=== PATIENT | male | born 1965 | race Caucasian/White ===

== ENCOUNTER 2016-10-02 16:09 | Inpatient (IN) | payer MEDICARE, OTHER ==
[~2016-10-02] VITALS: Ht 175.3 cm; Wt 70.8 kg
[2016-10-02 16:10] VITALS: BP 140/87; PULSE 62; RESP 20; TEMP 97.8; O2SAT 100
--- NOTE | 2016-10-02 16:37 | PD ---
Physical Exam Date Seen by Provider: Oct 02, 2016 Time Seen by Provider: 16:34 Narrative 50 year old male with PMH of schizoaffective d/o, bipolar d/o, intellectual disability presents to the emergency department from [facility] for increased aggression. The police were called 6 times today regarding his aggressive behavior. He presents with an employee from [employer]. Vital signs reviewed. Patient awaiting bed placement. Data Data Last Documented VS Vital Signs Date Time Temp Pulse Resp B/P Pulse Ox O2 Delivery O2 Flow Rate FiO2 10/02/16 16:10 97.8 62 20 140/87 100 Room Air [facility] Supervised Visit with ROWAN: Qian Thornton Oct 02, 2016 16:37
--- NOTE | 2016-10-02 19:56 | PD ---
HPI . Aggressive behavior Chief Complaint: Psychiatric Symptoms Time Seen by Provider: 19:25 Travel History International Travel<30 days: No Contact w/Intl Traveler<30days: No Traveled to known affect area: No History of Present Illness HPI 50 year old male with PMH of schizoaffective d/o, bipolar d/o, intellectual disability presents to the emergency department from [facility] for increased aggression. The police were called 6 times today regarding his aggressive behavior. He presents with an employee from [employer]. [id number]: Mental SEVERITY: Severe DURATION: Today TIMING: Continuous CONTEXT: Patient [facility] in a penit[facility]iary. He has a history of schizoaffective disorder and bipolar disorder. ASSOCIATED SYMPTOMS: Violence towards others PFSH Social History Tobacco Use: No Allergies-Medications (Allergen,Severity, Reaction): Coded Allergies: No Known Allergies (Unverified , 10/02/16) Reported Meds & Prescriptions Reported Meds & Active Scripts Active Trazodone (Trazodone HCl) 150 Mg Tab 150 Mg PO HS Risperidone 3 Mg Tab 6 Mg PO DAILY Vitamin D (Ergocalciferol) 50,000 Unit Cap 50,000 Units PO Q7D Hydrochlorothiazide 25 Mg Tab 25 Mg PO DAILY Lotrisone Topical (Betamethasone/Clotrimazole) 1-0.05% Cream 1 Applic TOPICAL DAILY Zyrtec Allergy (Cetirizine HCl) 10 Mg Tab 10 Mg PO DAILY Amlodipine (Amlodipine Besylate) 5 Mg Tab 5 Mg PO DAILY Review of Systems ROS Limitations: Psychotic Except as stated in HPI: all other systems reviewed are Neg Physical Exam Narrative GENERAL: The patient is speaking but is making absolutely no sense. SKIN: Warm and dry. HEAD: Atraumatic. Normocephalic. EYES: Pupils equal and round. Extraocular movements are intact. ENT: No nasal bleeding or discharge. Mucous membranes pink and moist. NECK: Trachea midline. Neck is supple. CARDIOVASCULAR: Regular rate and rhythm. Heart sounds are normal. RESPIRATORY: No accessory muscle use. Lungs are clear with full air movement throughout. MUSCULOSKELETAL: No obvious deformities. No edema. NEUROLOGICAL: Awake and alert. No obvious cranial nerve deficits. Motor grossly within normal limits. Incomprehensible speech. PSYCHIATRIC: psychotic and poor judgment. Data Data Last Documented VS Vital Signs Date Time Temp Pulse Resp B/P Pulse Ox O2 Delivery O2 Flow Rate FiO2 10/03/16 11:29 98.0 68 20 111/83 98 10/03/16 06:28 Room Air Orders Complete Blood Count With Diff (10/02/16 19:25) Comprehensive Metabolic Panel (10/02/16 19:25) Psych Screen (10/02/16 19:25) Drug Screen, Random Urine (10/02/16 19:25) ^ Sitter (10/02/16 19:41) Potassium Chloride (Kcl) (10/02/16 21:00) Diet Regular Basic (10/03/16 Breakfast) Amlodipine (Norvasc) (10/03/16 10:30) Hydrochlorothiazide (Hydrodiuril) (10/03/16 10:30) Risperidone (Risperdal) (10/03/16 10:30) Diet Regular Basic (10/03/16 Lunch) Haloperidol Inj (Haldol Inj) (10/03/16 12:45) Diphenhydramine Inj (Benadryl Inj) (10/03/16 12:45) Admit Order (Ed Use Only) (10/03/16 ) Admit To Inpatient Psych (10/03/16 ) Code Status (10/03/16 14:20) Vital Signs (Adult) MARY.Q12H.E (10/03/16 14:20) Activity Oob Ad Ju (10/03/16 14:20) Level Of Observation (Psych) (10/03/16 14:20) Aims-Abnormal Invol Move Scale ONCE (10/03/16 14:20) Acetaminophen (Tylenol) (10/03/16 14:30) Magnesium Hydroxide Liq (Milk Of Magnesi (10/03/16 14:30) Al-Mag Hy-Si 40-40-4 Mg/Ml Liq (Mag-Al P (10/03/16 14:30) Basic Metabolic Panel (Bmp) (10/04/16 06:00) Lipid Profile (10/04/16 06:00) Hemoglobin (Hgb) A1c (10/04/16 06:00) Consult Hospitalist (10/03/16 ) Labs Laboratory Tests Test 10/02/16 10/02/16 20:10 20:15 White Blood Count 9.2 TH/MM3 Red Blood Count 4.84 MIL/MM3 Hemoglobin 14.6 GM/DL Hematocrit 42.6 % Mean Corpuscular Volume 88.1 FL Mean Corpuscular Hemoglobin 30.1 PG Mean Corpuscular Hemoglobin 34.2 % Concent Red Cell Distribution Width 13.6 % Platelet Count 254 TH/MM3 Mean Platelet Volume 8.1 FL Neutrophils (%) (Auto) 76.0 % Lymphocytes (%) (Auto) 15.4 % Monocytes (%) (Auto) 7.0 % Eosinophils (%) (Auto) 1.0 % Basophils (%) (Auto) 0.6 % Neutrophils # (Auto) 7.0 TH/MM3 Lymphocytes # (Auto) 1.4 TH/MM3 Monocytes # (Auto) 0.6 TH/MM3 Eosinophils # (Auto) 0.1 TH/MM3 Basophils # (Auto) 0.1 TH/MM3 CBC Comment DIFF FINAL Differential Comment Sodium Level 126 MEQ/L Potassium Level 3.2 MEQ/L Chloride Level 82 MEQ/L Carbon Dioxide Level 33.9 MEQ/L Anion Gap 10 MEQ/L Blood Urea Nitrogen 8 MG/DL Creatinine 1.08 MG/DL Estimat Glomerular Filtration 72 ML/MIN Rate Random Glucose 77 MG/DL Calcium Level 9.4 MG/DL Total Bilirubin 0.6 MG/DL Aspartate Amino Transf 32 U/L (AST/SGOT) Alanine Aminotransferase 22 U/L (ALT/SGPT) Alkaline Phosphatase 75 U/L Total Protein 8.3 GM/DL Albumin 4.8 GM/DL Magnesium Level 2.5 MG/DL Urine Opiates Screen NEG Urine Barbiturates Screen NEG Urine Amphetamines Screen NEG Urine Benzodiazepines Screen NEG Urine Cocaine Screen NEG Urine Cannabinoids Screen NEG MDM Medical Decision Making Medical Screen Exam Complete: Yes Emergency Medical Condition: Yes Differential Diagnosis Differential diagnosis includes but is not limited to acute psychosis, intoxication, behavioral disturbance Narrative Course Patient is brought to us ambulatory from the pen[facility]iary resident behavior. The police called 6 times today because of his aggressive behavior. She reports that he is threatening staff and was threatening other residents of the penitentiary. CBC & BMP Diagram 10/02/16 20:10 Tox screen is negative. Diagnosis Primary Impression: Psychosis Qualified Code: F25.9 - Schizoaffective disorder, unspecified type Scripts Trazodone 150 Mg [id number] Mg PO HS #30 TAB Ref 0 Prov:Ingrid Posadas MD 10/02/16 Risperidone 3 Mg Tab6 Mg PO DAILY #30 TAB Ref 0 Prov:Ingrid Posadas MD 10/02/16 Ergocalciferol (Vitamin D)50,000 Unit Cap50,000 Units PO Q7D #30 CAP Ref 0 Prov:Ingrid Posadas MD 10/02/16 Hydrochlorothiazide 25 Mg Tab25 Mg PO DAILY #30 TAB Ref 0 Prov:Ingrid Posadas MD 10/02/16 Betamethasone-Clotrimazole Topical (Lotrisone Topical)1-0.05% Cream1 Applic TOPICAL DAILY #15 GM Ref 0 Prov:Ingrid Posadas MD 10/02/16 Cetirizine (Zyrtec Allergy)10 Mg Tab10 Mg PO DAILY #30 TAB Ref 0 Prov:Ingrid Posadas MD 10/02/16 Amlodipine 5 Mg Tab5 Mg PO DAILY #30 TAB Ref 0 Prov:Ingrid Posadas MD 10/02/16 Condition: Stable Ingrid Posadas MD Oct 02, 2016 19:56
[2016-10-02 20:38] LABS: BASOPHIL # 0.1 TH/MM3 (0-0.2); BASOPHIL % 0.6 % (0.0-2.0); EOSINOPHIL # 0.1 TH/MM3 (0-0.4); HEMATOCRIT 42.6 % (39.0-51.0); HEMO FLAGS DIFF FINAL; LYMPH % 15.4 % (9.0-44.0); LYMPHOCYTE # 1.4 TH/MM3 (1.0-4.8); MEAN CELL VOLUME 88.1 FL (80.0-100.0); MEAN CORPUSCULAR HEMOGLOBIN 30.1 PG (27.0-34.0); MEAN CORPUSCULAR HGB CONC 34.2 % (32.0-36.0); PLATELET COUNT 254 TH/MM3 (150-450); RED BLOOD COUNT 4.84 MIL/MM3 (4.50-5.90); RED CELL DISTRIBUTION WIDTH 13.6 % (11.6-17.2); WHITE BLOOD COUNT 9.2 TH/MM3 (4.0-11.0)
[2016-10-02 20:45] LABS: AMPHETAMINE, URINE NEG (NEG); BARBITURATES, URINE NEG (NEG); COCAINE, URINE NEG (NEG)
[2016-10-02 20:56] LABS: ALKALINE PHOSPHATASE 75 U/L (45-117); ALT (GPT) 22 U/L (12-78); ANION GAP 10 MEQ/L (5-15); AST (GOT) 32 U/L (15-37); BICARBONATE 33.9 MEQ/L (21.0-32.0); BLOOD UREA NITROGEN 8 MG/DL (7-18); CHLORIDE 82 MEQ/L (98-107); GLOMERULAR FILTRATION RATE 72 ML/MIN (>89); POTASSIUM 3.2 MEQ/L (3.5-5.1); SODIUM (NA) 126 MEQ/L (136-145); TOTAL BILIRUBIN ADULT 0.6 MG/DL (0.2-1.0)
[2016-10-02] MEDS ORDERED: POTASSIUM CHLORIDE 20 MEQ CONTROLLED RELEASE TAB PO ONE (21:00)
[2016-10-02] MEDS ORDERED: RISP3TAB2 PO (21:08)
[2016-10-02] MEDS ORDERED: ERGO1CAP10 PO (21:08)
[2016-10-02] MEDS ORDERED: HYDR25TA5 PO (21:08)
[2016-10-02] MEDS ORDERED: TRAZ150T75 PO (21:08)
[2016-10-02] MEDS ORDERED: ZYRT10TA PO (21:08)
[2016-10-02] MEDS ORDERED: AMLO5TAB2 PO (21:08)
[2016-10-02] MEDS ORDERED: LOTR15T TOPICAL (21:08)
[2016-10-02 22:52] VITALS: BP 136/93; PULSE 60; RESP 18; O2SAT 97
[2016-10-03 02:37] VITALS: BP 121/72; PULSE 54; RESP 18; O2SAT 99
[2016-10-03 06:28] VITALS: BP 140/78; PULSE 48; RESP 18; O2SAT 97
[2016-10-03] MEDS: amLODIPine BESYLATE 5 MG TAB PO SCH (10:30)
[2016-10-03] MEDS ORDERED: HYDROCHLOROTHIAZIDE 25 MG TAB PO SCH (10:30)
[2016-10-03 11:29] VITALS: BP 111/83; PULSE 68; RESP 20; TEMP 98; O2SAT 98
[2016-10-03] MEDS: risperiDONE 3 MG TAB PO SCH (12:40)
[2016-10-03] MEDS ORDERED: diphenhydrAMINE HCL 50 MG/ML VIAL IM PRN (12:45)
[2016-10-03] MEDS ORDERED: HALOPERIDOL LACTATE 5 MG/ML AMP IM ONE (12:45)
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
[2016-10-03] MEDS ORDERED: MAGNESIUM HYDROXIDE SUSP 30 ML CUP PO PRN (14:30)
[2016-10-03] MEDS ORDERED: ALUMINUM/MAGNESIUM/SIMETH 30 ML CUP PO PRN (14:30)
[2016-10-03] MEDS ORDERED: ACETAMINOPHEN 325 MG TAB PO PRN (14:30)
--- NOTE | 2016-10-03 15:11 | PD.CONS ---
HPI Service [facility] Hospitalists Consult Requested By Psychiatry Reason for Consult Hypokalemia and hyponatremia Primary Care Physician Non-Staff Diagnoses: History of Present Illness This is a 50-year-old male with history of hypertension and allergies presenting to the hospital Zhang acted after being belligerent in his facility. Patient is a very poor story in, schizophrenic. Not psychotic at this point but very poor historian. He denies any chest pain, shortness of breath, nausea , vomiting or dizziness. Oral intake allegedly is normal. No diarrhea. Review of Systems ROS Limitations: Poor Historian Past Family Social History Allergies: Coded Allergies: No Known Allergies (Unverified , 10/02/16) Past Medical History Hypertension No history of diabetes or heart problems Past Surgical History No known surgery Reported Medications Trazodone (Trazodone HCl) 150 Mg Tab 150 Mg PO HS Risperidone 3 Mg Tab 6 Mg PO DAILY Vitamin D (Ergocalciferol) 50,000 Unit Cap 50,000 Units PO Q7D Hydrochlorothiazide 25 Mg Tab 25 Mg PO DAILY Lotrisone Topical (Betamethasone/Clotrimazole) 1-0.05% Cream 1 Applic TOPICAL DAILY Zyrtec Allergy (Cetirizine HCl) 10 Mg Tab 10 Mg PO DAILY Amlodipine (Amlodipine Besylate) 5 Mg Tab 5 Mg PO DAILY Family History Allegedly no history of diabetes or heart problems Social History Smokes about 1 cigarette a day, and does not drink alcohol. Physical Exam Vital Signs Vital Signs Date Time Temp Pulse Resp B/P Pulse Ox O2 Delivery O2 Flow Rate FiO2 10/03/16 11:29 98.0 68 20 111/83 98 10/03/16 06:28 48 18 140/78 97 Room Air 10/03/16 02:37 54 18 121/72 99 10/02/16 22:52 60 18 136/93 97 10/02/16 16:10 97.8 62 20 140/87 100 Room Air Physical Exam Not in distress, unkempt, cachectic. PERRL, pink conjunctiva without injection, anicteric Nose without bleeding, airway patent, poor dentition, dry oral mucosa. Supple neck, trachea is midline. Normal rate and regular rhythm, no murmurs gallops or rubs appreciated. Decreased breath sounds bilaterally, no wheezing or crackles. Normal bowel sounds, soft, non-tender, nondistended, no guarding. Extremities without clubbing, cyanosis, or edema. Alert, awake, oriented to self and place but not to time, moves extremities. No focal deficits. Laboratory Laboratory Tests Test 10/02/16 10/02/16 20:10 20:15 White Blood Count 9.2 Red Blood Count 4.84 Hemoglobin 14.6 Hematocrit 42.6 Mean Corpuscular Volume 88.1 Mean Corpuscular Hemoglobin 30.1 Mean Corpuscular Hemoglobin 34.2 Concent Red Cell Distribution Width 13.6 Platelet Count 254 Mean Platelet Volume 8.1 Neutrophils (%) (Auto) 76.0 Lymphocytes (%) (Auto) 15.4 Monocytes (%) (Auto) 7.0 Eosinophils (%) (Auto) 1.0 Basophils (%) (Auto) 0.6 Neutrophils # (Auto) 7.0 Lymphocytes # (Auto) 1.4 Monocytes # (Auto) 0.6 Eosinophils # (Auto) 0.1 Basophils # (Auto) 0.1 CBC Comment DIFF FINAL Differential Comment Sodium Level 126 Potassium Level 3.2 Chloride Level 82 Carbon Dioxide Level 33.9 Anion Gap 10 Blood Urea Nitrogen 8 Creatinine 1.08 Estimat Glomerular Filtration 72 Rate Random Glucose 77 Calcium Level 9.4 Total Bilirubin 0.6 Aspartate Amino Transf 32 (AST/SGOT) Alanine Aminotransferase 22 (ALT/SGPT) Alkaline Phosphatase 75 Total Protein 8.3 Albumin 4.8 Urine Opiates Screen NEG Urine Barbiturates Screen NEG Urine Amphetamines Screen NEG Urine Benzodiazepines Screen NEG Urine Cocaine Screen NEG Urine Cannabinoids Screen NEG Result Diagram: 10/02/16200910/02/162009 Assessment and Plan Assessment and Plan This is a 50-year-old male with history of hypertension admitted at the psychiatry unit for schizophrenia and Zhang acted Hypertension-restart Norvasc, hold hydrochlorothiazide because of hyponatremia. Clonidine as needed Hyponatremia as above, hold hydrochlorothiazide, recheck BMP tomorrow. Patient also appears very dehydrated. Encourage oral intake. Hypokalemia-likely secondary to poor oral intake, replace, check magnesium, recheck BMP tomorrow DVT prophylaxis: Low risk, ambulating. Will obtain records including past medical history and surgical history from the facility. Vinita Angel MD Oct 03, 2016 15:11
[2016-10-03] MEDS ORDERED: POTASSIUM CHLORIDE 10 MEQ CONTROLLED RELEASE TAB PO ONE (15:15)
[2016-10-03] MEDS ORDERED: cloNIDine HCL 0.1 MG TAB PO PRN (15:15)
[2016-10-03] MEDS ORDERED: LORazepam 2 MG/ML VIAL ONE (15:49)
[2016-10-03 15:56] VITALS: BP 132/85; PULSE 73; RESP 18; TEMP 97.5; O2SAT 97
[2016-10-03] MEDS ORDERED: LORazepam 2 MG/ML VIAL IM SCH (16:00)
[2016-10-03] MEDS ORDERED: HALOPERIDOL LACTATE 5 MG/ML AMP IM SCH (16:00)
[2016-10-03 20:19] VITALS: BP 130/80; PULSE 75; RESP 16; TEMP 97.4; O2SAT 96
[2016-10-04 06:22] VITALS: BP 124/81; PULSE 71; RESP 16; TEMP 98; O2SAT 97
[2016-10-04] MEDS: risperiDONE 3 MG TAB PO SCH (08:09)
[2016-10-04] MEDS: amLODIPine BESYLATE 5 MG TAB PO SCH (08:09)
[2016-10-04 09:04] LABS: ANION GAP 9 MEQ/L (5-15); BICARBONATE 28.2 MEQ/L (21.0-32.0); BLOOD UREA NITROGEN 8 MG/DL (7-18); CHLORIDE 93 MEQ/L (98-107); GLOMERULAR FILTRATION RATE 51 ML/MIN (>89); HDL CHOLESTEROL 67.1 MG/DL (40.0-60.0); LDL CHOLESTEROL 131 MG/DL (0-99); MAGNESIUM 2.2 MG/DL (1.5-2.5); SODIUM (NA) 130 MEQ/L (136-145)
[2016-10-04 11:07] LABS: HEMOGLOBIN A1a 0.8 %; HEMOGLOBIN A1b 1.7 %; HEMOGLOBIN Ao 85.6 %; HEMOGLOBIN LA1C 2.1 %; HEMOGLOBIN P3 3.6 %
[2016-10-04 15:36] VITALS: BP 115/62; PULSE 100; RESP 18; TEMP 97; O2SAT 100
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
[2016-10-05 05:30] VITALS: BP 137/85; PULSE 71; RESP 18; TEMP 97.7; O2SAT 97
[2016-10-05] MEDS: amLODIPine BESYLATE 5 MG TAB PO SCH (09:00)
[2016-10-05] MEDS: risperiDONE 3 MG TAB PO SCH (09:00)
--- NOTE | 2016-10-05 10:04 | PD.CONS ---
Provisional Diagnosis Admission Date Oct 03, 2016 at 14:26 [place] I. 1. Schizoaffective disorder, other type Rule out behavioral disturbance in the setting of patient's intellectual disability [place] II. 1. Intellectual disability, severity unclear [place] V. GAF is 40 presently History of Present Illness Service Psychiatry Consult Requested By Dr. Montero Reason for Consult Second opinion Primary Care Physician Non-Staff HPI From Dr. Montero's H&P: The patient is a 50-year-old man domiciled in [facility] living facility, single, unemployed, with psychiatric history of schizoaffective disorder, intellectual disability, 2 previous psychiatric hospitalizations, he is on Risperdal 6 mg daily for behavioral control, he denies previous suicidal attempts, he denies medical history, he was brought to the hospital under Zhang act due to aggressive behavior in his facility. On psychiatric evaluation today patient is poorly cooperative, he is very poor historian, not giving a lot of information for the psychiatric assessment, he says that he lives with his family in [place] and he would love to go back with them. Patient doesn't know the reason his in the hospital, he is unable to articulate or elaborate about the circumstances that led to Zhang act. Patient history very limited and concrete. However, he denies depressive symptoms, he denies anxiety, he denies perceptual disturbances, he denies suicidal and homicidal ideation though he denies visual and auditory hallucinations. Yesterday after his arrival to the unit he became very restless, verbally hostile, he was pacing around, screaming very loud, he was unable to be the escalated verbally and had to be medicated with 5 mg of Haldol and 2 mg of Ativan IM. Today he seems to be calmer, no agitation or aggressive behavior observed. Patient denies the use of illicit drugs, reports daily use of alcohol, 2 to 6 beers per day. On my examination today: Patient seen and examined. Please note this document serves also has my progress note for the day as I am assuming care of the patient. Chart reviewed. I have also reviewed the documentation accompanying the patient from his assisted living facility, [facility]. Case discussed with nursing staff. On my examination today, the patient presents as somewhat fidgety. He is bouncing from 1 foot to the other and pacing around in the short hallway on the high acuity unit. He tells me that he came into the hospital because "I was [place] acted by someone at the adult care facility," although in fact the patient presented voluntarily and was Zhang Acted by the ED physician. He has no recollection of any sort of aggressive behaviors, although he was noted to be aggressive in the J-Pod requiring ETOs. He denies any AVH, and I can elicit no delusional material. Denies any issues with mood and denies any suicidal or homicidal ideation. Does admit to some feelings of anxiety. Presents as intellectually disabled. Remainder of the psychiatric ROS is negative. Past psychiatric history: The patient is likely a poor historian. He is unable to tell me where he gets his outpatient psychiatric care. He says that he was admitted most recently 6 months ago in [facility] and denies any history of suicide attempts. I do note that the patient's address prior to admission to [facility] was listed as [facility]. Family history: Patient denies any family history of mental illness. Chemical dependency history: Patient denies any abuse of drugs or alcohol. His urine toxicology is negative. Social history: Patient reports that he has an eighth grade education. He is single with no children. He denies any or legal history. Review of Systems ROS Limitations: Poor Historian Except as stated in HPI: all other systems reviewed are Neg Past Family Social History Coded Allergies: No Known Allergies (Unverified , 10/02/16) Past Medical History See electronic medical record Active Scripts Trazodone 150 Mg [id number] Mg PO HS #30 TAB Ref 0 Prov:Ingrid Posadas MD 10/02/16 Risperidone 3 Mg Tab6 Mg PO DAILY #30 TAB Ref 0 Prov:Ingrid Posadas MD 10/02/16 Ergocalciferol (Vitamin D)50,000 Unit Cap50,000 Units PO Q7D #30 CAP Ref 0 Prov:Ingrid Posadas MD 10/02/16 Hydrochlorothiazide 25 Mg Tab25 Mg PO DAILY #30 TAB Ref 0 Prov:Ingrid Posadas MD 10/02/16 Betamethasone-Clotrimazole Topical (Lotrisone Topical)1-0.05% Cream1 Applic TOPICAL DAILY #15 GM Ref 0 Prov:Ingrid Posadas MD 10/02/16 Cetirizine (Zyrtec Allergy)10 Mg Tab10 Mg PO DAILY #30 TAB Ref 0 Prov:Ingrid Posadas MD 10/02/16 Amlodipine 5 Mg Tab5 Mg PO DAILY #30 TAB Ref 0 Prov:Ingrid Posadas MD 10/02/16 Current Medications Medications (Trade) Dose Ordered Sig/Eva Route Start Time Stop Time Status Last Admin (Norvasc) 5 mg DAILY PO 10/03/16 10:30 10/05/16 09:00 (risperDAL) 6 mg DAILY PO 10/03/16 10:30 10/05/16 09:00 (Benadryl Inj) 50 mg Q6H PRN IM 10/03/16 12:45 10/03/16 13:02 (Tylenol) 650 mg Q4H PRN PO 10/03/16 14:30 (Milk Of Magnesia Liq) 30 ml DAILY PRN PO 10/03/16 14:30 (Mag-Al Plus Susp Liq) 30 ml Q6H PRN PO 10/03/16 14:30 (Catapres) 0.1 mg Q6H PRN PO 10/03/16 15:15 Family History See above Social History See above Patient's Strengths (min. 2) In a monitored setting. Verbally fluent. Physical Exam Physical examination completed by hospitalist managed services consultant. On my examination today, patient appears to be well-nourished and well-developed and in no acute physical distress. Besides the fidgetiness, no motor abnormalities noted. No hand tremor, no dystonia, no dyskinesias noted. Labs and vital signs reviewed: Vital Signs Vital Signs Date Time Temp Pulse Resp B/P Pulse Ox O2 Delivery O2 Flow Rate FiO2 10/05/16 05:30 97.7 71 18 137/85 97 10/03/16 06:28 Room Air Lab Results Item Value Date Time White Blood Count 9.2 TH/MM3 10/02/162009 Hemoglobin 14.6 GM/DL 10/02/162009 Platelet Count 254 TH/MM3 10/02/162009 Sodium Level 130 MEQ/L L 10/04/16814 Potassium Level 4.0 MEQ/L # 10/04/16 08 Chloride Level 93 MEQ/L L # 10/04/16 0815 Carbon Dioxide Level 28.2 MEQ/L 10/04/16 0815 Blood Urea Nitrogen 8 MG/DL 10/04/16814 Creatinine 1.45 MG/DL H 10/04/16814 Estimat Glomerular Filtration Rate 51 ML/MIN L 10/04/16 0815 Hemoglobin A1c 5.6 % 10/04/16814 Aspartate Amino Transf (AST/SGOT) 32 U/L 10/02/162009 Alanine Aminotransferase (ALT/SGPT) 22 U/L 10/02/162009 Alkaline Phosphatase 75 U/L 10/02/162009 Mental Status Examination Patient is in hospital gown. He is fairly well groomed and maintaining basic hygiene. He is awake and alert and oriented to person. No evidence of delirium. Motor exam as above. Speech is somewhat rambling at times but otherwise within normal limits for rate, tone and volume. Language and fund of knowledge seem reduced for age. Memory is possibly somewhat confabulated. Mood is fair and affect is childlike. Thought process fairly linear. No loosening of associations. No jamar delusions. Denies audiovisual hallucinations. Denies suicidal or homicidal ideation but patient is likely unreliable to contract for safety. Insight and judgment are likely poor. Assessment & Plan Problem List: (1) Schizoaffective disorder ICD Code: F25.9 (2) Intellectual disability ICD Code: F79 (3) Akathisia Assessment & Plan: Possible ICD Code: G25.71 Assessment & Plan Given the circumstances of the patient's presentation here and his presentation on my examination today, I concur with Dr. Alejo that the patient meets criteria for involuntary psychiatric hospitalization under the Zhang act. I have completed the second opinion paperwork. I will be assuming primary care of this patient. Patient presents as fairly fidgety and describes some anxiety but little in the way of psychiatric symptoms otherwise. He does present as intellectually disabled. I wonder if some degree of akathisia might not explain patient's motor exam and aggression; the patient is on a robust dose of Risperdal, given all at once in the morning. I will try to add Inderal 10mg TID with blood pressure parameters to try to ameliorate this issue in place of amlodipine. I will add trazodone 150mg as ordered at facility for sleep. Add Haldol PRN agitation, Ativan PRN anxiety, Cogentin PRN EPS. Hospitalist managed services consultant input noted and appreciated. Interval worsening in patient's GFR. Check a BMP in the morning as well as a urinalysis. Continue to monitor on the high acuity unit. Continue other medications and care as ordered. Discharge Planning Return to facility once stabilized. I have asked the counselor to reach out to patient's facility to ensure that he is welcome back. Patient requires psychiatric hospitalization at this time for medication changes, complicating conditions and high risk for decompensation in a less restrictive environment at this time. Problem Qualifiers (1) Schizoaffective disorder: Qualified Code: F25.0 - Schizoaffective disorder, bipolar type Larry Valdivia MD Oct 05, 2016 10:03
[2016-10-05] MEDS ORDERED: HALOPERIDOL LACTATE 5 MG/ML AMP IM PRN (14:15)
[2016-10-05] MEDS ORDERED: LORazepam 2 MG/ML VIAL IM PRN (14:15)
[2016-10-05] MEDS ORDERED: BENZTROPINE MESYLATE 2 MG/2 ML VIAL IM PRN (14:15)
[2016-10-05] MEDS ORDERED: BENZTROPINE MESYLATE 1 MG TAB PO PRN (14:15)
--- NOTE | 2016-10-05 15:57 | HHI.PR ---
Subjective Remarks Follow-up for hypertension Blood pressure is good, no nausea or vomiting, denies any chest pain or shortness of breath. Objective Vitals Vital Signs Date Time Temp Pulse Resp B/P Pulse Ox O2 Delivery O2 Flow Rate FiO2 10/05/16 05:30 97.7 71 18 137/85 97 Result Diagram: 10/02/16200910/04/16 0815 Objective Remarks Not in distress, unkempt, cachectic. PERRL, pink conjunctiva without injection, anicteric Nose without bleeding, airway patent, poor dentition, dry oral mucosa. Supple neck, trachea is midline. Normal rate and regular rhythm, no murmurs gallops or rubs appreciated. Decreased breath sounds bilaterally, no wheezing or crackles. Normal bowel sounds, soft, non-tender, nondistended, no guarding. Extremities without clubbing, cyanosis, or edema. Alert, awake, oriented to self and place but not to time, moves extremities. No focal deficits. A/P Assessment and Plan This is a 50-year-old male with history of hypertension admitted at the psychiatry unit for schizophrenia and Zhang acted Hypertension- continue Norvasc, hold hydrochlorothiazide because of hyponatremia. Clonidine as needed Hyponatremia-continue to hold hydrochlorothiazide, recheck BMP tomorrow. Encourage oral intake. Discussed with RN Dehydration-encourage oral intake as above, recheck BMP tomorrow. Hypokalemia-likely secondary to poor oral intake, replaced DVT prophylaxis: Low risk, ambulating. Vinita Angel MD Oct 05, 2016 15:57
[2016-10-05 16:37] VITALS: BP 132/71; PULSE 80; RESP 18; TEMP 98.7; O2SAT 98
[2016-10-05 17:24] VITALS: BP 132/71; PULSE 88; RESP 18; TEMP 98.7
[2016-10-05 17:30] VITALS: O2SAT 99
[2016-10-05 17:33] LABS: BLOOD, URINE NEG (NEG); GLUCOSE,URINE 70 mg/dL (NEG); KETONE, URINE NEG (NEG); NITRITE,URINE NEG (NEG); URINE COLOR LIGHT-YELLOW (YELLW/STRAW)
[2016-10-05 17:34] LABS: COMMENT (UR) CULT NOT INDICATED; CULTURE IF INDICATED CULT NOT INDICATED
--- NOTE | 2016-10-05 18:04 | EKG ---
Date Performed: 10/05/2016 Time Performed: 16:46:52 PTAGE: 50 years EKG: Sinus rhythm NORMAL ECG NO PREVIOUS TRACING DOCTOR: Anastacio Batista Interpretating Date/Time 10/05/2016 18:02:17
[2016-10-05] MEDS: PROPRANOLOL HCL 10 MG TAB PO SCH (20:38)
[2016-10-05] MEDS: traZODone HCL 50 MG TAB PO SCH (20:38)
[2016-10-06 07:57] LABS: BICARBONATE 32.1 MEQ/L (21.0-32.0); POTASSIUM 4.4 MEQ/L (3.5-5.1)
[2016-10-06] MEDS: risperiDONE 3 MG TAB PO SCH (08:23)
[2016-10-06] MEDS: PROPRANOLOL HCL 10 MG TAB PO SCH ×4 (08:23→21:00)
--- NOTE | 2016-10-06 12:43 | HHI.PYPN ---
Subjective Remarks Patient seen and examined with nurse. Chart reviewed. Case discussed in treatment team with nurse and counselor. Per nursing staff, the patient has been calm and cooperative. Per counselor, the patient's referring facility has refused to accept him back citing 3 or 4 prior incidences of aggression. On my examination today, the patient is calm and pleasant. He seems significantly less fidgety after starting the Inderal. He is fairly childlike. Denies any AVH. No SI or HI. Denies side effects from medications except that he subjectively feels a little bit stiff. Review of Systems ROS Limitations: Poor Historian Except as stated in HPI: all other systems reviewed are Neg Objective Alert: Yes [place]: Person Mood: Calm Affect: Blunted (childlike) Memory Intact: Comment (not formally assessed) Hallucinations: Other (no AVH) Delusions: No Delusion Type: Other (no delusions noted) Suicidal: Ideation (no suicidal ideation) Homicidal: Ideation (no homicidal ideation) Insight/Judgment Poor Remarks No visible hand tremor. Perhaps some very mild cogwheeling. No dystonias or dyskinesias noted. No other motoric abnormalities noted. Grooming and hygiene fair. Speech somewhat soft. Labs Test 10/06/16 06:21 Sodium Level 134 MEQ/L Potassium Level 4.4 MEQ/L Chloride Level 97 MEQ/L Carbon Dioxide Level 32.1 MEQ/L Anion Gap 5 MEQ/L Blood Urea Nitrogen 11 MG/DL Creatinine 0.88 MG/DL Estimat Glomerular Filtration 91 ML/MIN Rate Random Glucose 90 MG/DL Calcium Level 8.6 MG/DL Vitals/IOs Vital Signs Date Time Temp Pulse Resp B/P Pulse Ox O2 Delivery O2 Flow Rate FiO2 10/05/16 17:30 99 10/05/16 17:24 98.7 88 18 132/71 10/03/16 06:28 Room Air Intake and Output 10/05/16 10/05/16 10/06/16 08:00 16:00 00:00 Intake Total 3000 ml Balance 3000 ml Assessment & Plan Problem List: (1) Schizoaffective disorder ICD Code: F25.9 (2) Intellectual disability ICD Code: F79 (3) Akathisia Assessment & Plan: Improved with Inderal ICD Code: G25.71 (4) Cog-wheel rigidity Assessment & Plan: mild ICD Code: R29.898 Assessment & Plan I will add a small dose of scheduled Cogentin for possible EPS. Continue Inderal for akathisia. Continue Risperdal as ordered. We might alternatively consider switching to an antipsychotic with less liability for the side effects , but it is much is the patient's psychosis appears to be under fair control at present, I think it is reasonable to continue with his current agent for now. Hospitalist consult input noted and appreciated. Continue to monitor on the inpatient psychiatric unit. Continue other medications and care as ordered. Justification for Cont. Inpt. Complicating conditions, antipsychotic side effects. High risk for decompensation in a less restrictive environment. Discharge Planning If patient's facility refuses to accept him back, he will likely require placement. Request HC Surrog/Guard Advoc?: Yes Problem Qualifiers (1) Schizoaffective disorder: Qualified Code: F25.0 - Schizoaffective disorder, bipolar type Larry Valdivia MD Oct 06, 2016 12:43
[2016-10-06] MEDS ORDERED: PILL SPLITTER OTHER PRN (16:00)
[2016-10-06 18:03] VITALS: BP 126/87; PULSE 57; RESP 18; TEMP 97; O2SAT 97
[2016-10-06] MEDS: BENZTROPINE MESYLATE 1 MG TAB PO SCH (20:58)
[2016-10-06] MEDS: traZODone HCL 50 MG TAB PO SCH (20:59)
[2016-10-07 05:54] VITALS: BP 134/79; PULSE 80; RESP 18; TEMP 98.3; O2SAT 96
[2016-10-07] MEDS: BENZTROPINE MESYLATE 1 MG TAB PO SCH ×2 (08:46→20:29)
[2016-10-07] MEDS: risperiDONE 3 MG TAB PO SCH (08:46)
[2016-10-07] MEDS: PROPRANOLOL HCL 10 MG TAB PO SCH ×3 (08:46→20:27)
--- NOTE | 2016-10-07 11:14 | HHI.PYPN ---
Subjective Remarks Patient seen and examined with counselor. Chart reviewed. Case discussed with nursing staff. No behavioral issues reported. On my examination today, patient is calm and pleasant. No psychotic symptoms in evidence. He thinks that he might be able to go stay with his cousin who lives in [place], although it is unclear how he came by this information as he has no way of contacting the cousin he says. Reported stiffness from yesterday is improved with Cogentin. Denies other side effects from medications. Review of Systems ROS Limitations: Poor Historian Except as stated in HPI: all other systems reviewed are Neg Objective Alert: Yes [place]: Person Mood: Calm Affect: Other (childlike) Memory Intact: Comment (not formally assessed) Hallucinations: Other (none) Delusions: No Delusion Type: Other (no delusions) Suicidal: Ideation (no SI) Homicidal: Ideation (no HI) Insight/Judgment Poor Remarks No motoric abnormalities noted. I can appreciate no cogwheeling on exam today. Thought process fairly linear. Grooming and hygiene fair. Labs Labs reviewed. Vitals/IOs Vital Signs Date Time Temp Pulse Resp B/P Pulse Ox O2 Delivery O2 Flow Rate FiO2 10/07/16 05:54 98.3 80 18 134/79 96 Intake and Output 10/06/16 10/06/16 10/07/16 08:00 16:00 00:00 Intake Total 720 ml Balance 720 ml Assessment & Plan Problem List: (1) Schizoaffective disorder ICD Code: F25.9 (2) Intellectual disability ICD Code: F79 (3) Akathisia Assessment & Plan: Resolved ICD Code: G25.71 (4) Cog-wheel rigidity Assessment & Plan: Resolved ICD Code: R29.898 Assessment & Plan Continue Risperdal as ordered with Inderal for akathisia and Cogentin for mild EPS. We could consider transitioning the patient to a long-acting injectable antipsychotic. Continue to monitor on the inpatient psychiatric unit. Continue other medications and care as ordered. Justification for Cont. Inpt. High risk for decompensation in a less restrictive environment. Discharge Planning Patient requires new placement. Case discussed with counselor who will begin exploring placement options presently. Request HC Surrog/Guard Advoc?: Yes Problem Qualifiers (1) Schizoaffective disorder: Qualified Code: F25.0 - Schizoaffective disorder, bipolar type Larry Valdivia MD Oct 07, 2016 11:14
[2016-10-07] MEDS: traZODone HCL 50 MG TAB PO SCH (20:27)
[2016-10-08 06:12] VITALS: BP 133/85; PULSE 61; RESP 18; TEMP 97.3; O2SAT 96
[2016-10-08] MEDS: BENZTROPINE MESYLATE 1 MG TAB PO SCH ×2 (09:17→21:18)
[2016-10-08] MEDS: risperiDONE 3 MG TAB PO SCH (09:17)
[2016-10-08] MEDS: PROPRANOLOL HCL 10 MG TAB PO SCH ×3 (09:17→21:19)
--- NOTE | 2016-10-08 10:38 | HHI.PYPN ---
Subjective Remarks Patient seen and case discussed with nursing staff, who reports patient has been no behavioral problem. Chart reviewed. For me today, patient is calm and pleasant. Thought processes somewhat disorganized, and the patient rambles about, "a boy there who was holding medical evidence." Possibly some paranoia as the patient alludes to "lots of witnesses in the place." No evident ongoing side effects from medications. Review of Systems ROS Limitations: Poor Historian Except as stated in HPI: all other systems reviewed are Neg Objective Alert: Yes [place]: Person Mood: Calm Affect: Blunted (childlike) Memory Intact: Comment (not formally assessed) Hallucinations: Other (No AVH) Delusions: Yes Delusion Type: Paranoid (mild, as above) Suicidal: Ideation (no SI) Homicidal: Ideation (no HI) Insight/Judgment poor Remarks No abnormal motor movements noted. Thought process somewhat disorganized. Grooming and hygiene fair. Labs Labs reviewed. Vitals/IOs Vital Signs Date Time Temp Pulse Resp B/P Pulse Ox O2 Delivery O2 Flow Rate FiO2 10/08/16 06:12 97.3 61 18 133/85 96 Intake and Output 10/07/16 10/07/16 10/08/16 08:00 16:00 00:00 Intake Total 720 ml Balance 720 ml Assessment & Plan Problem List: (1) Schizoaffective disorder ICD Code: F25.9 (2) Intellectual disability ICD Code: F79 Assessment & Plan I have removed akathisia and cogwheeling as active problems as these were resolved with the addition of medications to treat the side effects. Patient does exhibit some mild psychotic symptoms today. I will continue his Risperdal as ordered for now, but if these symptoms continue or worsen we could consider augmenting or perhaps cross tapering with another antipsychotic, in which case I would choose an agent with lower liability for akathisia and EPS. Continue to monitor on the inpatient psychiatric unit. Continue other medications and care as ordered. Patient's case was presented to the [facility] act court and the patient was retained on the inpatient psychiatric unit by the placing judge. Justification for Cont. Inpt. 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 High risk for decompensation in a less restrictive environment. Discharge Planning Patient requires placement which will likely prove challenging given his history. Conservatively I anticipate the patient will remain in additional 2-3 weeks on the inpatient psychiatric unit. Request HC Surrog/Guard Advoc?: Yes Problem Qualifiers (1) Schizoaffective disorder: Qualified Code: F25.0 - Schizoaffective disorder, bipolar type Larry Valdivia MD Oct 08, 2016 10:38
--- NOTE | 2016-10-08 14:58 | HHI.PR ---
Subjective Remarks Follow-up visit on patient with hypertension, hyponatremia and hypokalemia. Patient seen and examined today. Patient did very poor historian. He denies any complaints at present. Denies any fever/chills, nausea/vomiting, palpitations, dizziness, shortness of breath, chest pain or abdominal pain. Objective Vitals Vital Signs Date Time Temp Pulse Resp B/P Pulse Ox O2 Delivery O2 Flow Rate FiO2 10/08/16 06:12 97.3 61 18 133/85 96 I/O 10/07/16 10/07/16 10/07/16 10/08/16 10/08/16 10/08/16 07:00 15:00 23:00 07:00 15:00 23:00 Intake Total 720 ml Balance 720 ml Intake Oral 720 ml # Voids 1 2 # Bowel Movements 1 Result Diagram: 10/06/16620 Objective Remarks GENERAL: Well-nourished, well-developed patient in NAD. Walking around the common room. Awake and alert. SKIN: Warm and dry. No rash. HEAD: Normocephalic. Atraumatic. EYES: EOMI. CARDIOVASCULAR: Regular rate and rhythm. S1, S2 noted. No murmur appreciated. RESPIRATORY: No accessory muscle use. Clear to auscultation. Decreased breath sounds bilaterally. GASTROINTESTINAL: Abdomen soft, non-tender, nondistended. Normoactive bowel sounds x4. MUSCULOSKELETAL: No obvious deformities. Extremities without clubbing, cyanosis , or edema. Bilateral lower extremity venous insufficiency changes noted. NEUROLOGICAL: Awake and alert. Patient able to move all 4 extremities. No focal neurologic finding. PSYCHIATRIC: Awake and alert. Childlike affect. Medications and IVs Current Medications Medications (Trade) Dose Ordered Sig/Eva Route Start Time Stop Time Status Last Admin (risperDAL) 6 mg DAILY PO 10/03/16 10:30 10/08/16 09:17 (Benadryl Inj) 50 mg Q6H PRN IM 10/03/16 12:45 10/03/16 13:02 (Tylenol) 650 mg Q4H PRN PO 10/03/16 14:30 (Milk Of Magnesia Liq) 30 ml DAILY PRN PO 10/03/16 14:30 (Mag-Al Plus Susp Liq) 30 ml Q6H PRN PO 10/03/16 14:30 (Catapres) 0.1 mg Q6H PRN PO 10/03/16 15:15 (Inderal) 10 mg DAILY@09,13,21 PO 10/05/16 21:00 10/08/16 13:18 (Haldol) 5 mg Q6H PRN PO 10/05/16 14:15 (Haldol Inj) 5 mg Q6H PRN IM 10/05/16 14:15 (Ativan Inj) 1 mg Q6H PRN IM 10/05/16 14:15 (Ativan) 1 mg Q6H PRN PO 10/05/16 14:15 (Cogentin) 1 mg Q12HR PRN PO 10/05/16 14:15 (Cogentin Inj) 1 mg Q12HR PRN IM 10/05/16 14:15 (Desyrel) 150 mg HS PO 10/05/16 21:00 10/07/16 20:27 (Cogentin) 0.5 mg Q12HR PO 10/06/16 21:00 10/08/16 09:17 (Pill Splitter) 1 ea UNSCH PRN OTHER 10/06/16 16:00 A/P Assessment and Plan 50-year-old male with history of hypertension admitted at the psychiatry unit for schizophrenia and [facility] acted. //Schizophrenia Management per psychiatric team //Hypertension BP 133/85 Continue Inderal Clonidine as needed with parameters //Hyponatremia Improving, Na 134 Hydrochlorothiazide on hold Continue to encourage by mouth oral intake. Discussed with RN. recheck BMP //Hypokalemia Likely secondary to poor oral intake Responded well to oral repletion with follow up K 4.4 //DVT prophylaxis Patient is low risk, ambulating Discussed with patient and Carol Lancaster Oct 08, 2016 14:58
[2016-10-08 18:27] VITALS: BP 154/90; PULSE 72; RESP 16; TEMP 97.8
[2016-10-08] MEDS: traZODone HCL 50 MG TAB PO SCH (21:18)
[2016-10-09] MEDS: HALOPERIDOL 5 MG TAB PO PRN (05:36)
[2016-10-09 06:13] VITALS: BP 150/97; PULSE 71; RESP 20; TEMP 97.5; O2SAT 97
[2016-10-09] MEDS: PROPRANOLOL HCL 10 MG TAB PO SCH ×3 (08:14→21:37)
[2016-10-09] MEDS: risperiDONE 3 MG TAB PO SCH (08:14)
[2016-10-09] MEDS: BENZTROPINE MESYLATE 1 MG TAB PO SCH ×2 (08:15→21:37)
[2016-10-09] MEDS: LORazepam 1 MG TAB PO PRN (08:15)
[2016-10-09 11:06] LABS: BICARBONATE 32.2 MEQ/L (21.0-32.0); POTASSIUM 3.9 MEQ/L (3.5-5.1)
[2016-10-09 19:16] VITALS: BP 118/69; PULSE 77; RESP 19; TEMP 99.4; O2SAT 99
[2016-10-09] MEDS: traZODone HCL 50 MG TAB PO SCH (21:36)
[2016-10-10 05:40] VITALS: BP 138/79; PULSE 50; RESP 18; TEMP 97.9; O2SAT 94
[2016-10-10] MEDS: risperiDONE 3 MG TAB PO SCH (09:04)
[2016-10-10] MEDS: PROPRANOLOL HCL 10 MG TAB PO SCH ×3 (09:04→21:06)
[2016-10-10] MEDS: BENZTROPINE MESYLATE 1 MG TAB PO SCH ×2 (09:04→21:06)
--- NOTE | 2016-10-10 10:06 | HHI.PR ---
Subjective Remarks Follow-up visit on patient with hypertension, hyponatremia and hypokalemia. Patient seen and examined today. She is seen ambulating in the hallways drinking from a cup. Discussed with nursing staff. No acute issues overnight. Patient denies any chest pain, shortness of breath or abdominal pain. Objective Vitals Vital Signs Date Time Temp Pulse Resp B/P Pulse Ox O2 Delivery O2 Flow Rate FiO2 10/10/16 05:40 97.9 50 18 138/79 94 10/09/16 19:16 99.4 77 19 118/69 99 I/O 10/09/16 10/09/16 10/09/16 10/10/16 10/10/16 10/10/16 07:00 15:00 23:00 07:00 15:00 23:00 Intake Total 240 ml Balance 240 ml Intake Oral 240 ml # Voids 3 # Bowel Movements 3 2 Result Diagram: 10/09/16 0940 Objective Remarks GENERAL: Well-nourished, well-developed patient in NAD. Walking around the common room. Awake and alert. SKIN: Warm and dry. No rash. HEAD: Normocephalic. Atraumatic. EYES: EOMI. CARDIOVASCULAR: Regular rate and rhythm. S1, S2 noted. No murmur appreciated. RESPIRATORY: No accessory muscle use. Clear to auscultation. Decreased breath sounds bilaterally. GASTROINTESTINAL: Abdomen soft, non-tender, nondistended. Normoactive bowel sounds x4. MUSCULOSKELETAL: No obvious deformities. Extremities without clubbing, cyanosis , or edema. Bilateral lower extremity venous insufficiency changes noted. NEUROLOGICAL: Awake and alert. Patient able to move all 4 extremities. No focal neurologic finding. PSYCHIATRIC: Awake and alert. Childlike affect. Medications and IVs Current Medications Medications (Trade) Dose Ordered Sig/Eva Route Start Time Stop Time Status Last Admin (risperDAL) 6 mg DAILY PO 10/03/16 10:30 10/10/16 09:04 (Benadryl Inj) 50 mg Q6H PRN IM 10/03/16 12:45 10/03/16 13:02 (Tylenol) 650 mg Q4H PRN PO 10/03/16 14:30 (Milk Of Magnesia Liq) 30 ml DAILY PRN PO 10/03/16 14:30 (Mag-Al Plus Susp Liq) 30 ml Q6H PRN PO 10/03/16 14:30 (Catapres) 0.1 mg Q6H PRN PO 10/03/16 15:15 (Inderal) 10 mg DAILY@,,21 PO 10/05/16 21:00 10/10/16 09:04 (Haldol) 5 mg Q6H PRN PO 10/05/16 14:15 10/09/16 05:36 (Haldol Inj) 5 mg Q6H PRN IM 10/05/16 14:15 (Ativan Inj) 1 mg Q6H PRN IM 10/05/16 14:15 (Ativan) 1 mg Q6H PRN PO 10/05/16 14:15 10/09/16 08:15 (Cogentin) 1 mg Q12HR PRN PO 10/05/16 14:15 (Cogentin Inj) 1 mg Q12HR PRN IM 10/05/16 14:15 (Desyrel) 150 mg HS PO 10/05/16 21:00 10/09/16 21:36 (Cogentin) 0.5 mg Q12HR PO 10/06/16 21:00 10/10/16 09:04 (Pill Splitter) 1 ea UNSCH PRN OTHER 10/06/16 16:00 A/P Assessment and Plan 50-year-old male with history of hypertension admitted at the psychiatry unit for schizophrenia and [facility] acted. //Schizophrenia Management per psychiatric team //Hypertension BP 138/79 Continue Inderal Clonidine as needed with parameters //Hyponatremia Improved, stable, Na 133 Hydrochlorothiazide on hold Continue to encourage by mouth oral intake. Discussed with RN //Hypokalemia resolved //DVT prophylaxis Patient is low risk, ambulating Patient is medically stable from hospitalist standpoint. Will sign off. Please reconsult if needed. Discussed with patient, nursing staff and Carol Lancaster Oct 10, 2016 10:06
[2016-10-10] MEDS: LORazepam 1 MG TAB PO PRN ×2 (13:37→19:52)
--- NOTE | 2016-10-10 16:15 | HHI.PYPN ---
Subjective Remarks Patient was seen and case discussed with nursing. Patient is disheveled and responding to internal stimuli. He is talking very softly and difficult to understand. He is seen pacing the hallway and talking to himself. No aggressive behavior. Compliant with medications Objective Alert: Yes [place]: Person Mood: Calm Affect: Flat Memory Intact: Comment (not formally assessed) Hallucinations: Other (would not answer today) Delusions: Yes Delusion Type: Paranoid (mild, as above) Suicidal: Ideation (no SI) Homicidal: Ideation (no HI) Insight/Judgment Poor Vitals/IOs Vital Signs Date Time Temp Pulse Resp B/P Pulse Ox O2 Delivery O2 Flow Rate FiO2 10/10/16 05:40 97.9 50 18 138/79 94 Intake and Output 10/09/16 10/09/16 10/10/16 08:00 16:00 00:00 Intake Total 240 ml Balance 240 ml Assessment & Plan Problem List: (1) Schizoaffective disorder ICD Code: F25.9 (2) Intellectual disability ICD Code: F79 Assessment & Plan Continue current treatment plan Justification for Cont. Inpt. Patient will decompensate in a less restrictive setting Request HC Surrog/Guard Advoc?: Yes Problem Qualifiers (1) Schizoaffective disorder: Qualified Code: F25.0 - Schizoaffective disorder, bipolar type Javier Rose DO Oct 10, 2016 16:15
[2016-10-10 18:14] VITALS: BP 129/96; PULSE 52; RESP 18; TEMP 98.7; O2SAT 96
[2016-10-10] MEDS: HALOPERIDOL 5 MG TAB PO PRN (19:52)
[2016-10-10] MEDS: traZODone HCL 50 MG TAB PO SCH (21:06)
[2016-10-11 05:59] VITALS: BP 146/87; PULSE 100; RESP 17; TEMP 97.2; O2SAT 95
[2016-10-11] MEDS: PROPRANOLOL HCL 10 MG TAB PO SCH ×4 (09:00→21:00)
[2016-10-11] MEDS: BENZTROPINE MESYLATE 1 MG TAB PO SCH ×2 (09:00→20:57)
[2016-10-11] MEDS: risperiDONE 3 MG TAB PO SCH (09:00)
[2016-10-11] MEDS: HALOPERIDOL 5 MG TAB PO PRN (13:15)
[2016-10-11 15:23] VITALS: BP 106/69; PULSE 60; RESP 18; TEMP 97.2; O2SAT 98
--- NOTE | 2016-10-11 15:36 | HHI.PYPN ---
Subjective Remarks Patient was seen and case discussed with nursing. Patient is more easily engaged has better understood today. He is speaking in a louder voice. He is able to hold a conversation and denies positive psychotic symptoms. However he periodically says that his father's in the lobby waiting for him. Largely seclusive to self. Flat affect, disheveled Objective Alert: Yes [place]: Person, Place Mood: Calm Affect: Blunted Memory Intact: Comment (not formally assessed) Hallucinations: Other (would not answer today) Delusions: Yes Delusion Type: Paranoid (mild, as above) Suicidal: Ideation (no SI) Homicidal: Ideation (no HI) Insight/Judgment Poor Vitals/IOs Vital Signs Date Time Temp Pulse Resp B/P Pulse Ox O2 Delivery O2 Flow Rate FiO2 10/11/16 15:23 97.2 60 18 106/69 98 Assessment & Plan Problem List: (1) Schizoaffective disorder ICD Code: F25.9 (2) Intellectual disability ICD Code: F79 Assessment & Plan Continue current treatment plan Justification for Cont. Inpt. Patient will decompensate in a less restrictive setting Request HC Surrog/Guard Advoc?: Yes Problem Qualifiers (1) Schizoaffective disorder: Qualified Code: F25.0 - Schizoaffective disorder, bipolar type Javier Rose DO Oct 11, 2016 15:36
[2016-10-11] MEDS: traZODone HCL 50 MG TAB PO SCH (20:56)
[2016-10-12] MEDS: LORazepam 1 MG TAB PO PRN (02:04)
[2016-10-12 06:20] VITALS: BP 123/68; PULSE 73; RESP 19; TEMP 98.6; O2SAT 98
[2016-10-12] MEDS: BENZTROPINE MESYLATE 1 MG TAB PO SCH ×2 (09:00→21:12)
[2016-10-12] MEDS: risperiDONE 3 MG TAB PO SCH (09:00)
[2016-10-12] MEDS: PROPRANOLOL HCL 10 MG TAB PO SCH ×4 (09:00→21:12)
--- NOTE | 2016-10-12 11:29 | HHI.PYPN ---
Subjective Remarks Patient seen and examined with counselor and nurse. Chart reviewed. Case discussed with nursing staff who reports the patient has been no behavioral problem. On my examination today, the patient is calm and pleasant. He denies any audiovisual hallucinations. No SI or HI. No evidence of mood disturbance. Denies side effects from medications. No physical complaints today. Review of Systems ROS Limitations: Poor Historian Except as stated in HPI: all other systems reviewed are Neg Objective Alert: Yes [place]: Person, Place Mood: Calm Affect: Other (childlike) Memory Intact: Comment (not formally assessed) Hallucinations: Other (denies AVH) Delusions: No Delusion Type: Other (no delusions elicited today) Suicidal: Ideation (no suicidal ideation) Homicidal: Ideation (no homicidal ideation) Insight/Judgment Poor Remarks No motor abnormalities noted. Labs Labs reviewed. No new labs. Vitals/IOs Vital Signs Date Time Temp Pulse Resp B/P Pulse Ox O2 Delivery O2 Flow Rate FiO2 10/12/16 06:20 98.6 73 19 123/68 98 Assessment & Plan Problem List: (1) Schizoaffective disorder ICD Code: F25.9 (2) Intellectual disability ICD Code: F79 Assessment & Plan Continue Risperdal as ordered with Inderal for akathisia and Cogentin for EPS. Continue to monitor on the high acuity inpatient psychiatric unit. Continue other medications and care as ordered. Justification for Cont. Inpt. High risk for decompensation in a restrictive environment Discharge Planning Patient requires new placement. Counselor working on this. Request HC Surrog/Guard Advoc?: Yes Problem Qualifiers (1) Schizoaffective disorder: Qualified Code: F25.0 - Schizoaffective disorder, bipolar type Larry Valdivia MD Oct 12, 2016 11:29
[2016-10-12 12:17] VITALS: BP 138/78; PULSE 60
[2016-10-12 18:22] VITALS: BP 111/73; PULSE 55; RESP 18; TEMP 97.6; O2SAT 97
[2016-10-12] MEDS: traZODone HCL 50 MG TAB PO SCH (21:12)
[2016-10-13 08:07] VITALS: BP 111/70; PULSE 97; RESP 17; TEMP 97.1; O2SAT 97
[2016-10-13] MEDS: BENZTROPINE MESYLATE 1 MG TAB PO SCH ×2 (09:00→20:05)
[2016-10-13] MEDS: PROPRANOLOL HCL 10 MG TAB PO SCH ×3 (09:00→20:06)
[2016-10-13] MEDS: risperiDONE 3 MG TAB PO SCH (09:00)
--- NOTE | 2016-10-13 11:38 | HHI.PYPN ---
Subjective Remarks Patient seen and examined with counselor and nurse. Chart reviewed. Case discussed in treatment team with counselor, nurse and occupational therapist. On my examination today, the patient is calm and pleasant. He remains in good behavioral control. No SI, HI or AVH reported. Denies side effects from medications. Nursing staff does note that the patient has been consuming a lot of fluids. Review of Systems Except as stated in HPI: all other systems reviewed are Neg Objective Alert: Yes [place]: Person, Place Mood: Calm Affect: Blunted (somewhat childlike) Memory Intact: Comment (not formally assessed) Hallucinations: Other (no AVH) Delusions: No Delusion Type: Other (no delusions) Suicidal: Ideation (no SI) Homicidal: Ideation (no HI) Insight/Judgment Poor Remarks No abnormal motor movements noted. Labs Labs reviewed. Vitals/IOs Vital Signs Date Time Temp Pulse Resp B/P Pulse Ox O2 Delivery O2 Flow Rate FiO2 10/13/16 08:07 97.1 97 17 111/70 97 Assessment & Plan Problem List: (1) Schizoaffective disorder ICD Code: F25.9 (2) Intellectual disability ICD Code: F79 Assessment & Plan Continue current psychotropics as ordered. Check a BMP to ensure that the patient has not developed electrolyte abnormality as a consequence of his fluid consumption. Continue to monitor on the high acuity unit. Continue other medications and care as ordered. Justification for Cont. Inpt. High risk for decompensation in a less restrictive environment. Discharge Planning Counselor reports that they have sent out referrals to 6 facilities for possible placement for this patient. Request HC Surrog/Guard Advoc?: Yes Problem Qualifiers (1) Schizoaffective disorder: Qualified Code: F25.0 - Schizoaffective disorder, bipolar type Larry Valdivia MD Oct 13, 2016 11:38
[2016-10-13 13:42] VITALS: BP 119/80; PULSE 86
[2016-10-13 14:54] LABS: BICARBONATE 32.5 MEQ/L (21.0-32.0); POTASSIUM 4.1 MEQ/L (3.5-5.1)
[2016-10-13 17:47] VITALS: BP 132/70; PULSE 61; RESP 18; TEMP 97.4; O2SAT 95
[2016-10-13] MEDS: traZODone HCL 50 MG TAB PO SCH (20:06)
[2016-10-14 06:00] VITALS: BP 145/91; PULSE 66; RESP 18; TEMP 97.7; O2SAT 94
[2016-10-14] MEDS: BENZTROPINE MESYLATE 1 MG TAB PO SCH ×2 (08:59→20:08)
[2016-10-14] MEDS: risperiDONE 3 MG TAB PO SCH (08:59)
[2016-10-14] MEDS: PROPRANOLOL HCL 10 MG TAB PO SCH ×3 (08:59→20:08)
--- NOTE | 2016-10-14 12:08 | HHI.PYPN ---
Subjective Remarks Patient seen and examined with counselor and nurse. Chart reviewed. Case discussed with nursing staff who reports that the patient has been no behavioral problem and reportedly told nursing staff that the voices were "gone. " On my examination today, the patient is calm and pleasant. He denies any SI , HI or AVH. Denies any side effects from medications. No physical complaints. No other issues noted. Review of Systems ROS Limitations: Poor Historian Except as stated in HPI: all other systems reviewed are Neg Objective Alert: Yes [place]: Person, Place Mood: Calm Affect: Other (somewhat childlike) Memory Intact: Comment (not formally assessed) Hallucinations: Other (denies AVH) Delusions: No Delusion Type: Other (no delusional material elicited) Suicidal: Ideation (no SI) Homicidal: Ideation (no HI) Insight/Judgment Poor Remarks No motor abnormalities noted. No signs of ongoing akathisia. Grooming and hygiene fair. Labs Test 10/13/16 14:15 Sodium Level 138 MEQ/L Potassium Level 4.1 MEQ/L Chloride Level 100 MEQ/L Carbon Dioxide Level 32.5 MEQ/L Anion Gap 6 MEQ/L Blood Urea Nitrogen 14 MG/DL Creatinine 1.02 MG/DL Estimat Glomerular Filtration 77 ML/MIN Rate Random Glucose 74 MG/DL Calcium Level 9.1 MG/DL Labs reviewed. Vitals/IOs Vital Signs Date Time Temp Pulse Resp B/P Pulse Ox O2 Delivery O2 Flow Rate FiO2 10/14/16 06:00 97.7 66 18 145/91 94 Intake and Output 10/13/16 10/13/16 10/14/16 08:00 16:00 00:00 Intake Total 320 ml 480 ml Output Total 1000 ml Balance -680 ml 480 ml Assessment & Plan Problem List: (1) Schizoaffective disorder ICD Code: F25.9 (2) Intellectual disability ICD Code: F79 Assessment & Plan Continue Risperdal with Inderal for akathisia and Cogentin for EPS. I did discuss long-acting injectable with the patient, but he is resistant to the idea. Continue to monitor on the high acuity unit. Continue other medications and care as ordered. Justification for Cont. Inpt. Final discharge planning Discharge Planning Counselor informs me that the patient has been accepted at assisted living facility with anticipated discharge tomorrow, . Request HC Surrog/Guard Advoc?: Yes Problem Qualifiers (1) Schizoaffective disorder: Qualified Code: F25.0 - Schizoaffective disorder, bipolar type Larry Valdivia MD Oct 14, 2016 12:08
[2016-10-14 18:47] VITALS: BP 143/87; PULSE 67; RESP 18; TEMP 98.2
[2016-10-14] MEDS: traZODone HCL 50 MG TAB PO SCH (20:08)
[2016-10-15 05:39] VITALS: BP 140/78; PULSE 69; RESP 18; TEMP 98.5; O2SAT 95
[2016-10-15] MEDS: BENZTROPINE MESYLATE 1 MG TAB PO SCH (09:00)
[2016-10-15] MEDS: risperiDONE 3 MG TAB PO SCH (09:21)
[2016-10-15] MEDS: PROPRANOLOL HCL 10 MG TAB PO SCH (09:21)
[2016-10-15] MEDS ORDERED: BENZ1TAB PO (10:50)
[2016-10-15] MEDS ORDERED: TRAZ50TA12 PO (10:50)
[2016-10-15] MEDS ORDERED: RISP3 PO (10:50)
[2016-10-15] MEDS ORDERED: PROP10TA6 PO (10:50)
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
--- NOTE | 2016-10-19 12:25 | HHI.PYPN ---
Subjective Remarks This is the psychiatric progress note for October 09, 2016. Patient remains psychotic with paranoid delusions. He feels that others amongst the staff and the public in general or persecuting him. He states that they are holding information which is designed to persecute him. Review of Systems ROS Limitations: Clinical Condition Objective Alert: Yes [place]: Person, Place Mood: Calm Affect: Other (somewhat childlike) Memory Intact: Comment (not formally assessed) Hallucinations: Other (denies AVH) Delusions: Yes Delusion Type: Paranoid, Other (no delusional material elicited) Suicidal: Ideation (no SI) Homicidal: Ideation (no HI) Insight/Judgment Impaired Assessment & Plan Problem List: (1) Schizoaffective disorder ICD Code: F25.9 (2) Intellectual disability ICD Code: F79 Assessment & Plan Estimated LOS: 7 patient needs more time on medication to become stable. Days Justification for Cont. Inpt. Continues to be psychotic and unable to care for self. Request HC Surrog/Guard Advoc?: Yes Problem Qualifiers (1) Schizoaffective disorder: Qualified Code: F25.0 - Schizoaffective disorder, bipolar type Willie Garcia MD October 19, 2016 12:25
== END 2016-10-15 12:13 | DRG 885 ==
LOC: NEPE 16:09 → NEDA 10-03 14:26 → H270 10-03 15:35
PROVIDERS: ADMIT Psychiatry & Neurology Psychiatry; ATTEND Psychiatry & Neurology Psychiatry
DX: F25.0 Schizoaffective disorder, bipolar type (principal); E87.1 Hypo-osmolality and hyponatremia; I10 Essential (primary) hypertension; F79 Unspecified intellectual disabilities; E87.6 Hypokalemia; F17.210 Nicotine dependence, cigarettes, uncomplicated; E86.0 Dehydration; F41.9 Anxiety disorder, unspecified; Z79.899 Other long term (current) drug therapy
CPT/HCPCS: 80048; 80053; 80061; 80307; 81001; 83036; 83735; 85025; 93005; 96372; J1200; J1630; J2060

== ENCOUNTER 2016-12-28 15:19 | Observation (INO) | payer MEDICARE, OTHER ==
[~2016-12-28] VITALS: Ht 172.7 cm; Wt 70.0 kg
[~2016-12-28 15:19] MED LIST: BENZ1TAB PO; PROP10TA6 PO; RISP3 PO; TRAZ50TA12 PO
[2016-12-28 15:36] VITALS: BP 132/72; PULSE 67; RESP 15; TEMP 97.7; O2SAT 95
[2016-12-28 17:14] LABS: AUTOMATED NEUTROPHIL # 5.2 TH/MM3 (1.8-7.7); BASOPHIL # 0.1 TH/MM3 (0-0.2); BASOPHIL % 0.8 % (0.0-2.0); EOSINOPHIL # 0.1 TH/MM3 (0-0.4); HEMATOCRIT 39.9 % (39.0-51.0); HEMO FLAGS DIFF FINAL; LYMPH % 14.4 % (9.0-44.0); MEAN CELL VOLUME 90.1 FL (80.0-100.0); MEAN CORPUSCULAR HEMOGLOBIN 29.7 PG (27.0-34.0); MEAN CORPUSCULAR HGB CONC 32.9 % (32.0-36.0); MONO % 6.4 % (0.0-8.0); NEUT % 77.4 % (16.0-70.0); PLATELET COUNT 233 TH/MM3 (150-450); RED BLOOD COUNT 4.43 MIL/MM3 (4.50-5.90); RED CELL DISTRIBUTION WIDTH 15.2 % (11.6-17.2); WHITE BLOOD COUNT 6.7 TH/MM3 (4.0-11.0)
[2016-12-28 17:31] VITALS: BP 144/98; PULSE 78; RESP 20; O2SAT 98
[2016-12-28 17:38] LABS: ALT (GPT) 33 U/L (12-78); ANION GAP 9 MEQ/L (5-15); AST (GOT) 50 U/L (15-37); BICARBONATE 27.3 MEQ/L (21.0-32.0); BLOOD UREA NITROGEN 10 MG/DL (7-18); CHLORIDE 91 MEQ/L (98-107); GLOMERULAR FILTRATION RATE 111 ML/MIN (>89); SODIUM (NA) 127 MEQ/L (136-145)
[2016-12-28 17:40] LABS: ACETAMINOPHEN LESS THAN 2.0 MCG/ML (10.0-30.0); ALKALINE PHOSPHATASE 65 U/L (45-117); TOTAL BILIRUBIN ADULT 0.7 MG/DL (0.2-1.0)
[2016-12-28] MEDS ORDERED: LORazepam 2 MG/ML VIAL IM ONE (18:00)
[2016-12-28] MEDS ORDERED: CEPHALEXIN MONOHYDRATE 500 MG CAP PO ONE (18:15)
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
[2016-12-28] MEDS ORDERED: CEPH-460 PO (18:17)
[2016-12-28] MEDS ORDERED: EUCERIN CREAM 120 GM JAR TOPICAL ONE (18:30)
[2016-12-28] MEDS ORDERED: SODIUM CHLOR 0.9% 1000 ML INJ 1,000 ML IV ONE (18:45)
[2016-12-28 19:13] VITALS: BP 118/78; PULSE 56; RESP 18; O2SAT 98
--- NOTE | 2016-12-28 19:57 | RADRPT ---
EXAM DATE/TIME: 12/28/2016 19:42 [facility] COMPARISON: No previous studies available for comparison. INDICATIONS : Altered mental status. RADIATION DOSE: 48.11 CTDIvol (mGy) MEDICAL HISTORY : mental illness SURGICAL HISTORY : None. ENCOUNTER: Initial ACUITY: 1 day PAIN SCALE: Non-responsive LOCATION: cranial TECHNIQUE: Multiple contiguous axial images were obtained of the head. Using automated exposure control and adj ustment of the mA and/or kV according to patient size, radiation dose was kept as low as reasonably a chievable to obtain optimal diagnostic quality images. DICOM format image data is available electro nically for review and comparison. FINDINGS: CEREBRUM: The ventricles are normal for age. No evidence of midline shift, mass lesion, hemorrhage or acute in farction. No extra-axial fluid collections are seen. POSTERIOR FOSSA: The cerebellum and brainstem are intact. The 4th ventricle is midline. The cerebellopontine angle i s unremarkable. EXTRACRANIAL: The visualized portion of the orbits is intact. SKULL: The calvaria is intact. No evidence of skull fracture. CONCLUSION: Negative for an acute process.. Hermelindo Álvarez MD FACR on December 28, 2016 at 19:55 Board Certified Radiologist. This report was verified electronically.
[2016-12-28] MEDS ORDERED: NALOXONE HCL 0.4 MG/ML AMP IV PRN (20:45)
[2016-12-28] MEDS ORDERED: SODIUM CHLORIDE 0.9% FLUSH 10 ML FLUSH IV FLUSH PRN (20:45)
[2016-12-28] MEDS: SODIUM CHLORIDE 0.9% FLUSH 10 ML FLUSH IV FLUSH SCH (21:00)
[2016-12-28 21:27] LABS: BLOOD, URINE NEG (NEG); GLUCOSE,URINE NEG (NEG); KETONE, URINE NEG (NEG); NITRITE,URINE NEG (NEG); URINE COLOR LIGHT-YELLOW (YELLW/STRAW)
[2016-12-28 21:28] LABS: COMMENT (UR) CULT NOT INDICATED; CULTURE IF INDICATED CULT NOT INDICATED
[2016-12-28 21:33] LABS: AMPHETAMINE, URINE NEG (NEG); BARBITURATES, URINE NEG (NEG); COCAINE, URINE NEG (NEG)
[2016-12-28 22:30] VITALS: BP 118/71; PULSE 46; RESP 18; TEMP 98.1; O2SAT 97
[2016-12-28 23:20] VITALS: BP 123/74; PULSE 70; RESP 15; TEMP 96.9; O2SAT 98
[2016-12-28 23:50] LABS: BICARBONATE 29.6 MEQ/L (21.0-32.0); POTASSIUM 3.7 MEQ/L (3.5-5.1)
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
[2016-12-29 04:31] VITALS: BP 135/89; PULSE 50; RESP 15; TEMP 98.2; O2SAT 97
[2016-12-29 06:32] LABS: AUTOMATED NEUTROPHIL # 3.2 TH/MM3 (1.8-7.7); EOSINOPHIL # 0.1 TH/MM3 (0-0.4); EOSINOPHIL % 1.6 % (0.0-4.0); LYMPH % 19.5 % (9.0-44.0); LYMPHOCYTE # 0.9 TH/MM3 (1.0-4.8); MEAN CELL VOLUME 88.9 FL (80.0-100.0); MEAN CORPUSCULAR HEMOGLOBIN 29.5 PG (27.0-34.0); MEAN CORPUSCULAR HGB CONC 33.1 % (32.0-36.0); MONO % 7.4 % (0.0-8.0); NEUT % 70.5 % (16.0-70.0); PLATELET COUNT 203 TH/MM3 (150-450); RED BLOOD COUNT 4.38 MIL/MM3 (4.50-5.90); WHITE BLOOD COUNT 4.5 TH/MM3 (4.0-11.0)
[2016-12-29 06:37] LABS: BICARBONATE 30.3 MEQ/L (21.0-32.0)
[2016-12-29 06:51] LABS: HEMO FLAGS DIFF FINAL
[2016-12-29] MEDS ORDERED: SODIUM CHLOR 0.9% 1000 ML INJ 1,000 ML IV SCH (07:15)
[2016-12-29] MEDS ORDERED: HALOPERIDOL LACTATE 5 MG/ML AMP IM PRN (07:30)
[2016-12-29 07:59] VITALS: BP 163/90; PULSE 53; RESP 18; TEMP 98.3; O2SAT 97
[2016-12-29 08:00] VITALS: PULSE 56
[2016-12-29] MEDS: SODIUM CHLORIDE 0.9% FLUSH 10 ML FLUSH IV FLUSH SCH (08:44)
--- NOTE | 2016-12-29 08:56 | HHI.PR ---
Subjective Remarks Follow-up for agitation. The patient was agitated this morning and was non- redirectable. He received Haldol, and is now sleepy. Patient remains a poor historian. He can't really give any history about why he came here. He cannot really give any details regarding any possible head injury. He states that he has been tolerating oral intake. Discuss with psychiatry, okay for discharge to inpatient psychiatry for observation and monitoring. Objective Vitals Vital Signs Date Time Temp Pulse Resp B/P Pulse Ox O2 Delivery O2 Flow Rate FiO2 12/29/16 07:59 98.3 53 18 163/90 97 12/29/16 04:31 98.2 50 15 135/89 97 12/28/16 23:20 96.9 70 15 123/74 98 12/28/16 22:30 98.1 46 18 118/71 97 Room Air 12/28/16 19:13 56 18 118/78 98 Room Air 12/28/16 17:31 78 20 144/98 98 Room Air 12/28/16 15:36 97.7 67 15 132/72 95 Result Diagram: 12/29/16 0527 12/29/16 0527 Imaging Last Impressions Head CT 12/28/16 0000 Signed Impressions: Service Date/Time: Wednesday, December 28, 2016 19:42 - CONCLUSION: Negative for an acute process.. Hermelindo Álvarez MD FACR Objective Remarks GENERAL: Well-developed well-nourished. In no acute distress. SKIN: Warm and dry. No lesions noted. HEENT: Normocephalic. Pupils equal and round and reactive to light. Mucous membranes pink and moist. CARDIOVASCULAR: Regular rate and rhythm. No murmur appreciated. RESPIRATORY: No accessory muscle use. Clear to auscultation. Breath sounds equal bilaterally. GASTROINTESTINAL: Abdomen soft, non-tender, nondistended. Bowel sounds x4. MUSCULOSKELETAL: No obvious deformities. No clubbing or cyanosis. No edema. NEUROLOGICAL: Awake and alert. No focal neurological deficits. Moves upper and lower extremities spontaneously. Normal speech. Strength 5/5. PSYCHIATRIC: Sedated mood and childlike affect; insight and judgment poor A/P Assessment and Plan 51-year-old male with past medical history of schizoaffective disorder who was admitted to the hospitalist service for possible head injury and hypernatremia Hyponatremia: 127 at admission. Could be secondary to medication effect. Sodium improved to 130 with IVF which she is still getting. Fluid restriction. Monitor BMP. Improved. Possible head injury: History is vague. Seems neurologically intact. Questionable altered mental status seems more consistent with his baseline psychiatric disease. Head CT negative for acute process. Schizoaffective disorder with acute agitation under Zhang act: Psychiatry was consulted, discussed with Dr. Montero, transfer to psychiatry. DVT prophylaxis: SCDs Discharge Planning The patient is medically cleared for transfer to inpatient psychiatry. Winston Rosales Dec 29, 2016 08:55
[2016-12-29] MEDS ORDERED: risperiDONE 3 MG TAB PO SCH (09:00)
[2016-12-29] MEDS ORDERED: PROPRANOLOL HCL 10 MG TAB PO SCH (09:00)
--- NOTE | 2016-12-29 10:56 | PD.PSY.CON ---
Provisional Diagnosis Admission Date Dec 28, 2016 at 20:37 [place] I. Schizoaffective disorder, bipolar type, [place] II. Intellectual disability [place] III. Hypertension, hyponatremia History of Present Illness Service Psychiatry Consult Requested By Primary Care Physician No Primary Care Physician HPI The patient is a 50-year-old man domiciled in [facility], single, unemployed, with psychiatric history of schizoaffective disorder, intellectual disability, 3 previous psychiatric hospitalizations, last hospitalization was here in [place] in September 2016, he was seen by me for his initial assessment, He is on Risperdal 6 mg daily for behavioral control, not documented suicidal attempts, history of hypertension, he was brought to the hospital under Zhang act due to aggressive behavior in his facility. As per ER documentation today: History from ER provider communication, medical records, and minimal from patient himself. Patient is quite a poor historian. He is quite disheveled and really seems to not have a good insight into his medical/psychiatric issues.When asked why he came to hospital, he kept pointing to his forearms saying that is why he came.He required multiple attempts of problems seeing to get an answer. He falls right back to sleep during the conversation. He stated he did fall at one point. But cannot specify which day. However adamantly denies any head trauma to me. He also denies any episodes of assault or getting hit to his face. He was noted to have hyponatremia of 127. On review of medical records, patient did have history of hyponatremia in previous admissions as well. Patient was given normal saline 1 L bolus in ER. Patient at some point became very aggressive and agitated requiring Haldol 5 mg to calm him Da[place]. But, as per nurses, patient was very combative, disorganized, was very difficult to redirect and the medication was inevitable. A psychiatric assessment was not possible at this moment because patient was sedated. Review of Systems ROS Limitations: Unresponsive, Uncooperative Past Family Social History Coded Allergies: No Known Allergies (Unverified , 10/02/16) Active Scripts Trazodone 50 Mg [id number] Mg PO HS 15 Days Ref 1 Prov:Larry Valdivia MD 10/15/16 Risperidone (Risperdal)3 Mg Tab6 Mg PO DAILY 15 Days Ref 1 Prov:Larry Valdivia MD 10/15/16 Propranolol 10 Mg Tab10 Mg PO DAILY@09,,21 15 Days Ref 1 Prov:Larry Valdivia MD 10/15/16 Benztropine 1 Mg Tab0.5 Mg PO Q12HR 15 Days Ref 1 Prov:Larry Valdivia MD 10/15/16 Discontinued Scripts Cephalexin (Keflex)500 Mg Xoh321 Mg PO Q12H 7 Days Ref 0 Prov:Edilma Telles 12/28/16 Current Medications Medications (Trade) Dose Ordered Sig/Eva Route Start Time Stop Time Status Last Admin (NS Flush) 2 ml UNSCH PRN IV FLUSH 12/28/16 20:45 (NS Flush) 2 ml BID IV FLUSH 12/28/16 21:00 12/29/16 08:44 Naloxone HCl 0.4 mg 0.4 mg UNSCH PRN IV 12/28/16 20:45 (NS 1000 ml Inj) 1,000 ml @ 84 mls/hr [id number] IV 12/29/16 07:15 12/29/16 08:44 (Haldol Inj) 5 mg Q6H PRN IM 12/29/16 07:30 12/29/16 07:38 (Inderal) 10 mg DAILY@,,21 PO 12/29/16 09:00 (risperDAL) 6 mg DAILY PO 12/29/16 09:00 12/29/16 10:39 (Desyrel) 150 mg HS PO 12/29/16 21:00 Family History Patient doesn't have any documented family psychotic history Social History Patient was born and raised in [place], he lives in [facility], single, unemployed, he is on SSI, Patient's Strengths (min. 2) Verbal communication Physical Exam Vital Signs Vital Signs Date Time Temp Pulse Resp B/P Pulse Ox O2 Delivery O2 Flow Rate FiO2 12/29/16 07:59 98.3 53 18 163/90 97 12/28/16 22:30 Room Air Lab Results Laboratory Tests Test 12/28/16 12/28/16 12/28/16 12/28/16 15:34 15:35 20:35 23:20 Sodium Level 127 130 Potassium Level 4.0 3.7 Chloride Level 91 95 Carbon Dioxide Level 27.3 29.6 Anion Gap 9 5 Blood Urea Nitrogen 10 12 Creatinine 0.74 0.81 Estimat Glomerular Filtration 111 100 Rate Random Glucose 95 88 Calcium Level 8.4 8.0 Total Bilirubin 0.7 Aspartate Amino Transf 50 (AST/SGOT) Alanine Aminotransferase 33 (ALT/SGPT) Alkaline Phosphatase 65 Total Protein 6.6 Albumin 3.4 Acetaminophen Level LESS THAN 2.0 Ethyl Alcohol Level LESS THAN 3 White Blood Count 6.7 Red Blood Count 4.43 Hemoglobin 13.1 Hematocrit 39.9 Mean Corpuscular Volume 90.1 Mean Corpuscular Hemoglobin 29.7 Mean Corpuscular Hemoglobin 32.9 Concent Red Cell Distribution Width 15.2 Platelet Count 233 Mean Platelet Volume 8.4 Neutrophils (%) (Auto) 77.4 Lymphocytes (%) (Auto) 14.4 Monocytes (%) (Auto) 6.4 Eosinophils (%) (Auto) 1.0 Basophils (%) (Auto) 0.8 Neutrophils # (Auto) 5.2 Lymphocytes # (Auto) 1.0 Monocytes # (Auto) 0.4 Eosinophils # (Auto) 0.1 Basophils # (Auto) 0.1 CBC Comment DIFF FINAL Differential Comment Urine Color LIGHT-YELLOW Urine Turbidity CLEAR Urine pH 7.0 Urine Specific [place] 1.006 Urine Protein NEG Urine Glucose (UA) NEG Urine Ketones NEG Urine Occult Blood NEG Urine Nitrite NEG Urine Bilirubin NEG Urine Urobilinogen LESS THAN 2.0 Urine Leukocyte Esterase NEG Urine RBC LESS THAN 1 Urine WBC 1 Microscopic Urinalysis Comment CULT NOT INDICATED Urine Opiates Screen NEG Urine Barbiturates Screen NEG Urine Amphetamines Screen NEG Urine Benzodiazepines Screen NEG Urine Cocaine Screen NEG Urine Cannabinoids Screen NEG Result Diagram: 12/28/16 1535 12/28/16 2320 Mental Status Examination Patient is non-cooperative, sedated, mental status limited due to lack of cooperation Appearance [facility], non-cooperative at this moment Assessment & Plan Problem List: (1) Schizoaffective disorder Assessment & Plan: Psychiatric evaluation was limited at this moment due to lack of cooperation, patient was sedated in the ER after being very aggressive and combative. As per Zhang act documentation patient has been increasingly aggressive, disorganized in his residential facility. He was found with a significant hyponatremia that is now corrected. Patient seems to be an acute danger to self and others due to his level of aggressiveness. He will be admitted to psychiatry for safety and stabilization. We will restart Risperdal 6 mg. Collateral information is still pending. Haldol 5 mg IM every 8 hours when necessary aggressive behavior and agitation. ICD Code: F25.9 Assessment & Plan Estimated LOS: days Problem Qualifiers (1) Schizoaffective disorder: Qualified Code: F25.9 - Schizoaffective disorder, unspecified type Durga Montero MD Dec 29, 2016 10:55
[2016-12-29] MEDS ORDERED: traZODone HCL 50 MG TAB PO SCH (21:00)
== END 2016-12-29 11:31 ==
LOC: NEPJ 15:19 → NEDA 20:37 → NEPFCDU 23:05
PROVIDERS: ADMIT Hospitalist; ATTEND Hospitalist
DX: S09.90XA Unspecified injury of head, initial encounter (principal); E87.1 Hypo-osmolality and hyponatremia; R41.82 Altered mental status, unspecified; F25.9 Schizoaffective disorder, unspecified; I10 Essential (primary) hypertension; Z79.899 Other long term (current) drug therapy
CPT/HCPCS: 70450; 80048; 80053; 80307; 81001; 85025; 96372; 99285; G0378; J1630; J2060; J7030

== ENCOUNTER 2016-12-29 11:45 | Inpatient (IN) | payer MEDICARE, OTHER ==
[~2016-12-29] VITALS: Ht 175.3 cm; Wt 69.7 kg
[2016-12-29 11:15] VITALS: BP 152/100; PULSE 70; RESP 18; TEMP 97.6; O2SAT 99
[~2016-12-29 11:45] MED LIST changes: +CEPH-460 PO
[2016-12-29] MEDS ORDERED: LORazepam 2 MG/ML VIAL IM PRN (13:45)
[2016-12-29] MEDS ORDERED: MAGNESIUM HYDROXIDE SUSP 30 ML CUP PO PRN (13:45)
[2016-12-29] MEDS ORDERED: LORazepam 0.5 MG TAB PO PRN (13:45)
[2016-12-29] MEDS ORDERED: ALUMINUM/MAGNESIUM/SIMETH 30 ML CUP PO PRN (13:45)
[2016-12-29] MEDS: NICOTINE 21 MG/24 HR PATCH T-DERMAL SCH (13:45)
[2016-12-29] MEDS: BENZTROPINE MESYLATE 1 MG TAB PO SCH ×2 (15:43→21:00)
[2016-12-29 17:26] VITALS: BP 147/90; PULSE 88; RESP 17; TEMP 98; O2SAT 97
[2016-12-29] MEDS ORDERED: traZODone HCL 50 MG TAB PO SCH (21:00)
[2016-12-29] MEDS: PROPRANOLOL HCL 10 MG TAB PO SCH (21:00)
[2016-12-30 06:07] VITALS: BP 165/93; PULSE 75; RESP 18; TEMP 97.9; O2SAT 96
[2016-12-30] MEDS: NICOTINE 21 MG/24 HR PATCH T-DERMAL SCH ×2 (09:00→10:03)
[2016-12-30] MEDS ORDERED: risperiDONE 3 MG TAB PO SCH (09:00)
[2016-12-30] MEDS: BENZTROPINE MESYLATE 1 MG TAB PO SCH (09:19)
[2016-12-30] MEDS: PROPRANOLOL HCL 10 MG TAB PO SCH (09:19)
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
[2016-12-30] MEDS ORDERED: fluPHENAZine HCL 25 MG/10 ML VIAL IM PRN (10:00)
[2016-12-30] MEDS ORDERED: BENZTROPINE MESYLATE 2 MG/2 ML VIAL IM PRN (10:00)
[2016-12-30] MEDS ORDERED: BENZTROPINE MESYLATE 1 MG TAB PO PRN (10:00)
[2016-12-30 10:16] LABS: ANION GAP 9 MEQ/L (5-15); BICARBONATE 24.5 MEQ/L (21.0-32.0); BLOOD UREA NITROGEN 15 MG/DL (7-18); CHLORIDE 102 MEQ/L (98-107); GLOMERULAR FILTRATION RATE 53 ML/MIN (>89); HDL CHOLESTEROL 70.9 MG/DL (40.0-60.0); LDL CHOLESTEROL 122 MG/DL (0-99); POTASSIUM 4.6 MEQ/L (3.5-5.1); SODIUM (NA) 135 MEQ/L (136-145)
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
[2016-12-30 12:53] LABS: CKMB 3.6 NG/ML (0.5-3.6)
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
[2016-12-30 17:40] LABS: HEMOGLOBIN A1a 0.8 %; HEMOGLOBIN A1b 1.6 %; HEMOGLOBIN LA1C 2.1 %; HEMOGLOBIN P3 3.6 %
[2016-12-30 18:01] VITALS: BP 168/88; PULSE 62; RESP 18; TEMP 96.5; O2SAT 99
[2016-12-31 01:15] VITALS: BP 171/101
[2016-12-31] MEDS: cloNIDine HCL 0.1 MG TAB PO PRN (01:20)
[2016-12-31] MEDS: LORazepam 1 MG TAB PO PRN (01:20)
[2016-12-31 06:19] VITALS: BP 166/95; PULSE 67; RESP 18; TEMP 97.3; O2SAT 100
[2016-12-31] MEDS: NICOTINE 21 MG/24 HR PATCH T-DERMAL SCH (09:00)
--- NOTE | 2016-12-31 09:06 | HHI.PYPN ---
Subjective Remarks Patient seen and examined with nurse. Chart reviewed. Case discussed with nursing staff who reports that patient remains quite simple and childlike. On my examination today, the patient presents as fairly disorganized but significantly less fidgety. He rambles about "documents in the office" and something about wanting "the whole [place] to know about the Holocaust." This line of thought is very difficult to follow. He remains internally preoccupied. He denies side effects from medications but says "coffee works better." No physical complaints. Review of Systems ROS Limitations: Psychotic, Poor Historian Except as stated in HPI: all other systems reviewed are Neg Objective Alert: Yes [place]: Person Mood: Calm Affect: Blunted Memory Intact: Comment (Not assessed) Hallucinations: Auditory (Appears int stim) Delusions: Yes Delusion Type: Paranoid, Other (bizarre) Suicidal: Ideation (No SI) Homicidal: Ideation (No HI) Insight/Judgment Poor Remarks No motor abnormalities noted today. Thought process disorganized. Grooming and hygiene marginal. Labs Test 12/30/16 09:16 Sodium Level 135 MEQ/L Potassium Level 4.6 MEQ/L Chloride Level 102 MEQ/L Carbon Dioxide Level 24.5 MEQ/L Anion Gap 9 MEQ/L Blood Urea Nitrogen 15 MG/DL Creatinine 1.40 MG/DL Estimat Glomerular Filtration 53 ML/MIN Rate Random Glucose 100 MG/DL Hemoglobin A1c 5.4 % Calcium Level 10.1 MG/DL Total Creatine Kinase 469 U/L Creatine Kinase MB 3.6 NG/ML Creatine Kinase MB % 0.8 % Triglycerides Level 114 MG/DL Cholesterol Level 216 MG/DL LDL Cholesterol 122 MG/DL HDL Cholesterol 70.9 MG/DL Cholesterol/HDL Ratio 3.04 RATIO Labs reviewed. BMP and magnesium level drawn today are presently pending. Vitals/IOs Vital Signs Date Time Temp Pulse Resp B/P Pulse Ox O2 Delivery O2 Flow Rate FiO2 12/31/16 06:19 97.3 67 18 166/95 100 Assessment & Plan Problem List: (1) Schizoaffective disorder ICD Code: F25.9 (2) Intellectual disability ICD Code: F79 Assessment & Plan Titrate Prolixin to 5mg TID PO/IM to target psychosis. No evidence of EPS or akathisia with this agent so far. Follow up BMP, Mg. Check CK in the morning. Hospitalist input noted and appreciated. Continue other medications and care as ordered. Justification for Cont. Inpt. Impairment in reality construction. Medication changes in process. High risk for decompensation in less restrictive environment. Discharge Planning Pending psychiatric stabilization. Request HC Surrog/Guard Advoc?: Yes Problem Qualifiers (1) Schizoaffective disorder: Qualified Code: F25.0 - Schizoaffective disorder, bipolar type Larry Valdivia MD Dec 31, 2016 09:06
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
[2016-12-31] MEDS: amLODIPine BESYLATE 5 MG TAB PO SCH (11:04)
[2016-12-31 14:18] LABS: MAGNESIUM 2.1 MG/DL (1.5-2.5); POTASSIUM 4.6 MEQ/L (3.5-5.1)
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
--- NOTE | 2016-12-31 18:00 | RADRPT ---
EXAM DATE/TIME: 12/31/2016 17:27 [facility] COMPARISON: No previous studies available for comparison. INDICATIONS : Evaluate for pneumonia, pneumothorax, or communicable disease. MEDICAL HISTORY : None. SURGICAL HISTORY : None. ENCOUNTER: Initial ACUITY: 1 day PAIN SCORE: 0/10 LOCATION: Bilateral chest FINDINGS: A single view of the chest demonstrates the lungs to be symmetrically aerated without evidence of mas s, infiltrate or effusion. The cardiomediastinal contours are unremarkable. Osseous structures are intact. Within the visualized portions of the upper abdomen there are gas dilated loops of bowel. CONCLUSION: 1. No acute intrathoracic process. 2. Gas dilated loops of bowel partially visualized within the upper abdomen. Jose L Garcia Jr., MD on December 31, 2016 at 17:57 Board Certified Radiologist. This report was verified electronically.
[2016-12-31 20:18] VITALS: BP 166/95; PULSE 71; RESP 17; TEMP 98.2; O2SAT 99
[2016-12-31] MEDS ORDERED: fluPHENAZine HCL 25 MG/10 ML VIAL IM PRN (21:00)
[2017-01-01 05:53] VITALS: BP 118/83; PULSE 120; RESP 18; TEMP 98.2; O2SAT 97
[2017-01-01 05:58] VITALS: PULSE 74
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
[2017-01-01] MEDS: NEOMYCIN/POLYMYXIN/BACITRACIN OINT 15 GM TUBE TOPICAL SCH (08:52)
[2017-01-01] MEDS: NICOTINE 21 MG/24 HR PATCH T-DERMAL SCH (08:52)
[2017-01-01] MEDS: amLODIPine BESYLATE 5 MG TAB PO SCH (08:52)
[2017-01-01 10:08] LABS: BICARBONATE 28.2 MEQ/L (21.0-32.0); POTASSIUM 4.3 MEQ/L (3.5-5.1)
--- NOTE | 2017-01-01 10:19 | HHI.PYPN ---
Subjective Remarks Patient seen and examined with counselor. Chart reviewed. I note that the hospitalist is working up patient's hyponatremia. Case discussed with nursing staff reports the patient has been no behavioral problem and has been medication compliant. On my examination today, the patient remains fairly disorganized. He rambles about "notes" and about "the [place] [employer]" and "the [place]." Seems generally euthymic and in no psychic distress but is internally preoccupied. No reported side effects from medications. No physical complaints. Review of Systems ROS Limitations: Psychotic, Poor Historian Except as stated in HPI: all other systems reviewed are Neg Objective Alert: Yes [place]: Person Mood: Calm Affect: Euthymic Memory Intact: Comment (Not assessed) Hallucinations: Auditory (internally preoccupied) Delusions: Yes Delusion Type: Paranoid Suicidal: Ideation (No SI) Homicidal: Ideation (No HI) Insight/Judgment Poor Remarks No motor abnormalities noted. Grooming and hygiene fair at best. Labs Test 12/31/16 01/01/17 11:50 09:08 Sodium Level 129 MEQ/L 130 MEQ/L Potassium Level 4.6 MEQ/L 4.3 MEQ/L Chloride Level 95 MEQ/L 93 MEQ/L Carbon Dioxide Level 27.0 MEQ/L 28.2 MEQ/L Anion Gap 7 MEQ/L 9 MEQ/L Blood Urea Nitrogen 17 MG/DL 20 MG/DL Creatinine 0.71 MG/DL 0.78 MG/DL Estimat Glomerular Filtration 116 ML/MIN 104 ML/MIN Rate Random Glucose 99 MG/DL 79 MG/DL Serum Osmolality 278 MOSM/KG Calcium Level 9.5 MG/DL 9.3 MG/DL Magnesium Level 2.1 MG/DL 2.0 MG/DL Thyroid Stimulating Hormone 2.300 uIU/ML 3rd Gen Total Creatine Kinase 195 U/L Labs reviewed. Sodium level stable. CK not elevated. TSH within normal limits. Vitals/IOs Vital Signs Date Time Temp Pulse Resp B/P Pulse Ox O2 Delivery O2 Flow Rate FiO2 01/01/17 05:58 74 01/01/17 05:53 98.2 18 118/83 97 Assessment & Plan Problem List: (1) Schizoaffective disorder ICD Code: F25.9 (2) Intellectual disability ICD Code: F79 Assessment & Plan Continue Prolixin as ordered. Might consider titrating this over the weekend to target psychotic symptoms or behaviors. Hospitalist input noted and appreciated. Continue to monitor on the high acuity unit. Continue other medications and care as ordered. Justification for Cont. Inpt. Impairment in reality construction. High risk for decompensation in a less restrictive environment. Discharge Planning Counselor to work on dispo plan. Request HC Surrog/Guard Advoc?: Yes Problem Qualifiers (1) Schizoaffective disorder: Qualified Code: F25.0 - Schizoaffective disorder, bipolar type Larry Valdivia MD Jan 01, 2017 10:19
[2017-01-01 17:29] VITALS: BP 144/93; PULSE 76; RESP 18; TEMP 97.9; O2SAT 100
[2017-01-02 05:54] VITALS: BP 157/89; PULSE 59; RESP 18; TEMP 98.1; O2SAT 99
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
[2017-01-02] MEDS: NICOTINE 21 MG/24 HR PATCH T-DERMAL SCH (09:00)
[2017-01-02] MEDS: NEOMYCIN/POLYMYXIN/BACITRACIN OINT 15 GM TUBE TOPICAL SCH (09:00)
[2017-01-02] MEDS: amLODIPine BESYLATE 5 MG TAB PO SCH ×2 (09:22→21:33)
[2017-01-02 10:23] LABS: BICARBONATE 31.7 MEQ/L (21.0-32.0); POTASSIUM 4.3 MEQ/L (3.5-5.1)
--- NOTE | 2017-01-02 13:17 | HHI.PYPN ---
Subjective Remarks Patient was seen and case discussed with nursing. Hyponatremia remains with a level of 129. Per medicine this is chronic and they're continuing to monitor. Today patient is interviewed and becomes oppositional and leaves after couple seconds. He was irritable that asked about the meaning of his writing. Objective Alert: Yes [place]: Person Mood: Oppositional Affect: Blunted Memory Intact: Comment (Not assessed) Hallucinations: Auditory (internally preoccupied) Delusions: Yes Delusion Type: Paranoid Suicidal: Ideation (No SI) Homicidal: Ideation (No HI) Insight/Judgment Poor Labs Test 01/02/17 09:40 Sodium Level 129 MEQ/L Potassium Level 4.3 MEQ/L Chloride Level 93 MEQ/L Carbon Dioxide Level 31.7 MEQ/L Anion Gap 4 MEQ/L Blood Urea Nitrogen 17 MG/DL Creatinine 0.72 MG/DL Estimat Glomerular Filtration 114 ML/MIN Rate Random Glucose 88 MG/DL Calcium Level 8.9 MG/DL Magnesium Level 2.0 MG/DL Vitals/IOs Vital Signs Date Time Temp Pulse Resp B/P Pulse Ox O2 Delivery O2 Flow Rate FiO2 01/02/17 05:54 98.1 59 18 157/89 99 Assessment & Plan Problem List: (1) Schizoaffective disorder ICD Code: F25.9 (2) Intellectual disability ICD Code: F79 Assessment & Plan Continue current treatment plan Justification for Cont. Inpt. Patient will decompensate in a less restrictive setting Request HC Surrog/Guard Advoc?: Yes Problem Qualifiers (1) Schizoaffective disorder: Qualified Code: F25.0 - Schizoaffective disorder, bipolar type Javier Rose DO Jan 02, 2017 13:17
[2017-01-02 17:50] VITALS: BP 152/93; PULSE 76; RESP 18; TEMP 97.8; O2SAT 100
[2017-01-02] MEDS: ATORVASTATIN 20 MG TAB PO SCH (21:33)
[2017-01-03 05:37] VITALS: BP 148/92; PULSE 73; RESP 18; TEMP 97.5; O2SAT 98
[2017-01-03] MEDS: SODIUM CHLORIDE 1 GRAM TAB PO SCH (09:00)
[2017-01-03] MEDS: amLODIPine BESYLATE 5 MG TAB PO SCH ×3 (09:26→21:00)
[2017-01-03] MEDS: NEOMYCIN/POLYMYXIN/BACITRACIN OINT 15 GM TUBE TOPICAL SCH (09:26)
--- NOTE | 2017-01-03 16:15 | HHI.PYPN ---
Subjective Remarks Patient was seen and case discussed with nursing. Patient remains loose and psychotic. He relays that he hears electricity in and there is stuff in his food. Responding to internal stimuli. Slowly improving with ADLs per nursing. Denies suicidal ideation intent or plan Objective Alert: Yes [place]: Person Mood: Oppositional Affect: Blunted Memory Intact: Comment (Not assessed) Hallucinations: Auditory (hears electricity) Delusions: Yes Delusion Type: Paranoid Suicidal: Ideation (No SI) Homicidal: Ideation (No HI) Insight/Judgment Poor Vitals/IOs Vital Signs Date Time Temp Pulse Resp B/P Pulse Ox O2 Delivery O2 Flow Rate FiO2 01/03/17 05:37 97.5 73 18 148/92 98 Assessment & Plan Problem List: (1) Schizoaffective disorder ICD Code: F25.9 (2) Intellectual disability ICD Code: F79 Assessment & Plan Continue current treatment plan Justification for Cont. Inpt. Patient will decompensate in a less restrictive setting Request HC Surrog/Guard Advoc?: Yes Problem Qualifiers (1) Schizoaffective disorder: Qualified Code: F25.0 - Schizoaffective disorder, bipolar type Javier Rose DO Jan 03, 2017 16:15
[2017-01-03 17:23] VITALS: BP 138/74; PULSE 18; RESP 18; TEMP 98; O2SAT 99
[2017-01-03] MEDS: ATORVASTATIN 20 MG TAB PO SCH ×2 (20:57→20:59)
[2017-01-04 04:38] VITALS: BP 152/88; PULSE 77; RESP 18; TEMP 98; O2SAT 100
[2017-01-04] MEDS: NEOMYCIN/POLYMYXIN/BACITRACIN OINT 15 GM TUBE TOPICAL SCH (09:00)
[2017-01-04] MEDS: SODIUM CHLORIDE 1 GRAM TAB PO SCH (09:14)
[2017-01-04] MEDS: amLODIPine BESYLATE 5 MG TAB PO SCH ×2 (09:14→20:58)
[2017-01-04] MEDS: LORazepam 1 MG TAB PO PRN ×2 (09:20→21:01)
[2017-01-04] MEDS: LORazepam 2 MG/ML VIAL IM PRN (09:25)
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
[2017-01-04] MEDS: HALOPERIDOL LACTATE 5 MG/ML AMP IM PRN (10:42)
[2017-01-04 11:59] VITALS: BP 177/110; PULSE 90
[2017-01-04] MEDS: cloNIDine HCL 0.1 MG TAB PO PRN (12:11)
[2017-01-04 14:28] VITALS: BP 125/83; PULSE 60
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
[2017-01-04 18:05] VITALS: BP 126/77; PULSE 99; RESP 18; TEMP 97.5; O2SAT 98
[2017-01-04] MEDS: ATORVASTATIN 20 MG TAB PO SCH (20:59)
[2017-01-04] MEDS ORDERED: fluPHENAZine HCL 25 MG/10 ML VIAL IM PRN (21:00)
[2017-01-05 06:03] VITALS: BP 144/99; PULSE 71; RESP 18; TEMP 97.2; O2SAT 100
[2017-01-05] MEDS: NEOMYCIN/POLYMYXIN/BACITRACIN OINT 15 GM TUBE TOPICAL SCH (08:33)
[2017-01-05] MEDS: SODIUM CHLORIDE 1 GRAM TAB PO SCH ×2 (08:33→21:14)
[2017-01-05] MEDS: amLODIPine BESYLATE 5 MG TAB PO SCH ×2 (08:33→21:15)
[2017-01-05 08:53] LABS: BICARBONATE 27.4 MEQ/L (21.0-32.0); POTASSIUM 4.7 MEQ/L (3.5-5.1)
--- NOTE | 2017-01-05 13:04 | HHI.PYPN ---
Subjective Remarks Patient seen and examined. Chart reviewed. Case discussed in treatment team. No outbursts per nursing staff. On my examination today, the patient is calm but remains fairly disorganized. He is carrying around pair of socks in his arms like a small pet. He is muttering softly to himself. He tells me about " a white car" but I cannot make much more sense of what he is saying. No evidence side effects from medications. No physical complaints. Review of Systems ROS Limitations: Psychotic, Poor Historian Except as stated in HPI: all other systems reviewed are Neg Objective Alert: Yes [place]: Person Mood: Calm Affect: Blunted Memory Intact: Comment (not formally assessed) Hallucinations: Auditory (remains internally preoccupied) Delusions: No Delusion Type: Other (difficult to ascertain) Suicidal: Ideation (No SI) Homicidal: Ideation (No HI) Insight/Judgment Poor Remarks No motor abnormalities. Thought process disorganized. Grooming and hygiene fair to poor at best. Labs Test 01/05/17 08:05 Sodium Level 128 MEQ/L Potassium Level 4.7 MEQ/L Chloride Level 95 MEQ/L Carbon Dioxide Level 27.4 MEQ/L Anion Gap 6 MEQ/L Blood Urea Nitrogen 26 MG/DL Creatinine 0.90 MG/DL Estimat Glomerular Filtration 88 ML/MIN Rate Random Glucose 119 MG/DL Calcium Level 9.4 MG/DL Labs reviewed. Ongoing hyponatremia, within patient's recent historical baseline. I note that hospitalist has titrated patient's salt tablets. Vitals/IOs Vital Signs Date Time Temp Pulse Resp B/P Pulse Ox O2 Delivery O2 Flow Rate FiO2 01/05/17 06:03 97.2 71 18 144/99 100 Assessment & Plan Problem List: (1) Schizoaffective disorder ICD Code: F25.9 (2) Intellectual disability ICD Code: F79 Assessment & Plan Continue increased dose of Prolixin. To consider further titration of this agent versus switching to an alternate agent or augmenting with a second antipsychotic. Continue to monitor on the high acuity unit. Continue other medications and care as ordered. Justification for Cont. Inpt. Impairment in reality construction. High risk for decompensation in a less restrictive environment. Discharge Planning Pending psychiatric stabilization. Request HC Surrog/Guard Advoc?: Yes Problem Qualifiers (1) Schizoaffective disorder: Qualified Code: F25.0 - Schizoaffective disorder, bipolar type Larry Valdivia MD Jan 05, 2017 13:04
[2017-01-05 18:44] VITALS: BP 133/82; PULSE 86; RESP 18; TEMP 97.9; O2SAT 99
[2017-01-05 20:02] VITALS: BP 146/89; PULSE 61
[2017-01-05] MEDS: ATORVASTATIN 20 MG TAB PO SCH (21:14)
[2017-01-06 05:49] VITALS: BP 154/90; PULSE 67; RESP 18; TEMP 97.6; O2SAT 100
[2017-01-06] MEDS: SODIUM CHLORIDE 1 GRAM TAB PO SCH ×2 (08:51→20:59)
[2017-01-06] MEDS: NEOMYCIN/POLYMYXIN/BACITRACIN OINT 15 GM TUBE TOPICAL SCH (08:53)
[2017-01-06] MEDS: amLODIPine BESYLATE 5 MG TAB PO SCH ×2 (08:53→20:57)
--- NOTE | 2017-01-06 12:11 | HHI.PYPN ---
Subjective Remarks Patient seen and examined. Chart reviewed. Case discussed with nursing staff. On my examination, patient remains disorganized, childlike. He has scrawled some nonsense writing in crayon on a newspaper and gestures to it while whispering to me. It is difficult to make out what he is saying because of the thought disorganization, not because of the volume. Presently calm and pleasant on exam. No reported side effects from medications. No physical complaints. Review of Systems ROS Limitations: Psychotic, Poor Historian Except as stated in HPI: all other systems reviewed are Neg Objective Alert: Yes [place]: Person Mood: Calm Affect: Blunted (somewhat childlike) Memory Intact: Comment (not formally assessed) Hallucinations: Auditory (internally stimulated) Delusions: No Delusion Type: Other (suspect some degree of underlying delusion but difficult to ascertain because of thought disorder) Suicidal: Ideation (No SI) Homicidal: Ideation (No HI) Insight/Judgment Poor Remarks No motor abnormalities. Thought process disorganized. Labs Labs reviewed. Sodium stable. Vitals/IOs Vital Signs Date Time Temp Pulse Resp B/P Pulse Ox O2 Delivery O2 Flow Rate FiO2 01/06/17 05:49 97.6 67 18 154/90 100 Assessment & Plan Problem List: (1) Schizoaffective disorder ICD Code: F25.9 (2) Intellectual disability ICD Code: F79 Assessment & Plan Titrate Prolixin to 10/5/10 mg to target psychosis. Continue to monitor on the high acuity unit. Continue to trend sodium. Continue other medications and care as ordered. Justification for Cont. Inpt. Medication changes. Impairment in reality construction. High risk for decompensation in less restrictive environment. Discharge Planning Pending psychiatric stabilization. Request HC Surrog/Guard Advoc?: Yes Problem Qualifiers (1) Schizoaffective disorder: Qualified Code: F25.0 - Schizoaffective disorder, bipolar type Larry Valdivia MD Jan 06, 2017 12:11
[2017-01-06 12:21] LABS: BICARBONATE 31.1 MEQ/L (21.0-32.0); POTASSIUM 4.4 MEQ/L (3.5-5.1)
[2017-01-06 18:17] VITALS: PULSE 83; TEMP 98; O2SAT 97
[2017-01-06] MEDS: ATORVASTATIN 20 MG TAB PO SCH (20:57)
[2017-01-07 06:23] VITALS: BP 162/79; PULSE 78; RESP 16; TEMP 97.7; O2SAT 98
[2017-01-07] MEDS: NEOMYCIN/POLYMYXIN/BACITRACIN OINT 15 GM TUBE TOPICAL SCH (08:25)
[2017-01-07] MEDS: SODIUM CHLORIDE 1 GRAM TAB PO SCH ×2 (08:25→20:18)
[2017-01-07] MEDS: amLODIPine BESYLATE 5 MG TAB PO SCH ×2 (08:25→20:18)
[2017-01-07] MEDS: LORazepam 1 MG TAB PO PRN (08:25)
--- NOTE | 2017-01-07 11:03 | HHI.PYPN ---
Subjective Remarks Patient seen and case discussed with nursing staff. Chart reviewed. Per nursing staff, patient remains psychotic. He is able to generate some relevant speech for nurse. For me, patient remains fairly disorganized. Speech remains whispery. He is internally preoccupied. Presently calm. No side effects from medications. No physical complaints. Review of Systems ROS Limitations: Psychotic, Poor Historian Except as stated in HPI: all other systems reviewed are Neg Objective Alert: Yes [place]: Person Mood: Calm Affect: Blunted Memory Intact: Comment (not formally assessed) Hallucinations: Auditory (remains internally preoccupied) Delusions: No Delusion Type: Other (continue to suspect underlying paranoia) Suicidal: Ideation (none) Homicidal: Ideation (none) Insight/Judgment Poor Remarks No motoric abnormalities noted Labs Test 01/06/17 11:33 Sodium Level 129 MEQ/L Potassium Level 4.4 MEQ/L Chloride Level 93 MEQ/L Carbon Dioxide Level 31.1 MEQ/L Anion Gap 5 MEQ/L Blood Urea Nitrogen 24 MG/DL Creatinine 0.82 MG/DL Estimat Glomerular Filtration 98 ML/MIN Rate Random Glucose 61 MG/DL Calcium Level 9.1 MG/DL Labs reviewed. Vitals/IOs Vital Signs Date Time Temp Pulse Resp B/P Pulse Ox O2 Delivery O2 Flow Rate FiO2 01/07/17 06:23 97.7 78 16 162/79 98 Assessment & Plan Problem List: (1) Schizoaffective disorder ICD Code: F25.9 (2) Intellectual disability ICD Code: F79 Assessment & Plan Continue Prolixin as ordered. Appreciate hospitalist input. Continue to monitor on the inpatient unit. Continue other medications and care as ordered. Justification for Cont. Inpt. Impairment in reality construction. High risk for decompensation in less restrictive environment. Discharge Planning Return to facility once stabilized. Patient requires additional medication management for adequate stabilization. Request HC Surrog/Guard Advoc?: Yes Problem Qualifiers (1) Schizoaffective disorder: Qualified Code: F25.0 - Schizoaffective disorder, bipolar type Larry Valdivia MD Jan 07, 2017 11:03
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
[2017-01-07 18:36] VITALS: BP 142/93; PULSE 61; RESP 20; TEMP 97.9; O2SAT 98
[2017-01-07] MEDS: ATORVASTATIN 20 MG TAB PO SCH (20:18)
[2017-01-08 05:56] VITALS: PULSE 85; RESP 18; TEMP 98.6; O2SAT 97
[2017-01-08] MEDS: LORazepam 1 MG TAB PO PRN ×2 (08:59→16:30)
[2017-01-08] MEDS: amLODIPine BESYLATE 5 MG TAB PO SCH ×2 (08:59→20:29)
[2017-01-08] MEDS: SODIUM CHLORIDE 1 GRAM TAB PO SCH ×2 (08:59→20:29)
[2017-01-08] MEDS: NEOMYCIN/POLYMYXIN/BACITRACIN OINT 15 GM TUBE TOPICAL SCH (09:00)
[2017-01-08] MEDS: LISINOPRIL 5 MG TAB PO SCH (10:00)
--- NOTE | 2017-01-08 11:50 | HHI.PYPN ---
Subjective Remarks Patient seen and examined with counselor. Chart reviewed. Case discussed with nurse who reports that the patient is actually becoming a little more coherent in conversation. He remains quite fluid-seeking, and he remains hyponatremic. I find the patient in the rec room for fresh air. He is sitting alone and has a paper with cluttered writing. Much of this is nonsense, but he has repeatedly written [place]. He says he used to live in [place] and liked it there. He does not like the Prolixin, not because of any side effects but "because it keeps me from my parents." He believes, "I don't need anything" in the way of medications. He has been med compliant. He becomes a little upset at this point and walks off. No physical aggression noted. No side effects from medications. No physical complaints. Review of Systems ROS Limitations: Psychotic, Poor Historian Except as stated in HPI: all other systems reviewed are Neg Objective Alert: Yes [place]: Person Mood: Anxious, Other (irritable) Affect: Restricted Memory Intact: Comment (not formally assessed) Hallucinations: Auditory (int stim) Delusions: Yes Delusion Type: Paranoid Suicidal: Ideation (No SI) Homicidal: Ideation (No HI) Insight/Judgment Poor Remarks No abnormal motor movements appreciated. Thought process a little more linear today. Speech more coherent and relevant. Labs Labs reviewed. Sodium a little improved today. Vitals/IOs Vital Signs Date Time Temp Pulse Resp B/P Pulse Ox O2 Delivery O2 Flow Rate FiO2 01/08/17 05:56 98.6 85 18 97 Assessment & Plan Problem List: (1) Schizoaffective disorder ICD Code: F25.9 (2) Intellectual disability ICD Code: F79 Assessment & Plan Partial response to Prolixin. Titrate Prolixin to 10mg TID to target psychosis. Patient remains hyponatremic and fluid seeking; institute 2L fluid restriction to avoid excessive fluid intake. BMP Wednesday morning. Continue to monitor on high acuity unit. Continue other meds and care as ordered. Justification for Cont. Inpt. Impairment in reality construction. Medication changes in process. High risk for decompensation in less restrictive environment. Discharge Planning Pending psychiatric stabilization. Plan is for return to [facility]. Request HC Surrog/Guard Advoc?: Yes Problem Qualifiers (1) Schizoaffective disorder: Qualified Code: F25.0 - Schizoaffective disorder, bipolar type Larry Valdivia MD Jan 08, 2017 11:49
[2017-01-08 13:54] LABS: BICARBONATE 30.9 MEQ/L (21.0-32.0); POTASSIUM 4.2 MEQ/L (3.5-5.1)
[2017-01-08 18:12] VITALS: BP 123/84; PULSE 94; RESP 18; TEMP 98.2; O2SAT 97
[2017-01-08] MEDS: ATORVASTATIN 20 MG TAB PO SCH (20:29)
[2017-01-09 06:14] VITALS: BP 147/95; PULSE 18; RESP 18; TEMP 98.4; O2SAT 99
[2017-01-09] MEDS: NEOMYCIN/POLYMYXIN/BACITRACIN OINT 15 GM TUBE TOPICAL SCH ×2 (09:18→09:20)
[2017-01-09] MEDS: SODIUM CHLORIDE 1 GRAM TAB PO SCH ×2 (09:20→20:26)
[2017-01-09] MEDS: LISINOPRIL 5 MG TAB PO SCH (09:20)
[2017-01-09] MEDS: amLODIPine BESYLATE 5 MG TAB PO SCH ×2 (09:20→20:25)
[2017-01-09] MEDS: LORazepam 1 MG TAB PO PRN ×2 (12:30→20:26)
--- NOTE | 2017-01-09 14:51 | HHI.PYPN ---
Subjective Remarks Patient was seen and case discussed with nursing. Patient remains preoccupied with his various delusions. He is writing excessively he says about [employer] economy. Largely nonsensical mumbling under his breath. Continues with polydipsia and is showering excessively per nursing. Denies suicidal ideation intent or plan Objective Alert: Yes [place]: Person Mood: Anxious, Other (irritable) Affect: Restricted Memory Intact: Comment (not formally assessed) Hallucinations: Auditory (int stim) Delusions: Yes Delusion Type: Paranoid Suicidal: Ideation (No SI) Homicidal: Ideation (No HI) Insight/Judgment Poor Vitals/IOs Vital Signs Date Time Temp Pulse Resp B/P Pulse Ox O2 Delivery O2 Flow Rate FiO2 01/09/17 06:14 98.4 18 18 147/95 99 Assessment & Plan Problem List: (1) Schizoaffective disorder ICD Code: F25.9 (2) Intellectual disability ICD Code: F79 Assessment & Plan Continue current treatment plan Justification for Cont. Inpt. Patient will decompensate in a less restrictive setting Request HC Surrog/Guard Advoc?: Yes Problem Qualifiers (1) Schizoaffective disorder: Qualified Code: F25.0 - Schizoaffective disorder, bipolar type Javier Rose DO Jan 09, 2017 14:51
[2017-01-09 18:11] VITALS: BP 101/61; PULSE 88; RESP 18; TEMP 97.2; O2SAT 97
[2017-01-09] MEDS: ATORVASTATIN 20 MG TAB PO SCH (20:26)
[2017-01-10 05:57] VITALS: BP 154/96; PULSE 74; RESP 16; TEMP 97.4; O2SAT 97
[2017-01-10] MEDS: LISINOPRIL 5 MG TAB PO SCH (09:34)
[2017-01-10] MEDS: amLODIPine BESYLATE 5 MG TAB PO SCH ×2 (09:34→21:02)
[2017-01-10] MEDS: SODIUM CHLORIDE 1 GRAM TAB PO SCH ×2 (09:34→21:02)
[2017-01-10] MEDS: LORazepam 1 MG TAB PO PRN ×2 (09:34→16:00)
[2017-01-10 09:55] LABS: BICARBONATE 31.5 MEQ/L (21.0-32.0); POTASSIUM 3.7 MEQ/L (3.5-5.1)
--- NOTE | 2017-01-10 13:49 | HHI.PYPN ---
Subjective Remarks Patient was seen and case discussed with nursing. Patient continues with polydipsia. Excessively showering after each use the bathroom. Remains cognitively impaired. His behaving well on the unit. Responding to internal stimuli. Tolerating his medications well Objective Alert: Yes [place]: Person Mood: Anxious, Other (irritable) Affect: Blunted Memory Intact: Comment (not formally assessed) Hallucinations: Auditory (int stim) Delusions: Yes Delusion Type: Paranoid Suicidal: Ideation (No SI) Homicidal: Ideation (No HI) Insight/Judgment Poor Labs Test 01/10/17 08:54 Sodium Level 131 MEQ/L Potassium Level 3.7 MEQ/L Chloride Level 94 MEQ/L Carbon Dioxide Level 31.5 MEQ/L Anion Gap 6 MEQ/L Blood Urea Nitrogen 20 MG/DL Creatinine 0.88 MG/DL Estimat Glomerular Filtration 91 ML/MIN Rate Random Glucose 95 MG/DL Calcium Level 9.2 MG/DL Vitals/IOs Vital Signs Date Time Temp Pulse Resp B/P Pulse Ox O2 Delivery O2 Flow Rate FiO2 01/10/17 05:57 97.4 74 16 154/96 97 Assessment & Plan Problem List: (1) Schizoaffective disorder ICD Code: F25.9 (2) Intellectual disability ICD Code: F79 Assessment & Plan Continue current treatment plan Justification for Cont. Inpt. Patient would decompensate in a less restrictive setting Request HC Surrog/Guard Advoc?: Yes Problem Qualifiers (1) Schizoaffective disorder: Qualified Code: F25.0 - Schizoaffective disorder, bipolar type Javier Rose DO Jan 10, 2017 13:49
[2017-01-10] MEDS: ATORVASTATIN 20 MG TAB PO SCH (21:02)
[2017-01-10 22:29] VITALS: BP 150/84; PULSE 72; RESP 16; TEMP 97.6; O2SAT 98
[2017-01-11 05:58] VITALS: BP 168/98; PULSE 71; RESP 17; TEMP 97.6; O2SAT 100
[2017-01-11] MEDS: SODIUM CHLORIDE 1 GRAM TAB PO SCH ×3 (08:46→21:26)
[2017-01-11] MEDS: LORazepam 1 MG TAB PO PRN (08:46)
[2017-01-11] MEDS: LISINOPRIL 5 MG TAB PO SCH (08:47)
[2017-01-11] MEDS: amLODIPine BESYLATE 5 MG TAB PO SCH ×2 (08:47→21:26)
[2017-01-11] MEDS: NEOMYCIN/POLYMYXIN/BACITRACIN OINT 15 GM TUBE TOPICAL SCH (08:48)
--- NOTE | 2017-01-11 12:01 | HHI.PYPN ---
Subjective Remarks Patient seen and examined with staff. Chart reviewed. Case discussed with nursing staff reports the patient has been somewhat anxious and restless. Reviewing the medication administration record, it appears the patient has been receiving about 2 doses of oral Ativan daily for anxiety. On my examination today, the patient denies feeling subjectively anxious or restless, but this is after a dose of Ativan. He does appear a little anxious however. Thought process remains fairly disorganized. He denies SI or HI. No side effects from medications. No physical complaints. Review of Systems ROS Limitations: Psychotic, Poor Historian Except as stated in HPI: all other systems reviewed are Neg Objective Alert: Yes [place]: Person Mood: Anxious Affect: Other (somewhat childlike) Memory Intact: Comment (not formally assessed) Hallucinations: Auditory (remains internally preoccupied) Delusions: No Delusion Type: Other (no jamar delusions) Suicidal: Ideation (No SI) Homicidal: Ideation (No HI) Insight/Judgment Poor Remarks No motor abnormalities noted. Thought process remains somewhat disorganized. Labs Labs reviewed. Vitals/IOs Vital Signs Date Time Temp Pulse Resp B/P Pulse Ox O2 Delivery O2 Flow Rate FiO2 01/11/17 05:58 97.6 71 17 168/98 100 Assessment & Plan Problem List: (1) Schizoaffective disorder ICD Code: F25.9 (2) Intellectual disability ICD Code: F79 Assessment & Plan I will add a small dose of scheduled Klonopin for the management of anxiety, 0.5 mg twice daily. Continue Ativan as needed. Continue Prolixin as ordered. To consider Prolixin [place]. Continue to monitor on the high acuity unit. Continue other medications and care as ordered. Justification for Cont. Inpt. Impairment in reality construction. Medication changes in process. High risk for decompensation in less restrictive environment. Discharge Planning Back to facility once stabilized, possibly by the end of the week as I suspect that the patient is approaching his baseline. Request HC Surrog/Guard Advoc?: Yes Problem Qualifiers (1) Schizoaffective disorder: Qualified Code: F25.0 - Schizoaffective disorder, bipolar type Larry Valdivia MD Jan 11, 2017 12:01
[2017-01-11 18:15] VITALS: BP 113/78; PULSE 86; RESP 18; TEMP 97.3; O2SAT 100
[2017-01-11] MEDS: clonazePAM 0.5 MG TAB PO SCH ×3 (21:00→22:00)
[2017-01-11] MEDS: ATORVASTATIN 20 MG TAB PO SCH (21:26)
[2017-01-12 06:02] VITALS: BP 136/88; PULSE 81; RESP 16; TEMP 97.6; O2SAT 96
[2017-01-12] MEDS: LISINOPRIL 5 MG TAB PO SCH (08:48)
[2017-01-12] MEDS: amLODIPine BESYLATE 5 MG TAB PO SCH ×2 (08:48→21:27)
[2017-01-12] MEDS: LORazepam 1 MG TAB PO PRN (08:48)
[2017-01-12] MEDS: SODIUM CHLORIDE 1 GRAM TAB PO SCH ×2 (08:49→21:27)
[2017-01-12] MEDS: NEOMYCIN/POLYMYXIN/BACITRACIN OINT 15 GM TUBE TOPICAL SCH (08:49)
--- NOTE | 2017-01-12 11:55 | HHI.PYPN ---
Subjective Remarks Patient seen and examined with counselor and nurse. Chart reviewed. Case discussed in treatment team. Nurse reports that the patient refused his Klonopin but otherwise medication compliant. He received Ativan instead for anxiety. On my examination today, the patient seems somewhat more organized. I inquire about his anxiety level he says "I have no anxiety." No evident delusions. Requesting to visit with family, and I have asked that counselor to try to reach family members to ask them to come in for a visit if the patient wishes. Denies side effects from medications. No physical complaints. Review of Systems ROS Limitations: Poor Historian Except as stated in HPI: all other systems reviewed are Neg Objective Alert: Yes [place]: Person Mood: Calm Affect: Other (remains somewhat childlike) Memory Intact: Comment (not formally assessed) Hallucinations: Auditory (less internally preoccupied) Delusions: No Delusion Type: Other (no jamar delusions) Suicidal: Ideation (No SI) Homicidal: Ideation (No HI) Insight/Judgment Poor Remarks No motor abnormalities Labs Labs reviewed Vitals/IOs Vital Signs Date Time Temp Pulse Resp B/P Pulse Ox O2 Delivery O2 Flow Rate FiO2 01/12/17 06:02 97.6 81 16 136/88 96 Assessment & Plan Problem List: (1) Schizoaffective disorder ICD Code: F25.9 (2) Intellectual disability ICD Code: F79 Assessment & Plan Continue oral Prolixin as ordered. Initiate Prolixin Dec 25mg IM tomorrow. Continue to offer scheduled Klonopin as an alternative to Ativan PRN. Continue to monitor on the high acuity unit. Continue other medications and care as ordered. Justification for Cont. Inpt. Medication changes planned. Risk for decompensation. Discharge Planning Possible discharge back to facility by the end of the week. I have asked the counselor to facilitate this. Request HC Surrog/Guard Advoc?: Yes Problem Qualifiers (1) Schizoaffective disorder: Qualified Code: F25.0 - Schizoaffective disorder, bipolar type Larry Valdivia MD Jan 12, 2017 11:55
[2017-01-12 18:08] VITALS: BP 128/75; PULSE 89; RESP 17; TEMP 98.3; O2SAT 97
[2017-01-12] MEDS: ATORVASTATIN 20 MG TAB PO SCH (21:27)
[2017-01-12] MEDS: clonazePAM 0.5 MG TAB PO SCH (21:27)
[2017-01-13 05:51] VITALS: BP 146/97; PULSE 70; RESP 18; TEMP 97; O2SAT 96
[2017-01-13] MEDS: NEOMYCIN/POLYMYXIN/BACITRACIN OINT 15 GM TUBE TOPICAL SCH (09:00)
[2017-01-13] MEDS: amLODIPine BESYLATE 5 MG TAB PO SCH ×2 (09:08→20:24)
[2017-01-13] MEDS: LISINOPRIL 5 MG TAB PO SCH (09:08)
[2017-01-13] MEDS: SODIUM CHLORIDE 1 GRAM TAB PO SCH ×2 (09:09→20:24)
[2017-01-13] MEDS: clonazePAM 0.5 MG TAB PO SCH ×2 (09:09→20:22)
[2017-01-13 09:12] LABS: BICARBONATE 32.8 MEQ/L (21.0-32.0); POTASSIUM 4.7 MEQ/L (3.5-5.1)
--- NOTE | 2017-01-13 09:44 | HHI.PYPN ---
Subjective Remarks Patient seen and examined with counselor and nurse. Chart reviewed. Case discussed with nursing staff. Case discussed with counselor who reports referring facility is at this late date refusing to take the patient back. On my examination today, thought process a little more organized. He remains agreeable to assisted living placement, and, upon learning that he has been turned away by his referring facility, he is agreeable to pursuing new placement. Denies SI, HI or AVH. No side effects from medications. No physical complaints. Review of Systems ROS Limitations: Psychotic, Poor Historian Except as stated in HPI: all other systems reviewed are Neg Objective Alert: Yes [place]: Person Mood: Calm Affect: Other (childlike) Memory Intact: Comment (not formally assessed) Hallucinations: Auditory (somewhat less internally preoccupied) Delusions: No Delusion Type: Other (no delusions) Suicidal: Ideation (No SI) Homicidal: Ideation (No HI) Insight/Judgment Poor Remarks No motor abnormalities noted. Grooming and hygiene fair at best. Thought process somewhat more organized today versus previous evaluations. Labs Test 01/13/17 08:00 Sodium Level 135 MEQ/L Potassium Level 4.7 MEQ/L Chloride Level 98 MEQ/L Carbon Dioxide Level 32.8 MEQ/L Anion Gap 4 MEQ/L Blood Urea Nitrogen 19 MG/DL Creatinine 0.70 MG/DL Estimat Glomerular Filtration 118 ML/MIN Rate Random Glucose 95 MG/DL Calcium Level 8.9 MG/DL Labs reviewed. Sodium level improved. Vitals/IOs Vital Signs Date Time Temp Pulse Resp B/P Pulse Ox O2 Delivery O2 Flow Rate FiO2 01/13/17 05:51 97.0 70 18 146/97 96 Assessment & Plan Problem List: (1) Schizoaffective disorder ICD Code: F25.9 (2) Intellectual disability ICD Code: F79 Assessment & Plan Patient received Prolixin Decanoate injection today. Continue oral Prolixin supplementation, although we might consider tapering the dose somewhat in succeeding days. Continue other medications as ordered. Continue to monitor on the inpatient unit. Continue other care as ordered. Justification for Cont. Inpt. High risk for decompensation in less restrictive environment. Discharge Planning Patient now requires new placement. Counselor to work on this. Request HC Surrog/Guard Advoc?: Yes Problem Qualifiers (1) Schizoaffective disorder: Qualified Code: F25.0 - Schizoaffective disorder, bipolar type Larry Valdivia MD Jan 13, 2017 09:44
[2017-01-13 18:19] VITALS: BP 124/87; PULSE 78; RESP 18; TEMP 97.4; O2SAT 99
[2017-01-13] MEDS: ATORVASTATIN 20 MG TAB PO SCH (20:24)
[2017-01-14 06:02] VITALS: BP 148/93; PULSE 81; RESP 18; TEMP 97.6; O2SAT 97
[2017-01-14] MEDS: LISINOPRIL 5 MG TAB PO SCH (08:51)
[2017-01-14] MEDS: NEOMYCIN/POLYMYXIN/BACITRACIN OINT 15 GM TUBE TOPICAL SCH (08:51)
[2017-01-14] MEDS: clonazePAM 0.5 MG TAB PO SCH ×2 (08:51→21:02)
[2017-01-14] MEDS: amLODIPine BESYLATE 5 MG TAB PO SCH ×2 (08:51→21:01)
[2017-01-14] MEDS: SODIUM CHLORIDE 1 GRAM TAB PO SCH ×2 (08:51→21:02)
--- NOTE | 2017-01-14 10:59 | HHI.PYPN ---
Subjective Remarks Patient seen and examined with counselor and nurse. Chart reviewed. Case d/w RN. Besides trying to take drinks from other people's meal trays, no behavioral problem. On my exam, patient is dressed in casual garb for the first time, having previously remained in hospital gown. His thought process is once again a little more organized. He denies AVH. He is a little restless , crossing and uncrossing his arms, but he denies subjective restlessness or akathisia. No side effects from medications. No physical complaints. Review of Systems ROS Limitations: Poor Historian Except as stated in HPI: all other systems reviewed are Neg Objective Alert: Yes [place]: Person Mood: Calm Affect: Blunted (remains a little childlike) Memory Intact: Comment (not formally assessed) Hallucinations: Other (Denies AVH) Delusions: No Delusion Type: Other (no delusions) Suicidal: Ideation (No SI) Homicidal: Ideation (No HI) Insight/Judgment poor Remarks Besides above, no motor abnormalities. TP perhaps a little more linear. Labs Labs reviewed. Vitals/IOs Vital Signs Date Time Temp Pulse Resp B/P Pulse Ox O2 Delivery O2 Flow Rate FiO2 01/14/17 06:02 97.6 81 18 148/93 97 Assessment & Plan Problem List: (1) Schizoaffective disorder ICD Code: F25.9 (2) Intellectual disability ICD Code: F79 Assessment & Plan Continue Prolixin PO augmenting Prolixin Dec. Could consider starting to taper oral dose next week, but patient seems to be improving and so I am loath to taper oral dose before I am confident he is on a good dose of Dec. Continue to monitor on high acuity unit. Continue other meds and care as ordered. Justification for Cont. Inpt. Risk for decompensation in less restrictive environment. Discharge Planning Counselor working on new placement. Request HC Surrog/Guard Advoc?: Yes Problem Qualifiers (1) Schizoaffective disorder: Qualified Code: F25.0 - Schizoaffective disorder, bipolar type Larry Valdivia MD Jan 14, 2017 10:59
[2017-01-14 16:01] VITALS: BP 141/80; PULSE 70; RESP 17; TEMP 97.7; O2SAT 100
[2017-01-14] MEDS: ATORVASTATIN 20 MG TAB PO SCH (21:02)
[2017-01-15] MEDS: cloNIDine HCL 0.1 MG TAB PO PRN (04:59)
[2017-01-15 06:12] VITALS: BP 151/97; PULSE 79; RESP 18; TEMP 97.2; O2SAT 97
[2017-01-15] MEDS: clonazePAM 0.5 MG TAB PO SCH ×2 (08:48→20:45)
[2017-01-15] MEDS: SODIUM CHLORIDE 1 GRAM TAB PO SCH ×2 (08:48→20:45)
[2017-01-15] MEDS: amLODIPine BESYLATE 5 MG TAB PO SCH ×2 (08:49→20:44)
[2017-01-15] MEDS: LISINOPRIL 5 MG TAB PO SCH (08:49)
[2017-01-15] MEDS: NEOMYCIN/POLYMYXIN/BACITRACIN OINT 15 GM TUBE TOPICAL SCH (08:51)
--- NOTE | 2017-01-15 11:55 | HHI.PYPN ---
Subjective Remarks Patient seen and examined with counselor and nurse. Chart reviewed. Case discussed with nursing staff. On my examination today, thought process again more linear. He says that he is "ready to go" and we discussed difficulties with discharge. Denies AVH. Denies SI/HI. Mood "pretty good." Denies side effects from meds. No physical complaints. Review of Systems ROS Limitations: Poor Historian Except as stated in HPI: all other systems reviewed are Neg Objective Alert: Yes [place]: Person Mood: Calm Affect: Blunted (childlike) Memory Intact: Comment (not formally assessed) Hallucinations: Other (No AVH) Delusions: No Delusion Type: Other (No delusional material) Suicidal: Ideation (No SI) Homicidal: Ideation (No HI) Insight/Judgment Poor Remarks No motor abnormalities. TP less disorganized. Labs Labs reviewed. Vitals/IOs Vital Signs Date Time Temp Pulse Resp B/P Pulse Ox O2 Delivery O2 Flow Rate FiO2 01/15/17 06:12 97.2 79 18 151/97 97 Assessment & Plan Problem List: (1) Schizoaffective disorder ICD Code: F25.9 (2) Intellectual disability ICD Code: F79 Assessment & Plan Continue Prolixin supplementing Prolixin Decanoate. Continue Klonopin as ordered. Continue other medications and care as ordered. Justification for Cont. Inpt. High risk for decompensation in less restrictive environment. Discharge Planning Placement Request HC Surrog/Guard Advoc?: Yes Problem Qualifiers (1) Schizoaffective disorder: Qualified Code: F25.0 - Schizoaffective disorder, bipolar type Larry Valdivia MD Jan 15, 2017 11:55
[2017-01-15 12:29] LABS: BICARBONATE 33.8 MEQ/L (21.0-32.0); POTASSIUM 4.2 MEQ/L (3.5-5.1)
[2017-01-15 17:50] VITALS: BP 153/96; PULSE 80; RESP 18; TEMP 97.9; O2SAT 98
[2017-01-15] MEDS: ATORVASTATIN 20 MG TAB PO SCH (20:50)
[2017-01-16] MEDS: cloNIDine HCL 0.1 MG TAB PO PRN (05:10)
[2017-01-16 05:12] VITALS: BP 161/107
[2017-01-16 06:18] VITALS: BP 147/92; PULSE 87; RESP 18; TEMP 98.1; O2SAT 98
[2017-01-16] MEDS: LISINOPRIL 5 MG TAB PO SCH (08:26)
[2017-01-16] MEDS: clonazePAM 0.5 MG TAB PO SCH ×2 (08:26→20:12)
[2017-01-16] MEDS: amLODIPine BESYLATE 5 MG TAB PO SCH ×2 (08:26→20:12)
[2017-01-16] MEDS: NEOMYCIN/POLYMYXIN/BACITRACIN OINT 15 GM TUBE TOPICAL SCH (09:00)
--- NOTE | 2017-01-16 13:37 | HHI.PYPN ---
Subjective Remarks Pt seen and discussed with staff. Pt has been compliant with medications. He remains on restrictions due to polydipsia. He requests discharge so he can go home and "drink water all day" Insight into illness is poor. He is flat and isolative. Staff report that pt is observed constantly muttering and talking to self. Objective Alert: Yes [place]: Person Mood: Calm Affect: Blunted (childlike) Memory Intact: Comment (fair) Hallucinations: Other (No AVH) Delusions: No Delusion Type: Other (No delusional material) Suicidal: Ideation (No SI) Homicidal: Ideation (No HI) Insight/Judgment poor Vitals/IOs Vital Signs Date Time Temp Pulse Resp B/P Pulse Ox O2 Delivery O2 Flow Rate FiO2 01/16/17 06:18 98.1 87 18 147/92 98 Assessment & Plan Problem List: (1) Schizoaffective disorder ICD Code: F25.9 (2) Intellectual disability ICD Code: F79 Assessment & Plan Continue current tx plan Estimated LOS: days Justification for Cont. Inpt. impairments in self care Request HC Surrog/Guard Advoc?: Yes Problem Qualifiers (1) Schizoaffective disorder: Qualified Code: F25.0 - Schizoaffective disorder, bipolar type Shantal Dowell MD Jan 16, 2017 13:37
[2017-01-16] MEDS: SODIUM CHLORIDE 1 GRAM TAB PO SCH ×2 (14:03→20:12)
[2017-01-16 18:00] VITALS: BP 124/85; PULSE 69; RESP 18; TEMP 97.3
[2017-01-16] MEDS: ATORVASTATIN 20 MG TAB PO SCH (20:12)
[2017-01-17 05:49] VITALS: BP 145/94; PULSE 77; RESP 18; TEMP 97.6; O2SAT 97
[2017-01-17] MEDS: SODIUM CHLORIDE 1 GRAM TAB PO SCH ×2 (08:44→21:19)
[2017-01-17] MEDS: amLODIPine BESYLATE 5 MG TAB PO SCH ×2 (08:44→21:17)
[2017-01-17] MEDS: LISINOPRIL 5 MG TAB PO SCH (08:44)
[2017-01-17] MEDS: NEOMYCIN/POLYMYXIN/BACITRACIN OINT 15 GM TUBE TOPICAL SCH (08:45)
[2017-01-17] MEDS: clonazePAM 0.5 MG TAB PO SCH ×2 (08:45→21:17)
--- NOTE | 2017-01-17 12:37 | HHI.PYPN ---
Subjective Remarks Pt seen and discussed with staff. He remains paranoid and internally preoccupied, but has been calm and cooperative with care on unit. He is perseverative during interview. No SI/HI Objective Alert: Yes [place]: Person Mood: Calm Affect: Blunted (childlike) Memory Intact: Comment (fair) Hallucinations: Other (No AVH) Delusions: No Delusion Type: Other (No delusional material) Suicidal: Ideation (No SI) Homicidal: Ideation (No HI) Insight/Judgment poor Remarks disorganized Vitals/IOs Vital Signs Date Time Temp Pulse Resp B/P Pulse Ox O2 Delivery O2 Flow Rate FiO2 01/17/17 05:49 97.6 77 18 145/94 97 Assessment & Plan Problem List: (1) Schizoaffective disorder ICD Code: F25.9 (2) Intellectual disability ICD Code: F79 Assessment & Plan Continue current tx plan. Estimated LOS: days Justification for Cont. Inpt. impairments in self care and thought process Request HC Surrog/Guard Advoc?: Yes Problem Qualifiers (1) Schizoaffective disorder: Qualified Code: F25.0 - Schizoaffective disorder, bipolar type Shantal Dowell MD Jan 17, 2017 12:37
[2017-01-17 18:20] VITALS: BP 154/84; PULSE 78; RESP 18; TEMP 97.1; O2SAT 98
[2017-01-17 21:15] VITALS: BP 148/105; PULSE 76
[2017-01-17] MEDS: ATORVASTATIN 20 MG TAB PO SCH (21:17)
[2017-01-18 06:19] VITALS: BP 182/104; PULSE 77; RESP 18; TEMP 98.3; O2SAT 99
[2017-01-18 06:20] VITALS: BP 152/98
[2017-01-18] MEDS: NEOMYCIN/POLYMYXIN/BACITRACIN OINT 15 GM TUBE TOPICAL SCH (09:00)
[2017-01-18] MEDS: LISINOPRIL 5 MG TAB PO SCH (09:21)
[2017-01-18] MEDS: amLODIPine BESYLATE 5 MG TAB PO SCH ×2 (09:21→21:47)
[2017-01-18] MEDS: clonazePAM 0.5 MG TAB PO SCH ×2 (09:22→21:47)
[2017-01-18] MEDS: SODIUM CHLORIDE 1 GRAM TAB PO SCH ×2 (09:22→21:47)
--- NOTE | 2017-01-18 09:41 | HHI.PYPN ---
Subjective Remarks Patient seen and examined with counselor and nurse. Chart reviewed. Case discussed with nursing staff who reports that the patient has been generally calm today. On my examination today, the patient is able to answer some questions appropriately but remains a little disorganized. He is presently calm. He has several papers in front of him that he refers us to, all covered with close, largely nonsensical writing. Denies side effects from medications. No physical complaints. Review of Systems ROS Limitations: Psychotic, Poor Historian Except as stated in HPI: all other systems reviewed are Neg Objective Alert: Yes [place]: Person Mood: Calm Affect: Other (childlike) Memory Intact: Comment (not formally assessed today) Hallucinations: Other (none) Delusions: No Delusion Type: Other (none elicited) Suicidal: Ideation (No SI) Homicidal: Ideation (No HI) Insight/Judgment Poor Remarks No motor abnormalities appreciated. Thought process remains a little disorganized. Grooming and hygiene fair at best. Labs Labs reviewed. Vitals/IOs Vital Signs Date Time Temp Pulse Resp B/P Pulse Ox O2 Delivery O2 Flow Rate FiO2 01/18/17 06:20 152/98 01/18/17 06:19 98.3 77 18 99 Assessment & Plan Problem List: (1) Schizoaffective disorder ICD Code: F25.9 (2) Intellectual disability ICD Code: F79 Assessment & Plan Continue Prolixin and other psychotropics as ordered. Check a BMP in the morning to follow-up sodium level. Continue to monitor on the high acuity unit. Continue other medications and care as ordered. Justification for Cont. Inpt. High risk for decompensation in less restrictive environment. Discharge Planning Patient requires new placement. Counselor is working on this. Request HC Surrog/Guard Advoc?: Yes Problem Qualifiers (1) Schizoaffective disorder: Qualified Code: F25.0 - Schizoaffective disorder, bipolar type Larry Valdivia MD Jan 18, 2017 09:41
[2017-01-18] MEDS: LORazepam 1 MG TAB PO PRN (17:00)
[2017-01-18 18:12] VITALS: BP 143/93; PULSE 74; RESP 16; TEMP 97.4; O2SAT 99
[2017-01-18 19:58] VITALS: BP 146/90; PULSE 84
[2017-01-18] MEDS: ATORVASTATIN 20 MG TAB PO SCH (21:47)
[2017-01-19 03:30] VITALS: BP 147/105; PULSE 70; RESP 16; TEMP 97.4; O2SAT 97
[2017-01-19] MEDS: cloNIDine HCL 0.1 MG TAB PO PRN (03:31)
[2017-01-19 06:13] VITALS: BP 150/108
[2017-01-19 06:14] VITALS: BP 139/80
[2017-01-19] MEDS: SODIUM CHLORIDE 1 GRAM TAB PO SCH ×2 (08:59→20:35)
[2017-01-19] MEDS: clonazePAM 0.5 MG TAB PO SCH (08:59)
[2017-01-19] MEDS: amLODIPine BESYLATE 5 MG TAB PO SCH ×2 (08:59→20:35)
[2017-01-19] MEDS: NEOMYCIN/POLYMYXIN/BACITRACIN OINT 15 GM TUBE TOPICAL SCH (09:00)
[2017-01-19] MEDS: LISINOPRIL 5 MG TAB PO SCH (09:00)
[2017-01-19 10:02] LABS: BICARBONATE 31.5 MEQ/L (21.0-32.0); POTASSIUM 4.2 MEQ/L (3.5-5.1)
--- NOTE | 2017-01-19 11:23 | HHI.PYPN ---
Subjective Remarks Patient seen and examined. Chart reviewed. Case discussed in treatment team. On my examination today, the patient is calm and cooperative with exam. Able to answer direct questions appropriately but struggles with more involved conversation. Agreeable and in fact desirous of [facility]IOR [facility] placement. Remains fluid seeking per RN, and did get a little agitated while I was on the unit because he was trying to take drinks off other patient's lunch trays but was redirected by staff. No side effects from medications. No physical complaints. Review of Systems ROS Limitations: Poor Historian Except as stated in HPI: all other systems reviewed are Neg Objective Alert: Yes [place]: Person Mood: Calm Affect: Other (remains fairly childlike) Memory Intact: Comment (not formally assessed today) Hallucinations: Other (denies hallucinations) Delusions: No Delusion Type: Other (no delusions) Suicidal: Ideation (denies SI) Homicidal: Ideation (denies HI) Insight/Judgment Poor Remarks No motor abnormalities noted. Labs Test 01/19/17 09:15 Sodium Level 135 MEQ/L Potassium Level 4.2 MEQ/L Chloride Level 97 MEQ/L Carbon Dioxide Level 31.5 MEQ/L Anion Gap 7 MEQ/L Blood Urea Nitrogen 20 MG/DL Creatinine 0.81 MG/DL Estimat Glomerular Filtration 100 ML/MIN Rate Random Glucose 83 MG/DL Calcium Level 9.2 MG/DL Labs reviewed. Hyponatremia improved. Vitals/IOs Vital Signs Date Time Temp Pulse Resp B/P Pulse Ox O2 Delivery O2 Flow Rate FiO2 01/19/17 06:14 139/80 01/19/17 03:30 97.4 70 16 97 Assessment & Plan Problem List: (1) Schizoaffective disorder ICD Code: F25.9 (2) Intellectual disability ICD Code: F79 Assessment & Plan Titrate Klonopin to 1 mg twice daily to target intermittent agitation. Continue Prolixin as ordered supplementing Prolixin Decanoate. Continue other medications and care as ordered. Justification for Cont. Inpt. Medication changes in process. High risk for decompensation in less restrictive environment. Discharge Planning Pending psychiatric stabilization. Request HC Surrog/Guard Advoc?: Yes Problem Qualifiers (1) Schizoaffective disorder: Qualified Code: F25.0 - Schizoaffective disorder, bipolar type Larry Valdivia MD Jan 19, 2017 11:23
--- NOTE | 2017-01-19 11:31 | PD.TTN ---
Present for Treatment Team Treatment Team Staff: Provider (Dr. Valdivia), Nurse (Feliz Santos RN), Psych Therapist (RUBY Anderson), Occupational Therapist (TALIA Alves) Patient Problems 1. Discharge planning 2. Medication compliance 3. Knowledge deficit 4. Lack of coping skills Progress Toward Goals Provider Input: Pt Klonopin will be titrated and pt will be considered for long acting injection form of Prolixin. Nurse Input: Pt wanders unit most of the day, mumbles to himself, was agitated requiring additional medication and has been drinking excessively requiring redirection. Psych Therapist Input: Pt appears labile, cooperative, appropriate, disorganized with rambling speech. Pt is compliant with medication regiment and treatment though he is easily agitated and requires redirection for this at times. Pt presents with limited coping skills as evidenced by inability to regulate emotions when upset. He presents with poor insight into condition and need for care. Pt has been referred to local ALFs and is being reviewed for possibility of admission. Occupational Therapist Input: Pt attends 75% of groups but requires redirection and paces aimlessly. Documentation Scribe: RUBY Anderson Jonathan LMHC Jan 19, 2017 11:31
[2017-01-19] MEDS: LORazepam 1 MG TAB PO PRN (12:19)
[2017-01-19 18:11] VITALS: BP 133/91; PULSE 83; RESP 17; TEMP 97.4; O2SAT 100
[2017-01-19 20:23] VITALS: BP 126/81; PULSE 82; TEMP 97.6; O2SAT 98
[2017-01-19] MEDS: clonazePAM 1 MG TAB PO SCH (20:35)
[2017-01-19] MEDS: ATORVASTATIN 20 MG TAB PO SCH (20:36)
[2017-01-20] MEDS: LORazepam 1 MG TAB PO PRN (02:43)
[2017-01-20 06:11] VITALS: PULSE 86; RESP 18; TEMP 97.6; O2SAT 98
[2017-01-20] MEDS: LORazepam 2 MG/ML VIAL IM PRN (08:08)
[2017-01-20] MEDS: HALOPERIDOL LACTATE 5 MG/ML AMP IM PRN (08:10)
[2017-01-20] MEDS: NEOMYCIN/POLYMYXIN/BACITRACIN OINT 15 GM TUBE TOPICAL SCH (09:00)
[2017-01-20] MEDS: clonazePAM 1 MG TAB PO SCH ×2 (09:00→20:44)
[2017-01-20] MEDS: amLODIPine BESYLATE 5 MG TAB PO SCH ×2 (09:06→20:44)
[2017-01-20] MEDS: SODIUM CHLORIDE 1 GRAM TAB PO SCH ×2 (09:06→20:43)
[2017-01-20] MEDS: LISINOPRIL 5 MG TAB PO SCH (09:06)
--- NOTE | 2017-01-20 10:45 | HHI.PYPN ---
Subjective Remarks Patient seen and examined with nurse. Chart reviewed. Case discussed with nursing staff who reports that the patient required Haldol PRN this morning because he was trying to steal coffee off of other people's trays and became upset when redirected by staff. When I evaluated the patient, he is calm but quite childlike. He responds favorably to my recommendation to go to staff if he wants fluids, but I get the sense that this advice will not be followed. No psychotic symptoms. Thought process fairly linear today. No side effects from medications. No physical complaints. Review of Systems ROS Limitations: Poor Historian Except as stated in HPI: all other systems reviewed are Neg Objective Alert: Yes [place]: Person Mood: Calm Affect: Euthymic (childlike) Memory Intact: Comment (not formally assessed today) Hallucinations: Other (no hallucinations) Delusions: No Delusion Type: Other (no delusional material) Suicidal: Ideation (no SI) Homicidal: Ideation (no HI) Insight/Judgment Poor Remarks No motor abnormalities noted. Labs Labs reviewed. Vitals/IOs Vital Signs Date Time Temp Pulse Resp B/P Pulse Ox O2 Delivery O2 Flow Rate FiO2 01/20/17 06:11 97.6 86 18 98 Assessment & Plan Problem List: (1) Schizoaffective disorder ICD Code: F25.9 (2) Intellectual disability ICD Code: F79 Assessment & Plan Continue current psychiatric medications as ordered. Would like to give titration of Klonopin more time to take effect before making other med changes. Continue to monitor on the high acuity unit. Continue other medications and care as ordered. Justification for Cont. Inpt. High risk for decompensation in less restrictive environment. Discharge Planning Placement Request HC Surrog/Guard Advoc?: Yes Problem Qualifiers (1) Schizoaffective disorder: Qualified Code: F25.0 - Schizoaffective disorder, bipolar type Larry Valdivia MD Jan 20, 2017 10:45
[2017-01-20 17:38] VITALS: BP 151/92; PULSE 92; RESP 18; TEMP 98; O2SAT 98
[2017-01-20] MEDS: ATORVASTATIN 20 MG TAB PO SCH (20:44)
[2017-01-21 05:33] VITALS: BP 138/87; PULSE 80; RESP 18; TEMP 97.2; O2SAT 99
[2017-01-21] MEDS: NEOMYCIN/POLYMYXIN/BACITRACIN OINT 15 GM TUBE TOPICAL SCH (09:00)
[2017-01-21] MEDS: clonazePAM 1 MG TAB PO SCH ×2 (09:06→21:19)
[2017-01-21] MEDS: LISINOPRIL 5 MG TAB PO SCH (09:06)
[2017-01-21] MEDS: SODIUM CHLORIDE 1 GRAM TAB PO SCH ×2 (09:06→21:19)
[2017-01-21] MEDS: amLODIPine BESYLATE 5 MG TAB PO SCH ×2 (09:07→21:19)
--- NOTE | 2017-01-21 09:45 | HHI.PYPN ---
Subjective Remarks Patient seen and examined with nurse. Chart reviewed. Case discussed with nursing staff who reports that the patient is somewhat clearer thinking and denying suicidal or homicidal ideation but continues to appear to be responding to internal stimuli. On my exam, patient seems distinctly fidgety and restless , and I am concerned about recurrence of akathisia, which may be driving some of recent agitation. When I ask him about this, he says, "not restless, not restless, just need more time by myself. Ready to go to [facility] Counselor informs me that we do not yet have an accepting facility. Denies side effects from medications. No physical complaints. Review of Systems ROS Limitations: Poor Historian Except as stated in HPI: all other systems reviewed are Neg Objective Alert: Yes [place]: Person Mood: Calm Affect: Euthymic, Other (childlike) Memory Intact: Comment (not formally assessed today) Hallucinations: Other (no AVH) Delusions: No Delusion Type: Other (no delusions) Suicidal: Ideation (no SI) Homicidal: Ideation (no HI) Insight/Judgment Poor Remarks Thought process remains a little disorganized and perseverative. Speech rambling. No hand tremor/dystonia/dyskinesia but as noted above the patient does seem distinctly fidgety. Labs Labs reviewed. Vitals/IOs Vital Signs Date Time Temp Pulse Resp B/P Pulse Ox O2 Delivery O2 Flow Rate FiO2 01/21/17 05:33 97.2 80 18 138/87 99 Assessment & Plan Problem List: (1) Schizoaffective disorder ICD Code: F25.9 (2) Intellectual disability ICD Code: F79 Assessment & Plan Patient's report to the contrary, I do suspect that the patient is experiencing some akathisia at this point. I will start Inderal 10 mg 3 times daily with blood pressure and heart rate parameters. Check a BMP in the morning to trend sodium. Continue other psychotropics as ordered. Continue other medications and care as ordered. Justification for Cont. Inpt. Medication changes in process. High risk for decompensation in less restrictive environment. Discharge Planning Placement Request HC Surrog/Guard Advoc?: Yes Problem Qualifiers (1) Schizoaffective disorder: Qualified Code: F25.0 - Schizoaffective disorder, bipolar type Larry Valdivia MD Jan 21, 2017 09:45
[2017-01-21] MEDS: PROPRANOLOL HCL 10 MG TAB PO SCH ×2 (13:36→21:19)
[2017-01-21 17:46] VITALS: BP 106/74; PULSE 84; RESP 19; TEMP 98.2; O2SAT 100
[2017-01-21] MEDS: ATORVASTATIN 20 MG TAB PO SCH (21:19)
[2017-01-22 05:55] VITALS: BP 141/97; PULSE 76; RESP 18; TEMP 97.5; O2SAT 97
[2017-01-22] MEDS: NEOMYCIN/POLYMYXIN/BACITRACIN OINT 15 GM TUBE TOPICAL SCH (09:00)
[2017-01-22] MEDS: LISINOPRIL 5 MG TAB PO SCH (09:09)
[2017-01-22] MEDS: SODIUM CHLORIDE 1 GRAM TAB PO SCH ×2 (09:09→20:02)
[2017-01-22] MEDS: clonazePAM 1 MG TAB PO SCH ×2 (09:09→20:02)
[2017-01-22] MEDS: amLODIPine BESYLATE 5 MG TAB PO SCH ×2 (09:09→20:02)
[2017-01-22] MEDS: PROPRANOLOL HCL 10 MG TAB PO SCH ×3 (09:09→20:02)
--- NOTE | 2017-01-22 09:23 | HHI.PYPN ---
Subjective Remarks Patient seen and examined with counselor and nurse. Chart reviewed. Case discussed with nursing staff. On my examination today, the patient seems considerably less restless today. He also feels subjectively calmer. He denies audiovisual hallucinations. Says that his plan for the weekend is to " do some writing." Thought processes were linear. Denies side effects from medications. No physical complaints. Review of Systems ROS Limitations: Poor Historian Except as stated in HPI: all other systems reviewed are Neg Objective Alert: Yes [place]: Person Mood: Calm Affect: Blunted, Other (childlike) Memory Intact: Comment (not formally assessed) Hallucinations: Other (denies AVH) Delusions: No Delusion Type: Other (no delusions) Suicidal: Ideation (no SI voiced) Homicidal: Ideation (no HI voiced) Insight/Judgment Poor Remarks No motor abnormalities noted. Significantly less fidgety and restless today. Grooming and hygiene fair, and the nurse notes that the patient showered today. Thought process a little more linear. Labs Labs reviewed. Sodium within the normal range now. Vitals/IOs Vital Signs Date Time Temp Pulse Resp B/P Pulse Ox O2 Delivery O2 Flow Rate FiO2 01/22/17 05:55 97.5 76 18 141/97 97 Assessment & Plan Problem List: (1) Schizoaffective disorder ICD Code: F25.9 (2) Intellectual disability ICD Code: F79 Assessment & Plan Continue Inderal for probable akathisia. Continue Prolixin by mouth supplementing Prolixin Decanoate. Patient is next due for Prolixin Decanoate injection ~02/03. Continue to monitor on the inpatient unit. Continue other medications and care as ordered. Justification for Cont. Inpt. High risk for decompensation in less restrictive environment. Discharge Planning Placement. Counselor is growing pessimistic about the possibility of getting the patient [facility] as they have not yet called him back despite initial interest in the patient. Counselor to pursue alternative placement options. Request HC Surrog/Guard Advoc?: Yes Problem Qualifiers (1) Schizoaffective disorder: Qualified Code: F25.0 - Schizoaffective disorder, bipolar type Larry Valdivia MD Jan 22, 2017 09:23
[2017-01-22 13:32] LABS: BICARBONATE 29.4 MEQ/L (21.0-32.0)
[2017-01-22 18:24] VITALS: BP 130/56; PULSE 80; RESP 18; TEMP 98; O2SAT 99
[2017-01-22] MEDS: ATORVASTATIN 20 MG TAB PO SCH (20:02)
[2017-01-23] MEDS: cloNIDine HCL 0.1 MG TAB PO PRN (05:04)
[2017-01-23 05:45] VITALS: BP 144/100; PULSE 82; RESP 18; TEMP 97.6; O2SAT 97
[2017-01-23] MEDS: amLODIPine BESYLATE 5 MG TAB PO SCH ×2 (08:44→20:48)
[2017-01-23] MEDS: SODIUM CHLORIDE 1 GRAM TAB PO SCH ×2 (08:44→20:48)
[2017-01-23] MEDS: clonazePAM 1 MG TAB PO SCH ×2 (08:45→20:48)
[2017-01-23] MEDS: PROPRANOLOL HCL 10 MG TAB PO SCH ×3 (08:45→20:48)
[2017-01-23] MEDS: LISINOPRIL 5 MG TAB PO SCH (08:45)
[2017-01-23] MEDS: NEOMYCIN/POLYMYXIN/BACITRACIN OINT 15 GM TUBE TOPICAL SCH (11:48)
--- NOTE | 2017-01-23 17:43 | HHI.PYPN ---
Subjective Remarks Patient was seen and case discussed with nursing. Patient is pleasant and cooperative with exam. Remains internally stimulated. No psychotic symptoms were elicited today. Doing well per nursing Objective Alert: Yes [place]: Person Mood: Calm Affect: Blunted, Other (childlike) Memory Intact: Comment (not formally assessed) Hallucinations: Other (denies AVH) Delusions: No Delusion Type: Other (internally stimulated) Suicidal: Ideation (no SI voiced) Homicidal: Ideation (no HI voiced) Insight/Judgment Poor Vitals/IOs Vital Signs Date Time Temp Pulse Resp B/P Pulse Ox O2 Delivery O2 Flow Rate FiO2 01/23/17 05:45 97.6 82 18 144/100 97 Assessment & Plan Problem List: (1) Schizoaffective disorder ICD Code: F25.9 (2) Intellectual disability ICD Code: F79 Assessment & Plan Poor Justification for Cont. Inpt. Patient will decompensate in a less restrictive setting Request HC Surrog/Guard Advoc?: Yes Problem Qualifiers (1) Schizoaffective disorder: Qualified Code: F25.0 - Schizoaffective disorder, bipolar type Javier Rose DO Jan 23, 2017 17:43
[2017-01-23 17:47] VITALS: BP 131/81; PULSE 84; RESP 18; TEMP 97.8; O2SAT 98
[2017-01-23] MEDS: ATORVASTATIN 20 MG TAB PO SCH (20:48)
[2017-01-24] MEDS: PROPRANOLOL HCL 10 MG TAB PO SCH ×3 (09:00→21:37)
[2017-01-24] MEDS: amLODIPine BESYLATE 5 MG TAB PO SCH ×2 (09:00→21:37)
[2017-01-24] MEDS: NEOMYCIN/POLYMYXIN/BACITRACIN OINT 15 GM TUBE TOPICAL SCH (09:00)
[2017-01-24] MEDS: SODIUM CHLORIDE 1 GRAM TAB PO SCH ×2 (09:00→21:37)
[2017-01-24] MEDS: LISINOPRIL 5 MG TAB PO SCH (09:00)
[2017-01-24] MEDS: clonazePAM 1 MG TAB PO SCH ×2 (09:00→21:37)
--- NOTE | 2017-01-24 15:06 | HHI.PYPN ---
Subjective Remarks Patient was seen and case discussed with nursing. Patient remains perseverative with water. Before interview he ran into the shower after another patient's soaking wet with his clothes on. Thought process remains disorganized. Denies psychotic symptoms. Cognitive deficits are evident Objective Alert: Yes [place]: Person Mood: Calm Affect: Blunted, Other (childlike) Memory Intact: Comment (not formally assessed) Hallucinations: Other (denies AVH) Delusions: No Delusion Type: Other (internally stimulated) Suicidal: Ideation (no SI voiced) Homicidal: Ideation (no HI voiced) Insight/Judgment Poor Vitals/IOs Vital Signs Date Time Temp Pulse Resp B/P Pulse Ox O2 Delivery O2 Flow Rate FiO2 01/23/17 17:47 97.8 84 18 131/81 98 Assessment & Plan Problem List: (1) Schizoaffective disorder ICD Code: F25.9 (2) Intellectual disability ICD Code: F79 Assessment & Plan Continue current treatment plan Justification for Cont. Inpt. Patient would decompensate in a less restrictive setting. Request HC Surrog/Guard Advoc?: Yes Problem Qualifiers (1) Schizoaffective disorder: Qualified Code: F25.0 - Schizoaffective disorder, bipolar type Javier Rose DO Jan 24, 2017 15:06
[2017-01-24 17:50] VITALS: BP 138/87; PULSE 94; RESP 18; TEMP 97.7; O2SAT 98
[2017-01-24 20:36] VITALS: BP 146/89; PULSE 76
[2017-01-24] MEDS: ATORVASTATIN 20 MG TAB PO SCH (21:38)
[2017-01-25 05:46] VITALS: BP 145/101; PULSE 76; RESP 16; TEMP 97.3; O2SAT 98
[2017-01-25 05:47] VITALS: BP 148/94
[2017-01-25] MEDS: NEOMYCIN/POLYMYXIN/BACITRACIN OINT 15 GM TUBE TOPICAL SCH (09:00)
--- NOTE | 2017-01-25 09:52 | HHI.PYPN ---
Subjective Remarks Patient seen and examined with nurse. Chart reviewed. Case discussed with nursing staff. On my examination today, patient denies SI or HI. Denies AVH. Thought process more linear. No side effects from medications. No physical complaints. I do see what looks like some chewed up pills on side of patient's bed. When confronted with this, patient denies med non-adherence. Review of Systems ROS Limitations: Poor Historian Except as stated in HPI: all other systems reviewed are Neg Objective Alert: Yes [place]: Person Mood: Calm Affect: Blunted (childlike) Memory Intact: Comment (not formally assessed) Hallucinations: Other (again denies AVH) Delusions: No Delusion Type: Other (No delusions) Suicidal: Ideation (no SI) Homicidal: Ideation (no HI) Insight/Judgment Poor Remarks No motor abnormalities noted. Thought process more linear today. Labs Labs reviewed. Vitals/IOs Vital Signs Date Time Temp Pulse Resp B/P Pulse Ox O2 Delivery O2 Flow Rate FiO2 01/25/17 05:47 148/94 01/25/17 05:46 97.3 76 16 98 Assessment & Plan Problem List: (1) Schizoaffective disorder ICD Code: F25.9 (2) Intellectual disability ICD Code: F79 Assessment & Plan Mouth checks. Continue current psychotropics as ordered. Continue other medications and care as ordered. Justification for Cont. Inpt. Risk for decompensation and less restrictive environment. Discharge Planning New placement Request HC Surrog/Guard Advoc?: Yes Problem Qualifiers (1) Schizoaffective disorder: Qualified Code: F25.0 - Schizoaffective disorder, bipolar type Larry Valdivia MD Jan 25, 2017 09:51
[2017-01-25] MEDS: amLODIPine BESYLATE 5 MG TAB PO SCH ×2 (10:05→20:43)
[2017-01-25] MEDS: PROPRANOLOL HCL 10 MG TAB PO SCH ×3 (10:05→20:43)
[2017-01-25] MEDS: SODIUM CHLORIDE 1 GRAM TAB PO SCH ×2 (10:06→20:43)
[2017-01-25] MEDS: clonazePAM 1 MG TAB PO SCH ×2 (10:06→20:43)
[2017-01-25] MEDS: LISINOPRIL 5 MG TAB PO SCH (10:09)
[2017-01-25 18:00] VITALS: BP 119/73; PULSE 86; RESP 17; TEMP 97.9; O2SAT 97
[2017-01-25] MEDS: ATORVASTATIN 20 MG TAB PO SCH (20:42)
[2017-01-26 06:21] VITALS: BP 156/95; PULSE 63; RESP 18; TEMP 97.7; O2SAT 97
[2017-01-26] MEDS: amLODIPine BESYLATE 5 MG TAB PO SCH ×2 (08:44→21:10)
[2017-01-26] MEDS: SODIUM CHLORIDE 1 GRAM TAB PO SCH ×2 (08:44→21:10)
[2017-01-26] MEDS: clonazePAM 1 MG TAB PO SCH ×2 (08:44→21:10)
[2017-01-26] MEDS: PROPRANOLOL HCL 10 MG TAB PO SCH ×3 (08:44→21:10)
[2017-01-26] MEDS: LISINOPRIL 5 MG TAB PO SCH (08:45)
[2017-01-26] MEDS: NEOMYCIN/POLYMYXIN/BACITRACIN OINT 15 GM TUBE TOPICAL SCH (08:47)
--- NOTE | 2017-01-26 10:50 | HHI.PYPN ---
Subjective Remarks Patient seen and examined with counselor and nurse. Chart reviewed. Case discussed in treatment team. No behavioral issues overnight. On my exam, patient hopeful for discharge soon. We discussed discharge progress. No positive psychotic symptoms. Thought processes fairly linear today. A little fidgety. No reported side effects from meds. Review of Systems ROS Limitations: Poor Historian Except as stated in HPI: all other systems reviewed are Neg Objective Alert: Yes [place]: Person Mood: Calm Affect: Blunted Memory Intact: Comment (not formally assessed) Hallucinations: Other (no AVH) Delusions: No Delusion Type: Other (none elicited) Suicidal: Ideation (no SI) Homicidal: Ideation (no HI) Insight/Judgment Poor Remarks Besides above, no motor abnormalities appreciated Labs Labs reviewed Vitals/IOs Vital Signs Date Time Temp Pulse Resp B/P Pulse Ox O2 Delivery O2 Flow Rate FiO2 01/26/17 06:21 97.7 63 18 156/95 97 Assessment & Plan Problem List: (1) Schizoaffective disorder ICD Code: F25.9 (2) Intellectual disability ICD Code: F79 Assessment & Plan Continue oral Prolixin supplementing Prolixin Decanoate. Continue Inderal and Klonopin. Monitor for akathisia and to consider titrating Inderal. Continue other medications and care as ordered. Justification for Cont. Inpt. Risk for decompensation in less restrictive environment. Discharge Planning Patient requires new placement. Counselor working on this. Request HC Surrog/Guard Advoc?: Yes Problem Qualifiers (1) Schizoaffective disorder: Qualified Code: F25.0 - Schizoaffective disorder, bipolar type Larry Valdivia MD Jan 26, 2017 10:50
--- NOTE | 2017-01-26 14:48 | PD.TTN ---
Present for Treatment Team Treatment Team Staff: Provider (Dr. Valdivia), Nurse (Ene Yip RN), Psych Therapist (RUBY Anderson), Occupational Therapist (TALIA Alves) Patient Problems 1. Discharge planning 2. Medication compliance 3. Knowledge deficit 4. Lack of coping skills Progress Toward Goals Provider Input: Pt will continue to be monitored for placement at facility. Nurse Input: Pt had a period of agitation last night but appears today as calm, cooperative and medication compliant. Pt frequently paces mo[place] but is no management problem on unit. Psych Therapist Input: Pt appears calm, cooperative, disorganized, confused and appropriate. Pt presents with poor insight into condition and need for care. Pt struggles with coping skill implementation as he continues to have periods of agitation. He is compliant with medication regiment. Pt is still being referred for placement at an [facility]. Occupational Therapist Input: Pt often isolates to self but will attend groups related to food. Pt requires consistent redirection as well as not over drinking. Documentation Scribe: RUBY Anderson Jonathan LMHC Jan 26, 2017 14:48
[2017-01-26 18:17] VITALS: BP 145/88; PULSE 68; RESP 17; TEMP 97.4; O2SAT 98
[2017-01-26] MEDS: ATORVASTATIN 20 MG TAB PO SCH (21:10)
[2017-01-27 05:56] VITALS: BP 122/84; PULSE 58; RESP 18; TEMP 97.4; O2SAT 98
[2017-01-27] MEDS: LISINOPRIL 5 MG TAB PO SCH (09:47)
[2017-01-27] MEDS: amLODIPine BESYLATE 5 MG TAB PO SCH ×2 (09:47→21:03)
[2017-01-27] MEDS: clonazePAM 1 MG TAB PO SCH ×2 (09:47→21:03)
[2017-01-27] MEDS: PROPRANOLOL HCL 10 MG TAB PO SCH ×3 (09:47→21:02)
[2017-01-27] MEDS: NEOMYCIN/POLYMYXIN/BACITRACIN OINT 15 GM TUBE TOPICAL SCH (09:49)
[2017-01-27] MEDS: SODIUM CHLORIDE 1 GRAM TAB PO SCH ×2 (09:51→21:02)
--- NOTE | 2017-01-27 09:59 | HHI.PYPN ---
Subjective Remarks Patient seen and examined with counselor and nurse. Chart reviewed. Case discussed with nursing staff. No behavioral issues noted. Medication compliant. On my examination today, the patient denies AVH. Calm and cooperative. No SI or HI. He says that he needs a smoke break. I have offered him nicotine patch or gum, but he declines. No side effects from medications. No physical complaints. Review of Systems ROS Limitations: Poor Historian Except as stated in HPI: all other systems reviewed are Neg Objective Alert: Yes [place]: Person Mood: Calm Affect: Blunted Memory Intact: Comment (not assessed) Hallucinations: Other (no AVH) Delusions: No Delusion Type: Other (no delusions) Suicidal: Ideation (no SI) Homicidal: Ideation (no HI) Insight/Judgment Poor Remarks No motor abnormalities noted Labs Labs reviewed Vitals/IOs Vital Signs Date Time Temp Pulse Resp B/P Pulse Ox O2 Delivery O2 Flow Rate FiO2 01/27/17 05:56 97.4 58 18 122/84 98 Assessment & Plan Problem List: (1) Schizoaffective disorder ICD Code: F25.9 (2) Intellectual disability ICD Code: F79 Assessment & Plan Check an updated set of basic labs in am. Continue Prolixin and other psychotropics as ordered. Continue other medications and care as ordered. Justification for Cont. Inpt. High risk for decompensation in less restrictive environment. Discharge Planning New placement. Request HC Surrog/Guard Advoc?: Yes Problem Qualifiers (1) Schizoaffective disorder: Qualified Code: F25.0 - Schizoaffective disorder, bipolar type Larry Valdivia MD Jan 27, 2017 09:59
[2017-01-27 21:00] VITALS: BP 130/78; PULSE 72; RESP 18; TEMP 98.4; O2SAT 97
[2017-01-27] MEDS: ATORVASTATIN 20 MG TAB PO SCH (21:03)
[2017-01-28 06:03] VITALS: BP 140/90; PULSE 78; RESP 18; TEMP 97.4; O2SAT 98
[2017-01-28] MEDS: SODIUM CHLORIDE 1 GRAM TAB PO SCH ×2 (08:39→21:01)
[2017-01-28] MEDS: PROPRANOLOL HCL 10 MG TAB PO SCH ×3 (08:39→21:00)
[2017-01-28] MEDS: clonazePAM 1 MG TAB PO SCH ×2 (08:39→21:01)
[2017-01-28] MEDS: amLODIPine BESYLATE 5 MG TAB PO SCH ×2 (08:39→21:01)
[2017-01-28] MEDS: LISINOPRIL 5 MG TAB PO SCH (08:39)
[2017-01-28] MEDS: NEOMYCIN/POLYMYXIN/BACITRACIN OINT 15 GM TUBE TOPICAL SCH (08:41)
[2017-01-28 08:53] LABS: ANION GAP 10 MEQ/L (5-15); AST (GOT) 27 U/L (15-37); BICARBONATE 27.5 MEQ/L (21.0-32.0); BLOOD UREA NITROGEN 18 MG/DL (7-18); CHLORIDE 97 MEQ/L (98-107); GLOMERULAR FILTRATION RATE 116 ML/MIN (>89); POTASSIUM 4.4 MEQ/L (3.5-5.1); SODIUM (NA) 134 MEQ/L (136-145)
[2017-01-28 08:54] LABS: ALT (GPT) 43 U/L (12-78)
[2017-01-28 08:56] LABS: ALKALINE PHOSPHATASE 97 U/L (45-117); TOTAL BILIRUBIN ADULT 0.5 MG/DL (0.2-1.0)
[2017-01-28 09:02] LABS: AUTOMATED NEUTROPHIL # 7.8 TH/MM3 (1.8-7.7); BASOPHIL # 0.1 TH/MM3 (0-0.2); BASOPHIL % 0.6 % (0.0-2.0); EOSINOPHIL # 0.1 TH/MM3 (0-0.4); EOSINOPHIL % 1.1 % (0.0-4.0); HEMATOCRIT 42.4 % (39.0-51.0); HEMO FLAGS DIFF FINAL; LYMPH % 13.6 % (9.0-44.0); LYMPHOCYTE # 1.4 TH/MM3 (1.0-4.8); MEAN CELL VOLUME 89.8 FL (80.0-100.0); MEAN CORPUSCULAR HGB CONC 34.5 % (32.0-36.0); MONO % 6.8 % (0.0-8.0); NEUT % 77.9 % (16.0-70.0); PLATELET COUNT 227 TH/MM3 (150-450); RED BLOOD COUNT 4.72 MIL/MM3 (4.50-5.90); RED CELL DISTRIBUTION WIDTH 15.4 % (11.6-17.2)
--- NOTE | 2017-01-28 10:20 | HHI.PYPN ---
Subjective Remarks Patient seen and examined with nurse. Chart reviewed. Case discussed with nursing staff who reports that patient was crying and hitting the windows when fluids were restricted. On my exam, patient reports "I think the police are putting something in the food." Threatens not to eat as a result, although I do see he has been eating well. Presently calm. Possibly some covert non- adherence with meds. Denies side effects. No physical complaints. Review of Systems ROS Limitations: Psychotic, Poor Historian Except as stated in HPI: all other systems reviewed are Neg Objective Alert: Yes [place]: Person, Place Mood: Calm Affect: Blunted Memory Intact: Comment (not assessed) Hallucinations: Other (no AVH) Delusions: Yes Delusion Type: Paranoid Suicidal: Ideation (no SI) Homicidal: Ideation (no HI) Insight/Judgment Poor Remarks No abnormal motor movements noted. Labs Test 01/28/17 07:03 White Blood Count 10.0 TH/MM3 Red Blood Count 4.72 MIL/MM3 Hemoglobin 14.6 GM/DL Hematocrit 42.4 % Mean Corpuscular Volume 89.8 FL Mean Corpuscular Hemoglobin 31.0 PG Mean Corpuscular Hemoglobin 34.5 % Concent Red Cell Distribution Width 15.4 % Platelet Count 227 TH/MM3 Mean Platelet Volume 8.4 FL Neutrophils (%) (Auto) 77.9 % Lymphocytes (%) (Auto) 13.6 % Monocytes (%) (Auto) 6.8 % Eosinophils (%) (Auto) 1.1 % Basophils (%) (Auto) 0.6 % Neutrophils # (Auto) 7.8 TH/MM3 Lymphocytes # (Auto) 1.4 TH/MM3 Monocytes # (Auto) 0.7 TH/MM3 Eosinophils # (Auto) 0.1 TH/MM3 Basophils # (Auto) 0.1 TH/MM3 CBC Comment DIFF FINAL Differential Comment Sodium Level 134 MEQ/L Potassium Level 4.4 MEQ/L Chloride Level 97 MEQ/L Carbon Dioxide Level 27.5 MEQ/L Anion Gap 10 MEQ/L Blood Urea Nitrogen 18 MG/DL Creatinine 0.71 MG/DL Estimat Glomerular Filtration 116 ML/MIN Rate Random Glucose 80 MG/DL Calcium Level 9.0 MG/DL Total Bilirubin 0.5 MG/DL Aspartate Amino Transf 27 U/L (AST/SGOT) Alanine Aminotransferase 43 U/L (ALT/SGPT) Alkaline Phosphatase 97 U/L Total Protein 7.9 GM/DL Albumin 3.9 GM/DL Labs reviewed. Besides mild hyponatremia, unremarkable CBC, CMP. Vitals/IOs Vital Signs Date Time Temp Pulse Resp B/P Pulse Ox O2 Delivery O2 Flow Rate FiO2 01/28/17 06:03 97.4 78 18 140/90 98 Assessment & Plan Problem List: (1) Schizoaffective disorder ICD Code: F25.9 (2) Intellectual disability ICD Code: F79 Assessment & Plan Patient seems a little more psychotic today, wonder about possible med non- adherence. Given patient's fondness for liquid, replace Prolixin pills with Prolixin liquid 10mg TID with IM backup. To consider larger dose of Prolixin Dec when this is next due. Continue other meds and care as ordered. Justification for Cont. Inpt. Medication changes and process. High risk for decompensation in less restrictive environment. Discharge Planning Placement Request HC Surrog/Guard Advoc?: Yes Problem Qualifiers (1) Schizoaffective disorder: Qualified Code: F25.0 - Schizoaffective disorder, bipolar type Larry Valdivia MD Jan 28, 2017 10:20
[2017-01-28 18:14] VITALS: BP 129/95; PULSE 92; RESP 17; TEMP 98.9; O2SAT 96
[2017-01-28] MEDS: ATORVASTATIN 20 MG TAB PO SCH (21:02)
[2017-01-28] MEDS: fluPHENAZine HCL ELIXIR 2.5 MG/5 ML UDC PO SCH (21:34)
[2017-01-29 06:00] VITALS: BP 146/83; PULSE 67; RESP 17; TEMP 97.7; O2SAT 98
[2017-01-29] MEDS: amLODIPine BESYLATE 5 MG TAB PO SCH ×2 (08:41→20:04)
[2017-01-29] MEDS: clonazePAM 1 MG TAB PO SCH ×2 (08:42→20:04)
[2017-01-29] MEDS: SODIUM CHLORIDE 1 GRAM TAB PO SCH ×2 (08:42→20:04)
[2017-01-29] MEDS: fluPHENAZine HCL ELIXIR 2.5 MG/5 ML UDC PO SCH ×3 (08:42→20:05)
[2017-01-29] MEDS: PROPRANOLOL HCL 10 MG TAB PO SCH ×3 (08:42→20:04)
[2017-01-29] MEDS: LISINOPRIL 5 MG TAB PO SCH (08:42)
[2017-01-29] MEDS: NEOMYCIN/POLYMYXIN/BACITRACIN OINT 15 GM TUBE TOPICAL SCH (08:44)
--- NOTE | 2017-01-29 09:58 | HHI.PYPN ---
Subjective Remarks Patient seen and examined with nurse and counselor. Chart reviewed. Case discussed with nursing staff who reports that the patient drank the Prolixin liquid without incident but spat out his Klonopin and Inderal pills. On my examination today, patient verbalizes no psychotic material. He now says he does not think the police are poisoning his food. He denies AVH. No SI/HI. Minimizes med non-adherence. No physical complaints, although nursing does point out that the patient does have deep fissures in the heels of his feet b/l. Review of Systems ROS Limitations: Poor Historian Except as stated in HPI: all other systems reviewed are Neg Objective Alert: Yes [place]: Person, Place Mood: Calm Affect: Blunted Memory Intact: Comment (not assessed) Hallucinations: Other (No hallucinations.) Delusions: No Delusion Type: Other (No AVH) Suicidal: Ideation (No SI) Homicidal: Ideation (No HI) Insight/Judgment Poor Remarks No motor abnormalities noted. TP fairly linear. Grooming and hygiene poor. Patient does have some deep fissures in heels of feet b/l; no erythema or purulent drainage noted. Labs Labs reviewed. Vitals/IOs Vital Signs Date Time Temp Pulse Resp B/P Pulse Ox O2 Delivery O2 Flow Rate FiO2 01/29/17 06:00 97.7 67 17 146/83 98 Intake and Output 01/28/17 01/28/17 01/29/17 08:00 16:00 00:00 Intake Total 3600 ml Balance 3600 ml Assessment & Plan Problem List: (1) Schizoaffective disorder ICD Code: F25.9 (2) Intellectual disability ICD Code: F79 Assessment & Plan Continue Prolixin liquid. Patient due for Prolixin Dec 02/03, could consider titrating dose of Dec. Checked with pharmacy; we do not have a liquid benzo or beta star. Continue Klonopin and Inderal as ordered, and we will try to ensure adherence with these agents. Consult podiatry for fissures on feet. Continue to monitor on the inpatient unit. Continue other medications and care as ordered. Justification for Cont. Inpt. Risk for decompensation in less restrictive environment. Discharge Planning Placement Request HC Surrog/Guard Advoc?: Yes Problem Qualifiers (1) Schizoaffective disorder: Qualified Code: F25.0 - Schizoaffective disorder, bipolar type Larry Valdivia MD Jan 29, 2017 09:58
[2017-01-29 18:00] VITALS: BP 136/79; PULSE 76; RESP 17; TEMP 98.5; O2SAT 97
[2017-01-29] MEDS: ATORVASTATIN 20 MG TAB PO SCH (20:05)
[2017-01-30 05:57] VITALS: BP 149/95; PULSE 68; RESP 18; TEMP 97.1; O2SAT 99
[2017-01-30] MEDS: amLODIPine BESYLATE 5 MG TAB PO SCH ×2 (07:41→20:11)
[2017-01-30] MEDS: SODIUM CHLORIDE 1 GRAM TAB PO SCH ×2 (07:41→20:10)
[2017-01-30] MEDS: clonazePAM 1 MG TAB PO SCH ×2 (07:41→20:11)
[2017-01-30] MEDS: LISINOPRIL 5 MG TAB PO SCH (07:41)
[2017-01-30] MEDS: PROPRANOLOL HCL 10 MG TAB PO SCH ×3 (07:41→20:11)
[2017-01-30] MEDS: BACITRACIN TOP OINT 15 GM TUBE TOPICAL SCH (09:00)
[2017-01-30] MEDS: fluPHENAZine HCL ELIXIR 2.5 MG/5 ML UDC PO SCH ×2 (09:00→12:00)
[2017-01-30] MEDS: NEOMYCIN/POLYMYXIN/BACITRACIN OINT 15 GM TUBE TOPICAL SCH (09:00)
--- NOTE | 2017-01-30 13:31 | HHI.PYPN ---
Subjective Remarks Pt seen and discussed with staff. He has been compliant with medications and tolerating without side effects. No behavioral problems on unit. Insight remains poor. Pharmacy reports shortage of prolixin liquid. No SI/HI Objective Alert: Yes [place]: Person, Place Mood: Calm Affect: Blunted Memory Intact: Comment (no gross deficits) Hallucinations: Other (No hallucinations.) Delusions: No Delusion Type: Other (No AVH) Suicidal: Ideation (No SI) Homicidal: Ideation (No HI) Insight/Judgment poor Remarks disorganzied Vitals/IOs Vital Signs Date Time Temp Pulse Resp B/P Pulse Ox O2 Delivery O2 Flow Rate FiO2 01/30/17 05:57 97.1 68 18 149/95 99 Intake and Output 01/29/17 01/29/17 01/30/17 08:00 16:00 00:00 Intake Total 1500 ml 3780 ml Balance 1500 ml 3780 ml Assessment & Plan Problem List: (1) Schizoaffective disorder ICD Code: F25.9 (2) Intellectual disability ICD Code: F79 Assessment & Plan Continue current tx plan. Will use prolixin tablets until liquid available with IM if pt refuses. Estimated LOS: days Justification for Cont. Inpt. risk of decompensation Request HC Surrog/Guard Advoc?: Yes Problem Qualifiers (1) Schizoaffective disorder: Qualified Code: F25.0 - Schizoaffective disorder, bipolar type Shantal Dowell MD Jan 30, 2017 13:31
[2017-01-30 18:19] VITALS: BP 124/61; PULSE 85; RESP 18; TEMP 97.3; O2SAT 98
[2017-01-30] MEDS: ATORVASTATIN 20 MG TAB PO SCH (20:11)
[2017-01-31 06:36] VITALS: BP 146/93; PULSE 89; RESP 17; TEMP 97.6; O2SAT 98
[2017-01-31] MEDS: NEOMYCIN/POLYMYXIN/BACITRACIN OINT 15 GM TUBE TOPICAL SCH (09:00)
[2017-01-31] MEDS: BACITRACIN TOP OINT 15 GM TUBE TOPICAL SCH (09:00)
[2017-01-31] MEDS: clonazePAM 1 MG TAB PO SCH ×2 (09:39→20:25)
[2017-01-31] MEDS: SODIUM CHLORIDE 1 GRAM TAB PO SCH ×2 (09:39→20:25)
[2017-01-31] MEDS: LISINOPRIL 5 MG TAB PO SCH (09:39)
[2017-01-31] MEDS: amLODIPine BESYLATE 5 MG TAB PO SCH ×2 (09:40→20:25)
[2017-01-31] MEDS: PROPRANOLOL HCL 10 MG TAB PO SCH ×3 (09:40→20:25)
--- NOTE | 2017-01-31 11:01 | HHI.PYPN ---
Subjective Remarks Pt seen and discussed with staff. Pt was compliant with medications this morning. No behavioral problems or outbursts today. Staff report that pt continues to engage in bizarre, conversations with prominent delusional content. Pt states that he no longer wants to eat meals because coffee is nutritious. He reported to RN that someone was telling him to bash his neighbors windows in with a stick. No SI/HI Objective Alert: Yes [place]: Person, Place Mood: Calm Affect: Blunted Memory Intact: Comment (no gross deficits) Hallucinations: Other (internal stimulation) Delusions: No Delusion Type: Other (none) Suicidal: Ideation (No SI) Homicidal: Ideation (No HI) Insight/Judgment poor Remarks disorganization Vitals/IOs Vital Signs Date Time Temp Pulse Resp B/P Pulse Ox O2 Delivery O2 Flow Rate FiO2 01/31/17 06:36 97.6 89 17 146/93 98 Intake and Output 01/30/17 01/30/17 01/30/17 07:59 15:59 23:59 Intake Total 840 ml Balance 840 ml Assessment & Plan Problem List: (1) Schizoaffective disorder ICD Code: F25.9 (2) Intellectual disability ICD Code: F79 Assessment & Plan Continue current tx plan. Estimated LOS: days Justification for Cont. Inpt. risk of decompensation Request HC Surrog/Guard Advoc?: Yes Problem Qualifiers (1) Schizoaffective disorder: Qualified Code: F25.0 - Schizoaffective disorder, bipolar type Shantal Dowell MD Jan 31, 2017 11:01
[2017-01-31 15:50] VITALS: BP 142/87; PULSE 82; RESP 18; TEMP 97.5; O2SAT 99
--- NOTE | 2017-01-31 19:49 | MB ---
cc: SHANNAN ESCOBEDO DATE OF CONSULTATION: 01/29/2017. REASON FOR CONSULTATION: Heal fissures. HISTORY OF PRESENT ILLNESS: The patient is not a great historian but he states that he has had calluses on his feet for a very long time but denies any pain to the them. He denies any pain to the heels. He is admitted for schizoaffective disorder and disruptive conduct at his inpatient facility. PAST MEDICAL HISTORY: 1. 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 2. Psychological behavioral disorders. MEDICATIONS: Please see the list. FAMILY HISTORY: Noncontributory. SOCIAL HISTORY: The patient was living in a longterm setting until very recently when he was [place] Acted due to disruptive behavior. PHYSICAL EXAMINATION: On physical exam, he has bilateral palpable dorsalis pedis and posterior tibial pulses. Capillary fill time is less than 3 seconds. Gross sensation appears to be intact. Slight hallux abductovalgus deformities bilaterally. Multiple areas of moderately thick callus seen submetatarsal #1 and submetatarsal #5, bilateral heels. Both of the heels bilaterally have deep fissures on the medial aspects approximately 1 inch in length only about 3 mm in thickness but there is granular tissue revealed at the bottom of the fissure sites. No erythema or drainage. No pain with palpation. Hypertrophic skin noted adjacent to the fissure sites. ASSESSMENT AND PLAN: 1)Noninfected bilateral heel ulcers. -Suggest Bacitracin dressings daily to the deep fissure sites until they are fully closed. Wound care orders provided for the nursing staff. -The patient would benefit from having the calluses debrided in an outpatient office setting. -Avoid bare feet when possible and if shoes are a possibility that would be ideal, otherwise, socks will also be acceptable for the time being. -Monitor and report any signs of infection. -Please re-consult if any changes to the patient's current condition. Thank you for this consultation and for allowing me to participate in this patient's care. Shannan Escobedo [facility] /6:12 PM /7:36 PM IBRAHIMA
[2017-01-31] MEDS: ATORVASTATIN 20 MG TAB PO SCH (20:25)
[2017-02-01 06:37] VITALS: BP 143/97; PULSE 89; RESP 17; TEMP 97.8
[2017-02-01] MEDS: SODIUM CHLORIDE 1 GRAM TAB PO SCH ×2 (08:51→22:11)
[2017-02-01] MEDS: PROPRANOLOL HCL 10 MG TAB PO SCH ×3 (08:51→22:11)
[2017-02-01] MEDS: LISINOPRIL 5 MG TAB PO SCH (08:51)
[2017-02-01] MEDS: clonazePAM 1 MG TAB PO SCH ×2 (08:51→22:11)
[2017-02-01] MEDS: amLODIPine BESYLATE 5 MG TAB PO SCH ×2 (08:51→22:11)
[2017-02-01] MEDS: NEOMYCIN/POLYMYXIN/BACITRACIN OINT 15 GM TUBE TOPICAL SCH (09:00)
[2017-02-01] MEDS: BACITRACIN TOP OINT 15 GM TUBE TOPICAL SCH (09:00)
[2017-02-01] MEDS: fluPHENAZine HCL ELIXIR 2.5 MG/5 ML UDC PO SCH ×2 (12:00→22:11)
[2017-02-01] MEDS: fluPHENAZine HCL 25 MG/10 ML VIAL IM PRN (14:24)
[2017-02-01 19:00] VITALS: BP 136/92; PULSE 93; RESP 18; TEMP 98; O2SAT 97
--- NOTE | 2017-02-01 19:25 | HHI.PYPN ---
Subjective Remarks Patient seen for follow-up, chart review. As per nursing report discussion with nursing staff patient continued to be paranoid, was noted to be cheeking his medications this morning, continues to be on fluid restrictions. Patient found walking in the [place] and was able to engage in interview but noted to be very concrete and superficially cooperative in interview. Patient noted to be disorganized endorsing auditory hallucinations but did not elaborate on the same. Patient was encouraged to restrict his water intake which he acknowledged. Patient requesting discharge. Review of Systems Except as stated in HPI: all other systems reviewed are Neg Objective Alert: Yes [place]: Person, Place Mood: Calm Affect: Blunted Memory Intact: Comment (no gross deficits) Hallucinations: Other (internal stimulation) Delusions: No Delusion Type: Other (none) Suicidal: Ideation (No SI) Homicidal: Ideation (No HI) Insight/Judgment Poor insight, fair impulse control poor judgment Vitals/IOs Vital Signs Date Time Temp Pulse Resp B/P Pulse Ox O2 Delivery O2 Flow Rate FiO2 02/01/17 19:00 98.0 93 18 136/92 97 Intake and Output 01/31/17 01/31/17 02/01/17 08:00 16:00 00:00 Intake Total 600 ml 360 ml Balance 600 ml 360 ml Assessment & Plan Problem List: (1) Schizoaffective disorder ICD Code: F25.9 (2) Intellectual disability ICD Code: F79 Assessment & Plan Patient at this time continues to require inpatient psychiatric stabilization for psychosis. Patient continues to have auditory hallucinations, paranoid delusions, and appears to be noncompliant with medications and patient attempted to cheek his medications this morning. Patient to continue current treatment, nursing staff to do mouth checks after administration of medications to ensure compliance. Monitor for water intake is patient with recent psychogenic polydipsia. BMP will be ordered tomorrow a.m. to check sodium levels. Justification for Cont. Inpt. Patient risk for decompensation if it lower level of care Discharge Planning In progress Request HC Surrog/Guard Advoc?: Yes Problem Qualifiers (1) Schizoaffective disorder: Qualified Code: F25.0 - Schizoaffective disorder, bipolar type Donny Harris MD Feb 01, 2017 19:25
[2017-02-01] MEDS: ATORVASTATIN 20 MG TAB PO SCH (22:11)
[2017-02-02 05:45] VITALS: BP 144/94; PULSE 77; RESP 18; TEMP 97.7; O2SAT 98
[2017-02-02] MEDS: SODIUM CHLORIDE 1 GRAM TAB PO SCH ×2 (08:21→21:10)
[2017-02-02] MEDS: fluPHENAZine HCL ELIXIR 2.5 MG/5 ML UDC PO SCH ×3 (08:21→21:10)
[2017-02-02] MEDS: amLODIPine BESYLATE 5 MG TAB PO SCH ×2 (08:21→21:09)
[2017-02-02] MEDS: PROPRANOLOL HCL 10 MG TAB PO SCH ×3 (08:21→21:10)
[2017-02-02] MEDS: clonazePAM 1 MG TAB PO SCH ×2 (08:21→21:10)
[2017-02-02] MEDS: LISINOPRIL 5 MG TAB PO SCH (08:21)
[2017-02-02] MEDS: BACITRACIN TOP OINT 15 GM TUBE TOPICAL SCH (08:25)
[2017-02-02] MEDS: NEOMYCIN/POLYMYXIN/BACITRACIN OINT 15 GM TUBE TOPICAL SCH (08:49)
[2017-02-02 09:07] LABS: BICARBONATE 32.4 MEQ/L (21.0-32.0)
[2017-02-02 18:00] VITALS: BP 106/71; PULSE 87; RESP 17; TEMP 97.5; O2SAT 97
--- NOTE | 2017-02-02 18:16 | HHI.PYPN ---
Subjective Remarks Patient seen for follow-up with nurse, chart reviewed. Patient found lying in hospital bed was able to engage in interview today. Patient noted continued to be very concrete with interview. Patient states that he had not been having any auditory hallucinations, had been tolerating medication well and mood has been "okay". Patient patient metabolic panel showed normal sodium levels. Patient had been able to refrain self from drinking excessive amounts of water. Patient will continue to be monitored for the same. Review of Systems Except as stated in HPI: all other systems reviewed are Neg Objective Alert: Yes [place]: Person, Place Mood: Calm Affect: Blunted Memory Intact: Comment (no gross deficits) Hallucinations: Other (internal stimulation) Delusions: No Delusion Type: Other (none) Suicidal: Ideation (No SI) Homicidal: Ideation (No HI) Insight/Judgment Poor insight, fair impulse control, fair judgment Labs Test 02/02/17 07:45 Sodium Level 136 MEQ/L Potassium Level 4.0 MEQ/L Chloride Level 99 MEQ/L Carbon Dioxide Level 32.4 MEQ/L Anion Gap 5 MEQ/L Blood Urea Nitrogen 22 MG/DL Creatinine 0.71 MG/DL Estimat Glomerular Filtration 116 ML/MIN Rate Random Glucose 102 MG/DL Calcium Level 8.9 MG/DL Vitals/IOs Vital Signs Date Time Temp Pulse Resp B/P Pulse Ox O2 Delivery O2 Flow Rate FiO2 02/02/17 05:45 97.7 77 18 144/94 98 Assessment & Plan Problem List: (1) Schizoaffective disorder ICD Code: F25.9 (2) Intellectual disability ICD Code: F79 Assessment & Plan Patient at this time we'll continue current treatment, denies any psychotic symptoms at this time, continue to monitor medication response adverse drug reactions. Continue to monitor for excessive ingestion of water although patient had been reported to be doing so lately. Recent sodium levels have been within normal limits as per recent basic metabolic panel. Discharge planning in progress Justification for Cont. Inpt. Patient was referred decompensation if a lower level of care Discharge Planning In progress Request HC Surrog/Guard Advoc?: Yes Problem Qualifiers (1) Schizoaffective disorder: Qualified Code: F25.0 - Schizoaffective disorder, bipolar type Donny Harris MD Feb 02, 2017 18:16
[2017-02-02] MEDS: ATORVASTATIN 20 MG TAB PO SCH (21:09)
[2017-02-03 06:00] VITALS: BP 141/86; PULSE 74; RESP 18; TEMP 97.5; O2SAT 98
[2017-02-03] MEDS: LISINOPRIL 5 MG TAB PO SCH (08:46)
[2017-02-03] MEDS: clonazePAM 1 MG TAB PO SCH ×2 (08:46→20:57)
[2017-02-03] MEDS: PROPRANOLOL HCL 10 MG TAB PO SCH ×3 (08:46→20:57)
[2017-02-03] MEDS: SODIUM CHLORIDE 1 GRAM TAB PO SCH ×2 (08:46→20:58)
[2017-02-03] MEDS: amLODIPine BESYLATE 5 MG TAB PO SCH ×2 (08:46→20:58)
[2017-02-03] MEDS: fluPHENAZine HCL ELIXIR 2.5 MG/5 ML UDC PO SCH ×3 (08:46→20:58)
[2017-02-03] MEDS: BACITRACIN TOP OINT 15 GM TUBE TOPICAL SCH (09:00)
[2017-02-03] MEDS: NEOMYCIN/POLYMYXIN/BACITRACIN OINT 15 GM TUBE TOPICAL SCH (09:00)
--- NOTE | 2017-02-03 16:40 | HHI.PYPN ---
Subjective Remarks Patient seen for follow-up, chart reviewed. After discussion with nursing staff patient appears to be doing better, not drinking a lot of water, no behavioral issues. Patient found walking in the hallways but unable to engage in interview. Patient noted to be very concrete. Patient states that he is feeling fine, no issues with medications or side effects, no problems with urination or about when, eating and drinking fine. Patient states that he is wanting to be discharged back to his stay home. Review of Systems Except as stated in HPI: all other systems reviewed are Neg Objective Alert: Yes [place]: Person, Place Mood: Calm Affect: Blunted Memory Intact: Comment (no gross deficits) Hallucinations: Other (internal stimulation) Delusions: No Delusion Type: Other (none) Suicidal: Ideation (No SI) Homicidal: Ideation (No HI) Insight/Judgment Poor insight, fair impulse control and judgment Vitals/IOs Vital Signs Date Time Temp Pulse Resp B/P Pulse Ox O2 Delivery O2 Flow Rate FiO2 02/03/17 06:00 97.5 74 18 141/86 98 Intake and Output 02/02/17 02/02/17 02/02/17 07:59 15:59 23:59 Intake Total 1560 ml 360 ml Balance 1560 ml 360 ml Assessment & Plan Problem List: (1) Schizoaffective disorder ICD Code: F25.9 (2) Intellectual disability ICD Code: F79 Assessment & Plan Patient at this time with no behavioral concerns while on the unit. Patient compliant with current treatment regimen. Patient recently sodium levels were within normal range, patient no longer drinking excessive amounts of water. Patient will receive Prolixin decanoate 37.5 mg IM today. Patient to continue current treatment regimen. Mother for medication response and adverse drug reactions. Discharge planning in progress Justification for Cont. Inpt. Patient at risk for further decompensation if it lower level of care Discharge Planning In progress Request HC Surrog/Guard Advoc?: Yes Problem Qualifiers (1) Schizoaffective disorder: Qualified Code: F25.0 - Schizoaffective disorder, bipolar type Donny Harris MD Feb 03, 2017 16:40
[2017-02-03 18:09] VITALS: BP 128/98; PULSE 84; RESP 18; TEMP 97.4; O2SAT 99
[2017-02-03] MEDS: ATORVASTATIN 20 MG TAB PO SCH (20:58)
[2017-02-04 06:22] VITALS: BP 145/92; PULSE 78; RESP 18; TEMP 97.8; O2SAT 98
[2017-02-04] MEDS: LISINOPRIL 5 MG TAB PO SCH (08:34)
[2017-02-04] MEDS: PROPRANOLOL HCL 10 MG TAB PO SCH ×3 (08:34→20:10)
[2017-02-04] MEDS: clonazePAM 1 MG TAB PO SCH ×2 (08:34→20:10)
[2017-02-04] MEDS: fluPHENAZine HCL ELIXIR 2.5 MG/5 ML UDC PO SCH ×3 (08:34→20:10)
[2017-02-04] MEDS: SODIUM CHLORIDE 1 GRAM TAB PO SCH ×2 (08:34→20:10)
[2017-02-04] MEDS: amLODIPine BESYLATE 5 MG TAB PO SCH ×2 (08:34→20:10)
[2017-02-04] MEDS: BACITRACIN TOP OINT 15 GM TUBE TOPICAL SCH (08:37)
[2017-02-04] MEDS: NEOMYCIN/POLYMYXIN/BACITRACIN OINT 15 GM TUBE TOPICAL SCH (08:41)
[2017-02-04 13:01] VITALS: BP 123/83
[2017-02-04 18:13] VITALS: BP 142/91; PULSE 68; RESP 18; TEMP 97.4; O2SAT 99
[2017-02-04] MEDS: ATORVASTATIN 20 MG TAB PO SCH (20:10)
--- NOTE | 2017-02-04 20:32 | HHI.PYPN ---
Subjective Remarks Patient seen for follow-up, chart reviewed. Patient noted to be walking on unit but was able to engage in interview. Patient stated they've been feeling "pretty good" patient denies any physical complaints at this time patient reports that he was revealed to go back to see his family. He reports a depressive manic or psychotic symptoms at this time. Patient noted to be very concrete. Patient reports tolerating medication regimen well. Review of Systems Except as stated in HPI: all other systems reviewed are Neg Objective Alert: Yes [place]: Person, Place Mood: Calm Affect: Blunted Memory Intact: Comment (no gross deficits) Hallucinations: Other (internal stimulation) Delusions: No Delusion Type: Other (none) Suicidal: Ideation (No SI) Homicidal: Ideation (No HI) Insight/Judgment Poor insight, fair impulse control and judgment Vitals/IOs Vital Signs Date Time Temp Pulse Resp B/P Pulse Ox O2 Delivery O2 Flow Rate FiO2 02/04/17 18:13 97.4 68 18 142/91 99 Intake and Output 02/03/17 02/03/17 02/04/17 08:00 16:00 00:00 Intake Total 0 ml Balance 0 ml Assessment & Plan Problem List: (1) Schizoaffective disorder ICD Code: F25.9 (2) Intellectual disability ICD Code: F79 Assessment & Plan Patient continues to maintain good behavioral control, responding well to medication regimen, it endorsing any acute psychotic symptoms at this time. Patient to continue to monitor her mood and behavior. Discharge planning in progress Justification for Cont. Inpt. Patient at risk for further decompensation if at lower level of care. Discharge Planning In progress Request HC Surrog/Guard Advoc?: Yes Problem Qualifiers (1) Schizoaffective disorder: Qualified Code: F25.0 - Schizoaffective disorder, bipolar type Donny Harris MD Feb 04, 2017 20:32
[2017-02-05 06:27] VITALS: BP 137/96; PULSE 87; RESP 18; TEMP 97.8; O2SAT 97
[2017-02-05] MEDS: amLODIPine BESYLATE 5 MG TAB PO SCH ×2 (08:24→20:37)
[2017-02-05] MEDS: SODIUM CHLORIDE 1 GRAM TAB PO SCH ×2 (08:24→20:37)
[2017-02-05] MEDS: PROPRANOLOL HCL 10 MG TAB PO SCH ×3 (08:24→20:37)
[2017-02-05] MEDS: clonazePAM 1 MG TAB PO SCH ×2 (08:24→20:37)
[2017-02-05] MEDS: LISINOPRIL 5 MG TAB PO SCH (08:24)
[2017-02-05] MEDS: fluPHENAZine HCL 25 MG/10 ML VIAL IM PRN (08:25)
[2017-02-05] MEDS: NEOMYCIN/POLYMYXIN/BACITRACIN OINT 15 GM TUBE TOPICAL SCH (08:25)
[2017-02-05] MEDS: fluPHENAZine HCL ELIXIR 2.5 MG/5 ML UDC PO SCH ×3 (08:27→20:38)
[2017-02-05] MEDS: BACITRACIN TOP OINT 15 GM TUBE TOPICAL SCH (09:00)
[2017-02-05 18:03] VITALS: BP 161/103; PULSE 75; RESP 19; TEMP 98.7; O2SAT 95
--- NOTE | 2017-02-05 18:21 | HHI.PYPN ---
Subjective Remarks Patient seen for follow, chart review. Patient found walking in [employer] but was able to engage in interview. Patient states that he is feeling well, denies any physical complaint at this time reports time medications well without adverse drug reactions. Patient requests to be able to be let outside of the other specifically which she was explained was not possible due to hospital policy. Review of Systems Except as stated in HPI: all other systems reviewed are Neg Objective Alert: Yes [place]: Person, Place Mood: Calm Affect: Blunted Memory Intact: Comment (no gross deficits) Hallucinations: Other (internal stimulation) Delusions: No Delusion Type: Other (none) Suicidal: Ideation (No SI) Homicidal: Ideation (No HI) Insight/Judgment Poor insight, fair impulse control and judgment Vitals/IOs Vital Signs Date Time Temp Pulse Resp B/P Pulse Ox O2 Delivery O2 Flow Rate FiO2 02/05/17 18:03 98.7 75 19 161/103 95 Intake and Output 02/04/17 02/04/17 02/05/17 08:00 16:00 00:00 Intake Total 240 ml 360 ml Balance 240 ml 360 ml Assessment & Plan Problem List: (1) Schizoaffective disorder ICD Code: F25.9 (2) Intellectual disability ICD Code: F79 Assessment & Plan Patient this time denies any acute psychotic symptoms, continues to be adherent to current treatment regimen and no behavioral dyscontrol while on the unit. Patient somewhat perseverative on being allowed to be able to smoke despite having explained to him that it was not possible at this time. Continue current treatment, discharge planning in progress Justification for Cont. Inpt. Patient at risk for further decompensation if at lower level of care. Discharge Planning In progress Request HC Surrog/Guard Advoc?: Yes Problem Qualifiers (1) Schizoaffective disorder: Qualified Code: F25.0 - Schizoaffective disorder, bipolar type Donny Harris MD Feb 05, 2017 18:21
[2017-02-05] MEDS: ATORVASTATIN 20 MG TAB PO SCH (20:37)
[2017-02-06 05:56] VITALS: BP 135/93; PULSE 75; RESP 18; TEMP 97.9; O2SAT 96
[2017-02-06] MEDS: BACITRACIN TOP OINT 15 GM TUBE TOPICAL SCH (09:00)
[2017-02-06] MEDS: LISINOPRIL 5 MG TAB PO SCH (09:38)
[2017-02-06] MEDS: PROPRANOLOL HCL 10 MG TAB PO SCH ×3 (09:38→20:55)
[2017-02-06] MEDS: SODIUM CHLORIDE 1 GRAM TAB PO SCH ×2 (09:38→20:54)
[2017-02-06] MEDS: fluPHENAZine HCL ELIXIR 2.5 MG/5 ML UDC PO SCH ×3 (09:38→20:54)
[2017-02-06] MEDS: amLODIPine BESYLATE 5 MG TAB PO SCH ×2 (09:38→20:54)
[2017-02-06] MEDS: clonazePAM 1 MG TAB PO SCH ×2 (09:38→20:54)
[2017-02-06] MEDS: NEOMYCIN/POLYMYXIN/BACITRACIN OINT 15 GM TUBE TOPICAL SCH (09:40)
[2017-02-06 12:17] VITALS: BP 122/80; PULSE 75; TEMP 97.8; O2SAT 99
--- NOTE | 2017-02-06 17:32 | HHI.PYPN ---
Subjective Remarks Patient was seen and case discussed with nursing. Patient is pleasant and cooperative with exam. Initially since ago. But then claims that the nurse works at another [employer] that he wants to go to. Behaving well on the unit, compliant with medications. No verbal or physical aggression Objective Alert: Yes [place]: Person, Place Mood: Calm Affect: Blunted Memory Intact: Comment (no gross deficits) Hallucinations: Other (internal stimulation) Delusions: No Delusion Type: Other (none) Suicidal: Ideation (No SI) Homicidal: Ideation (No HI) Insight/Judgment Poor Vitals/IOs Vital Signs Date Time Temp Pulse Resp B/P Pulse Ox O2 Delivery O2 Flow Rate FiO2 02/06/17 12:17 97.8 75 122/80 99 02/06/17 05:56 18 Intake and Output 02/05/17 02/05/17 02/06/17 08:00 16:00 00:00 Intake Total 1560 ml Balance 1560 ml Assessment & Plan Problem List: (1) Schizoaffective disorder ICD Code: F25.9 (2) Intellectual disability ICD Code: F79 Assessment & Plan Continue current treatment plan Justification for Cont. Inpt. Patient would decompensate in a less restrictive setting Request HC Surrog/Guard Advoc?: Yes Problem Qualifiers (1) Schizoaffective disorder: Qualified Code: F25.0 - Schizoaffective disorder, bipolar type Javier Rose DO Feb 06, 2017 17:32
[2017-02-06 18:39] VITALS: BP 139/82; PULSE 69; RESP 18; TEMP 98.3; O2SAT 98
[2017-02-06] MEDS: ATORVASTATIN 20 MG TAB PO SCH (20:55)
[2017-02-07 06:17] VITALS: BP 131/73; PULSE 77; RESP 16; TEMP 98.7; O2SAT 95
[2017-02-07] MEDS: LISINOPRIL 5 MG TAB PO SCH (09:00)
[2017-02-07] MEDS: amLODIPine BESYLATE 5 MG TAB PO SCH ×2 (09:00→20:28)
[2017-02-07] MEDS: BACITRACIN TOP OINT 15 GM TUBE TOPICAL SCH (09:00)
[2017-02-07] MEDS: clonazePAM 1 MG TAB PO SCH ×2 (09:00→20:28)
[2017-02-07] MEDS: SODIUM CHLORIDE 1 GRAM TAB PO SCH ×2 (09:00→20:28)
[2017-02-07] MEDS: PROPRANOLOL HCL 10 MG TAB PO SCH ×3 (09:00→20:51)
[2017-02-07] MEDS: NEOMYCIN/POLYMYXIN/BACITRACIN OINT 15 GM TUBE TOPICAL SCH (09:00)
[2017-02-07] MEDS: fluPHENAZine HCL ELIXIR 2.5 MG/5 ML UDC PO SCH ×3 (09:00→20:29)
[2017-02-07 17:00] VITALS: BP 144/95; PULSE 79; RESP 18; TEMP 97.4; O2SAT 97
--- NOTE | 2017-02-07 19:17 | HHI.PYPN ---
Subjective Remarks Patient was seen and case discussed with nursing. Patient is pleasant and cooperative with exam. Behaving well on the unit. No bizarre statements today. 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 Compliant with medications. Denies auditory visual hallucinations Objective Alert: Yes [place]: Person, Place Mood: Calm Affect: Restricted Memory Intact: Comment (no gross deficits) Hallucinations: Other (internal stimulation) Delusions: No Delusion Type: Other (none) Suicidal: Ideation (No SI) Homicidal: Ideation (No HI) Insight/Judgment Poor Vitals/IOs Vital Signs Date Time Temp Pulse Resp B/P (MAP) Pulse Ox O2 Delivery O2 Flow Rate FiO2 02/07/17 17:00 97.4 79 18 144/95 (111) 97 Assessment & Plan Problem List: (1) Schizoaffective disorder ICD Codes: F25.9 - Schizoaffective disorder, unspecified Status: Acute (2) Intellectual disability ICD Codes: F79 - Unspecified intellectual disabilities Status: Acute Assessment & Plan Continue current treatment plan Justification for Cont. Inpt. Patient would decompensate in a less restrictive setting Request HC Surrog/Guard Advoc?: Yes Problem Qualifiers (1) Schizoaffective disorder: Javier Rose DO Feb 07, 2017 19:17
[2017-02-07] MEDS: ATORVASTATIN 20 MG TAB PO SCH (20:29)
[2017-02-08 05:43] VITALS: BP 134/87; PULSE 81; RESP 18; TEMP 97.9; O2SAT 95
[2017-02-08] MEDS: clonazePAM 1 MG TAB PO SCH ×2 (09:00→20:12)
[2017-02-08] MEDS: PROPRANOLOL HCL 10 MG TAB PO SCH ×3 (09:00→20:11)
[2017-02-08] MEDS: NEOMYCIN/POLYMYXIN/BACITRACIN OINT 15 GM TUBE TOPICAL SCH (09:00)
[2017-02-08] MEDS: LISINOPRIL 5 MG TAB PO SCH (09:00)
[2017-02-08] MEDS: fluPHENAZine HCL ELIXIR 2.5 MG/5 ML UDC PO SCH ×4 (09:00→20:13)
[2017-02-08] MEDS: SODIUM CHLORIDE 1 GRAM TAB PO SCH ×2 (09:00→20:12)
[2017-02-08] MEDS: BACITRACIN TOP OINT 15 GM TUBE TOPICAL SCH (09:00)
[2017-02-08] MEDS: amLODIPine BESYLATE 5 MG TAB PO SCH ×2 (09:00→20:11)
[2017-02-08 18:14] VITALS: BP 120/86; PULSE 91; RESP 18; TEMP 98; O2SAT 95
--- NOTE | 2017-02-08 18:35 | HHI.PYPN ---
Subjective Remarks Patient seen for follow-up, chart reviewed. After discussion with nursing staff , patient has been passive, med compliant. Patient found walking the hallway, states that he feels readly to leave. He denies any mood or psychotic symptoms at this time. Reports tolerating medicaitons well, no ADRs. Review of Systems Except as stated in HPI: all other systems reviewed are Neg Objective Alert: Yes [place]: Person, Place Mood: Calm Affect: Restricted Memory Intact: Comment (no gross deficits) Hallucinations: Other (internal stimulation) Delusions: No Delusion Type: Other (none) Suicidal: Ideation (No SI) Homicidal: Ideation (No HI) Insight/Judgment poor insight, fair impulse control, and judgement Vitals/IOs Vital Signs Date Time Temp Pulse Resp B/P (MAP) Pulse Ox O2 Delivery O2 Flow Rate FiO2 02/08/17 18:14 98.0 91 18 120/86 (97) 95 Assessment & Plan Problem List: (1) Schizoaffective disorder ICD Codes: F25.9 - Schizoaffective disorder, unspecified Status: Acute (2) Intellectual disability ICD Codes: F79 - Unspecified intellectual disabilities Status: Acute Assessment & Plan Patient to continue current treatment and await placement. Justification for Cont. Inpt. At risk for further decompensation if at lower level of care Request HC Surrog/Guard Advoc?: Yes Problem Qualifiers (1) Schizoaffective disorder: Donny Harris MD Feb 08, 2017 18:35
[2017-02-08] MEDS: ATORVASTATIN 20 MG TAB PO SCH (20:12)
[2017-02-09 05:53] VITALS: BP 139/78; PULSE 74; RESP 18; TEMP 98.6; O2SAT 99
--- NOTE | 2017-02-09 08:02 | HHI.PYPN ---
Subjective Remarks Patient seen and examined with nurse. Chart reviewed. Case discussed in treatment team. On my examination today, the patient says that he is "ready to go home." We discussed his discharge plan briefly. He denies any SI or HI. Denies any AVH. No delusions elicited, and in particular he denies any of the paranoia regarding the police that he had had previously. He smiles at times. No side effects from medications. No physical complaints. Review of Systems ROS Limitations: Poor Historian Except as stated in HPI: all other systems reviewed are Neg Objective Alert: Yes [place]: Person, Place (at least) Mood: Calm Affect: Blunted (generally blunted but smiles at intervals) Memory Intact: Comment (not formally assessed) Hallucinations: Other (no AVH) Delusions: No Delusion Type: Other (no delusions) Suicidal: Ideation (no suicidal ideation) Homicidal: Ideation (no homicidal ideation) Insight/Judgment Poor Remarks No motor abnormalities noted Labs Labs reviewed. Vitals/IOs Vital Signs Date Time Temp Pulse Resp B/P (MAP) Pulse Ox O2 Delivery O2 Flow Rate FiO2 02/09/17 05:53 98.6 74 18 139/78 (98) 99 Intake and Output 02/09/17 02/09/17 02/10/17 08:00 16:00 00:00 Intake Total 0 ml Balance 0 ml Weights reviewed. Steady after initial weight gain. Assessment & Plan Problem List: (1) Schizoaffective disorder ICD Codes: F25.9 - Schizoaffective disorder, unspecified Status: Acute (2) Intellectual disability ICD Codes: F79 - Unspecified intellectual disabilities Status: Acute Assessment & Plan Continue oral Prolixin supplementing Prolixin Decanoate as ordered. Could consider tapering oral Prolixin. Continue other psychotropics as ordered. Continue to monitor on the inpatient unit. Continue other medications and care as ordered. Justification for Cont. Inpt. High risk for decompensation in less restrictive environment. Discharge Planning Placement. Case discussed with counselor Request HC Surrog/Guard Advoc?: Yes Problem Qualifiers (1) Schizoaffective disorder: Larry Valdivia MD Feb 09, 2017 08:02
[2017-02-09] MEDS: LISINOPRIL 5 MG TAB PO SCH (08:44)
[2017-02-09] MEDS: SODIUM CHLORIDE 1 GRAM TAB PO SCH ×2 (08:44→20:28)
[2017-02-09] MEDS: fluPHENAZine HCL ELIXIR 2.5 MG/5 ML UDC PO SCH ×3 (08:44→20:28)
[2017-02-09] MEDS: PROPRANOLOL HCL 10 MG TAB PO SCH ×3 (08:44→20:27)
[2017-02-09] MEDS: clonazePAM 1 MG TAB PO SCH ×2 (08:45→20:28)
[2017-02-09] MEDS: amLODIPine BESYLATE 5 MG TAB PO SCH ×2 (08:45→20:28)
[2017-02-09] MEDS: BACITRACIN TOP OINT 15 GM TUBE TOPICAL SCH (09:00)
[2017-02-09] MEDS: NEOMYCIN/POLYMYXIN/BACITRACIN OINT 15 GM TUBE TOPICAL SCH (09:00)
[2017-02-09 17:52] VITALS: BP 133/76; PULSE 80; RESP 18; TEMP 98.8; O2SAT 97
[2017-02-09] MEDS: ATORVASTATIN 20 MG TAB PO SCH (20:27)
[2017-02-10 05:57] VITALS: BP 145/89; PULSE 76; RESP 18; TEMP 97.8; O2SAT 98
[2017-02-10] MEDS: clonazePAM 1 MG TAB PO SCH ×2 (08:55→20:28)
[2017-02-10] MEDS: PROPRANOLOL HCL 10 MG TAB PO SCH ×3 (08:55→20:28)
[2017-02-10] MEDS: LISINOPRIL 5 MG TAB PO SCH (08:55)
[2017-02-10] MEDS: amLODIPine BESYLATE 5 MG TAB PO SCH ×2 (08:55→20:28)
[2017-02-10] MEDS: SODIUM CHLORIDE 1 GRAM TAB PO SCH ×2 (08:55→20:28)
[2017-02-10] MEDS: NEOMYCIN/POLYMYXIN/BACITRACIN OINT 15 GM TUBE TOPICAL SCH (09:00)
[2017-02-10] MEDS: BACITRACIN TOP OINT 15 GM TUBE TOPICAL SCH (09:00)
--- NOTE | 2017-02-10 09:54 | HHI.PYPN ---
Subjective Remarks Patient seen and examined with counselor. Chart reviewed. Case discussed with nursing staff. No behavioral issues noted. On my examination today, the patient asks if I can take him off of his psychotropic medications. He is tolerating them well without side effects but says that he doesn't feel like he needs them anymore. Psychoeducation provided regarding the importance of his medications, and I have encouraged him to continue accepting them. He denies audiovisual hallucinations. No paranoia. No SI or HI. No no physical complaints. Review of Systems ROS Limitations: Poor Historian Except as stated in HPI: all other systems reviewed are Neg Objective Alert: Yes [place]: Person, Place Mood: Calm Affect: Blunted (childlike) Memory Intact: Comment (not formally assessed) Hallucinations: Other (no AVH) Delusions: No Delusion Type: Other (No delusional material elicited) Suicidal: Ideation (No SI) Homicidal: Ideation (No HI) Insight/Judgment Poor Remarks No motoric abnormalities noted Labs Labs reviewed. Vitals/IOs Vital Signs Date Time Temp Pulse Resp B/P (MAP) Pulse Ox O2 Delivery O2 Flow Rate FiO2 02/10/17 05:57 97.8 76 18 145/89 (107) 98 Assessment & Plan Problem List: (1) Schizoaffective disorder ICD Codes: F25.9 - Schizoaffective disorder, unspecified Status: Acute (2) Intellectual disability ICD Codes: F79 - Unspecified intellectual disabilities Status: Chronic Assessment & Plan Continue current psychotropics as ordered. Continue to monitor on the inpatient unit. Continue other medications and care as ordered. Justification for Cont. Inpt. High risk for decompensation in less restrictive environment. Discharge Planning New placement. Case discussed with counselor. Request HC Surrog/Guard Advoc?: Yes Problem Qualifiers (1) Schizoaffective disorder: Larry Valdivia MD Feb 10, 2017 09:54
[2017-02-10] MEDS: fluPHENAZine HCL ELIXIR 2.5 MG/5 ML UDC PO SCH ×3 (10:24→20:29)
[2017-02-10 19:45] VITALS: BP 101/66; PULSE 87; RESP 18; TEMP 98; O2SAT 99
[2017-02-10] MEDS: ATORVASTATIN 20 MG TAB PO SCH (20:29)
[2017-02-11 05:53] VITALS: BP 142/81; PULSE 72; RESP 18; TEMP 98; O2SAT 97
[2017-02-11] MEDS: fluPHENAZine HCL ELIXIR 2.5 MG/5 ML UDC PO SCH ×4 (09:32→20:55)
[2017-02-11] MEDS: PROPRANOLOL HCL 10 MG TAB PO SCH ×3 (09:33→20:53)
[2017-02-11] MEDS: LISINOPRIL 5 MG TAB PO SCH (09:33)
[2017-02-11] MEDS: clonazePAM 1 MG TAB PO SCH ×2 (09:33→20:53)
[2017-02-11] MEDS: SODIUM CHLORIDE 1 GRAM TAB PO SCH ×2 (09:33→20:53)
[2017-02-11] MEDS: BACITRACIN TOP OINT 15 GM TUBE TOPICAL SCH (09:33)
[2017-02-11] MEDS: NEOMYCIN/POLYMYXIN/BACITRACIN OINT 15 GM TUBE TOPICAL SCH (09:33)
[2017-02-11] MEDS: amLODIPine BESYLATE 5 MG TAB PO SCH ×2 (09:33→20:54)
--- NOTE | 2017-02-11 10:31 | HHI.PYPN ---
Subjective Remarks Patient seen and examined. Chart reviewed. Case discussed with nursing staff. No behavioral issues noted. On my examination today, the patient is calm and cooperative. Denies AVH. No SI or HI. No pain complaints. No side effects from medications. Review of Systems ROS Limitations: Poor Historian Except as stated in HPI: all other systems reviewed are Neg Objective Alert: Yes [place]: Person, Place Mood: Calm Affect: Euthymic (childlike) Memory Intact: Comment (not formally assessed) Hallucinations: Other (no hallucinations) Delusions: No Delusion Type: Other (no delusions) Suicidal: Ideation (No SI) Homicidal: Ideation (No HI) Insight/Judgment Poor Remarks No motor abnormalities noted. Labs Labs reviewed. Vitals/IOs Vital Signs Date Time Temp Pulse Resp B/P (MAP) Pulse Ox O2 Delivery O2 Flow Rate FiO2 02/11/17 05:53 98.0 72 18 142/81 (101) 97 Assessment & Plan Problem List: (1) Schizoaffective disorder ICD Codes: F25.9 - Schizoaffective disorder, unspecified Status: Acute (2) Intellectual disability ICD Codes: F79 - Unspecified intellectual disabilities Status: Chronic Assessment & Plan In light of ongoing stability, we will begin tapering oral Prolixin to 7.5 mg 3 times daily. Patient already has Prolixin Decanoate on board and received a booster dose last week. Continue other psychotropics as ordered. Continue other medications and care as ordered. Justification for Cont. Inpt. Medication changes in process. High risk for decompensation in less restrictive environment. Discharge Planning Placement. Request HC Surrog/Guard Advoc?: Yes Problem Qualifiers (1) Schizoaffective disorder: Larry Valdivia MD Feb 11, 2017 10:31
[2017-02-11 18:07] VITALS: BP 114/77; PULSE 95; RESP 18; TEMP 98.9; O2SAT 95
[2017-02-11] MEDS: ATORVASTATIN 20 MG TAB PO SCH (20:53)
[2017-02-12 05:58] VITALS: BP 144/91; PULSE 82; RESP 18; TEMP 97.8; O2SAT 98
[2017-02-12] MEDS: clonazePAM 1 MG TAB PO SCH ×2 (08:03→20:49)
[2017-02-12] MEDS: SODIUM CHLORIDE 1 GRAM TAB PO SCH ×2 (08:03→20:48)
[2017-02-12] MEDS: fluPHENAZine HCL ELIXIR 2.5 MG/5 ML UDC PO SCH ×3 (08:03→20:49)
[2017-02-12] MEDS: amLODIPine BESYLATE 5 MG TAB PO SCH ×2 (08:03→20:48)
[2017-02-12] MEDS: PROPRANOLOL HCL 10 MG TAB PO SCH ×3 (08:03→20:48)
[2017-02-12] MEDS: LISINOPRIL 5 MG TAB PO SCH (08:03)
[2017-02-12] MEDS: NEOMYCIN/POLYMYXIN/BACITRACIN OINT 15 GM TUBE TOPICAL SCH (09:00)
[2017-02-12] MEDS: BACITRACIN TOP OINT 15 GM TUBE TOPICAL SCH (09:00)
--- NOTE | 2017-02-12 12:49 | HHI.PYPN ---
Subjective Remarks Patient seen and examined with nurse. Chart reviewed. Case discussed with nursing staff. No behavioral issues. On my exam, no evidence of psychotic decompensation with reduction in oral Prolixin dose. Patient denies AVH. No delusions. Complains of some possible EPS, none on exam today, and I have encouraged him to utilize Cogentin PRN if he feels stiff or tremulous. No side effects from medications. No physical complaints. Review of Systems ROS Limitations: Poor Historian Except as stated in HPI: all other systems reviewed are Neg Objective Alert: Yes [place]: Person, Place Mood: Calm Affect: Blunted Memory Intact: Comment (not formally assessed) Hallucinations: Other (no AVH) Delusions: No Delusion Type: Other (no delusional material) Suicidal: Ideation (No SI) Homicidal: Ideation (No HI) Insight/Judgment Poor Remarks No hand tremor, no cogwheeling on no dystonias, no dyskinesias. Labs Labs reviewed. Vitals/IOs Vital Signs Date Time Temp Pulse Resp B/P (MAP) Pulse Ox O2 Delivery O2 Flow Rate FiO2 02/12/17 05:58 97.8 82 18 144/91 (108) 98 Assessment & Plan Problem List: (1) Schizoaffective disorder ICD Codes: F25.9 - Schizoaffective disorder, unspecified Status: Acute (2) Intellectual disability ICD Codes: F79 - Unspecified intellectual disabilities Status: Chronic Assessment & Plan Continue oral Prolixin as ordered. Prolixin Decanoate on board. Continue other psychotropics as ordered. Continue other medications and care as ordered. Justification for Cont. Inpt. High risk for decompensation in less restrictive environment. Discharge Planning Placement. Case discussed with counselor who informs me that the patient has been declined by an additional 4 assisted living facilities. I will initiate a [facility] hospital referral in case placement proves impossible. Request HC Surrog/Guard Advoc?: Yes Problem Qualifiers (1) Schizoaffective disorder: Larry Valdivia MD Feb 12, 2017 12:49
[2017-02-12 17:54] VITALS: BP 122/92; PULSE 81; RESP 17; TEMP 98; O2SAT 98
[2017-02-12] MEDS: ATORVASTATIN 20 MG TAB PO SCH (20:49)
[2017-02-13 06:02] VITALS: BP 136/94; PULSE 82; RESP 18; TEMP 97.8; O2SAT 98
[2017-02-13] MEDS: PROPRANOLOL HCL 10 MG TAB PO SCH ×3 (08:11→21:47)
[2017-02-13] MEDS: amLODIPine BESYLATE 5 MG TAB PO SCH ×2 (08:11→21:38)
[2017-02-13] MEDS: LISINOPRIL 5 MG TAB PO SCH (08:12)
[2017-02-13] MEDS: clonazePAM 1 MG TAB PO SCH ×2 (08:12→21:38)
[2017-02-13] MEDS: fluPHENAZine HCL ELIXIR 2.5 MG/5 ML UDC PO SCH ×3 (08:12→21:39)
[2017-02-13] MEDS: SODIUM CHLORIDE 1 GRAM TAB PO SCH ×2 (08:12→21:38)
[2017-02-13] MEDS: NEOMYCIN/POLYMYXIN/BACITRACIN OINT 15 GM TUBE TOPICAL SCH (09:00)
[2017-02-13] MEDS: BACITRACIN TOP OINT 15 GM TUBE TOPICAL SCH (09:00)
--- NOTE | 2017-02-13 13:00 | HHI.PYPN ---
Subjective Remarks Pt seen and discussed with staff. He remains disorganized but has not been aggressive or agitated. He is compliant with medications. No SI/HI Objective Alert: Yes [place]: Person, Place Mood: Calm Affect: Blunted Memory Intact: Comment (not formally assessed) Hallucinations: Other (no AVH) Delusions: No Delusion Type: Other (no delusional material) Suicidal: Ideation (No SI) Homicidal: Ideation (No HI) Insight/Judgment poor Vitals/IOs Vital Signs Date Time Temp Pulse Resp B/P (MAP) Pulse Ox O2 Delivery O2 Flow Rate FiO2 02/13/17 06:02 97.8 82 18 136/94 (108) 98 Assessment & Plan Problem List: (1) Schizoaffective disorder ICD Codes: F25.9 - Schizoaffective disorder, unspecified Status: Acute (2) Intellectual disability ICD Codes: F79 - Unspecified intellectual disabilities Status: Chronic Assessment & Plan continue current tx plan. Estimated LOS: days Justification for Cont. Inpt. risk of decompensation Request HC Surrog/Guard Advoc?: Yes Problem Qualifiers (1) Schizoaffective disorder: Shantal Dowell MD Feb 13, 2017 13:00
[2017-02-13 18:47] VITALS: BP 144/98; PULSE 89; RESP 18; TEMP 98.1; O2SAT 99
[2017-02-13] MEDS: ATORVASTATIN 20 MG TAB PO SCH (21:38)
[2017-02-14 06:08] VITALS: BP 151/95; PULSE 81; RESP 18; TEMP 98.9; O2SAT 98
[2017-02-14] MEDS: PROPRANOLOL HCL 10 MG TAB PO SCH ×3 (08:57→20:53)
[2017-02-14] MEDS: amLODIPine BESYLATE 5 MG TAB PO SCH ×2 (08:57→20:53)
[2017-02-14] MEDS: SODIUM CHLORIDE 1 GRAM TAB PO SCH ×2 (08:58→20:53)
[2017-02-14] MEDS: LISINOPRIL 5 MG TAB PO SCH (08:58)
[2017-02-14] MEDS: clonazePAM 1 MG TAB PO SCH ×2 (08:58→20:53)
[2017-02-14] MEDS: NEOMYCIN/POLYMYXIN/BACITRACIN OINT 15 GM TUBE TOPICAL SCH (09:00)
[2017-02-14] MEDS: fluPHENAZine HCL ELIXIR 2.5 MG/5 ML UDC PO SCH ×3 (09:00→20:54)
[2017-02-14] MEDS: BACITRACIN TOP OINT 15 GM TUBE TOPICAL SCH (09:00)
--- NOTE | 2017-02-14 11:23 | HHI.PYPN ---
Subjective Remarks Pt seen and discussed with staff. He remains compliant with medications and cooperative with care. He continues to make bizarre statements and told RN that he needed labs to "come suck out" his prolixin decanoate. No behavioral problems. No SI/HI Objective Alert: Yes [place]: Person, Place Mood: Calm Affect: Flat Memory Intact: Comment (fair) Hallucinations: Other (no AVH) Delusions: No Delusion Type: Other (no delusional material) Suicidal: Ideation (No SI) Homicidal: Ideation (No HI) Insight/Judgment poor Vitals/IOs Vital Signs Date Time Temp Pulse Resp B/P (MAP) Pulse Ox O2 Delivery O2 Flow Rate FiO2 02/14/17 06:08 98.9 81 18 151/95 (113) 98 Intake and Output 02/14/17 02/14/17 02/15/17 08:00 16:00 00:00 Intake Total 550 ml Balance 550 ml Assessment & Plan Problem List: (1) Schizoaffective disorder ICD Codes: F25.9 - Schizoaffective disorder, unspecified Status: Acute (2) Intellectual disability ICD Codes: F79 - Unspecified intellectual disabilities Status: Chronic Assessment & Plan Continue current tx plan.Estimated LOS: days Justification for Cont. Inpt. risk of decompensation Request HC Surrog/Guard Advoc?: Yes Problem Qualifiers (1) Schizoaffective disorder: Shantal Dowell MD Feb 14, 2017 11:23
[2017-02-14 18:46] VITALS: BP 137/83; PULSE 71; RESP 16; TEMP 98.1; O2SAT 100
[2017-02-14] MEDS: ATORVASTATIN 20 MG TAB PO SCH (20:54)
[2017-02-15 06:00] VITALS: BP 135/94; PULSE 94; RESP 16; TEMP 97.5; O2SAT 99
[2017-02-15] MEDS: amLODIPine BESYLATE 5 MG TAB PO SCH ×2 (08:46→21:11)
[2017-02-15] MEDS: SODIUM CHLORIDE 1 GRAM TAB PO SCH ×2 (08:46→21:11)
[2017-02-15] MEDS: PROPRANOLOL HCL 10 MG TAB PO SCH ×3 (08:46→21:12)
[2017-02-15] MEDS: clonazePAM 1 MG TAB PO SCH ×2 (08:46→21:11)
[2017-02-15] MEDS: LISINOPRIL 5 MG TAB PO SCH (08:48)
[2017-02-15] MEDS: NEOMYCIN/POLYMYXIN/BACITRACIN OINT 15 GM TUBE TOPICAL SCH (08:48)
[2017-02-15] MEDS: BACITRACIN TOP OINT 15 GM TUBE TOPICAL SCH (08:48)
[2017-02-15] MEDS: fluPHENAZine HCL ELIXIR 2.5 MG/5 ML UDC PO SCH ×3 (09:00→21:12)
--- NOTE | 2017-02-15 09:49 | HHI.PYPN ---
Subjective Remarks Patient seen and examined with nurse. Chart reviewed. Case discussed with nursing staff. On my examination today, patient is calm and pleasant. He denies SI, HI or AVH. No paranoia. Denies side effects from medications. No physical complaints. Review of Systems ROS Limitations: Poor Historian Except as stated in HPI: all other systems reviewed are Neg Objective Alert: Yes [place]: Person, Place Mood: Calm Affect: Blunted Memory Intact: Comment (not formally assessed today) Hallucinations: Other (no hallucinations) Delusions: No Delusion Type: Other (no delusions) Suicidal: Ideation (No SI) Homicidal: Ideation (No HI) Insight/Judgment Poor Remarks no motor abnormalities noted Labs Labs reviewed. No new labs. Vitals/IOs Vital Signs Date Time Temp Pulse Resp B/P (MAP) Pulse Ox O2 Delivery O2 Flow Rate FiO2 02/15/17 06:00 97.5 94 16 135/94 (108) 99 Intake and Output 02/15/17 02/15/17 02/16/17 08:00 16:00 00:00 Intake Total 360 ml Balance 360 ml Assessment & Plan Problem List: (1) Schizoaffective disorder ICD Codes: F25.9 - Schizoaffective disorder, unspecified Status: Acute (2) Intellectual disability ICD Codes: F79 - Unspecified intellectual disabilities Status: Chronic Assessment & Plan Taper oral Prolixin to 5 mg 3 times daily as the patient continues to do well with reducing the dose without evidence of psychotic decompensation. Patient has Prolixin Decanoate on board; this is next due on 02/24. Continue to monitor on the inpatient unit. Continue other medications and care as ordered. Justification for Cont. Inpt. Medication changes. Risk for decompensation in less restrictive environment. [facility] Request HC Surrog/Guard Advoc?: Yes Problem Qualifiers (1) Schizoaffective disorder: Larry Valdivia MD Feb 15, 2017 09:49
[2017-02-15] MEDS: ATORVASTATIN 20 MG TAB PO SCH (21:11)
[2017-02-16 06:11] VITALS: BP 134/99; PULSE 74; RESP 18; TEMP 98.2; O2SAT 97
[2017-02-16] MEDS: BACITRACIN TOP OINT 15 GM TUBE TOPICAL SCH (09:00)
[2017-02-16] MEDS: clonazePAM 1 MG TAB PO SCH ×2 (09:23→20:52)
[2017-02-16] MEDS: LISINOPRIL 5 MG TAB PO SCH (09:23)
[2017-02-16] MEDS: SODIUM CHLORIDE 1 GRAM TAB PO SCH ×2 (09:23→20:52)
[2017-02-16] MEDS: amLODIPine BESYLATE 5 MG TAB PO SCH ×2 (09:23→20:53)
[2017-02-16] MEDS: PROPRANOLOL HCL 10 MG TAB PO SCH ×3 (09:23→20:54)
[2017-02-16] MEDS: fluPHENAZine HCL ELIXIR 2.5 MG/5 ML UDC PO SCH ×3 (09:24→20:54)
[2017-02-16] MEDS: NEOMYCIN/POLYMYXIN/BACITRACIN OINT 15 GM TUBE TOPICAL SCH (09:24)
--- NOTE | 2017-02-16 09:55 | HHI.PYPN ---
Subjective Remarks Patient seen and examined with nurse. Chart reviewed. Case discussed in treatment team. No behavioral issues per nursing staff. On my examination today, the patient tells me that he was thinking "about going home with the woman and her kids." Unclear what he means by this. Mood is stable. Denies AVH. No delusions. Denies side effects from medications. No physical complaints. Review of Systems ROS Limitations: Poor Historian Except as stated in HPI: all other systems reviewed are Neg Objective Alert: Yes [place]: Person, Place Mood: Calm Affect: Appropriate (fairly appropriate) Memory Intact: Comment (not formally assessed today) Hallucinations: Other (no AVH) Delusions: No Delusion Type: Other (no jamar delusions) Suicidal: Ideation (No SI) Homicidal: Ideation (No HI) Insight/Judgment Poor Remarks No motor abnormalities noted. Labs Labs reviewed. Vitals/IOs Vital Signs Date Time Temp Pulse Resp B/P (MAP) Pulse Ox O2 Delivery O2 Flow Rate FiO2 02/16/17 06:11 98.2 74 18 134/99 (111) 97 Intake and Output 02/16/17 02/16/17 02/17/17 08:00 16:00 00:00 Intake Total 700 ml Balance 700 ml Assessment & Plan Problem List: (1) Schizoaffective disorder ICD Codes: F25.9 - Schizoaffective disorder, unspecified Status: Acute (2) Intellectual disability ICD Codes: F79 - Unspecified intellectual disabilities Status: Chronic Assessment & Plan Continue oral Prolixin supplementing Prolixin Decanoate. Continue other medications and care as ordered. Check an updated set of basic laboratories in the morning. Justification for Cont. Inpt. High risk for decompensation in less restrictive environment. Discharge Planning [facility] psychiatric hospital referral Request HC Surrog/Guard Advoc?: Yes Problem Qualifiers (1) Schizoaffective disorder: Larry Valdivia MD Feb 16, 2017 09:55
[2017-02-16 18:12] VITALS: BP 120/79; PULSE 67; RESP 18; TEMP 97.5; O2SAT 100
[2017-02-16] MEDS: ATORVASTATIN 20 MG TAB PO SCH (20:53)
[2017-02-17 06:28] VITALS: BP 126/77; PULSE 68; RESP 18; TEMP 97.5; O2SAT 97
[2017-02-17] MEDS: PROPRANOLOL HCL 10 MG TAB PO SCH ×3 (08:36→20:46)
[2017-02-17] MEDS: clonazePAM 1 MG TAB PO SCH ×2 (08:36→20:46)
[2017-02-17] MEDS: amLODIPine BESYLATE 5 MG TAB PO SCH ×2 (08:36→20:46)
[2017-02-17] MEDS: LISINOPRIL 5 MG TAB PO SCH (08:36)
[2017-02-17] MEDS: SODIUM CHLORIDE 1 GRAM TAB PO SCH ×2 (08:36→20:46)
[2017-02-17] MEDS: fluPHENAZine HCL ELIXIR 2.5 MG/5 ML UDC PO SCH ×3 (08:37→20:47)
[2017-02-17] MEDS: BACITRACIN TOP OINT 15 GM TUBE TOPICAL SCH (08:45)
[2017-02-17] MEDS: NEOMYCIN/POLYMYXIN/BACITRACIN OINT 15 GM TUBE TOPICAL SCH (09:00)
[2017-02-17 10:19] LABS: AUTOMATED NEUTROPHIL # 7.1 TH/MM3 (1.8-7.7); BASOPHIL # 0.1 TH/MM3 (0-0.2); BASOPHIL % 0.6 % (0.0-2.0); EOSINOPHIL # 0.1 TH/MM3 (0-0.4); EOSINOPHIL % 1.4 % (0.0-4.0); HEMATOCRIT 40.9 % (39.0-51.0); HEMO FLAGS DIFF FINAL; LYMPH % 14.2 % (9.0-44.0); LYMPHOCYTE # 1.3 TH/MM3 (1.0-4.8); MEAN CELL VOLUME 89.1 FL (80.0-100.0); MEAN CORPUSCULAR HGB CONC 33.7 % (32.0-36.0); MONO % 7.1 % (0.0-8.0); NEUT % 76.7 % (16.0-70.0); PLATELET COUNT 222 TH/MM3 (150-450); RED BLOOD COUNT 4.59 MIL/MM3 (4.50-5.90); RED CELL DISTRIBUTION WIDTH 14.8 % (11.6-17.2); WHITE BLOOD COUNT 9.2 TH/MM3 (4.0-11.0)
[2017-02-17 10:27] LABS: ALT (GPT) 23 U/L (12-78); ANION GAP 6 MEQ/L (5-15); AST (GOT) 13 U/L (15-37); BICARBONATE 31.8 MEQ/L (21.0-32.0); BLOOD UREA NITROGEN 18 MG/DL (7-18); CHLORIDE 97 MEQ/L (98-107); GLOMERULAR FILTRATION RATE 97 ML/MIN (>89); POTASSIUM 4.1 MEQ/L (3.5-5.1); SODIUM (NA) 135 MEQ/L (136-145)
[2017-02-17 10:29] LABS: ALKALINE PHOSPHATASE 86 U/L (45-117); TOTAL BILIRUBIN ADULT 0.5 MG/DL (0.2-1.0)
--- NOTE | 2017-02-17 10:56 | HHI.PYPN ---
Subjective Remarks Patient seen and examined with counselor and nurse. Chart reviewed. Case discussed with nursing staff reports the patient has been no behavioral problem overnight. On my examination today, the patient is calm and cooperative. Counselor informs me there is a possibility that the patient could be placed at [facility] given his good behavior on the unit. We discussed this possibility with the patient, and he is interested in such a placement. He denies any SI or HI. Denies any AVH. Denies any side effects from medications. No physical complaints. Review of Systems ROS Limitations: Poor Historian Except as stated in HPI: all other systems reviewed are Neg Objective Alert: Yes [place]: Person, Place Mood: Calm Affect: Appropriate Memory Intact: Comment (not formally assessed today) Hallucinations: Other (no hallucinations) Delusions: No Delusion Type: Other (no delusional material) Suicidal: Ideation (denies SI) Homicidal: Ideation (denies HI) Insight/Judgment Poor Remarks No motor abnormalities noted. Labs Test 02/17/17 08:35 White Blood Count 9.2 TH/MM3 Red Blood Count 4.59 MIL/MM3 Hemoglobin 13.8 GM/DL Hematocrit 40.9 % Mean Corpuscular Volume 89.1 FL Mean Corpuscular Hemoglobin 30.0 PG Mean Corpuscular Hemoglobin Concent 33.7 % Red Cell Distribution Width 14.8 % Platelet Count 222 TH/MM3 Mean Platelet Volume 8.5 FL Neutrophils (%) (Auto) 76.7 % Lymphocytes (%) (Auto) 14.2 % Monocytes (%) (Auto) 7.1 % Eosinophils (%) (Auto) 1.4 % Basophils (%) (Auto) 0.6 % Neutrophils # (Auto) 7.1 TH/MM3 Lymphocytes # (Auto) 1.3 TH/MM3 Monocytes # (Auto) 0.7 TH/MM3 Eosinophils # (Auto) 0.1 TH/MM3 Basophils # (Auto) 0.1 TH/MM3 CBC Comment DIFF FINAL Differential Comment Blood Urea Nitrogen 18 MG/DL Creatinine 0.83 MG/DL Random Glucose 87 MG/DL Total Protein 6.9 GM/DL Albumin 3.4 GM/DL Calcium Level 8.7 MG/DL Alkaline Phosphatase 86 U/L Aspartate Amino Transf (AST/SGOT) 13 U/L Alanine Aminotransferase (ALT/SGPT) 23 U/L Total Bilirubin 0.5 MG/DL Sodium Level 135 MEQ/L Potassium Level 4.1 MEQ/L Chloride Level 97 MEQ/L Carbon Dioxide Level 31.8 MEQ/L Anion Gap 6 MEQ/L Estimat Glomerular Filtration Rate 97 ML/MIN Labs reviewed. CBC and CMP unremarkable except for mildly low sodium at 135, which is actually fairly good for this patient. Vitals/IOs Vital Signs Date Time Temp Pulse Resp B/P (MAP) Pulse Ox O2 Delivery O2 Flow Rate FiO2 02/17/17 06:28 97.5 68 18 126/77 (93) 97 Assessment & Plan Problem List: (1) Schizoaffective disorder ICD Codes: F25.9 - Schizoaffective disorder, unspecified Status: Acute (2) Intellectual disability ICD Codes: F79 - Unspecified intellectual disabilities Status: Chronic Assessment & Plan Continue reduced dose of oral Prolixin supplementing Prolixin Decanoate. Continue Inderal and Klonopin as ordered. Continue to monitor on the inpatient unit. Continue other medications and care as ordered. Justification for Cont. Inpt. Risk for decompensation in less restrictive environment. Discharge Planning Placement. ?[facility] Request HC Surrog/Guard Advoc?: Yes Problem Qualifiers (1) Schizoaffective disorder: Larry Valdivia MD Feb 17, 2017 10:56
[2017-02-17 16:01] VITALS: BP 115/72; PULSE 85; RESP 18; TEMP 98.2; O2SAT 99
[2017-02-17] MEDS: ATORVASTATIN 20 MG TAB PO SCH (20:47)
[2017-02-18 05:47] VITALS: BP 131/82; PULSE 81; RESP 18; TEMP 98; O2SAT 95
[2017-02-18] MEDS: fluPHENAZine HCL ELIXIR 2.5 MG/5 ML UDC PO SCH ×3 (08:20→20:21)
[2017-02-18] MEDS: LISINOPRIL 5 MG TAB PO SCH (08:20)
[2017-02-18] MEDS: clonazePAM 1 MG TAB PO SCH ×2 (08:20→21:00)
[2017-02-18] MEDS: SODIUM CHLORIDE 1 GRAM TAB PO SCH ×2 (08:20→20:21)
[2017-02-18] MEDS: amLODIPine BESYLATE 5 MG TAB PO SCH ×2 (08:20→20:21)
[2017-02-18] MEDS: PROPRANOLOL HCL 10 MG TAB PO SCH ×3 (08:20→20:21)
[2017-02-18] MEDS: BACITRACIN TOP OINT 15 GM TUBE TOPICAL SCH (08:46)
[2017-02-18] MEDS: NEOMYCIN/POLYMYXIN/BACITRACIN OINT 15 GM TUBE TOPICAL SCH (08:47)
--- NOTE | 2017-02-18 14:54 | HHI.PYPN ---
Subjective Remarks Patient seen and examined with nurse. Chart reviewed. Case discussed with nursing staff. No behavioral issues noted overnight. On my examination today, the patient is excited to have a visit from possible [facility] placement territory service representative. He tells me he is looking forward to a "new society." With clarification, I ascertain that he means he is looking forward to leaving the hospital and entering an CARE HOME environment. No SI or HI. No psychotic symptoms. Denies side effects from medications. No physical complaints. Review of Systems ROS Limitations: Poor Historian Except as stated in HPI: all other systems reviewed are Neg Objective Alert: Yes [place]: Person, Place Mood: Calm Affect: Appropriate Memory Intact: Comment (not assessed) Hallucinations: Other (no AVH) Delusions: No Delusion Type: Other (no delusions) Suicidal: Ideation (denies SI) Homicidal: Ideation (denies HI) Insight/Judgment Poor Remarks No motoric abnormalities appreciated Labs Labs reviewed Vitals/IOs Vital Signs Date Time Temp Pulse Resp B/P (MAP) Pulse Ox O2 Delivery O2 Flow Rate FiO2 02/18/17 05:47 98.0 81 18 131/82 (98) 95 Intake and Output 02/18/17 02/18/17 02/19/17 08:00 16:00 00:00 Intake Total 720 ml Balance 720 ml Assessment & Plan Problem List: (1) Schizoaffective disorder ICD Codes: F25.9 - Schizoaffective disorder, unspecified Status: Acute (2) Intellectual disability ICD Codes: F79 - Unspecified intellectual disabilities Status: Chronic Assessment & Plan Continue current psychotropics as ordered. Continue to monitor on the inpatient unit. Continue other medications and care as ordered. Justification for Cont. Inpt. Risk for decompensation and less restrictive environment. Discharge Planning Placement Request HC Surrog/Guard Advoc?: Yes Problem Qualifiers (1) Schizoaffective disorder: Larry Valdivia MD Feb 18, 2017 14:54
[2017-02-18 16:32] VITALS: BP 145/99; PULSE 83; RESP 18; TEMP 97.5; O2SAT 96
[2017-02-18] MEDS: ATORVASTATIN 20 MG TAB PO SCH (20:21)
[2017-02-19 06:08] VITALS: BP 137/89; PULSE 79; RESP 18; TEMP 97.7; O2SAT 97
[2017-02-19] MEDS: BACITRACIN TOP OINT 15 GM TUBE TOPICAL SCH (09:00)
[2017-02-19] MEDS: fluPHENAZine HCL ELIXIR 2.5 MG/5 ML UDC PO SCH ×3 (09:00→21:32)
[2017-02-19] MEDS: NEOMYCIN/POLYMYXIN/BACITRACIN OINT 15 GM TUBE TOPICAL SCH (09:00)
[2017-02-19] MEDS: clonazePAM 1 MG TAB PO SCH ×2 (09:06→21:32)
[2017-02-19] MEDS: PROPRANOLOL HCL 10 MG TAB PO SCH ×3 (09:06→21:00)
[2017-02-19] MEDS: amLODIPine BESYLATE 5 MG TAB PO SCH ×2 (09:06→21:32)
[2017-02-19] MEDS: SODIUM CHLORIDE 1 GRAM TAB PO SCH ×2 (09:06→21:32)
[2017-02-19] MEDS: LISINOPRIL 5 MG TAB PO SCH (09:06)
--- NOTE | 2017-02-19 10:10 | HHI.PYPN ---
Subjective Remarks patient seen and examined with nurse. Chart reviewed. Case discussed with nursing staff. On my examination today, patient is calm and cooperative. He was not visited by leasing representative from [facility] yesterday, and I have asked the counselor to follow-up on whether they will be coming today. No mood or positive psychotic symptoms noted. No side effects from medications. No physical complaints. Review of Systems ROS Limitations: Poor Historian Except as stated in HPI: all other systems reviewed are Neg Objective Alert: Yes [place]: Person, Place Mood: Calm Affect: Appropriate (remains appropriate) Memory Intact: Comment (not assessed) Hallucinations: Other (no AVH) Delusions: No Delusion Type: Other (no delusions) Suicidal: Ideation (no SI) Homicidal: Ideation (no HI) Insight/Judgment poor Remarks No abnormal motor movements appreciated Labs Labs reviewed Vitals/IOs Vital Signs Date Time Temp Pulse Resp B/P (MAP) Pulse Ox O2 Delivery O2 Flow Rate FiO2 02/19/17 06:08 97.7 79 18 137/89 (105) 97 Assessment & Plan Problem List: (1) Schizoaffective disorder ICD Codes: F25.9 - Schizoaffective disorder, unspecified Status: Acute (2) Intellectual disability ICD Codes: F79 - Unspecified intellectual disabilities Status: Chronic Assessment & Plan Continue current psychiatric medications as ordered. Continue to monitor on the inpatient unit. Continue other medications and care as ordered. Justification for Cont. Inpt. High risk for decompensation in less restrictive environment. Discharge Planning Placement Request HC Surrog/Guard Advoc?: Yes Problem Qualifiers (1) Schizoaffective disorder: Larry Valdivia MD Feb 19, 2017 10:10
[2017-02-19 15:45] VITALS: BP 125/85; PULSE 85; RESP 18; TEMP 97.4; O2SAT 98
[2017-02-19] MEDS: ATORVASTATIN 20 MG TAB PO SCH (21:32)
[2017-02-20 06:14] VITALS: BP 136/94; PULSE 71; RESP 16; TEMP 97.6
[2017-02-20] MEDS: amLODIPine BESYLATE 5 MG TAB PO SCH ×2 (08:27→20:56)
[2017-02-20] MEDS: LISINOPRIL 5 MG TAB PO SCH (08:27)
[2017-02-20] MEDS: clonazePAM 1 MG TAB PO SCH ×2 (08:27→20:59)
[2017-02-20] MEDS: SODIUM CHLORIDE 1 GRAM TAB PO SCH ×2 (08:27→20:58)
[2017-02-20] MEDS: fluPHENAZine HCL ELIXIR 2.5 MG/5 ML UDC PO SCH ×3 (08:28→21:00)
[2017-02-20] MEDS: PROPRANOLOL HCL 10 MG TAB PO SCH ×3 (08:28→20:57)
[2017-02-20] MEDS: NEOMYCIN/POLYMYXIN/BACITRACIN OINT 15 GM TUBE TOPICAL SCH (09:00)
[2017-02-20] MEDS: BACITRACIN TOP OINT 15 GM TUBE TOPICAL SCH (09:00)
--- NOTE | 2017-02-20 17:23 | HHI.PYPN ---
Subjective Remarks Patient was seen and case discussed with nursing. Patient is pleasant and cooperative with exam. Behaving well on the unit. Compliant with medications. No physical or verbal outbursts Objective Alert: Yes [place]: Person, Place Mood: Calm Affect: Appropriate (remains appropriate) Memory Intact: Comment (not assessed) Hallucinations: Other (no AVH) Delusions: No Delusion Type: Other (vigilant) Suicidal: Ideation (no SI) Homicidal: Ideation (no HI) Insight/Judgment Poor Vitals/IOs Vital Signs Date Time Temp Pulse Resp B/P (MAP) Pulse Ox O2 Delivery O2 Flow Rate FiO2 02/20/17 06:14 97.6 71 16 136/94 (108) 02/19/17 15:45 98 Assessment & Plan Problem List: (1) Schizoaffective disorder ICD Codes: F25.9 - Schizoaffective disorder, unspecified Status: Acute (2) Intellectual disability ICD Codes: F79 - Unspecified intellectual disabilities Status: Chronic Assessment & Plan Continue current treatment plan Justification for Cont. Inpt. Patient would decompensate in a less restrictive setting Request HC Surrog/Guard Advoc?: Yes Problem Qualifiers (1) Schizoaffective disorder: Javier Rose DO Feb 20, 2017 17:23
[2017-02-20 18:50] VITALS: BP 140/100; PULSE 82; RESP 17; TEMP 98.1; O2SAT 100
[2017-02-20] MEDS: ATORVASTATIN 20 MG TAB PO SCH (20:56)
[2017-02-21 05:50] VITALS: BP 140/98; PULSE 72; RESP 18; TEMP 97.6; O2SAT 98
[2017-02-21] MEDS: NEOMYCIN/POLYMYXIN/BACITRACIN OINT 15 GM TUBE TOPICAL SCH (09:00)
[2017-02-21] MEDS: BACITRACIN TOP OINT 15 GM TUBE TOPICAL SCH (09:00)
[2017-02-21] MEDS: amLODIPine BESYLATE 5 MG TAB PO SCH ×2 (09:24→21:10)
[2017-02-21] MEDS: clonazePAM 1 MG TAB PO SCH ×2 (09:24→21:10)
[2017-02-21] MEDS: LISINOPRIL 5 MG TAB PO SCH (09:24)
[2017-02-21] MEDS: fluPHENAZine HCL ELIXIR 2.5 MG/5 ML UDC PO SCH ×3 (09:24→21:10)
[2017-02-21] MEDS: PROPRANOLOL HCL 10 MG TAB PO SCH ×3 (09:24→21:10)
[2017-02-21] MEDS: SODIUM CHLORIDE 1 GRAM TAB PO SCH ×2 (09:24→21:10)
--- NOTE | 2017-02-21 16:28 | HHI.PYPN ---
Subjective Remarks Patient was seen and case discussed with nursing. Patient is pleasant and cooperative with exam. Continues to behave well on the unit with no physical or verbal outbursts. Believes today that he is going home with one of the techs. Remains perseverative on discharge, some internal preoccupation Objective Alert: Yes [place]: Person, Place Mood: Calm Affect: Appropriate (remains appropriate) Memory Intact: Comment (not assessed) Hallucinations: Other (no AVH) Delusions: No Delusion Type: Other (vigilant) Suicidal: Ideation (no SI) Homicidal: Ideation (no HI) Insight/Judgment Poor Vitals/IOs Vital Signs Date Time Temp Pulse Resp B/P (MAP) Pulse Ox O2 Delivery O2 Flow Rate FiO2 02/21/17 05:50 97.6 72 18 140/98 (112) 98 Assessment & Plan Problem List: (1) Schizoaffective disorder ICD Codes: F25.9 - Schizoaffective disorder, unspecified Status: Acute (2) Intellectual disability ICD Codes: F79 - Unspecified intellectual disabilities Status: Chronic Assessment & Plan Continue current treatment plan Justification for Cont. Inpt. Patient would decompensate in a less restrictive setting Request HC Surrog/Guard Advoc?: Yes Problem Qualifiers (1) Schizoaffective disorder: Javier Rose DO Feb 21, 2017 16:28
[2017-02-21 18:00] VITALS: BP 127/92; PULSE 87; RESP 17; TEMP 98.6
[2017-02-21 19:51] VITALS: BP 140/91; PULSE 67
[2017-02-21] MEDS: ATORVASTATIN 20 MG TAB PO SCH (21:10)
[2017-02-22 05:45] VITALS: BP 114/91; PULSE 73; RESP 18; TEMP 97.5; O2SAT 96
[2017-02-22] MEDS: NEOMYCIN/POLYMYXIN/BACITRACIN OINT 15 GM TUBE TOPICAL SCH (09:00)
[2017-02-22] MEDS: fluPHENAZine HCL ELIXIR 2.5 MG/5 ML UDC PO SCH ×3 (09:00→21:00)
[2017-02-22] MEDS: BACITRACIN TOP OINT 15 GM TUBE TOPICAL SCH (09:00)
[2017-02-22] MEDS: SODIUM CHLORIDE 1 GRAM TAB PO SCH ×2 (09:27→21:11)
[2017-02-22] MEDS: LISINOPRIL 5 MG TAB PO SCH (09:36)
[2017-02-22] MEDS: clonazePAM 1 MG TAB PO SCH ×2 (09:48→21:11)
[2017-02-22] MEDS: amLODIPine BESYLATE 5 MG TAB PO SCH ×2 (09:51→21:11)
[2017-02-22] MEDS: PROPRANOLOL HCL 10 MG TAB PO SCH ×3 (09:51→21:11)
--- NOTE | 2017-02-22 11:21 | HHI.PYPN ---
Subjective Remarks Patient seen and examined with counselor and nurse. Chart reviewed. Case discussed with nursing staff. On my examination today, patient is calm and cooperative. He denies any AVH. He does complain of "stiffness of nerves and mind." He has no signs of EPS. No side effects from medications. No other physical complaints. Review of Systems ROS Limitations: Poor Historian Objective Alert: Yes [place]: Person, Place Mood: Calm Affect: Blunted Memory Intact: Comment (not formally assessed) Hallucinations: Other (no AVH) Delusions: No Delusion Type: Other (no delusions) Suicidal: Ideation (no SI) Homicidal: Ideation (no HI) Insight/Judgment Poor Remarks No hand tremor, no cogwheeling, no dystonias, no dyskinesias. Labs Labs reviewed. Vitals/IOs Vital Signs Date Time Temp Pulse Resp B/P (MAP) Pulse Ox O2 Delivery O2 Flow Rate FiO2 02/22/17 05:45 97.5 73 18 114/91 (99) 96 Assessment & Plan Problem List: (1) Schizoaffective disorder ICD Codes: F25.9 - Schizoaffective disorder, unspecified Status: Acute (2) Intellectual disability ICD Codes: F79 - Unspecified intellectual disabilities Status: Chronic Assessment & Plan Continue current psychotropics as ordered. We might consider titrating the patient's Prolixin Decanoate when it is due the middle of this week. Continue to monitor on the inpatient unit. Continue other medications and care as ordered. Justification for Cont. Inpt. Risk for decompensation in less restrictive environment. Discharge Planning Placement Request HC Surrog/Guard Advoc?: Yes Problem Qualifiers (1) Schizoaffective disorder: Larry Valdivia MD Feb 22, 2017 11:21
[2017-02-22 17:54] VITALS: BP 130/86; PULSE 76; RESP 18; TEMP 98; O2SAT 99
[2017-02-22] MEDS: ATORVASTATIN 20 MG TAB PO SCH (21:11)
[2017-02-23 06:30] VITALS: BP 120/73; PULSE 55; RESP 16; TEMP 97.6; O2SAT 97
[2017-02-23] MEDS: BACITRACIN TOP OINT 15 GM TUBE TOPICAL SCH (09:00)
[2017-02-23] MEDS: NEOMYCIN/POLYMYXIN/BACITRACIN OINT 15 GM TUBE TOPICAL SCH (09:00)
[2017-02-23] MEDS: PROPRANOLOL HCL 10 MG TAB PO SCH ×3 (09:00→20:50)
[2017-02-23] MEDS: LISINOPRIL 5 MG TAB PO SCH (09:24)
[2017-02-23] MEDS: amLODIPine BESYLATE 5 MG TAB PO SCH ×2 (09:24→20:50)
[2017-02-23] MEDS: SODIUM CHLORIDE 1 GRAM TAB PO SCH ×2 (09:24→20:50)
[2017-02-23] MEDS: fluPHENAZine HCL ELIXIR 2.5 MG/5 ML UDC PO SCH ×3 (09:24→20:50)
[2017-02-23] MEDS: clonazePAM 1 MG TAB PO SCH ×2 (09:24→20:50)
--- NOTE | 2017-02-23 09:39 | HHI.PYPN ---
Subjective Remarks Patient seen and examined with counselor and nurse. Chart reviewed. Case discussed in treatment team. Patient did refuse a few doses of oral Prolixin yesterday. Some resistance to medications today, although he did accept his morning and midday dose of Prolixin today. Remains calm and pleasant. Occupational therapist notes that the patient is a lot more directable in groups now. Patient denies audiovisual hallucinations. Denies side effects from medications besides some mild fatigue. No physical complaints otherwise. Review of Systems ROS Limitations: Poor Historian Except as stated in HPI: all other systems reviewed are Neg Objective Alert: Yes [place]: Person, Place Mood: Calm Affect: Blunted (remains a little blunted and childlike) Memory Intact: Comment (not assessed) Hallucinations: Other (denies AVH) Delusions: No Delusion Type: Other (no delusions) Suicidal: Ideation (no SI) Homicidal: Ideation (no HI) Insight/Judgment Poor Remarks No motoric abnormalities noted. Patient does not appear sedated or fatigued. Labs Labs reviewed Vitals/IOs Vital Signs Date Time Temp Pulse Resp B/P (MAP) Pulse Ox O2 Delivery O2 Flow Rate FiO2 02/23/17 06:30 97.6 55 16 120/73 (89) 97 Assessment & Plan Problem List: (1) Schizoaffective disorder ICD Codes: F25.9 - Schizoaffective disorder, unspecified Status: Acute (2) Intellectual disability ICD Codes: F79 - Unspecified intellectual disabilities Status: Chronic Assessment & Plan Patient to further booster dose of Prolixin Decanoate tomorrow, and I have ordered this. To consider discontinuing remaining oral Prolixin thereafter given that this will be his 3rd dose of Prolixin Dec. Continue other psychotropics as ordered. Continue other medications and care as ordered. Justification for Cont. Inpt. Risk for decompensation in less restrictive environment Discharge Planning Placement. Case discussed with counselor. Request HC Surrog/Guard Advoc?: Yes Problem Qualifiers (1) Schizoaffective disorder: Larry Valdivia MD Feb 23, 2017 09:39
--- NOTE | 2017-02-23 12:09 | PD.TTN ---
Patient Problems 1. Discharge planning 2. Medication compliance 3. Knowledge deficit 4. Lack of coping skills Progress Toward Goals Provider Present: Dr. Karl Valdivia Provider Input: Pt will continue to be monitored for placement at facility. Nurse(s) Input: Pt had a period of agitation last night but appears today as calm, cooperative and medication compliant. Pt frequently paces mo[place]ezuma but is no management problem on unit. Psych Therapist Input: Pt appears calm, cooperative, disorganized, confused and appropriate. Pt presents with poor insight into condition and need for care. Pt struggles with coping skill implementation as he continues to have periods of agitation. He is compliant with medication regiment. Pt is still being referred for placement at an [facility]. Occupational Therapist Input: Pt often isolates to self but will attend groups related to food. Pt requires consistent redirection as well as not over drinking. Documentation Scribe: Justice Bernard, Erin Perez [facility] Feb 23, 2017 12:09
[2017-02-23 13:31] VITALS: BP 144/90; PULSE 77; RESP 15; O2SAT 99
[2017-02-23] MEDS: LORazepam 1 MG TAB PO PRN (17:58)
[2017-02-23 18:21] VITALS: BP 124/89; PULSE 91; RESP 16; TEMP 98.2; O2SAT 100
[2017-02-23 20:33] VITALS: BP 137/96; PULSE 79
[2017-02-23] MEDS: ATORVASTATIN 20 MG TAB PO SCH (20:50)
[2017-02-24 05:52] VITALS: BP 120/76; PULSE 55; RESP 18; TEMP 97.5; O2SAT 98
[2017-02-24] MEDS: fluPHENAZine HCL ELIXIR 2.5 MG/5 ML UDC PO SCH ×2 (08:55→21:12)
[2017-02-24] MEDS: clonazePAM 1 MG TAB PO SCH ×2 (08:55→21:12)
[2017-02-24] MEDS: amLODIPine BESYLATE 5 MG TAB PO SCH ×2 (08:55→21:12)
[2017-02-24] MEDS: SODIUM CHLORIDE 1 GRAM TAB PO SCH ×2 (08:55→21:12)
[2017-02-24] MEDS: LISINOPRIL 5 MG TAB PO SCH (08:55)
[2017-02-24] MEDS: PROPRANOLOL HCL 10 MG TAB PO SCH ×3 (09:00→21:12)
[2017-02-24] MEDS: BACITRACIN TOP OINT 15 GM TUBE TOPICAL SCH (09:00)
[2017-02-24] MEDS: NEOMYCIN/POLYMYXIN/BACITRACIN OINT 15 GM TUBE TOPICAL SCH (09:00)
--- NOTE | 2017-02-24 09:53 | HHI.PYPN ---
Subjective Remarks Patient seen and examined with counselor and nurse. Chart reviewed. Case discussed with nursing staff. On my examination today, patient is calm and cooperative. He denies any suicidal or homicidal ideation. Denies any audiovisual hallucinations. Hopeful for discharge soon in counselor tells me that the dealer compliance representative from [facility] is coming to visit with the patient today. The patient hopes eventually to find a job. Denies side effects from medications. No physical complaints. Review of Systems ROS Limitations: Poor Historian Except as stated in HPI: all other systems reviewed are Neg Objective Alert: Yes [place]: Person, Place Mood: Calm Affect: Blunted Memory Intact: Comment (not formally assessed) Hallucinations: Other (no AVH) Delusions: No Delusion Type: Other (no delusions) Suicidal: Ideation (no SI) Homicidal: Ideation (no HI) Insight/Judgment Poor Remarks No motor abnormalities noted. Labs Labs reviewed. Vitals/IOs Vital Signs Date Time Temp Pulse Resp B/P (MAP) Pulse Ox O2 Delivery O2 Flow Rate FiO2 02/24/17 05:52 97.5 55 18 120/76 (91) 98 Assessment & Plan Problem List: (1) Schizoaffective disorder ICD Codes: F25.9 - Schizoaffective disorder, unspecified Status: Acute (2) Intellectual disability ICD Codes: F79 - Unspecified intellectual disabilities Status: Chronic Assessment & Plan Patient is due to receive Prolixin Decanoate today. I will further taper oral Prolixin to 5 mg twice daily. Continue other psychotropics as ordered. Continue to monitor on the inpatient unit. Continue other medications and care as ordered. Justification for Cont. Inpt. Medication change. Risk for decompensation. Discharge Planning Possible discharge to a facility later in the week if accepted. Request HC Surrog/Guard Advoc?: Yes Problem Qualifiers (1) Schizoaffective disorder: Larry Valdivia MD Feb 24, 2017 09:53
[2017-02-24 18:18] VITALS: BP 144/95; PULSE 68; RESP 16; TEMP 98; O2SAT 100
[2017-02-24] MEDS: ATORVASTATIN 20 MG TAB PO SCH (21:12)
[2017-02-25 05:43] VITALS: BP 137/82; PULSE 76; RESP 18; TEMP 97.6; O2SAT 100
[2017-02-25] MEDS: clonazePAM 1 MG TAB PO SCH ×2 (08:27→20:53)
[2017-02-25] MEDS: amLODIPine BESYLATE 5 MG TAB PO SCH ×2 (08:27→20:53)
[2017-02-25] MEDS: NEOMYCIN/POLYMYXIN/BACITRACIN OINT 15 GM TUBE TOPICAL SCH (08:27)
[2017-02-25] MEDS: BACITRACIN TOP OINT 15 GM TUBE TOPICAL SCH (08:27)
[2017-02-25] MEDS: SODIUM CHLORIDE 1 GRAM TAB PO SCH ×2 (08:27→20:52)
[2017-02-25] MEDS: PROPRANOLOL HCL 10 MG TAB PO SCH ×3 (08:27→20:52)
[2017-02-25] MEDS: fluPHENAZine HCL ELIXIR 2.5 MG/5 ML UDC PO SCH ×2 (08:27→20:53)
[2017-02-25] MEDS: LISINOPRIL 5 MG TAB PO SCH (08:27)
--- NOTE | 2017-02-25 11:34 | HHI.PYPN ---
Subjective Remarks Patient seen and examined with counselor. Chart reviewed. Case discussed with nursing staff reports the patient has been a behavioral problem but was observed cheeking medications. On my examination today, the patient is calm. No psychiatric symptoms to report. He denies AVH. Counselor informs me that [facility] has accepted the patient pending bed availability. Counselor and I reinforce to patient that medication adherence is necessary for success at placement. Patient agrees to take his meds. No side effects. No physical complaints. Review of Systems ROS Limitations: Poor Historian Except as stated in HPI: all other systems reviewed are Neg Objective Alert: Yes [place]: Person, Place Mood: Calm Affect: Blunted (remains a little blunted) Memory Intact: Comment (not formally assessed) Hallucinations: Other (denies AVH) Delusions: No Delusion Type: Other (no delusions) Suicidal: Ideation (no suicidal ideation) Homicidal: Ideation (no homicidal ideation) Insight/Judgment Poor Remarks No motoric abnormalities noted. Labs Labs reviewed. Vitals/IOs Vital Signs Date Time Temp Pulse Resp B/P (MAP) Pulse Ox O2 Delivery O2 Flow Rate FiO2 02/25/17 05:43 97.6 76 18 137/82 (100) 100 Intake and Output 02/25/17 02/25/17 02/26/17 08:00 16:00 00:00 Intake Total 0 ml Balance 0 ml Assessment & Plan Problem List: (1) Schizoaffective disorder ICD Codes: F25.9 - Schizoaffective disorder, unspecified Status: Acute (2) Intellectual disability ICD Codes: F79 - Unspecified intellectual disabilities Status: Chronic Assessment & Plan Continue current psychotropics as ordered. Encouraged adherence with psychotropics. Mouth checks. Continue other medications and care as ordered. Justification for Cont. Inpt. Risk for decompensation Discharge Planning Transfer to [facility] once a bed is available. Request HC Surrog/Guard Advoc?: Yes Problem Qualifiers (1) Schizoaffective disorder: Larry Valdivia MD Feb 25, 2017 11:34
[2017-02-25 17:55] VITALS: BP 146/69; PULSE 84; RESP 18; TEMP 98.5; O2SAT 95
[2017-02-25] MEDS: ATORVASTATIN 20 MG TAB PO SCH (20:52)
[2017-02-26 06:17] VITALS: BP 119/80; PULSE 56; RESP 18; TEMP 98; O2SAT 95
[2017-02-26] MEDS: fluPHENAZine HCL ELIXIR 2.5 MG/5 ML UDC PO SCH ×2 (08:02→21:00)
[2017-02-26] MEDS: NEOMYCIN/POLYMYXIN/BACITRACIN OINT 15 GM TUBE TOPICAL SCH (08:02)
[2017-02-26] MEDS: amLODIPine BESYLATE 5 MG TAB PO SCH ×2 (08:02→20:51)
[2017-02-26] MEDS: LISINOPRIL 5 MG TAB PO SCH (08:02)
[2017-02-26] MEDS: PROPRANOLOL HCL 10 MG TAB PO SCH ×3 (08:02→20:51)
[2017-02-26] MEDS: BACITRACIN TOP OINT 15 GM TUBE TOPICAL SCH (08:02)
[2017-02-26] MEDS: clonazePAM 1 MG TAB PO SCH ×2 (08:02→20:51)
[2017-02-26] MEDS: SODIUM CHLORIDE 1 GRAM TAB PO SCH ×2 (08:02→20:51)
--- NOTE | 2017-02-26 10:31 | HHI.PYPN ---
Subjective Remarks Patient seen and examined. Chart reviewed. Case discussed with nursing staff who reports patient continues to endeavor, albeit unsuccessfully, to cheek medications. I discussed this with the patient and after initial denial, he admits to doing so. I reinforce the importance of remaining adherent to his psychotropic medications. Denies SI or HI. Denies AVH. Complains of some stiffness related to medications but otherwise no physical complaints or side effects. Review of Systems ROS Limitations: Poor Historian Except as stated in HPI: all other systems reviewed are Neg Objective Alert: Yes [place]: Person, Place Mood: Calm Affect: Other (childlike) Memory Intact: Comment (not formally assessed) Hallucinations: Other (denies AVH) Delusions: No Delusion Type: Other (none) Suicidal: Ideation (denies SI) Homicidal: Ideation (denies HI) Insight/Judgment Poor Remarks Perhaps some mild stiffness in the upper extremity. No cogwheeling. No masked facies. No other motoric abnormalities noted. Labs Labs reviewed. Vitals/IOs Vital Signs Date Time Temp Pulse Resp B/P (MAP) Pulse Ox O2 Delivery O2 Flow Rate FiO2 02/26/17 06:17 98.0 56 18 119/80 (93) 95 Intake and Output 02/26/17 02/26/17 02/27/17 08:00 16:00 00:00 Intake Total 720 ml Balance 720 ml Assessment & Plan Problem List: (1) Schizoaffective disorder ICD Codes: F25.9 - Schizoaffective disorder, unspecified Status: Acute (2) Intellectual disability ICD Codes: F79 - Unspecified intellectual disabilities Status: Chronic Assessment & Plan Add Cogentin 0.5mg BID for possible EPS. Continue Inderal and Klonopin. Continue oral Prolixin supplementing Prolixin Dec. To consider discontinuing remaining oral Prolixin after weekend. Continue to monitor on the inpatient unit. Continue other medications and care as ordered. Justification for Cont. Inpt. Risk for decompensation in less restrictive environment. Discharge Planning [facility] has accepted the patient pending bed availability. Request HC Surrog/Guard Advoc?: Yes Problem Qualifiers (1) Schizoaffective disorder: Larry Valdivia MD Feb 26, 2017 10:31
[2017-02-26 12:13] VITALS: BP 124/84; PULSE 91
[2017-02-26] MEDS ORDERED: PILL SPLITTER OTHER PRN (13:45)
[2017-02-26 18:27] VITALS: BP 113/68; PULSE 69; RESP 17; TEMP 98.2; O2SAT 99
[2017-02-26] MEDS: BENZTROPINE MESYLATE 1 MG TAB PO SCH (20:51)
[2017-02-26] MEDS: ATORVASTATIN 20 MG TAB PO SCH (20:51)
[2017-02-27 05:50] VITALS: BP 114/76; PULSE 56; RESP 18; TEMP 97.2; O2SAT 96
[2017-02-27] MEDS: fluPHENAZine HCL ELIXIR 2.5 MG/5 ML UDC PO SCH ×2 (09:00→20:21)
[2017-02-27] MEDS: amLODIPine BESYLATE 5 MG TAB PO SCH ×2 (09:00→20:21)
[2017-02-27] MEDS: BENZTROPINE MESYLATE 1 MG TAB PO SCH ×2 (09:00→20:21)
[2017-02-27] MEDS: SODIUM CHLORIDE 1 GRAM TAB PO SCH ×2 (09:00→20:21)
[2017-02-27] MEDS: PROPRANOLOL HCL 10 MG TAB PO SCH ×3 (09:00→20:21)
[2017-02-27] MEDS: clonazePAM 1 MG TAB PO SCH ×2 (09:00→20:20)
[2017-02-27] MEDS: BACITRACIN TOP OINT 15 GM TUBE TOPICAL SCH (09:00)
[2017-02-27] MEDS: LISINOPRIL 5 MG TAB PO SCH (09:00)
[2017-02-27] MEDS: NEOMYCIN/POLYMYXIN/BACITRACIN OINT 15 GM TUBE TOPICAL SCH (09:00)
[2017-02-27 12:38] VITALS: BP 119/54; PULSE 71; RESP 16; TEMP 97
--- NOTE | 2017-02-27 13:12 | HHI.PYPN ---
Subjective Remarks Patient seen and case discussed with nurse. Labs reviewed. Remains easily confused. Review of Systems Except as stated in HPI: all other systems reviewed are Neg Objective Alert: Yes [place]: Person, Place Mood: Calm Affect: Other (childlike) Memory Intact: Comment (not formally assessed) Hallucinations: Other (denies AVH) Delusions: No Delusion Type: Other (none) Suicidal: Ideation (denies SI) Homicidal: Ideation (denies HI) Insight/Judgment Impaired Vitals/IOs Vital Signs Date Time Temp Pulse Resp B/P (MAP) Pulse Ox O2 Delivery O2 Flow Rate FiO2 02/27/17 12:38 97.0 71 16 119/54 (75) 02/27/17 05:50 96 Intake and Output 02/27/17 02/27/17 02/27/17 07:59 15:59 23:59 Intake Total 250 ml Balance 250 ml Assessment & Plan Problem List: (1) Schizoaffective disorder ICD Codes: F25.9 - Schizoaffective disorder, unspecified Status: Acute (2) Intellectual disability ICD Codes: F79 - Unspecified intellectual disabilities Status: Chronic Assessment & Plan Estimated LOS: days continue current treatment plan. Justification for Cont. Inpt. Needs time for medication effectiveness. Request HC Surrog/Guard Advoc?: Yes Problem Qualifiers (1) Schizoaffective disorder: Willie Garcia MD Feb 27, 2017 13:12
[2017-02-27 17:35] VITALS: BP 114/77; PULSE 66; RESP 17; TEMP 97.7; O2SAT 96
[2017-02-27] MEDS: ATORVASTATIN 20 MG TAB PO SCH (20:20)
[2017-02-28 05:57] VITALS: BP 130/87; PULSE 72; RESP 18; TEMP 97.5; O2SAT 98
[2017-02-28] MEDS: BENZTROPINE MESYLATE 1 MG TAB PO SCH ×2 (08:00→21:00)
[2017-02-28] MEDS: PROPRANOLOL HCL 10 MG TAB PO SCH ×3 (08:00→21:00)
[2017-02-28] MEDS: clonazePAM 1 MG TAB PO SCH ×2 (08:01→21:00)
[2017-02-28] MEDS: amLODIPine BESYLATE 5 MG TAB PO SCH ×2 (08:01→21:00)
[2017-02-28] MEDS: fluPHENAZine HCL ELIXIR 2.5 MG/5 ML UDC PO SCH ×2 (08:02→21:00)
[2017-02-28] MEDS: LISINOPRIL 5 MG TAB PO SCH (08:02)
[2017-02-28] MEDS: SODIUM CHLORIDE 1 GRAM TAB PO SCH ×2 (08:21→21:00)
[2017-02-28] MEDS: NEOMYCIN/POLYMYXIN/BACITRACIN OINT 15 GM TUBE TOPICAL SCH (08:22)
[2017-02-28] MEDS: BACITRACIN TOP OINT 15 GM TUBE TOPICAL SCH (08:22)
[2017-02-28 13:45] VITALS: BP 119/81; PULSE 76; RESP 16; TEMP 97; O2SAT 99
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
[2017-02-28 17:50] VITALS: BP 118/84; PULSE 63; RESP 18; TEMP 97.3; O2SAT 100
[2017-02-28] MEDS: LORazepam 1 MG TAB PO PRN (21:00)
[2017-02-28] MEDS: ACETAMINOPHEN 325 MG TAB PO PRN (21:00)
[2017-02-28] MEDS: ATORVASTATIN 20 MG TAB PO SCH (21:00)
[2017-03-01 05:58] VITALS: BP 121/80; PULSE 70; RESP 18; TEMP 97.4; O2SAT 98
[2017-03-01] MEDS: clonazePAM 1 MG TAB PO SCH ×2 (08:27→21:00)
[2017-03-01] MEDS: LISINOPRIL 5 MG TAB PO SCH (08:33)
[2017-03-01] MEDS: amLODIPine BESYLATE 5 MG TAB PO SCH ×2 (08:33→21:00)
[2017-03-01] MEDS: SODIUM CHLORIDE 1 GRAM TAB PO SCH ×2 (08:34→21:00)
[2017-03-01] MEDS: PROPRANOLOL HCL 10 MG TAB PO SCH ×3 (08:35→21:00)
[2017-03-01] MEDS: BENZTROPINE MESYLATE 1 MG TAB PO SCH ×2 (08:36→21:00)
[2017-03-01] MEDS: fluPHENAZine HCL ELIXIR 2.5 MG/5 ML UDC PO SCH ×2 (08:41→21:00)
[2017-03-01] MEDS: BACITRACIN TOP OINT 15 GM TUBE TOPICAL SCH (08:41)
[2017-03-01] MEDS: NEOMYCIN/POLYMYXIN/BACITRACIN OINT 15 GM TUBE TOPICAL SCH (08:41)
--- NOTE | 2017-03-01 16:05 | HHI.PYPN ---
Subjective Remarks Patient seen and examined today along with nursing charge. Chart reviewed. On my examination today, the patient is calm and cooperative. Reports feeling better, good mood, denies suicidal and homicidal ideation, denies visual and auditory hallucinations. No other side effects from medications. No physical complaints. Review of Systems Other No somatic complaints Objective Alert: Yes Pray: Person, Place Mood: Calm Affect: Blunted Memory Intact: Comment (not formally assessed) Hallucinations: Other (Describes "flashbacks" as above, unclear if psychotic or not) Delusions: No Delusion Type: Other (no delusions) Suicidal: Ideation (no SI) Homicidal: Ideation (no HI) Insight/Judgment Poor Vitals/IOs Vital Signs Date Time Temp Pulse Resp B/P (MAP) Pulse Ox O2 Delivery O2 Flow Rate FiO2 03/01/17 05:58 97.4 70 18 121/80 (94) 98 Assessment & Plan Problem List: (1) Schizoaffective disorder ICD Codes: F25.9 - Schizoaffective disorder, unspecified Status: Acute Assessment & Plan: Patient has an elevated risk to decompensate at the lower level of care. (2) Intellectual disability ICD Codes: F79 - Unspecified intellectual disabilities Status: Chronic Assessment & Plan Estimated LOS: days Justification for Cont. Inpt. Patient is to continue psychiatric hospitalization for stabilization Request HC Surrog/Guard Advoc?: Yes Problem Qualifiers (1) Schizoaffective disorder: Durga Montero MD Mar 01, 2017 16:05
[2017-03-01 17:30] VITALS: BP 130/82; PULSE 64; RESP 16; TEMP 97.9; O2SAT 98
[2017-03-01] MEDS: ACETAMINOPHEN 325 MG TAB PO PRN (21:00)
[2017-03-01] MEDS: LORazepam 1 MG TAB PO PRN (21:00)
[2017-03-01] MEDS: ATORVASTATIN 20 MG TAB PO SCH (21:00)
[2017-03-02 06:04] VITALS: BP 115/73; PULSE 76; RESP 18; TEMP 97.5; O2SAT 97
[2017-03-02] MEDS: SODIUM CHLORIDE 1 GRAM TAB PO SCH ×2 (08:18→20:51)
[2017-03-02] MEDS: LISINOPRIL 5 MG TAB PO SCH (08:18)
[2017-03-02] MEDS: BACITRACIN TOP OINT 15 GM TUBE TOPICAL SCH (08:18)
[2017-03-02] MEDS: clonazePAM 1 MG TAB PO SCH ×2 (08:18→20:50)
[2017-03-02] MEDS: amLODIPine BESYLATE 5 MG TAB PO SCH ×2 (08:18→20:51)
[2017-03-02] MEDS: NEOMYCIN/POLYMYXIN/BACITRACIN OINT 15 GM TUBE TOPICAL SCH (08:19)
[2017-03-02] MEDS: BENZTROPINE MESYLATE 1 MG TAB PO SCH ×2 (08:19→20:50)
[2017-03-02] MEDS: fluPHENAZine HCL ELIXIR 2.5 MG/5 ML UDC PO SCH ×2 (08:19→20:50)
[2017-03-02] MEDS: PROPRANOLOL HCL 10 MG TAB PO SCH ×3 (08:19→20:50)
--- NOTE | 2017-03-02 10:47 | HHI.PYPN ---
Subjective Remarks Patient seen and examined with nurse. Chart reviewed. Case discussed in treatment team. Counselor informs me that [facility] will accept the patient tomorrow, Wednesday. No behavioral issues overnight. On my examination today, patient is in good spirits. Asking about discharge. Denies SI or HI. No psychotic symptoms. No side effects from medications. No physical complaints. Review of Systems ROS Limitations: Poor Historian Except as stated in HPI: all other systems reviewed are Neg Objective Alert: Yes [place]: Person, Place Mood: Calm Affect: Blunted (remains a little blunted) Memory Intact: Comment (not formally assessed) Hallucinations: Other (no AVH) Delusions: No Delusion Type: Other (no delusions elicited) Suicidal: Ideation (no SI) Homicidal: Ideation (no HI) Insight/Judgment Poor Remarks No motor abnormalities noted Labs Labs reviewed. [facility] requested chest x-ray within last 30 days. I have obtained this, and this was read as normal. Vitals/IOs Vital Signs Date Time Temp Pulse Resp B/P (MAP) Pulse Ox O2 Delivery O2 Flow Rate FiO2 03/02/17 06:04 97.5 76 18 115/73 (87) 97 Assessment & Plan Problem List: (1) Schizoaffective disorder ICD Codes: F25.9 - Schizoaffective disorder, unspecified Status: Acute (2) Intellectual disability ICD Codes: F79 - Unspecified intellectual disabilities Status: Chronic Assessment & Plan Continue current psychotropics as ordered. Continue other medications and care as ordered. Justification for Cont. Inpt. Risk for decompensation Discharge Planning Transfer to [facility] tomorr, Wednesday Request HC Surrog/Guard Advoc?: Yes Problem Qualifiers (1) Schizoaffective disorder: Larry Valdivia MD Mar 02, 2017 10:47
--- NOTE | 2017-03-02 13:19 | RADRPT ---
EXAM DATE/TIME: 03/02/2017 13:06 [place] COMPARISON: CHEST SINGLE AP, December 31, 2016, 17:27. INDICATIONS : Short of breath. MEDICAL HISTORY : mental illness SURGICAL HISTORY : None. ENCOUNTER: Initial ACUITY: 1 day PAIN SCORE: Non-responsive. LOCATION: Bilateral chest FINDINGS: Stable mild elevation of the left hemidiaphragm. Lungs are otherwise clear. Cardiomediastinal contour s are within normal limits. Redemonstration of tortuous air filled colon in the upper abdomen. Bony t horax is intact. CONCLUSION: 1. No acute cardiopulmonary disease. Velasquez Penaloza MD on March 02, 2017 at 13:16 Board Certified Radiologist. This report was verified electronically.
[2017-03-02] MEDS ORDERED: ATOR20TA15 PO (13:34)
[2017-03-02] MEDS ORDERED: PROP10TA6 PO (13:34)
[2017-03-02] MEDS ORDERED: FLUPH2.5S PO (13:34)
[2017-03-02] MEDS ORDERED: LISI-519 PO (13:34)
[2017-03-02] MEDS ORDERED: Benztropine PO (13:34)
[2017-03-02] MEDS ORDERED: CLON1 PO (13:34)
[2017-03-02] MEDS ORDERED: AMLO5 PO (13:34)
[2017-03-02] MEDS ORDERED: SODI1TAB PO (13:34)
[2017-03-02] MEDS ORDERED: FLUP1INJ IM (13:34)
[2017-03-02 17:59] VITALS: BP 124/77; PULSE 71; RESP 18; TEMP 97.4; O2SAT 97
[2017-03-02] MEDS: ATORVASTATIN 20 MG TAB PO SCH (20:50)
[2017-03-03 06:03] VITALS: BP 135/94; PULSE 68; RESP 18; TEMP 97.5
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
[2017-03-03] MEDS: fluPHENAZine HCL ELIXIR 2.5 MG/5 ML UDC PO SCH (08:56)
[2017-03-03] MEDS: amLODIPine BESYLATE 5 MG TAB PO SCH (08:56)
[2017-03-03] MEDS: LISINOPRIL 5 MG TAB PO SCH (08:56)
[2017-03-03] MEDS: PROPRANOLOL HCL 10 MG TAB PO SCH ×2 (08:56→13:00)
[2017-03-03] MEDS: clonazePAM 1 MG TAB PO SCH (08:56)
[2017-03-03] MEDS: SODIUM CHLORIDE 1 GRAM TAB PO SCH (08:56)
[2017-03-03] MEDS: BENZTROPINE MESYLATE 1 MG TAB PO SCH (08:56)
[2017-03-03] MEDS: BACITRACIN TOP OINT 15 GM TUBE TOPICAL SCH (08:57)
[2017-03-03] MEDS: NEOMYCIN/POLYMYXIN/BACITRACIN OINT 15 GM TUBE TOPICAL SCH (08:57)
[2017-03-09] MEDS ORDERED: FLUPH2.5S PO (12:30)
== END 2017-03-03 10:30 | DRG 885 ==
LOC: H270 11:45
PROVIDERS: ADMIT Psychiatry & Neurology Psychiatry; ATTEND Psychiatry & Neurology Psychiatry
DX: F25.0 Schizoaffective disorder, bipolar type (principal); N17.9 Acute kidney failure, unspecified; M62.82 Rhabdomyolysis; E87.1 Hypo-osmolality and hyponatremia; L97.419 Non-pressure chronic ulcer of right heel and midfoot with unspecified severity; L97.429 Non-pressure chronic ulcer of left heel and midfoot with unspecified severity; S09.90XA Unspecified injury of head, initial encounter; I10 Essential (primary) hypertension; F79 Unspecified intellectual disabilities; Z91.14 Patient's other noncompliance with medication regimen; Y09 Assault by unspecified means; Y93.9 Activity, unspecified; Y99.9 Unspecified external cause status; M20.12 Hallux valgus (acquired), left foot; M20.11 Hallux valgus (acquired), right foot; R41.82 Altered mental status, unspecified; Z79.899 Other long term (current) drug therapy
CPT/HCPCS: 70450; 71010; 80048; 80053; 80061; 80307; 81001; 82550; 82552; 83036; 83735; 83930; 84443; 85025; 96372; G0378; J1630; J2060; J2680; J7030

== ENCOUNTER 2017-03-09 12:14 | Inpatient (IN) | payer MEDICARE, OTHER ==
[~2017-03-09] VITALS: Ht 175.3 cm; Wt 78.0 kg
[~2017-03-09 12:14] MED LIST changes: +AMLO5 PO; +ATOR20TA15 PO; -BENZ1TAB PO; +Benztropine PO; -CEPH-460 PO; +CLON1 PO; +FLUP1INJ IM; +FLUPH2.5S PO; +LISI-519 PO; -RISP3 PO; +SODI1TAB PO; -TRAZ50TA12 PO
[2017-03-09 12:22] VITALS: BP 138/84; PULSE 85; RESP 16; TEMP 98; O2SAT 96
[2017-03-09] MEDS ORDERED: FLUPH2.5S PO ×2 (12:30)
[2017-03-09 12:49] LABS: AUTOMATED NEUTROPHIL # 5.7 TH/MM3 (1.8-7.7); BASOPHIL % 0.6 % (0.0-2.0); EOSINOPHIL # 0.1 TH/MM3 (0-0.4); EOSINOPHIL % 1.2 % (0.0-4.0); HEMATOCRIT 38.6 % (39.0-51.0); HEMOGLOBIN 13.3 GM/DL (13.0-17.0); LYMPH % 19.2 % (9.0-44.0); LYMPHOCYTE # 1.5 TH/MM3 (1.0-4.8); MEAN CELL VOLUME 88.9 FL (80.0-100.0); MEAN CORPUSCULAR HEMOGLOBIN 30.7 PG (27.0-34.0); MEAN CORPUSCULAR HGB CONC 34.5 % (32.0-36.0); MEAN PLATELET VOLUME 7.3 FL (7.0-11.0); MONO % 7.4 % (0.0-8.0); MONOCYTE # 0.6 TH/MM3 (0-0.9); NEUT % 71.6 % (16.0-70.0); PLATELET COUNT 245 TH/MM3 (150-450); RED BLOOD COUNT 4.34 MIL/MM3 (4.50-5.90); RED CELL DISTRIBUTION WIDTH 14.7 % (11.6-17.2)
[2017-03-09 13:33] LABS: ALBUMIN 4.1 GM/DL (3.4-5.0); ALT (GPT) 25 U/L (12-78); AST (GOT) 25 U/L (15-37); BICARBONATE 27.3 MEQ/L (21.0-32.0); BLOOD UREA NITROGEN 7 MG/DL (7-18); CALCIUM 8.9 MG/DL (8.5-10.1); CHLORIDE 97 MEQ/L (98-107); CREATININE 0.81 MG/DL (0.60-1.30); GLOMERULAR FILTRATION RATE 100 ML/MIN (>89); GLUCOSE,RANDOM 84 MG/DL (74-106); SODIUM (NA) 131 MEQ/L (136-145)
[2017-03-09 13:36] LABS: ALKALINE PHOSPHATASE 87 U/L (45-117); TOTAL BILIRUBIN ADULT 0.9 MG/DL (0.2-1.0); TOTAL PROTEIN 7.3 GM/DL (6.4-8.2)
--- NOTE | 2017-03-09 13:58 | PD ---
HPI Chief Complaint: Psychiatric Symptoms Time Seen by Provider: 13:45 Travel History International Travel<30 days: No Contact w/Intl Traveler<30days: No Traveled to known affect area: No History of Present Illness HPI This is a 51-year-old male who presents under a Zhang act initiated by a clinical psychologist. According to the patient's Zhang act form, the patient has been decompensating over the past few days. He has been refusing meds and spitting them out. He presents as manic, confused, psychotic, appears to be responding to internal stimuli. He is wandering into the street into oncoming traffic. The patient is somewhat of a poor historian at this time. He reports that he was "just trying to play games" and he reports compliance with his medication. He endorses occasional visual hallucinations. Denies any drug or alcohol use, suicidal or homicidal ideation. He has no other complaints at this time. Per chart review appears that the patient was discharged 6 days ago after having been admitted for several weeks for treatment of schizoaffective disorder, hyponatremia. PFSH Past Medical History Bipolar Disorder: Yes Developmental Delay: Yes Headaches: No Psychiatric: Yes (Hx of treatment for Schizoaffective Disorder) Schizophrenia: Yes (SCHIZOAFFECTIVE) Social History Alcohol Use: No Tobacco Use: Yes Substance Use: No Allergies-Medications (Allergen,Severity, Reaction): Coded Allergies: No Known Allergies (Unverified , 03/09/17) Reported Meds & Prescriptions Reported Meds & Active Scripts Active Fluphenazine Decanoate Inj (Fluphenazine Decanoate) 125 Mg/5 Ml Inj 37.5 Mg IM Q21D This dose of Prolixin Dec is due on 03/17/2017. Sodium Chloride 1 Gram Tab 1 Gm PO BID 15 Days [Benztropine] 1 MG Tab 0.5 Mg PO Q12HR 15 Days Klonopin (Clonazepam) 1 Mg Tab 1 Mg PO Q12HR 15 Days Lisinopril 5 Mg Tab 5 Mg PO DAILY 15 Days Norvasc (Amlodipine Besylate) 5 Mg Tab 5 Mg PO BID 15 Days Atorvastatin (Atorvastatin Calcium) 20 Mg Tab 20 Mg PO HS 15 Days Propranolol (Propranolol HCl) 10 Mg Tab 10 Mg PO DAILY@09,13,21 15 Days Reported Fluphenazine Liq (Fluphenazine HCl) 2.5 Mg/5 Ml Elx 10 Ml PO BID Review of Systems ROS Limitations: Poor Historian Except as stated in HPI: all other systems reviewed are Neg Physical Exam Narrative GENERAL: Well-nourished male in no acute distress SKIN: Warm and dry. HEAD: Atraumatic. Normocephalic. EYES: Pupils equal and round. No scleral icterus. No injection or drainage. ENT: No nasal bleeding or discharge. Mucous membranes pink and moist. NECK: Trachea midline. No JVD. CARDIOVASCULAR: Regular rate and rhythm. No murmur appreciated. RESPIRATORY: No accessory muscle use. Clear to auscultation. Breath sounds equal bilaterally. GASTROINTESTINAL: Abdomen soft, non-tender, nondistended. Hepatic and splenic margins not palpable. MUSCULOSKELETAL: No obvious deformities. No clubbing. No cyanosis. No edema. NEUROLOGICAL: Awake and alert. No obvious cranial nerve deficits. Motor grossly within normal limits. Normal speech. PSYCHIATRIC: Calm, blunted affect, insight and judgment appear limited. Data Data Last Documented VS Vital Signs Date Time Temp Pulse Resp B/P (MAP) Pulse Ox O2 Delivery O2 Flow Rate FiO2 03/09/17 12:22 98.0 85 16 138/84 (102) 96 Orders Orders Complete Blood Count With Diff (03/09/17 12:31) Comprehensive Metabolic Panel (03/09/17 12:31) Psych Screen (03/09/17 12:31) Drug Screen, Random Urine (03/09/17 12:31) Labs Laboratory Tests Test 03/09/17 12:13 White Blood Count 8.0 TH/MM3 Red Blood Count 4.34 MIL/MM3 Hemoglobin 13.3 GM/DL Hematocrit 38.6 % Mean Corpuscular Volume 88.9 FL Mean Corpuscular Hemoglobin 30.7 PG Mean Corpuscular Hemoglobin Concent 34.5 % Red Cell Distribution Width 14.7 % Platelet Count 245 TH/MM3 Mean Platelet Volume 7.3 FL Neutrophils (%) (Auto) 71.6 % Lymphocytes (%) (Auto) 19.2 % Monocytes (%) (Auto) 7.4 % Eosinophils (%) (Auto) 1.2 % Basophils (%) (Auto) 0.6 % Neutrophils # (Auto) 5.7 TH/MM3 Lymphocytes # (Auto) 1.5 TH/MM3 Monocytes # (Auto) 0.6 TH/MM3 Eosinophils # (Auto) 0.1 TH/MM3 Basophils # (Auto) 0.0 TH/MM3 CBC Comment DIFF FINAL Differential Comment Blood Urea Nitrogen 7 MG/DL Creatinine 0.81 MG/DL Random Glucose 84 MG/DL Total Protein 7.3 GM/DL Albumin 4.1 GM/DL Calcium Level 8.9 MG/DL Alkaline Phosphatase 87 U/L Aspartate Amino Transf (AST/SGOT) 25 U/L Alanine Aminotransferase (ALT/SGPT) 25 U/L Total Bilirubin 0.9 MG/DL Sodium Level 131 MEQ/L Potassium Level 3.5 MEQ/L Chloride Level 97 MEQ/L Carbon Dioxide Level 27.3 MEQ/L Anion Gap 7 MEQ/L Estimat Glomerular Filtration Rate 100 ML/MIN MDM Medical Decision Making Medical Screen Exam Complete: Yes Emergency Medical Condition: Yes Medical Record Reviewed: Yes Differential Diagnosis Medication noncompliance, schizoaffective disorder, acute psychosis, substance induced mood disorder, schizophrenia Narrative Course 51-year-old male with history of schizoaffective disorder presents under Zhang act for psychiatric evaluation. Mental health screening discussed with the patient. Psychiatric screen ordered. The patient is medically cleared for psychiatric disposition. Diagnosis Primary Impression: Schizoaffective disorder Qualified Codes: F25.9 - Schizoaffective disorder, unspecified Jean-Claude Morgan Mar 09, 2017 13:58
[2017-03-09 17:43] VITALS: BP 139/94; PULSE 87; RESP 18; O2SAT 100
[2017-03-09 22:00] VITALS: BP 115/71; PULSE 64; RESP 18; TEMP 97.1; O2SAT 97
[2017-03-10 02:08] VITALS: RESP 18
[2017-03-10 06:07] VITALS: BP 125/82; PULSE 76; RESP 18
[2017-03-10] MEDS ORDERED: ACETAMINOPHEN 325 MG TAB PO PRN ×2 (07:00)
[2017-03-10] MEDS ORDERED: MAGNESIUM HYDROXIDE SUSP 30 ML CUP PO PRN ×2 (07:00)
[2017-03-10] MEDS ORDERED: LORazepam 2 MG/ML VIAL IM PRN ×2 (07:00)
[2017-03-10] MEDS ORDERED: PILL SPLITTER OTHER PRN ×2 (07:00)
[2017-03-10] MEDS ORDERED: ALUMINUM/MAGNESIUM/SIMETH 30 ML CUP PO PRN ×2 (07:00)
[2017-03-10] MEDS ORDERED: diphenhydrAMINE HCL 50 MG/ML VIAL IM PRN ×2 (07:00)
[2017-03-10] MEDS ORDERED: LORazepam 1 MG TAB PO PRN ×2 (07:00)
[2017-03-10] MEDS: NICOTINE 21 MG/24 HR PATCH T-DERMAL SCH ×2 (09:00)
[2017-03-10 09:46] VITALS: BP 146/74; PULSE 77; RESP 18; TEMP 97.7; O2SAT 99
[2017-03-10] MEDS: BENZTROPINE MESYLATE 1 MG TAB PO SCH ×4 (10:41→20:42)
[2017-03-10] MEDS: clonazePAM 1 MG TAB PO SCH ×4 (10:41→20:42)
[2017-03-10] MEDS: SODIUM CHLORIDE 1 GRAM TAB PO SCH ×4 (10:41→20:43)
[2017-03-10 18:57] VITALS: BP 134/78; PULSE 80; RESP 20; TEMP 97.2; O2SAT 99
[2017-03-10] MEDS: REMOVE OLD NICOTINE PATCH T-DERMAL SCH ×2 (20:43)
[2017-03-11 05:49] VITALS: BP 140/95; PULSE 79; RESP 16; TEMP 97.9; O2SAT 93
[2017-03-11 09:01] LABS: BICARBONATE 29.4 MEQ/L (21.0-32.0); BLOOD UREA NITROGEN 8 MG/DL (7-18); CALCIUM 8.9 MG/DL (8.5-10.1); CHOLESTEROL 144 MG/DL (120-200); CREATININE 0.78 MG/DL (0.60-1.30); GLOMERULAR FILTRATION RATE 104 ML/MIN (>89); GLUCOSE,RANDOM 87 MG/DL (74-106)
[2017-03-11 09:10] LABS: CHLORIDE 104 MEQ/L (98-107); CHOLESTEROL/ HDL RATIO 2.72 RATIO; HDL CHOLESTEROL 52.8 MG/DL (40.0-60.0); LDL CHOLESTEROL 77 MG/DL (0-99); SODIUM (NA) 139 MEQ/L (136-145); TRIGLYCERIDES 73 MG/DL (42-150)
[2017-03-11] MEDS: BENZTROPINE MESYLATE 1 MG TAB PO SCH ×4 (09:17→20:41)
[2017-03-11] MEDS: clonazePAM 1 MG TAB PO SCH ×4 (09:17→20:41)
[2017-03-11] MEDS: amLODIPine BESYLATE 5 MG TAB PO SCH ×4 (09:17→20:41)
[2017-03-11] MEDS: SODIUM CHLORIDE 1 GRAM TAB PO SCH ×4 (09:17→20:41)
[2017-03-11] MEDS: LISINOPRIL 5 MG TAB PO SCH ×2 (09:17)
[2017-03-11] MEDS: NICOTINE 21 MG/24 HR PATCH T-DERMAL SCH ×2 (09:20)
[2017-03-11] MEDS: PROPRANOLOL HCL 10 MG TAB PO SCH ×6 (09:21→20:42)
--- NOTE | 2017-03-11 10:08 | HHI.HP ---
Provisional Diagnosis Admission Date Mar 10, 2017 at 06:34 [place]. 1. Schizoaffective disorder, bipolar type, acute decompensation [place] II. 1. Intellectual disability Certification of Person's Competence To Provide Express and Informed Consent I have personally examined Philip Tate , a person being served at [facility] on, Mar 11, 2017 10:07. Express and informed consent means consent voluntarily given in writing, by a competent person, after sufficient explanation and disclosure of the subject matter involved to enable the person to make a knowing and willful decision without any element of force, fraud, deceit, duress, or other form of constraint or coercion. This person is 18 years of age or older, is not now known to be incompetent to consent to treatment with a guardian advocate, and does not have a health care surrogate or proxy currently making medical treatment decisions. I have found this person to be one of the following: [] Competent to provide express and informed consent, as defined above, for voluntary admission to this facility and is competent to provide express and informed consent for treatment. He/she has the consistent capacity to make well reasoned, willful, and knowing decisions concerning his or her medical or mental health treatment. The person fully and consistently understands the purpose of the admission for examination/placement and is fully capable of personally exercising all rights assured [place] [x] Incompetent to provide express and informed consent to voluntary admission, and this is incompetent to provide express and informed consent to treatment. The person must be transferred to involuntary status and a petition for a guardian advocate filed with the Circuit Court. [] Refusing to provide express and informed consent to voluntary admission but is competent to provide express and informed consent for treatment. The person must be discharged or transferred to involuntary status. Form shall be completed within 24 hours of a person's arrival at the receiving facility and filed in the clinical record of each person: 1. Admitted on a voluntary basis 2. Permitted to provide express and informed consent to his/her own treatment 3. Allowed to transfer from involuntary to voluntary status 4. Prior to permitting a person to consent to his or her own treatment after having been previously found incompetent to consent to treatment. History of Present Illness Capacity: Lacks Capacity HPI Mr. Tate is a 51-year-old male with a history of schizoaffective disorder and intellectual disability, recently discharged to assisted living facility from the inpatient psychiatric unit here who returns under a Zhang act alleging medication non-adherence and decompensation. Electronic medical record reviewed. Patient seen and examined with counselor. Chart reviewed. Case discussed with nursing staff. Patient did strike out a peer yesterday but has since been no behavioral problem. On my examination, patient is calm. He says "nothing went wrong there [i.e. at the facility]. They think I went out and played hooky and bought beer." He denies wandering in traffic as alleged in Zhang Act. Denies SI/HI. Denies AVH. I can elicit no paranoia, no TI/TW or other psychotic symptoms. Mood is "pretty good." No depressive or hypomanic/manic symptoms elicited. He maintains that he has been medication compliant, but see below. He says, "I would like to be sent back there." Remainder of the psychiatric ROS is negative. He does not provide any meaningful past psychiatric, family, chemical dependency or social history. Counselor has been in contact with rep from patient's [facility], and patient was apparently refusing medications, going to the point of running out of the facility in order to spit them out on the street. They are reportedly unwilling to accept him back. Review of Systems ROS Limitations: Poor Historian Except as stated in HPI: all other systems reviewed are Neg Past Psych History Psychological trauma history No reported trauma history. Violence risk - others (6 mos) Elevated, struck out at peer yesterday. Violence risk - self (6 mos) Elevated due to self-neglect Substance Abuse History Drugs/Alcohol past 12 months None reported. Urine toxicology negative. Past Family Social History Coded Allergies: No Known Allergies (Unverified , 03/09/17) Past Medical History See electronic medical record Active Scripts Fluphenazine Decanoate Inj (Fluphenazine Decanoate Inj) 125 Mg/5 Ml Inj, 37.5 MG IM Q21D for Mental Health, #1 VIAL 0 Refills This dose of Prolixin Dec is due on 03/17/2017. Prov:Larry Valdivia MD 03/02/17 Sodium Chloride (Sodium Chloride) 1 Gram Tab, 1 GM PO BID for Hyponatremia for 15 Days, TAB 1 Refill Prov:Larry Valdivia MD 03/02/17 [Benztropine] 1 MG TAB No Conflict Check, 0.5 MG PO Q12HR for Side effect management for 15 Days, 1 Refill Prov:Larry Valdivia MD 03/02/17 Clonazepam (Klonopin) 1 Mg Tab, 1 MG PO Q12HR for Mental Health for 15 Days, TAB 1 Refill Prov:Larry Valdivia MD 03/02/17 Lisinopril (Lisinopril) 5 Mg Tab, 5 MG PO DAILY for Blood Pressure Management for 15 Days, TAB 1 Refill Prov:Larry Valdivia MD 03/02/17 Amlodipine (Norvasc) 5 Mg Tab, 5 MG PO BID for Blood Pressure Management for 15 Days, TAB 1 Refill Prov:Larry Valdivia MD 03/02/17 Atorvastatin (Atorvastatin) 20 Mg Tab, 20 MG PO HS for Cholesterol Management for 15 Days, TAB 1 Refill Prov:Larry Valdivia MD 03/02/17 Propranolol (Propranolol) 10 Mg Tab, 10 MG PO DAILY@,,21 for Akathisia for 15 Days, TAB 1 Refill Prov:Larry Valdivia MD 03/02/17 Reported Medications Fluphenazine Liq (Fluphenazine Liq) 2.5 Mg/5 Ml Elx, 10 ML PO BID, ML 03/09/17 Current Medications Medications (Trade) Dose Ordered Sig/Eva Route Start Time Stop Time Status Last Admin (Ativan) 1 mg Q6H PRN PO 03/10/17 07:00 (Ativan Inj) 1 mg Q6H PRN IM 03/10/17 07:00 (Benadryl) 50 mg Q6H PRN PO 03/10/17 07:00 (Benadryl Inj) 50 mg Q6H PRN IM 03/10/17 07:00 (Desyrel) 50 mg HS PRN PO 03/10/17 07:00 (Tylenol) 650 mg Q4H PRN PO 03/10/17 07:00 (Milk Of Magnesia Liq) 30 ml DAILY PRN PO 03/10/17 07:00 (Mag-Al Plus Susp Liq) 30 ml Q6H PRN PO 03/10/17 07:00 (KlonoPIN) 1 mg Q12H PO 03/10/17 09:00 03/11/17 09:17 (Cogentin) 0.5 mg Q12H PO 03/10/17 09:00 03/11/17 09:17 (Pill Splitter) 1 ea UNSCH PRN OTHER 03/10/17 07:00 (Sodium Chloride) 1 gm BID PO 03/10/17 09:00 03/11/17 09:17 (Prolixin) 10 mg BID PO 03/10/17 09:00 03/11/17 09:17 (Prolixin Decanoate Inj) 37.5 mg Q21D IM 03/17/17 07:00 (Habitrol 21 Mg Patch.24 Hr) 1 patch DAILY T-DERMAL 03/10/17 09:00 Miscellaneous Information 1 HS T-DERMAL 03/10/17 21:00 (Inderal) 10 mg DAILY@0900,1300,2100 PO 03/11/17 09:00 (Lipitor) 20 mg HS PO 03/11/17 21:00 (Norvasc) 5 mg BID PO 03/11/17 09:00 03/11/17 09:17 (Prinivil) 5 mg DAILY PO 03/11/17 09:00 03/11/17 09:17 Family History See above Social History See above Patient's Strengths (min. 2) In monitored setting. Verbally fluent. Physical Exam Physical exam completed by ED provider. On my examination today, patient appears to be in no acute physical distress. No motor abnormalities appreciated. Labs and vitals reviewed: Vital Signs Vital Signs Date Time Temp Pulse Resp B/P (MAP) Pulse Ox O2 Delivery O2 Flow Rate FiO2 03/11/17 05:49 97.9 79 16 140/95 (110) 93 03/09/17 22:00 Room Air Lab Results Item Value Date Time White Blood Count 8.0 TH/MM3 03/09/17 1213 Hemoglobin 13.3 GM/DL 03/09/17 1213 Platelet Count 245 TH/MM3 03/09/17 1213 Sodium Level 139 MEQ/L 03/11/17 0802 Potassium Level 3.8 MEQ/L 03/11/17 0802 Chloride Level 104 MEQ/L 03/11/17 0802 Carbon Dioxide Level 29.4 MEQ/L 03/11/17 0802 Blood Urea Nitrogen 8 MG/DL 03/11/17 0802 Creatinine 0.78 MG/DL 03/11/17 0802 Aspartate Amino Transf (AST/SGOT) 25 U/L 03/09/17 1213 Alanine Aminotransferase (ALT/SGPT) 25 U/L 03/09/17 1213 Alkaline Phosphatase 87 U/L 03/09/17 1213 Urine Opiates Screen NEG 03/09/17 1400 Urine Barbiturates Screen NEG 03/09/17 1400 Urine Amphetamines Screen NEG 03/09/17 1400 Urine Benzodiazepines Screen NEG 03/09/17 1400 Urine Cocaine Screen NEG 03/09/17 1400 Urine Cannabinoids Screen NEG 03/09/17 1400 Mental Status Examination No motor abnormalities noted Appearance In hospital attire. Somewhat disheveled. Speech: Other (Soft volume) Orientation: Person, Place Memory: Impaired (describe) (confabulated) Thought Process: Linear Thought Content: Other (No delusions) Language unremarkable Fund of Knowledge reduced Hallucination Type: None Attention and Concentration: Easily Distracted Suicidal Ideation: No Previous Suicide Attempts: No Homicidal Ideation: No Previous Homicide Attempts: No Insight: Poor Judgment: Poor Affect if Inappropriate: Blunt, Other (childlike) Mood: Other ("pretty good.") Assessment & Plan Problem List: (1) Schizoaffective disorder ICD Codes: F25.9 - Schizoaffective disorder, unspecified Status: Acute (2) Intellectual disability ICD Codes: F79 - Unspecified intellectual disabilities Status: Chronic Assessment & Plan 51-year-old male returning from [facility] under Zhang act after refusing medications there. Patient did act out on the unit yesterday. Patient seems to be struggling with community placements, and this is his third hospitalization from [facility] since the Spring of this year. He likely will require extended hospitalization for stabilization and new placement. Admit inpatient. Involuntary status. I have completed first opinion. Consult for second opinion. Request healthcare surrogate and guardian advocate. Resume previous medications. Titrate patient's oral Prolixin to 10 mg twice daily to target problematic behaviors, and to consider titrating Prolixin Dec when he is next due for this agent. Ativan as needed for anxiety, Benadryl as needed for EPS, trazodone as needed for sleep. Violence/assaultive precautions and close obs. Vitals every shift. Counselor to see. Disposition planning. Estimated length of stay: One to 2 months. Discharge Planning New placement Request HC Surrog/Guard Advoc?: Yes Problem Qualifiers (1) Schizoaffective disorder: Qualified Codes: F25.0 - Schizoaffective disorder, bipolar type Larry Valdivia MD Mar 11, 2017 10:08
[2017-03-11 11:40] LABS: HEMOGLOBIN A1C 5.5 % (4.3-6.0)
[2017-03-11] MEDS ORDERED: cloNIDine HCL 0.1 MG TAB PO PRN ×2 (15:15)
[2017-03-11 15:56] VITALS: BP 154/105; PULSE 94; RESP 18; TEMP 98.2; O2SAT 92
[2017-03-11] MEDS: ATORVASTATIN 20 MG TAB PO SCH ×2 (20:42)
[2017-03-11] MEDS: REMOVE OLD NICOTINE PATCH T-DERMAL SCH ×2 (20:43)
[2017-03-11] MEDS: fluPHENAZine HCL ELIXIR 2.5 MG/5 ML UDC PO SCH ×2 (21:36)
[2017-03-12 05:55] VITALS: BP 130/67; PULSE 57; RESP 18; TEMP 98.2; O2SAT 96
[2017-03-12] MEDS: LISINOPRIL 5 MG TAB PO SCH ×2 (09:13)
[2017-03-12] MEDS: BENZTROPINE MESYLATE 1 MG TAB PO SCH ×4 (09:18→20:52)
[2017-03-12] MEDS: PROPRANOLOL HCL 10 MG TAB PO SCH ×6 (09:19→20:52)
[2017-03-12] MEDS: clonazePAM 1 MG TAB PO SCH ×4 (09:21→20:52)
[2017-03-12] MEDS: amLODIPine BESYLATE 5 MG TAB PO SCH ×4 (09:22→20:51)
[2017-03-12] MEDS: SODIUM CHLORIDE 1 GRAM TAB PO SCH ×4 (09:32→20:52)
[2017-03-12] MEDS: fluPHENAZine HCL ELIXIR 2.5 MG/5 ML UDC PO SCH ×6 (09:32→21:00)
[2017-03-12] MEDS: NICOTINE 21 MG/24 HR PATCH T-DERMAL SCH ×2 (09:36)
--- NOTE | 2017-03-12 11:19 | HHI.PYPN ---
Subjective Remarks Patient seen and examined with counselor and nurse. Chart reviewed. Case discussed with nursing staff. Nursing staff suspects patient is cheeking meds. On my exam, patient is quite childlike and needy. He says that he would like to be discharged. When we try to explain the difficulties in discharge him because of his recent behavior, he says that if he is not discharged he will not eat. No jamar psychotic symptoms. No side effects from medications. No physical complaints. Review of Systems ROS Limitations: Poor Historian Except as stated in HPI: all other systems reviewed are Neg Objective Alert: Yes [place]: Person Mood: Anxious Affect: Blunted (childlike) Memory Intact: Comment (not assessed) Hallucinations: Other (No AVH) Delusions: No Delusion Type: Other (No delusions) Suicidal: Ideation (No SI) Homicidal: Ideation (No HI) Insight/Judgment Poor Remarks No motoric abnormalities noted Labs labs reviewed Vitals/IOs Vital Signs Date Time Temp Pulse Resp B/P (MAP) Pulse Ox O2 Delivery O2 Flow Rate FiO2 03/12/17 05:55 98.2 57 18 130/67 (88) 96 03/09/17 22:00 Room Air Assessment & Plan Problem List: (1) Schizoaffective disorder ICD Codes: F25.9 - Schizoaffective disorder, unspecified Status: Acute (2) Intellectual disability ICD Codes: F79 - Unspecified intellectual disabilities Status: Chronic Assessment & Plan Mouth checks. Continue current psychotropics as ordered. Continue to monitor on the high acuity unit. Continue other medications and care as ordered. Justification for Cont. Inpt. High risk for decompensation and less restrictive environment Discharge Planning Patient requires new placement. Given the likelihood of difficulty in finding placement and in consultation with the counselor, I will initiate a [facility] referral. Request HC Surrog/Guard Advoc?: Yes Problem Qualifiers (1) Schizoaffective disorder: Qualified Codes: F25.0 - Schizoaffective disorder, bipolar type Larry Valdivia MD Mar 12, 2017 11:19
--- NOTE | 2017-03-12 11:49 | PD.PSY.CON ---
Provisional Diagnosis Admission Date Mar 10, 2017 at 06:34 [place] I. 1. Schizoaffective disorder, bipolar type, acute decompensation [place] II. 1. Intellectual disability History of Present Illness Service Psychiatry Consult Requested By Dr. Valdivia Reason for Consult Second Opinion Primary Care Physician No Primary Care Physician [facility] Mr. Tate is a 51-year-old male with a history of schizoaffective disorder and intellectual disability, recently discharged to assisted living facility from the inpatient psychiatric unit here who returns under a Zhang act alleging medication non-adherence and decompensation. Electronic medical record reviewed. Patient seen and examined with counselor. Chart reviewed. Case discussed with nursing staff. Patient did strike out a peer yesterday but has since been no behavioral problem. On my examination, patient is calm. He says "nothing went wrong there [i.e. at the facility]. They think I went out and played hooky and bought beer." He denies wandering in traffic as alleged in Zhang Act. Denies SI/HI. Denies AVH. I can elicit no paranoia, no TI/TW or other psychotic symptoms. Mood is "pretty good." No depressive or hypomanic/manic symptoms elicited. He maintains that he has been medication compliant, but see below. He says, "I would like to be sent back there." Remainder of the psychiatric ROS is negative. He does not provide any meaningful past psychiatric, family, chemical dependency or social history. Counselor has been in contact with rep from patient's [facility], and patient was apparently refusing medications, going to the point of running out of the facility in order to spit them out on the street. They are reportedly unwilling to accept him back. 03/12/17 - Patient seen today for second opinion, was seen on the unit, noted to be superficially cooperative and poor historian. He states that he was previously in his living facility when he had walked outside to smoke a cigarette when he was taken by a meteorological technician "because they were mistaking me for someone else." Patient denies haivng been non compliant with treatment or having been aggressive yesterday. He believes that everyone is keeping him from being able to contact his father. He reports feeling "pretty good"; denies any perceptual disturbances at time of interview. Review of Systems Except as stated in HPI: all other systems reviewed are Neg Past Family Social History Coded Allergies: No Known Allergies (Unverified , 03/09/17) Active Scripts Fluphenazine Decanoate Inj (Fluphenazine Decanoate Inj) 125 Mg/5 Ml Inj, 37.5 MG IM Q21D for Mental Health, #1 VIAL 0 Refills This dose of Prolixin Dec is due on 03/17/2017. Prov:Larry Valdivia MD 03/02/17 Sodium Chloride (Sodium Chloride) 1 Gram Tab, 1 GM PO BID for Hyponatremia for 15 Days, TAB 1 Refill Prov:Larry Valdivia MD 03/02/17 [Benztropine] 1 MG TAB No Conflict Check, 0.5 MG PO Q12HR for Side effect management for 15 Days, 1 Refill Prov:Larry Valdivia MD 03/02/17 Clonazepam (Klonopin) 1 Mg Tab, 1 MG PO Q12HR for Mental Health for 15 Days, TAB 1 Refill Prov:Larry Valdivia MD 03/02/17 Lisinopril (Lisinopril) 5 Mg Tab, 5 MG PO DAILY for Blood Pressure Management for 15 Days, TAB 1 Refill Prov:Larry Valdivia MD 03/02/17 Amlodipine (Norvasc) 5 Mg Tab, 5 MG PO BID for Blood Pressure Management for 15 Days, TAB 1 Refill Prov:Larry Valdivia MD 03/02/17 Atorvastatin (Atorvastatin) 20 Mg Tab, 20 MG PO HS for Cholesterol Management for 15 Days, TAB 1 Refill Prov:Larry Valdivia MD 03/02/17 Propranolol (Propranolol) 10 Mg Tab, 10 MG PO DAILY@09,13,21 for Akathisia for 15 Days, TAB 1 Refill Prov:Larry Valdivia MD 03/02/17 Reported Medications Fluphenazine Liq (Fluphenazine Liq) 2.5 Mg/5 Ml Elx, 10 ML PO BID, ML 03/09/17 Current Medications Medications (Trade) Dose Ordered Sig/Eva Route Start Time Stop Time Status Last Admin (Ativan) 1 mg Q6H PRN PO 03/10/17 07:00 (Ativan Inj) 1 mg Q6H PRN IM 03/10/17 07:00 (Benadryl) 50 mg Q6H PRN PO 03/10/17 07:00 (Benadryl Inj) 50 mg Q6H PRN IM 03/10/17 07:00 (Desyrel) 50 mg HS PRN PO 03/10/17 07:00 (Tylenol) 650 mg Q4H PRN PO 03/10/17 07:00 (Milk Of Magnesia Liq) 30 ml DAILY PRN PO 03/10/17 07:00 (Mag-Al Plus Susp Liq) 30 ml Q6H PRN PO 03/10/17 07:00 (KlonoPIN) 1 mg Q12H PO 03/10/17 09:00 03/12/17 09:21 (Cogentin) 0.5 mg Q12H PO 03/10/17 09:00 03/12/17 09:18 (Pill Splitter) 1 ea UNSCH PRN OTHER 03/10/17 07:00 (Sodium Chloride) 1 gm BID PO 03/10/17 09:00 03/12/17 09:32 (Prolixin Decanoate Inj) 37.5 mg Q21D IM 03/17/17 07:00 (Habitrol 21 Mg Patch.24 Hr) 1 patch DAILY T-DERMAL 03/10/17 09:00 Miscellaneous Information 1 HS T-DERMAL 03/10/17 21:00 (Inderal) 10 mg DAILY@0900,1300,2100 PO 03/11/17 09:00 03/12/17 09:19 (Lipitor) 20 mg HS PO 03/11/17 21:00 03/11/17 20:42 (Norvasc) 5 mg BID PO 03/11/17 09:00 03/12/17 09:22 (Prinivil) 5 mg DAILY PO 03/11/17 09:00 03/11/17 09:17 (Prolixin Liq) 10 mg BID PO 03/11/17 21:00 03/12/17 09:32 (Catapres) 0.1 mg Q8HR PRN PO 03/11/17 15:15 03/11/17 15:35 Patient's Strengths (min. 2) In monitored setting. Verbally fluent. Physical Exam Vital Signs Vital Signs Date Time Temp Pulse Resp B/P (MAP) Pulse Ox O2 Delivery O2 Flow Rate FiO2 03/12/17 05:55 98.2 57 18 130/67 (88) 96 03/09/17 22:00 Room Air Mental Status Examination Appearance Appears older than stated age, disheveled, in hospital [facility], fair eye contact Speech: Other (Soft volume) Orientation: Person, Place Memory: Impaired (describe) (confabulated) Thought Process: Linear Thought Content: Paranoid, Other (No delusions) Language fluent and spontaneous Fund of Knowledge poor Hallucination Type: None Attention and Concentration: Easily Distracted Suicidal Ideation: No Previous Suicide Attempts: No Homicidal Ideation: No Previous Homicide Attempts: No Insight: Poor Judgment: Poor Affect: Other (restricted) Affect if Inappropriate: Blunt, Other (childlike) Mood: Other ("pretty good.") Motor Activity: Normal gait Assessment & Plan Problem List: (1) Schizoaffective disorder ICD Codes: F25.9 - Schizoaffective disorder, unspecified Status: Acute (2) Intellectual disability ICD Codes: F79 - Unspecified intellectual disabilities Status: Chronic Assessment & Plan I have seen and examined this patient, reviewed the documentation, discussed personally with Dr. Valdivia, and I agree and concur with his assessment and plan. Consult appreciated. Request HC Surrog/Guard Advoc?: Yes Problem Qualifiers (1) Schizoaffective disorder: Qualified Codes: F25.0 - Schizoaffective disorder, bipolar type Donny Harris MD Mar 12, 2017 11:49
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
[2017-03-12 18:25] VITALS: BP 116/93; PULSE 63; RESP 17; TEMP 97.2; O2SAT 96
[2017-03-12] MEDS: ATORVASTATIN 20 MG TAB PO SCH ×2 (20:52)
[2017-03-12] MEDS: REMOVE OLD NICOTINE PATCH T-DERMAL SCH ×2 (20:52)
[2017-03-13 06:21] VITALS: BP 160/58; PULSE 61; RESP 15; TEMP 97.6; O2SAT 95
[2017-03-13] MEDS: clonazePAM 1 MG TAB PO SCH ×4 (07:39→21:13)
[2017-03-13] MEDS: LISINOPRIL 5 MG TAB PO SCH ×2 (07:39)
[2017-03-13] MEDS: SODIUM CHLORIDE 1 GRAM TAB PO SCH ×4 (07:39→21:13)
[2017-03-13] MEDS: BENZTROPINE MESYLATE 1 MG TAB PO SCH ×4 (07:39→21:13)
[2017-03-13] MEDS: amLODIPine BESYLATE 5 MG TAB PO SCH ×4 (07:39→21:13)
[2017-03-13] MEDS: NICOTINE 21 MG/24 HR PATCH T-DERMAL SCH ×2 (07:40)
[2017-03-13] MEDS: fluPHENAZine HCL ELIXIR 2.5 MG/5 ML UDC PO SCH ×4 (07:40→21:14)
[2017-03-13] MEDS: PROPRANOLOL HCL 10 MG TAB PO SCH ×6 (08:52→21:18)
--- NOTE | 2017-03-13 13:45 | HHI.PYPN ---
Subjective Remarks Pt seen and discussed with staff. He remains disorganized and paranoid. He has been wandering unit and attempting to cheek meds. He is intrusive on unit.. No SI/HI Objective Alert: Yes [place]: Person Mood: Calm Affect: Blunted (childlike) Memory Intact: Comment (fair) Hallucinations: Other (No AVH) Delusions: Yes Delusion Type: Paranoid Suicidal: Ideation (No SI) Homicidal: Ideation (No HI) Insight/Judgment disorganized Vitals/IOs Vital Signs Date Time Temp Pulse Resp B/P (MAP) Pulse Ox O2 Delivery O2 Flow Rate FiO2 03/13/17 06:21 97.6 61 15 160/58 (92) 95 03/09/17 22:00 Room Air Assessment & Plan Problem List: (1) Schizoaffective disorder ICD Codes: F25.9 - Schizoaffective disorder, unspecified Status: Acute (2) Intellectual disability ICD Codes: F79 - Unspecified intellectual disabilities Status: Chronic Assessment & Plan Continue current tx plan. Estimated LOS: days Justification for Cont. Inpt. impairments in reality testing and self care Request HC Surrog/Guard Advoc?: Yes Problem Qualifiers (1) Schizoaffective disorder: Qualified Codes: F25.0 - Schizoaffective disorder, bipolar type Shantal Dowell MD Mar 13, 2017 13:45
[2017-03-13 20:27] VITALS: BP 130/87; PULSE 94; RESP 17; TEMP 97.7; O2SAT 96
[2017-03-13] MEDS: REMOVE OLD NICOTINE PATCH T-DERMAL SCH ×2 (21:00)
[2017-03-13] MEDS: ATORVASTATIN 20 MG TAB PO SCH ×2 (21:13)
[2017-03-14 05:53] VITALS: BP 127/86; PULSE 81; RESP 16; TEMP 97.2; O2SAT 97
[2017-03-14] MEDS: fluPHENAZine HCL ELIXIR 2.5 MG/5 ML UDC PO SCH ×4 (09:00→21:15)
[2017-03-14] MEDS: BENZTROPINE MESYLATE 1 MG TAB PO SCH ×4 (09:00→21:00)
[2017-03-14] MEDS: SODIUM CHLORIDE 1 GRAM TAB PO SCH ×4 (09:00→21:17)
[2017-03-14] MEDS: NICOTINE 21 MG/24 HR PATCH T-DERMAL SCH ×2 (09:00)
[2017-03-14] MEDS: clonazePAM 1 MG TAB PO SCH ×4 (09:34→21:17)
[2017-03-14] MEDS: LISINOPRIL 5 MG TAB PO SCH ×2 (09:35)
[2017-03-14] MEDS: PROPRANOLOL HCL 10 MG TAB PO SCH ×6 (09:35→21:18)
[2017-03-14] MEDS: amLODIPine BESYLATE 5 MG TAB PO SCH ×4 (09:35→21:17)
--- NOTE | 2017-03-14 13:24 | HHI.PYPN ---
Subjective Remarks Pt seen and discussed with staff. No behavioral problems on unit. He remains childlike and wanders the unit. He can be intrusive at times but is redirectable. He is observed conversing with self frequently. Objective Alert: Yes [place]: Person Mood: Calm Affect: Blunted (childlike) Memory Intact: Comment (fair) Hallucinations: Other (No AVH) Delusions: No Delusion Type: Other Suicidal: Ideation (No SI) Homicidal: Ideation (No HI) Insight/Judgment poor Vitals/IOs Vital Signs Date Time Temp Pulse Resp B/P (MAP) Pulse Ox O2 Delivery O2 Flow Rate FiO2 03/14/17 05:53 97.2 81 16 127/86 (100) 97 Assessment & Plan Problem List: (1) Schizoaffective disorder ICD Codes: F25.9 - Schizoaffective disorder, unspecified Status: Acute (2) Intellectual disability ICD Codes: F79 - Unspecified intellectual disabilities Status: Chronic Assessment & Plan PT improving. Continue current tx plan. State referral. Estimated LOS: days Justification for Cont. Inpt. risk of decompensation Request HC Surrog/Guard Advoc?: Yes Problem Qualifiers (1) Schizoaffective disorder: Qualified Codes: F25.0 - Schizoaffective disorder, bipolar type Shantal Dowell MD Mar 14, 2017 13:24
[2017-03-14 18:00] VITALS: BP 113/70; PULSE 76; RESP 16; TEMP 97.9; O2SAT 98
[2017-03-14] MEDS: REMOVE OLD NICOTINE PATCH T-DERMAL SCH ×2 (21:00)
[2017-03-14] MEDS: ATORVASTATIN 20 MG TAB PO SCH ×2 (21:17)
[2017-03-15 05:59] VITALS: BP 117/80; PULSE 69; RESP 17; TEMP 98.6; O2SAT 98
[2017-03-15] MEDS: fluPHENAZine HCL ELIXIR 2.5 MG/5 ML UDC PO SCH ×4 (09:00→20:56)
[2017-03-15] MEDS: clonazePAM 1 MG TAB PO SCH ×4 (09:00→20:56)
[2017-03-15] MEDS: NICOTINE 21 MG/24 HR PATCH T-DERMAL SCH ×2 (09:00)
--- NOTE | 2017-03-15 09:33 | HHI.PYPN ---
Subjective Remarks Patient seen and examined with counselor and nurse. Chart reviewed. Case discussed with nursing staff. On my examination today, patient remains quite childlike. He asks to be discharged back to his facility, but recognizes that this is not possible and acknowledges this is because of his nonadherence with medications. Denies SI, HI or AVH. Denies side effects from medications. No physical complaints. Review of Systems ROS Limitations: Poor Historian Except as stated in HPI: all other systems reviewed are Neg Objective Alert: Yes [place]: Person Mood: Calm Affect: Other (childlike) Memory Intact: Comment (not formally assessed today) Hallucinations: Other (No AVH) Delusions: No Delusion Type: Other (no delusions) Suicidal: Ideation (No SI) Homicidal: Ideation (No HI) Insight/Judgment Poor Remarks No motor abnormalities noted. No hand tremor, no cogwheeling. Labs Labs reviewed. Vitals/IOs Vital Signs Date Time Temp Pulse Resp B/P (MAP) Pulse Ox O2 Delivery O2 Flow Rate FiO2 03/15/17 05:59 98.6 69 17 117/80 (92) 98 Assessment & Plan Problem List: (1) Schizoaffective disorder ICD Codes: F25.9 - Schizoaffective disorder, unspecified Status: Acute (2) Intellectual disability ICD Codes: F79 - Unspecified intellectual disabilities Status: Chronic Assessment & Plan Continue current psychotropics as ordered. Continue to monitor on the inpatient unit. Continue other medications and care as ordered. Justification for Cont. Inpt. High risk for decompensation in less restrictive environment. Discharge Planning [facility] psychiatric hospital referral initiated. Placement still an option but will likely be difficult to arrange given his history. Request HC Surrog/Guard Advoc?: Yes Problem Qualifiers (1) Schizoaffective disorder: Qualified Codes: F25.0 - Schizoaffective disorder, bipolar type Larry Valdivia MD Mar 15, 2017 09:33
[2017-03-15] MEDS: LISINOPRIL 5 MG TAB PO SCH ×2 (09:41)
[2017-03-15] MEDS: amLODIPine BESYLATE 5 MG TAB PO SCH ×4 (09:41→20:56)
[2017-03-15] MEDS: SODIUM CHLORIDE 1 GRAM TAB PO SCH ×4 (09:42→21:00)
[2017-03-15] MEDS: PROPRANOLOL HCL 10 MG TAB PO SCH ×6 (09:43→20:58)
[2017-03-15] MEDS: BENZTROPINE MESYLATE 1 MG TAB PO SCH ×4 (13:16→20:56)
[2017-03-15 17:01] VITALS: BP 120/74; PULSE 74; RESP 18; TEMP 97.8
[2017-03-15] MEDS: ATORVASTATIN 20 MG TAB PO SCH ×2 (20:57)
[2017-03-16 06:20] VITALS: BP 114/67; PULSE 49; TEMP 97.6; O2SAT 98
[2017-03-16] MEDS: fluPHENAZine HCL ELIXIR 2.5 MG/5 ML UDC PO SCH ×4 (09:41→21:30)
[2017-03-16] MEDS: SODIUM CHLORIDE 1 GRAM TAB PO SCH ×4 (09:41→21:29)
[2017-03-16] MEDS: amLODIPine BESYLATE 5 MG TAB PO SCH ×4 (09:41→21:29)
[2017-03-16] MEDS: clonazePAM 1 MG TAB PO SCH ×4 (09:41→21:29)
[2017-03-16] MEDS: BENZTROPINE MESYLATE 1 MG TAB PO SCH ×4 (09:41→21:29)
[2017-03-16] MEDS: LISINOPRIL 5 MG TAB PO SCH ×2 (09:42)
[2017-03-16] MEDS: PROPRANOLOL HCL 10 MG TAB PO SCH ×6 (09:43→21:29)
--- NOTE | 2017-03-16 10:44 | PD.TTN ---
Patient Problems 1. Discharge planning 2. Medication compliance 3. Knowledge deficit 4. Lack of coping skills Progress Toward Goals Provider Present: Dr. Karl Valdivia Provider Input: Medication regiment will continue to be evaluated and pt has been referred to [facility] for higher level of services terminal manager. Nurse(s) Present: Joy Malone RN Nurse(s) Input: Pt appears to isolate to himself yet is pleasant with poor self care. Pt slept and appears appropriate on unit. Psychiatric Counselors Present: RUBY Anderson Psych Therapist Input: Pt continues to appear calm, appropriate, organized, intrusive, childlike, withdrawn to self and with poor insight. He continues to deny medication noncompliance desipte ongoing active issues with this. Insight into condition and need for care remains poor. Pt appears able to regulate emotions suggesting possible use of coping skills though it is likely there are some deficits present. Pt presents as no behavioral problem on unit at this time. Group Spec/RT/OT/MELGAR Present: TALIA Alves Group Spec/RT/OT/MELGAR Input: Pt attends select groups but often isolates to self. Discharge Plan Other Pt has been referred to [facility] but placement options at [facility] will be considered as well if appropriate. Documentation Scribe: RUBY Anderson Jonathan LMHC Mar 16, 2017 10:44
--- NOTE | 2017-03-16 10:44 | PD.TTN ---
Patient Problems 1. Discharge planning 2. Medication compliance 3. Knowledge deficit 4. Lack of coping skills Progress Toward Goals Provider Present: Dr. 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 Nurse(s) Present: Joy Malone RN Nurse(s) Input: Pt appears to isolate to himself yet is pleasant with poor self care. Pt slept and appears appropriate on unit. Psychiatric Counselors Present: RUBY Anderson Psych Therapist Input: Pt continues to appear calm, appropriate, organized, intrusive, childlike, withdrawn to self and with poor insight. He continues to deny medication noncompliance desipte ongoing active issues with this. Insight into condition and need for care remains poor. Pt appears able to regulate emotions suggesting possible use of coping skills though it is likely there are some deficits present. Pt presents as no behavioral problem on unit at this time. Group Spec/RT/OT/MELGAR Present: TALIA Alves Group Spec/RT/OT/MELGAR Input: Pt attends select groups but often isolates to self. Discharge Plan Other Pt has been referred to [facility] but placement options at [facility] will be considered as well if appropriate. Documentation Scribe: RUBY Anderson Jonathan LMHC Mar 16, 2017 10:44
--- NOTE | 2017-03-16 10:44 | PD.TTN ---
Patient Problems 1. Discharge planning 2. Medication compliance 3. Knowledge deficit 4. Lack of coping skills Progress Toward Goals Provider Present: Dr. 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 Nurse(s) Present: Joy Malone RN Nurse(s) Input: Pt appears to isolate to himself yet is pleasant with poor self care. Pt slept and appears appropriate on unit. Psychiatric Counselors Present: RUBY Anderson Psych Therapist Input: Pt continues to appear calm, appropriate, organized, intrusive, childlike, withdrawn to self and with poor insight. He continues to deny medication noncompliance desipte ongoing active issues with this. Insight into condition and need for care remains poor. Pt appears able to regulate emotions suggesting possible use of coping skills though it is likely there are some deficits present. Pt presents as no behavioral problem on unit at this time. Group Spec/RT/OT/MELGAR Present: TALIA Alves Group Spec/RT/OT/MELGAR Input: Pt attends select groups but often isolates to self. Discharge Plan Other Pt has been referred to [facility] but placement options at [facility] will be considered as well if appropriate. Documentation Scribe: RUBY Anderson Jonathan LMHC Mar 16, 2017 10:44
--- NOTE | 2017-03-16 11:27 | HHI.PYPN ---
Subjective Remarks Patient seen and examined with counselor and nurse. Chart reviewed. Case discussed in treatment team. On my examination today, patient is calm but remains quite childlike. He asks me "can I go to a custodial?" When I explain the difficulties with placement given his recent behavior he asks instead "can I go home with Mathew" one of the behavioral health technicians. No SI or HI. No side effects from medications. No physical complaints. Review of Systems ROS Limitations: Poor Historian Except as stated in HPI: all other systems reviewed are Neg Objective Alert: Yes [place]: Person Mood: Calm Affect: Other (remains childlike) Memory Intact: Comment (not formally assessed today) Hallucinations: Other (No AVH) Delusions: No Delusion Type: Other (no delusions) Suicidal: Ideation (No SI) Homicidal: Ideation (No HI) Insight/Judgment Poor Remarks No motoric abnormalities noted Labs Labs reviewed Vitals/IOs Vital Signs Date Time Temp Pulse Resp B/P (MAP) Pulse Ox O2 Delivery O2 Flow Rate FiO2 03/16/17 06:20 97.6 49 114/67 (83) 98 03/15/17 17:01 18 Assessment & Plan Problem List: (1) Schizoaffective disorder ICD Codes: F25.9 - Schizoaffective disorder, unspecified Status: Acute (2) Intellectual disability ICD Codes: F79 - Unspecified intellectual disabilities Status: Chronic Assessment & Plan Continue current psychiatric medications as ordered. Continue other medications and care as ordered. Continue to monitor on the inpatient unit. Justification for Cont. Inpt. Risk for decompensation in less restrictive environment Discharge Planning [facility]able state psychiatric hospital referral, pending outcome a Zhang court. Other placement likely to be exceedingly difficult given his history, although we will try. Request HC Surrog/Guard Advoc?: Yes Problem Qualifiers (1) Schizoaffective disorder: Qualified Codes: F25.0 - Schizoaffective disorder, bipolar type Larry Valdivia MD Mar 16, 2017 11:27
[2017-03-16 17:13] VITALS: BP 110/69; PULSE 66; RESP 18; TEMP 98; O2SAT 97
[2017-03-16] MEDS: ATORVASTATIN 20 MG TAB PO SCH ×2 (21:30)
[2017-03-17 06:22] VITALS: BP 118/80; PULSE 75; RESP 18; TEMP 97.8; O2SAT 97
[2017-03-17] MEDS: clonazePAM 1 MG TAB PO SCH ×4 (09:26→20:50)
[2017-03-17] MEDS: SODIUM CHLORIDE 1 GRAM TAB PO SCH ×4 (09:26→20:50)
[2017-03-17] MEDS: LISINOPRIL 5 MG TAB PO SCH ×2 (09:26)
[2017-03-17] MEDS: BENZTROPINE MESYLATE 1 MG TAB PO SCH ×4 (09:27→20:49)
--- NOTE | 2017-03-17 09:42 | HHI.PYPN ---
Subjective Remarks Patient seen and examined with counselor. Chart reviewed. Case discussed with nursing staff. No behavioral issues noted overnight. On my examination today, patient remains quite childlike. No psychotic symptoms. Says that he would like to reach out to his father. Denies SI or HI. Denies side effects from medications besides some mild tiredness, which he attributes to the Prolixin. No other physical complaints. Review of Systems ROS Limitations: Poor Historian Except as stated in HPI: all other systems reviewed are Neg Objective Alert: Yes [place]: Person Mood: Calm Affect: Blunted (childlike) Memory Intact: Comment (not assessed) Hallucinations: Other (denies AVH) Delusions: No Delusion Type: Other (no delusions) Suicidal: Ideation (denies SI) Homicidal: Ideation (denies HI) Insight/Judgment Poor Remarks No abnormal motor movements noted. Does not appear sedated. Labs Labs reviewed Vitals/IOs Vital Signs Date Time Temp Pulse Resp B/P (MAP) Pulse Ox O2 Delivery O2 Flow Rate FiO2 03/17/17 06:22 97.8 75 18 118/80 (93) 97 Assessment & Plan Problem List: (1) Schizoaffective disorder ICD Codes: F25.9 - Schizoaffective disorder, unspecified Status: Acute (2) Intellectual disability ICD Codes: F79 - Unspecified intellectual disabilities Status: Chronic Assessment & Plan Continue oral Prolixin and other psychotropics as ordered. Patient is due to receive Prolixin Dec today, and this is ordered. Could consider tapering oral Prolixin, particularly if complaints of tiredness persist, but given the circumstances of the case I think it is best to be circumspect about tapering meds in this patient. Continue to monitor on the inpatient unit. Continue other medications and care as ordered. Justification for Cont. Inpt. High risk for decompensation in less restrictive environment. Discharge Planning Placement versus state hospital Request HC Surrog/Guard Advoc?: Yes Problem Qualifiers (1) Schizoaffective disorder: Qualified Codes: F25.0 - Schizoaffective disorder, bipolar type Larry Valdivia MD Mar 17, 2017 09:42
[2017-03-17] MEDS: amLODIPine BESYLATE 5 MG TAB PO SCH ×4 (10:29→20:50)
[2017-03-17] MEDS: PROPRANOLOL HCL 10 MG TAB PO SCH ×6 (10:29→20:51)
[2017-03-17] MEDS: fluPHENAZine HCL ELIXIR 2.5 MG/5 ML UDC PO SCH ×4 (10:30→20:49)
[2017-03-17 17:49] VITALS: BP 134/80; PULSE 85; RESP 16; TEMP 98.2; O2SAT 97
[2017-03-17] MEDS: ATORVASTATIN 20 MG TAB PO SCH ×2 (20:50)
[2017-03-18 06:13] VITALS: BP 122/72; PULSE 50; RESP 16; TEMP 97.3; O2SAT 97
[2017-03-18] MEDS: SODIUM CHLORIDE 1 GRAM TAB PO SCH ×4 (08:31→21:11)
[2017-03-18] MEDS: BENZTROPINE MESYLATE 1 MG TAB PO SCH ×4 (08:32→21:11)
[2017-03-18] MEDS: amLODIPine BESYLATE 5 MG TAB PO SCH ×4 (08:32→21:11)
[2017-03-18] MEDS: LISINOPRIL 5 MG TAB PO SCH ×2 (08:32)
[2017-03-18] MEDS: clonazePAM 1 MG TAB PO SCH ×4 (08:32→21:11)
[2017-03-18] MEDS: PROPRANOLOL HCL 10 MG TAB PO SCH ×6 (08:35→21:14)
[2017-03-18] MEDS: fluPHENAZine HCL ELIXIR 2.5 MG/5 ML UDC PO SCH ×4 (08:36→21:11)
--- NOTE | 2017-03-18 12:04 | HHI.PYPN ---
Subjective Remarks Patient seen and examined with nurse. Chart reviewed. Case discussed with nursing staff. On my examination today, the patient remains quite childlike. He is presently calm and maintaining behavioral control. No side effects from medications. Patient's case presented to Zhang act court, and the patient was retained on the unit by the nail setter and appointed a GA from [facility]. Review of Systems ROS Limitations: Poor Historian Except as stated in HPI: all other systems reviewed are Neg Objective Alert: Yes [place]: Person Mood: Calm Affect: Blunted, Other (childlike) Memory Intact: Comment (not assessed) Hallucinations: Other (no AVH) Delusions: No Delusion Type: Other (no delusions) Suicidal: Ideation (no SI) Homicidal: Ideation (no HI) Insight/Judgment poor Remarks No abnormal motor movements noted. Labs Labs reviewed. Vitals/IOs Vital Signs Date Time Temp Pulse Resp B/P (MAP) Pulse Ox O2 Delivery O2 Flow Rate FiO2 03/18/17 06:13 97.3 50 16 122/72 (89) 97 Assessment & Plan Problem List: (1) Schizoaffective disorder ICD Codes: F25.9 - Schizoaffective disorder, unspecified Status: Acute (2) Intellectual disability ICD Codes: F79 - Unspecified intellectual disabilities Status: Chronic Assessment & Plan Continue Prolixin and other psychotropics as ordered. Continue to monitor on the inpatient unit. Continue other medications and care as ordered. Justification for Cont. Inpt. High risk for decompensation in less restrictive environment. Discharge Planning [facility] psychiatric hospital referral. Placement possible, and we will endeavor to do so, but likely difficult given patient's behavior at facilities he has been placed at in the past Request HC Surrog/Guard Advoc?: Yes Problem Qualifiers (1) Schizoaffective disorder: Qualified Codes: F25.0 - Schizoaffective disorder, bipolar type Larry Valdivia MD Mar 18, 2017 12:04
--- NOTE | 2017-03-18 12:04 | HHI.PYPN ---
Subjective Remarks Patient seen and examined with nurse. Chart reviewed. Case discussed with nursing staff. On my examination today, the patient remains quite childlike. He is presently calm and maintaining behavioral control. No side effects from medications. Patient's case presented to Zhang act court, and the patient was retained on the unit by the certification technician and appointed a GA from [facility]. Review of Systems ROS Limitations: Poor Historian Except as stated in HPI: all other systems reviewed are Neg Objective Alert: Yes [place]: Person Mood: Calm Affect: Blunted, Other (childlike) Memory Intact: Comment (not assessed) Hallucinations: Other (no AVH) Delusions: No Delusion Type: Other (no delusions) Suicidal: Ideation (no SI) Homicidal: Ideation (no HI) Insight/Judgment poor Remarks No abnormal motor movements noted. Labs Labs reviewed. Vitals/IOs Vital Signs Date Time Temp Pulse Resp B/P (MAP) Pulse Ox O2 Delivery O2 Flow Rate FiO2 03/18/17 06:13 97.3 50 16 122/72 (89) 97 Assessment & Plan Problem List: (1) Schizoaffective disorder ICD Codes: F25.9 - Schizoaffective disorder, unspecified Status: Acute (2) Intellectual disability ICD Codes: F79 - Unspecified intellectual disabilities Status: Chronic Assessment & Plan Continue Prolixin and other psychotropics as ordered. Continue to monitor on the inpatient unit. Continue other medications and care as ordered. Justification for Cont. Inpt. High risk for decompensation in less restrictive environment. Discharge Planning [facility] psychiatric hospital referral. Placement possible, and we will endeavor to do so, but likely difficult given patient's behavior at facilities he has been placed at in the past Request HC Surrog/Guard Advoc?: Yes Problem Qualifiers (1) Schizoaffective disorder: Qualified Codes: F25.0 - Schizoaffective disorder, bipolar type Larry Valdivia MD Mar 18, 2017 12:04
--- NOTE | 2017-03-18 12:04 | HHI.PYPN ---
Subjective Remarks Patient seen and examined with nurse. Chart reviewed. Case discussed with nursing staff. On my examination today, the patient remains quite childlike. He is presently calm and maintaining behavioral control. No side effects from medications. Patient's case presented to [place], and the patient was retained on the unit by the automatic spinning lathe operator and appointed a GA from [facility]. Review of Systems ROS Limitations: Poor Historian Except as stated in HPI: all other systems reviewed are Neg Objective Alert: Yes [place]: Person Mood: Calm Affect: Blunted, Other (childlike) Memory Intact: Comment (not assessed) Hallucinations: Other (no AVH) Delusions: No Delusion Type: Other (no delusions) Suicidal: Ideation (no SI) Homicidal: Ideation (no HI) Insight/Judgment poor Remarks No abnormal motor movements noted. Labs Labs reviewed. Vitals/IOs Vital Signs Date Time Temp Pulse Resp B/P (MAP) Pulse Ox O2 Delivery O2 Flow Rate FiO2 03/18/17 06:13 97.3 50 16 122/72 (89) 97 Assessment & Plan Problem List: (1) Schizoaffective disorder ICD Codes: F25.9 - Schizoaffective disorder, unspecified Status: Acute (2) Intellectual disability ICD Codes: F79 - Unspecified intellectual disabilities Status: Chronic Assessment & Plan Continue Prolixin and other psychotropics as ordered. Continue to monitor on the inpatient unit. Continue other medications and care as ordered. Justification for Cont. Inpt. High risk for decompensation in less restrictive environment. Discharge Planning [facility] referral. Placement possible, and we will endeavor to do so, but likely difficult given patient's behavior at facilities he has been placed at in the past Request HC Surrog/Guard Advoc?: Yes Problem Qualifiers (1) Schizoaffective disorder: Qualified Codes: F25.0 - Schizoaffective disorder, bipolar type Larry Valdivia MD Mar 18, 2017 12:04
[2017-03-18 16:00] VITALS: BP 134/92; PULSE 70; RESP 18; TEMP 97.4; O2SAT 98
[2017-03-18] MEDS: ATORVASTATIN 20 MG TAB PO SCH ×2 (21:11)
[2017-03-19 06:10] VITALS: BP 133/75; PULSE 65; RESP 17; TEMP 97.6; O2SAT 97
[2017-03-19] MEDS: SODIUM CHLORIDE 1 GRAM TAB PO SCH ×4 (08:14→20:08)
[2017-03-19] MEDS: clonazePAM 1 MG TAB PO SCH ×4 (08:14→20:09)
[2017-03-19] MEDS: LISINOPRIL 5 MG TAB PO SCH ×2 (08:14)
[2017-03-19] MEDS: amLODIPine BESYLATE 5 MG TAB PO SCH ×4 (08:15→20:09)
[2017-03-19] MEDS: BENZTROPINE MESYLATE 1 MG TAB PO SCH ×4 (08:15→20:07)
[2017-03-19] MEDS: fluPHENAZine HCL ELIXIR 2.5 MG/5 ML UDC PO SCH ×4 (08:16→20:09)
[2017-03-19] MEDS: PROPRANOLOL HCL 10 MG TAB PO SCH ×6 (08:16→20:11)
--- NOTE | 2017-03-19 11:59 | HHI.PYPN ---
Subjective Remarks Patient seen and examined with counselor and nurse. Chart reviewed. Case discussed with nursing staff. On my exam, patient is calm and no behavioral problem. He remains quite childlike. He says that he might like to go stay with his father, and I note there is now a telephone number for the patient's father on the patient's paper chart. I have asked the counselor to reach out to the patient's father to see if this might be a viable discharge plan. No psychotic symptoms. No physical complaints. No side effects from medications. Review of Systems ROS Limitations: Poor Historian Except as stated in HPI: all other systems reviewed are Neg Objective Alert: Yes [place]: Person Mood: Calm Affect: Other (childlike) Memory Intact: Comment (not formally assessed) Hallucinations: Other (no hallucinations) Delusions: No Delusion Type: Other (no delusions) Suicidal: Ideation (no SI) Homicidal: Ideation (no HI) Insight/Judgment Poor Remarks No motoric abnormalities noted Labs Labs reviewed Vitals/IOs Vital Signs Date Time Temp Pulse Resp B/P (MAP) Pulse Ox O2 Delivery O2 Flow Rate FiO2 03/19/17 06:10 97.6 65 17 133/75 (94) 97 Assessment & Plan Problem List: (1) Schizoaffective disorder ICD Codes: F25.9 - Schizoaffective disorder, unspecified Status: Acute (2) Intellectual disability ICD Codes: F79 - Unspecified intellectual disabilities Status: Chronic Assessment & Plan Continue oral Prolixin supplementing Prolixin Decanoate as ordered. Could consider slowly tapering oral Prolixin so long as patient's psychotic symptoms remain in remission and there is no evidence of behavioral deterioration. Continue Inderal and Cogentin for side effects management. Continue Klonopin as ordered. Continue other medications and care as ordered. Justification for Cont. Inpt. High risk for decompensation in less restrictive environment. [facility] Placement or perhaps home with father may represent alternatives. Case discussed with counselor. Request HC Surrog/Guard Advoc?: Yes Problem Qualifiers (1) Schizoaffective disorder: Qualified Codes: F25.0 - Schizoaffective disorder, bipolar type Larry Valdivia MD Mar 19, 2017 11:59
[2017-03-19 18:05] VITALS: BP 106/67; PULSE 65; RESP 17; TEMP 98.2; O2SAT 99
[2017-03-19] MEDS: ATORVASTATIN 20 MG TAB PO SCH ×2 (20:08)
[2017-03-20 06:19] VITALS: BP 112/68; PULSE 51; RESP 16; TEMP 98.2; O2SAT 98
[2017-03-20] MEDS: clonazePAM 1 MG TAB PO SCH ×4 (07:36→20:40)
[2017-03-20] MEDS: BENZTROPINE MESYLATE 1 MG TAB PO SCH ×4 (07:36→20:39)
[2017-03-20] MEDS: fluPHENAZine HCL ELIXIR 2.5 MG/5 ML UDC PO SCH ×4 (07:37→20:40)
[2017-03-20] MEDS: SODIUM CHLORIDE 1 GRAM TAB PO SCH ×4 (07:37→20:40)
[2017-03-20] MEDS: PROPRANOLOL HCL 10 MG TAB PO SCH ×6 (08:23→20:40)
[2017-03-20] MEDS: LISINOPRIL 5 MG TAB PO SCH ×2 (08:23)
[2017-03-20] MEDS: amLODIPine BESYLATE 5 MG TAB PO SCH ×4 (08:23→20:40)
[2017-03-20 12:15] VITALS: BP 119/73; PULSE 63
[2017-03-20 18:55] VITALS: BP 115/72; PULSE 54; RESP 17; TEMP 98.4; O2SAT 99
--- NOTE | 2017-03-20 19:00 | HHI.PYPN ---
Subjective Remarks Patient was seen and case discussed with nursing. Patient is pleasant and cooperative with exam. Behaving well on the unit. No outbursts. Largely seclusive to self. Insight remains poor and cognitive deficits are evident Objective Alert: Yes [place]: Person Mood: Calm Affect: Other (childlike) Memory Intact: Comment (not formally assessed) Hallucinations: Other (no hallucinations) Delusions: No Delusion Type: Other (no delusions) Suicidal: Ideation (no SI) Homicidal: Ideation (no HI) Insight/Judgment Poor Vitals/IOs Vital Signs Date Time Temp Pulse Resp B/P (MAP) Pulse Ox O2 Delivery O2 Flow Rate FiO2 03/20/17 18:55 98.4 54 17 115/72 (86) 99 Assessment & Plan Problem List: (1) Schizoaffective disorder ICD Codes: F25.9 - Schizoaffective disorder, unspecified Status: Acute (2) Intellectual disability ICD Codes: F79 - Unspecified intellectual disabilities Status: Chronic Assessment & Plan Continue current treatment plan Justification for Cont. Inpt. Patient would decompensate in a less restrictive setting Request HC Surrog/Guard Advoc?: Yes Problem Qualifiers (1) Schizoaffective disorder: Qualified Codes: F25.0 - Schizoaffective disorder, bipolar type Javier Rose DO Mar 20, 2017 19:00
[2017-03-20] MEDS: ATORVASTATIN 20 MG TAB PO SCH ×2 (20:39)
[2017-03-21 06:02] VITALS: BP 126/74; PULSE 67; RESP 18; TEMP 98; O2SAT 98
[2017-03-21] MEDS: amLODIPine BESYLATE 5 MG TAB PO SCH ×4 (09:44→20:47)
[2017-03-21] MEDS: clonazePAM 1 MG TAB PO SCH ×4 (09:45→20:47)
[2017-03-21] MEDS: SODIUM CHLORIDE 1 GRAM TAB PO SCH ×4 (09:45→20:47)
[2017-03-21] MEDS: LISINOPRIL 5 MG TAB PO SCH ×2 (09:46)
[2017-03-21] MEDS: PROPRANOLOL HCL 10 MG TAB PO SCH ×6 (09:47→20:51)
[2017-03-21] MEDS: BENZTROPINE MESYLATE 1 MG TAB PO SCH ×4 (09:58→20:47)
[2017-03-21] MEDS: fluPHENAZine HCL ELIXIR 2.5 MG/5 ML UDC PO SCH ×4 (09:58→20:46)
--- NOTE | 2017-03-21 14:34 | HHI.PYPN ---
Subjective Remarks Patient was seen and case discussed with nursing. Patient is pleasant and cooperative with exam. Behaving well on the unit. Cognitive deficits are evident with the interview. Continues to ask for his father but nursing is not been able to reach him. Tolerating his medications well. Largely seclusive to self Objective Alert: Yes [place]: Person Mood: Calm Affect: Other (childlike) Memory Intact: Comment (not formally assessed) Hallucinations: Other (no hallucinations) Delusions: No Delusion Type: Other (no delusions) Suicidal: Ideation (no SI) Homicidal: Ideation (no HI) Insight/Judgment Poor Vitals/IOs Vital Signs Date Time Temp Pulse Resp B/P (MAP) Pulse Ox O2 Delivery O2 Flow Rate FiO2 03/21/17 06:02 98.0 67 18 126/74 (91) 98 Assessment & Plan Problem List: (1) Schizoaffective disorder ICD Codes: F25.9 - Schizoaffective disorder, unspecified Status: Acute (2) Intellectual disability ICD Codes: F79 - Unspecified intellectual disabilities Status: Chronic Assessment & Plan Continue current treatment plan Justification for Cont. Inpt. Patient will decompensate in a less restrictive setting Request HC Surrog/Guard Advoc?: Yes Problem Qualifiers (1) Schizoaffective disorder: Qualified Codes: F25.0 - Schizoaffective disorder, bipolar type Javier Rose DO Mar 21, 2017 14:34
[2017-03-21 18:00] VITALS: BP 107/81; PULSE 100; RESP 18; TEMP 98.1; O2SAT 99
[2017-03-21] MEDS: traZODone HCL 50 MG TAB PO PRN ×2 (20:47)
[2017-03-21] MEDS: ATORVASTATIN 20 MG TAB PO SCH ×2 (21:00)
[2017-03-22 05:51] VITALS: BP 140/86; PULSE 83; RESP 16; TEMP 97.8; O2SAT 97
[2017-03-22] MEDS: BENZTROPINE MESYLATE 1 MG TAB PO SCH ×4 (09:00→21:05)
[2017-03-22] MEDS: PROPRANOLOL HCL 10 MG TAB PO SCH ×6 (09:00→21:05)
[2017-03-22] MEDS: clonazePAM 1 MG TAB PO SCH ×4 (09:02→21:00)
[2017-03-22] MEDS: SODIUM CHLORIDE 1 GRAM TAB PO SCH ×4 (09:02→21:00)
[2017-03-22] MEDS: fluPHENAZine HCL ELIXIR 2.5 MG/5 ML UDC PO SCH ×4 (09:03→21:00)
[2017-03-22] MEDS: amLODIPine BESYLATE 5 MG TAB PO SCH ×4 (09:03→21:00)
[2017-03-22] MEDS: LISINOPRIL 5 MG TAB PO SCH ×2 (09:03)
[2017-03-22 15:52] VITALS: BP 118/74; PULSE 73; RESP 18; TEMP 98.4; O2SAT 95
--- NOTE | 2017-03-22 18:03 | HHI.PYPN ---
Subjective Remarks Patient seen in [place] with nurse Susan, chart review, patient compliant medication. If remains somewhat intrusive with poor boundaries, somewhat childlike in simple in his responses. Does wish to be discharged. Shows no insight into his disease. Review of Systems Except as stated in HPI: all other systems reviewed are Neg Objective Alert: Yes [place]: Person Mood: Calm Affect: Other (childlike) Memory Intact: Comment (not formally assessed) Hallucinations: Other (no hallucinations) Delusions: No Delusion Type: Other (no delusions) Suicidal: Ideation (no SI) Homicidal: Ideation (no HI) Insight/Judgment Very poor Vitals/IOs Vital Signs Date Time Temp Pulse Resp B/P (MAP) Pulse Ox O2 Delivery O2 Flow Rate FiO2 03/22/17 15:52 98.4 73 18 118/74 (89) 95 Assessment & Plan Problem List: (1) Schizoaffective disorder ICD Codes: F25.9 - Schizoaffective disorder, unspecified Status: Acute (2) Intellectual disability ICD Codes: F79 - Unspecified intellectual disabilities Status: Chronic Assessment & Plan Estimated LOS: days patient continues psychotic delusional quite childlike. Compliant medications. Justification for Cont. Inpt. At this time patient decompensate if placed in a lower level of care Discharge Planning To be determined Request HC Surrog/Guard Advoc?: Yes Problem Qualifiers (1) Schizoaffective disorder: Qualified Codes: F25.0 - Schizoaffective disorder, bipolar type Toro El MD Mar 22, 2017 18:03
[2017-03-22] MEDS: ATORVASTATIN 20 MG TAB PO SCH ×2 (21:00)
[2017-03-23 06:05] VITALS: BP 121/69; PULSE 63; RESP 16; TEMP 97.7; O2SAT 98
[2017-03-23] MEDS: amLODIPine BESYLATE 5 MG TAB PO SCH ×4 (08:52→21:00)
[2017-03-23] MEDS: SODIUM CHLORIDE 1 GRAM TAB PO SCH ×4 (08:52→21:00)
[2017-03-23] MEDS: BENZTROPINE MESYLATE 1 MG TAB PO SCH ×4 (08:52→21:00)
[2017-03-23] MEDS: clonazePAM 1 MG TAB PO SCH ×4 (08:52→21:00)
[2017-03-23] MEDS: LISINOPRIL 5 MG TAB PO SCH ×2 (08:52)
[2017-03-23] MEDS: PROPRANOLOL HCL 10 MG TAB PO SCH ×6 (08:53→21:00)
[2017-03-23] MEDS: fluPHENAZine HCL ELIXIR 2.5 MG/5 ML UDC PO SCH ×4 (09:00→21:00)
--- NOTE | 2017-03-23 10:38 | HHI.PYPN ---
Subjective Remarks Patient seen in [place] with counselor Justice, chart review, patient compliant medications. Continues superficial silly well denying voices at times appears to be responding to internal stimuli. Still wants to go home. For now continue treatment Review of Systems Except as stated in HPI: all other systems reviewed are Neg Objective Alert: Yes [place]: Person Mood: Calm Affect: Other (childlike) Memory Intact: Comment (not formally assessed) Hallucinations: Other (no hallucinations) Delusions: No Delusion Type: Other (no delusions) Suicidal: Ideation (no SI) Homicidal: Ideation (no HI) Insight/Judgment Poor Vitals/IOs Vital Signs Date Time Temp Pulse Resp B/P (MAP) Pulse Ox O2 Delivery O2 Flow Rate FiO2 03/23/17 06:05 97.7 63 16 121/69 (86) 98 Assessment & Plan Problem List: (1) Schizoaffective disorder ICD Codes: F25.9 - Schizoaffective disorder, unspecified Status: Acute (2) Intellectual disability ICD Codes: F79 - Unspecified intellectual disabilities Status: Chronic Assessment & Plan Estimated LOS: days patient remained psychotic somewhat delusional, also childlike in simple Justification for Cont. Inpt. At this time patient will decompensate if not placed in an appropriate level of care Discharge Planning To be determined Request HC Surrog/Guard Advoc?: Yes Problem Qualifiers (1) Schizoaffective disorder: Qualified Codes: F25.0 - Schizoaffective disorder, bipolar type Toro El MD Mar 23, 2017 10:38
[2017-03-23 18:28] VITALS: BP 115/77; PULSE 66; RESP 17; TEMP 97.2; O2SAT 99
[2017-03-23] MEDS: ATORVASTATIN 20 MG TAB PO SCH ×2 (21:00)
[2017-03-24 06:02] VITALS: BP 143/69; PULSE 58; RESP 16; TEMP 97.3; O2SAT 97
[2017-03-24] MEDS: BENZTROPINE MESYLATE 1 MG TAB PO SCH ×4 (09:22→21:24)
[2017-03-24] MEDS: SODIUM CHLORIDE 1 GRAM TAB PO SCH ×4 (09:22→21:24)
[2017-03-24] MEDS: LISINOPRIL 5 MG TAB PO SCH ×2 (09:22)
[2017-03-24] MEDS: fluPHENAZine HCL ELIXIR 2.5 MG/5 ML UDC PO SCH ×4 (09:22→21:24)
[2017-03-24] MEDS: clonazePAM 1 MG TAB PO SCH ×4 (09:22→21:24)
[2017-03-24] MEDS: amLODIPine BESYLATE 5 MG TAB PO SCH ×4 (09:23→21:24)
[2017-03-24] MEDS: PROPRANOLOL HCL 10 MG TAB PO SCH ×6 (09:24→21:00)
--- NOTE | 2017-03-24 14:26 | HHI.PYPN ---
Subjective Remarks Patient seen in his room with nurse Liz. Patient continues calm cooperative pleasant a somewhat childlike and intrusive. Continues to wish to be discharged. However we continue to [facility] Review of Systems Except as stated in HPI: all other systems reviewed are Neg Objective Alert: Yes [place]: Person Mood: Calm Affect: Other (childlike) Memory Intact: Comment (not formally assessed) Hallucinations: Other (no hallucinations) Delusions: No Delusion Type: Other (no delusions) Suicidal: Ideation (no SI) Homicidal: Ideation (no HI) Insight/Judgment Poor Vitals/IOs Vital Signs Date Time Temp Pulse Resp B/P (MAP) Pulse Ox O2 Delivery O2 Flow Rate FiO2 03/24/17 06:02 97.3 58 16 143/69 (93) 97 Assessment & Plan Problem List: (1) Schizoaffective disorder ICD Codes: F25.9 - Schizoaffective disorder, unspecified Status: Acute (2) Intellectual disability ICD Codes: F79 - Unspecified intellectual disabilities Status: Chronic Assessment & Plan Estimated LOS: days patient continues somewhat psychotic confused though no significant behavioral problems. Compliant medication. Justification for Cont. Inpt. At this time patient will decompensate if placed in a lower level of care Discharge Planning To be determined Request HC Surrog/Guard Advoc?: Yes Problem Qualifiers (1) Schizoaffective disorder: Qualified Codes: F25.0 - Schizoaffective disorder, bipolar type Toro El MD Mar 24, 2017 14:26
[2017-03-24 17:00] VITALS: BP 110/68; PULSE 72; RESP 18; TEMP 97.7; O2SAT 99
[2017-03-24] MEDS: ATORVASTATIN 20 MG TAB PO SCH ×2 (21:24)
[2017-03-25 05:38] VITALS: BP 126/82; PULSE 84; RESP 17; TEMP 97.2
[2017-03-25] MEDS: BENZTROPINE MESYLATE 1 MG TAB PO SCH ×4 (09:23→20:54)
[2017-03-25] MEDS: amLODIPine BESYLATE 5 MG TAB PO SCH ×4 (09:23→20:54)
[2017-03-25] MEDS: clonazePAM 1 MG TAB PO SCH ×4 (09:23→20:54)
[2017-03-25] MEDS: PROPRANOLOL HCL 10 MG TAB PO SCH ×6 (09:23→20:57)
[2017-03-25] MEDS: LISINOPRIL 5 MG TAB PO SCH ×2 (09:23)
[2017-03-25] MEDS: SODIUM CHLORIDE 1 GRAM TAB PO SCH ×4 (09:23→20:54)
[2017-03-25] MEDS: fluPHENAZine HCL ELIXIR 2.5 MG/5 ML UDC PO SCH ×4 (09:24→20:55)
[2017-03-25 12:28] VITALS: BP 104/63; PULSE 64
--- NOTE | 2017-03-25 15:20 | HHI.PYPN ---
Subjective Remarks Patient seen in [place] with nurse Taylor, patient continue psychotic paranoid superficial silly and somewhat childlike. Though no behavioral problems. Is compliant with his medication. We continue to await word from [facility] Review of Systems Except as stated in HPI: all other systems reviewed are Neg Mental Status Examination Appearance: Appropriate Consciousness: Alert Orientation: Person, Place Speech: Hesitant Language: Adequate (somewhat superficial and childlike) Fund of Knowledge: Poor Attention and Concentration: Other (poor) Memory: Impaired Mood: Other (euthymic somewhat restricted) Affect: Other (decreased range of motion intensity) Thought Process & Associations: Linear Thought Content: Bizarre thinking (mildly) Hallucination Type: None (denies) Delusion Type: Paranoid (mildly) Suicidal Ideation: No Suicidal Plan: No Suicidal Intention: No Homicidal Ideation: No Homicidal Plan: No Homicidal Intention: No Insight: Poor Judgment: Poor Results Vitals/IOs Vital Signs Date Time Temp Pulse Resp B/P (MAP) Pulse Ox O2 Delivery O2 Flow Rate FiO2 03/25/17 12:28 64 104/63 (77) 03/25/17 05:38 97.2 17 03/24/17 17:00 99 Assessment & Plan Problem List: (1) Schizoaffective disorder ICD Codes: F25.9 - Schizoaffective disorder, unspecified Status: Acute (2) Intellectual disability ICD Codes: F79 - Unspecified intellectual disabilities Status: Chronic Assessment & Plan Estimated LOS: days patient remained psychotic somewhat paranoid vigilant childlike superficial. Compliant medication. Justification for Cont. Inpt. At this time patient decompensated placed in a lower level of care Discharge Planning Continue to await word from [facility] Hospital placement Request HC Surrog/Guard Advoc?: Yes Problem Qualifiers (1) Schizoaffective disorder: Qualified Codes: F25.0 - Schizoaffective disorder, bipolar type Toro El MD Mar 25, 2017 15:20
--- NOTE | 2017-03-25 15:20 | HHI.PYPN ---
Subjective Remarks Patient seen in [place] with nurse Taylor, patient continue psychotic paranoid superficial silly and somewhat childlike. Though no behavioral problems. Is compliant with his medication. We continue to await word from [facility] Review of Systems Except as stated in HPI: all other systems reviewed are Neg Mental Status Examination Appearance: Appropriate Consciousness: Alert Orientation: Person, Place Speech: Hesitant Language: Adequate (somewhat superficial and childlike) Fund of Knowledge: Poor Attention and Concentration: Other (poor) Memory: Impaired Mood: Other (euthymic somewhat restricted) Affect: Other (decreased range of motion intensity) Thought Process & Associations: Linear Thought Content: Bizarre thinking (mildly) Hallucination Type: None (denies) Delusion Type: Paranoid (mildly) Suicidal Ideation: No Suicidal Plan: No Suicidal Intention: No Homicidal Ideation: No Homicidal Plan: No Homicidal Intention: No Insight: Poor Judgment: Poor Results Vitals/IOs Vital Signs Date Time Temp Pulse Resp B/P (MAP) Pulse Ox O2 Delivery O2 Flow Rate FiO2 03/25/17 12:28 64 104/63 (77) 03/25/17 05:38 97.2 17 03/24/17 17:00 99 Assessment & Plan Problem List: (1) Schizoaffective disorder ICD Codes: F25.9 - Schizoaffective disorder, unspecified Status: Acute (2) Intellectual disability ICD Codes: F79 - Unspecified intellectual disabilities Status: Chronic Assessment & Plan Estimated LOS: days patient remained psychotic somewhat paranoid vigilant childlike superficial. Compliant medication. Justification for Cont. Inpt. At this time patient decompensated placed in a lower level of care Discharge Planning Continue to await word from [facility] Hospital placement Request HC Surrog/Guard Advoc?: Yes Problem Qualifiers (1) Schizoaffective disorder: Qualified Codes: F25.0 - Schizoaffective disorder, bipolar type Toro El MD Mar 25, 2017 15:20
--- NOTE | 2017-03-25 15:20 | HHI.PYPN ---
Subjective Remarks Patient seen in [place] with nurse Taylor, patient continue psychotic paranoid superficial silly and somewhat childlike. Though no behavioral problems. Is compliant with his medication. We continue to await word from [facility] Review of Systems Except as stated in HPI: all other systems reviewed are Neg Mental Status Examination Appearance: Appropriate Consciousness: Alert Orientation: Person, Place Speech: Hesitant Language: Adequate (somewhat superficial and childlike) Fund of Knowledge: Poor Attention and Concentration: Other (poor) Memory: Impaired Mood: Other (euthymic somewhat restricted) Affect: Other (decreased range of motion intensity) Thought Process & Associations: Linear Thought Content: Bizarre thinking (mildly) Hallucination Type: None (denies) Delusion Type: Paranoid (mildly) Suicidal Ideation: No Suicidal Plan: No Suicidal Intention: No Homicidal Ideation: No Homicidal Plan: No Homicidal Intention: No Insight: Poor Judgment: Poor Results Vitals/IOs Vital Signs Date Time Temp Pulse Resp B/P (MAP) Pulse Ox O2 Delivery O2 Flow Rate FiO2 03/25/17 12:28 64 104/63 (77) 03/25/17 05:38 97.2 17 03/24/17 17:00 99 Assessment & Plan Problem List: (1) Schizoaffective disorder ICD Codes: F25.9 - Schizoaffective disorder, unspecified Status: Acute (2) Intellectual disability ICD Codes: F79 - Unspecified intellectual disabilities Status: Chronic Assessment & Plan Estimated LOS: days patient remained psychotic somewhat paranoid vigilant childlike superficial. Compliant medication. Justification for Cont. Inpt. At this time patient decompensated placed in a lower level of care Discharge Planning Continue to await word from [facility] Hospital placement Request HC Surrog/Guard Advoc?: Yes Problem Qualifiers (1) Schizoaffective disorder: Qualified Codes: F25.0 - Schizoaffective disorder, bipolar type Toro El MD Mar 25, 2017 15:20
[2017-03-25] MEDS: ATORVASTATIN 20 MG TAB PO SCH ×2 (20:54)
[2017-03-26 05:44] VITALS: BP 129/61; PULSE 65; RESP 18; TEMP 97.5; O2SAT 97
[2017-03-26] MEDS: LISINOPRIL 5 MG TAB PO SCH ×2 (08:28)
[2017-03-26] MEDS: SODIUM CHLORIDE 1 GRAM TAB PO SCH ×4 (08:28→20:24)
[2017-03-26] MEDS: amLODIPine BESYLATE 5 MG TAB PO SCH ×4 (08:28→20:23)
[2017-03-26] MEDS: clonazePAM 1 MG TAB PO SCH ×4 (08:28→20:24)
[2017-03-26] MEDS: BENZTROPINE MESYLATE 1 MG TAB PO SCH ×4 (08:29→20:23)
[2017-03-26] MEDS: fluPHENAZine HCL ELIXIR 2.5 MG/5 ML UDC PO SCH ×4 (08:29→20:23)
[2017-03-26] MEDS: PROPRANOLOL HCL 10 MG TAB PO SCH ×6 (08:29→20:23)
[2017-03-26 12:57] VITALS: BP 113/70; PULSE 67; TEMP 98.1; O2SAT 96
--- NOTE | 2017-03-26 16:05 | HHI.PYPN ---
Subjective Remarks Patient seen on unit with the floor staff, patient calm cooperative and pleasant continues childlike and somewhat simple in his responses. The no behavioral issues Chief Complaint: patient showing increasingly aggressive psychotic behavior in a residential Review of Systems Except as stated in HPI: all other systems reviewed are Neg Mental Status Examination Appearance: Appropriate Consciousness: Alert Orientation: Person, Place Speech: Hesitant Language: Adequate (somewhat superficial and childlike) Fund of Knowledge: Poor Attention and Concentration: Other (poor) Memory: Impaired Mood: Other (euthymic somewhat restricted) Affect: Other (decreased range of motion intensity) Thought Process & Associations: Linear Thought Content: Bizarre thinking (mildly) Hallucination Type: None (denies) Delusion Type: Paranoid (mildly) Suicidal Ideation: No Suicidal Plan: No Suicidal Intention: No Homicidal Ideation: No Homicidal Plan: No Homicidal Intention: No Insight: Poor Judgment: Poor Results Vitals/IOs Vital Signs Date Time Temp Pulse Resp B/P (MAP) Pulse Ox O2 Delivery O2 Flow Rate FiO2 03/26/17 12:57 98.1 67 113/70 (84) 96 03/26/17 05:44 18 Assessment & Plan Problem List: (1) Schizoaffective disorder ICD Codes: F25.9 - Schizoaffective disorder, unspecified Status: Acute (2) Intellectual disability ICD Codes: F79 - Unspecified intellectual disabilities Status: Chronic Assessment & Plan Estimated LOS: days patient remained psychotic and delusional also childlike and simple. Compliant medications. Justification for Cont. Inpt. At this time patient will decompensate placed on the lower level of care Discharge Planning Awaiting state referral placement date Request HC Surrog/Guard Advoc?: Yes Problem Qualifiers (1) Schizoaffective disorder: Qualified Codes: F25.0 - Schizoaffective disorder, bipolar type Toro El MD Mar 26, 2017 16:05
[2017-03-26 17:07] VITALS: BP 114/72; PULSE 84; RESP 17; TEMP 97.3; O2SAT 96
[2017-03-26] MEDS: diphenhydrAMINE HCL 50 MG CAP PO PRN ×2 (20:23)
[2017-03-26] MEDS: traZODone HCL 50 MG TAB PO PRN ×2 (20:23)
[2017-03-26] MEDS: ATORVASTATIN 20 MG TAB PO SCH ×2 (21:00)
[2017-03-27 05:45] VITALS: BP 131/60; PULSE 50; RESP 16; TEMP 97.7; O2SAT 97
[2017-03-27] MEDS: LISINOPRIL 5 MG TAB PO SCH ×2 (07:59)
[2017-03-27] MEDS: fluPHENAZine HCL ELIXIR 2.5 MG/5 ML UDC PO SCH ×4 (07:59→20:45)
[2017-03-27] MEDS: clonazePAM 1 MG TAB PO SCH ×4 (08:00→20:45)
[2017-03-27] MEDS: SODIUM CHLORIDE 1 GRAM TAB PO SCH ×4 (08:00→20:45)
[2017-03-27] MEDS: amLODIPine BESYLATE 5 MG TAB PO SCH ×4 (08:00→20:44)
[2017-03-27] MEDS: BENZTROPINE MESYLATE 1 MG TAB PO SCH ×4 (08:00→20:45)
[2017-03-27] MEDS: PROPRANOLOL HCL 10 MG TAB PO SCH ×6 (09:00→20:46)
--- NOTE | 2017-03-27 13:01 | HHI.PYPN ---
Subjective Remarks Pt seen and discussed with staff. No aggression or agitation.He has been cooperative with care and compliant with medications. No SI/HI. He has gone off unit for groups and therapeutic activities today. Chief Complaint: patient admitted due to increasingly aggressive psychotic behavior Mental Status Examination Appearance: Appropriate Consciousness: Alert Orientation: Person, Place Speech: Hesitant Language: Adequate (somewhat superficial and childlike) Fund of Knowledge: Poor Attention and Concentration: Other (poor) Memory: Impaired Mood: Other (euthymic somewhat restricted) Affect: Other (decreased range of motion intensity) Thought Process & Associations: Linear Thought Content: Bizarre thinking (mildly) Hallucination Type: None (denies) Delusion Type: Paranoid (mildly) Suicidal Ideation: No Suicidal Plan: No Suicidal Intention: No Homicidal Ideation: No Homicidal Plan: No Homicidal Intention: No Insight: Poor Judgment: Poor Results Vitals/IOs Vital Signs Date Time Temp Pulse Resp B/P (MAP) Pulse Ox O2 Delivery O2 Flow Rate FiO2 03/27/17 05:45 97.7 50 16 131/60 (83) 97 Assessment & Plan Problem List: (1) Schizoaffective disorder ICD Codes: F25.9 - Schizoaffective disorder, unspecified Status: Acute (2) Intellectual disability ICD Codes: F79 - Unspecified intellectual disabilities Status: Chronic Assessment & Plan Continue current tx plan. Estimated LOS: days Justification for Cont. Inpt. risk of decompensation Request HC Surrog/Guard Advoc?: Yes Problem Qualifiers (1) Schizoaffective disorder: Qualified Codes: F25.0 - Schizoaffective disorder, bipolar type Shantal Dowell MD Mar 27, 2017 13:01
[2017-03-27 17:50] VITALS: BP 99/66; PULSE 67; RESP 17; TEMP 98.5; O2SAT 98
[2017-03-27] MEDS: ATORVASTATIN 20 MG TAB PO SCH ×2 (20:45)
[2017-03-28 06:00] VITALS: BP 111/70; PULSE 55; RESP 17; TEMP 98.5; O2SAT 97
[2017-03-28] MEDS: clonazePAM 1 MG TAB PO SCH ×4 (08:26→20:14)
[2017-03-28] MEDS: fluPHENAZine HCL ELIXIR 2.5 MG/5 ML UDC PO SCH ×4 (08:26→20:15)
[2017-03-28] MEDS: PROPRANOLOL HCL 10 MG TAB PO SCH ×6 (08:26→20:14)
[2017-03-28] MEDS: SODIUM CHLORIDE 1 GRAM TAB PO SCH ×4 (08:26→20:15)
[2017-03-28] MEDS: amLODIPine BESYLATE 5 MG TAB PO SCH ×4 (08:27→20:15)
[2017-03-28] MEDS: BENZTROPINE MESYLATE 1 MG TAB PO SCH ×4 (08:27→20:14)
[2017-03-28] MEDS: LISINOPRIL 5 MG TAB PO SCH ×2 (08:27)
[2017-03-28 12:53] VITALS: BP 121/72; PULSE 83
--- NOTE | 2017-03-28 13:14 | HHI.PYPN ---
Subjective Remarks Pt seen and discussed with staff. He remains intrusive at times but has not had any behavioral problems. He asked RN "does my father know about the broken windows?'. Pt is compliant with medications and denies side effects. Chief Complaint: patient admitted due to increasingly aggressive psychotic behavior Mental Status Examination Appearance: Appropriate Consciousness: Alert Orientation: Person, Place Speech: Hesitant Language: Adequate (somewhat superficial and childlike) Fund of Knowledge: Poor Attention and Concentration: Other (poor) Memory: Impaired Mood: Other (euthymic somewhat restricted) Affect: Other (decreased range of motion intensity) Thought Process & Associations: Linear Thought Content: Bizarre thinking (mildly) Hallucination Type: None (denies) Delusion Type: Paranoid (mildly) Suicidal Ideation: No Suicidal Plan: No Suicidal Intention: No Homicidal Ideation: No Homicidal Plan: No Homicidal Intention: No Insight: Poor Judgment: Poor Results Vitals/IOs Vital Signs Date Time Temp Pulse Resp B/P (MAP) Pulse Ox O2 Delivery O2 Flow Rate FiO2 03/28/17 12:53 83 121/72 (88) 03/28/17 06:00 98.5 17 97 Assessment & Plan Problem List: (1) Schizoaffective disorder ICD Codes: F25.9 - Schizoaffective disorder, unspecified Status: Acute (2) Intellectual disability ICD Codes: F79 - Unspecified intellectual disabilities Status: Chronic Assessment & Plan Continue current tx plan. Estimated LOS: days Justification for Cont. Inpt. risk of decompensation Request HC Surrog/Guard Advoc?: Yes Problem Qualifiers (1) Schizoaffective disorder: Qualified Codes: F25.0 - Schizoaffective disorder, bipolar type Shantal Dowell MD Mar 28, 2017 13:14
[2017-03-28 16:48] VITALS: BP 123/85; PULSE 69; RESP 17; TEMP 98.4; O2SAT 99
[2017-03-28] MEDS: ATORVASTATIN 20 MG TAB PO SCH ×2 (20:14)
[2017-03-29 05:56] VITALS: BP 119/78; PULSE 64; RESP 16; TEMP 97.9; O2SAT 96
[2017-03-29] MEDS: LISINOPRIL 5 MG TAB PO SCH ×2 (08:33)
[2017-03-29] MEDS: clonazePAM 1 MG TAB PO SCH ×4 (08:34→20:38)
[2017-03-29] MEDS: BENZTROPINE MESYLATE 1 MG TAB PO SCH ×4 (08:34→20:38)
[2017-03-29] MEDS: amLODIPine BESYLATE 5 MG TAB PO SCH ×4 (08:34→20:38)
[2017-03-29] MEDS: SODIUM CHLORIDE 1 GRAM TAB PO SCH ×4 (08:34→20:38)
[2017-03-29] MEDS: PROPRANOLOL HCL 10 MG TAB PO SCH ×6 (08:34→20:38)
[2017-03-29] MEDS: fluPHENAZine HCL ELIXIR 2.5 MG/5 ML UDC PO SCH ×4 (08:57→20:38)
--- NOTE | 2017-03-29 15:18 | HHI.PYPN ---
Subjective Remarks Patient seen in his room with nurse Susan, and medical studentdu. Chart review, patient compliant medication. Patient continues calm somewhat childlike superficial and silly though he denies voices at this time. For now continue treatment Chief Complaint: patient admitted due to increasingly aggressive psychotic behavior Review of Systems Except as stated in HPI: all other systems reviewed are Neg Mental Status Examination Appearance: Appropriate Consciousness: Alert Orientation: Person, Place Speech: Hesitant Language: Adequate (somewhat superficial and childlike) Fund of Knowledge: Poor Attention and Concentration: Other (poor) Memory: Impaired Mood: Other (euthymic somewhat restricted) Affect: Other (decreased range of motion intensity) Thought Process & Associations: Linear Thought Content: Bizarre thinking (mildly) Hallucination Type: None (denies) Delusion Type: Paranoid (mildly) Suicidal Ideation: No Suicidal Plan: No Suicidal Intention: No Homicidal Ideation: No Homicidal Plan: No Homicidal Intention: No Insight: Poor Judgment: Poor Results Vitals/IOs Vital Signs Date Time Temp Pulse Resp B/P (MAP) Pulse Ox O2 Delivery O2 Flow Rate FiO2 03/29/17 05:56 97.9 64 16 119/78 (92) 96 Assessment & Plan Problem List: (1) Schizoaffective disorder ICD Codes: F25.9 - Schizoaffective disorder, unspecified Status: Acute (2) Intellectual disability ICD Codes: F79 - Unspecified intellectual disabilities Status: Chronic Assessment & Plan Estimated LOS: days patient continues psychotic somewhat paranoid vigilant childlike and silly. Still no word from the state hospital placement. Justification for Cont. Inpt. At this time patient will decompensate if placed in a lower level of care Discharge Planning Waiting state referral placement Request HC Surrog/Guard Advoc?: Yes Problem Qualifiers (1) Schizoaffective disorder: Qualified Codes: F25.0 - Schizoaffective disorder, bipolar type Toro El MD Mar 29, 2017 15:18
[2017-03-29 15:35] VITALS: BP 112/83; PULSE 74; RESP 18; TEMP 98; O2SAT 98
[2017-03-29] MEDS: ATORVASTATIN 20 MG TAB PO SCH ×2 (20:38)
[2017-03-30 05:57] VITALS: BP 125/90; PULSE 73; RESP 16; TEMP 97.6; O2SAT 96
[2017-03-30] MEDS: PROPRANOLOL HCL 10 MG TAB PO SCH ×6 (09:00→20:58)
[2017-03-30] MEDS: LISINOPRIL 5 MG TAB PO SCH ×2 (09:05)
[2017-03-30] MEDS: amLODIPine BESYLATE 5 MG TAB PO SCH ×4 (09:06→20:58)
[2017-03-30] MEDS: BENZTROPINE MESYLATE 1 MG TAB PO SCH ×4 (09:06→20:58)
[2017-03-30] MEDS: clonazePAM 1 MG TAB PO SCH ×4 (09:06→20:58)
[2017-03-30] MEDS: fluPHENAZine HCL ELIXIR 2.5 MG/5 ML UDC PO SCH ×4 (09:07→20:58)
[2017-03-30] MEDS: SODIUM CHLORIDE 1 GRAM TAB PO SCH ×4 (09:14→20:58)
--- NOTE | 2017-03-30 13:11 | HHI.PYPN ---
Subjective Remarks Patient seen in his room with nurse Susan and medical student du. He is alert calm cooperative is somewhat childlike confucianist. He denies suicidality voices or visions. He is no behavioral problem. We continue to await word from [facility] hospital Chief Complaint: patient admitted due to increasingly aggressive psychotic behavior Review of Systems Except as stated in HPI: all other systems reviewed are Neg Mental Status Examination Appearance: Appropriate Consciousness: Alert Orientation: Person, Place Speech: Hesitant Language: Adequate (somewhat superficial and childlike) Fund of Knowledge: Poor Attention and Concentration: Other (poor) Memory: Impaired Mood: Other (euthymic somewhat restricted) Affect: Other (decreased range of motion intensity) Thought Process & Associations: Linear Thought Content: Bizarre thinking (mildly) Hallucination Type: None (denies) Delusion Type: Paranoid (mildly) Suicidal Ideation: No Suicidal Plan: No Suicidal Intention: No Homicidal Ideation: No Homicidal Plan: No Homicidal Intention: No Insight: Poor Judgment: Poor Results Vitals/IOs Vital Signs Date Time Temp Pulse Resp B/P (MAP) Pulse Ox O2 Delivery O2 Flow Rate FiO2 03/30/17 05:57 97.6 73 16 125/90 (102) 96 Assessment & Plan Problem List: (1) Schizoaffective disorder ICD Codes: F25.9 - Schizoaffective disorder, unspecified Status: Acute (2) Intellectual disability ICD Codes: F79 - Unspecified intellectual disabilities Status: Chronic Assessment & Plan Estimated LOS: days patient continues psychotic somewhat delusional though no behavioral problems. Continue to await word from [facility] placement Justification for Cont. Inpt. At this time patient will decompensate if placed in a lower level of care Discharge Planning Await state placement date Request HC Surrog/Guard Advoc?: Yes Problem Qualifiers (1) Schizoaffective disorder: Qualified Codes: F25.0 - Schizoaffective disorder, bipolar type Toro El MD Mar 30, 2017 13:11
--- NOTE | 2017-03-30 13:11 | HHI.PYPN ---
Subjective Remarks Patient seen in his room with nurse Susan and medical student du. He is alert calm cooperative is somewhat childlike anglican. He denies suicidality voices or visions. He is no behavioral problem. We continue to await word from [facility] Chief Complaint: patient admitted due to increasingly aggressive psychotic behavior Review of Systems Except as stated in HPI: all other systems reviewed are Neg Mental Status Examination Appearance: Appropriate Consciousness: Alert Orientation: Person, Place Speech: Hesitant Language: Adequate (somewhat superficial and childlike) Fund of Knowledge: Poor Attention and Concentration: Other (poor) Memory: Impaired Mood: Other (euthymic somewhat restricted) Affect: Other (decreased range of motion intensity) Thought Process & Associations: Linear Thought Content: Bizarre thinking (mildly) Hallucination Type: None (denies) Delusion Type: Paranoid (mildly) Suicidal Ideation: No Suicidal Plan: No Suicidal Intention: No Homicidal Ideation: No Homicidal Plan: No Homicidal Intention: No Insight: Poor Judgment: Poor Results Vitals/IOs Vital Signs Date Time Temp Pulse Resp B/P (MAP) Pulse Ox O2 Delivery O2 Flow Rate FiO2 03/30/17 05:57 97.6 73 16 125/90 (102) 96 Assessment & Plan Problem List: (1) Schizoaffective disorder ICD Codes: F25.9 - Schizoaffective disorder, unspecified Status: Acute (2) Intellectual disability ICD Codes: F79 - Unspecified intellectual disabilities Status: Chronic Assessment & Plan Estimated LOS: days patient continues psychotic somewhat delusional though no behavioral problems. Continue to await word from [facility] placement Justification for Cont. Inpt. At this time patient will decompensate if placed in a lower level of care Discharge Planning Await state placement date Request HC Surrog/Guard Advoc?: Yes Problem Qualifiers (1) Schizoaffective disorder: Qualified Codes: F25.0 - Schizoaffective disorder, bipolar type Toro El MD Mar 30, 2017 13:11
--- NOTE | 2017-03-30 13:11 | HHI.PYPN ---
Subjective Remarks Patient seen in his room with nurse Susan and medical student du. He is alert calm cooperative is somewhat childlike yazidism. He denies suicidality voices or visions. He is no behavioral problem. [facility] Chief Complaint: patient admitted due to increasingly aggressive psychotic behavior Review of Systems Except as stated in HPI: all other systems reviewed are Neg Mental Status Examination Appearance: Appropriate Consciousness: Alert Orientation: Person, Place Speech: Hesitant Language: Adequate (somewhat superficial and childlike) Fund of Knowledge: Poor Attention and Concentration: Other (poor) Memory: Impaired Mood: Other (euthymic somewhat restricted) Affect: Other (decreased range of motion intensity) Thought Process & Associations: Linear Thought Content: Bizarre thinking (mildly) Hallucination Type: None (denies) Delusion Type: Paranoid (mildly) Suicidal Ideation: No Suicidal Plan: No Suicidal Intention: No Homicidal Ideation: No Homicidal Plan: No Homicidal Intention: No Insight: Poor Judgment: Poor Results Vitals/IOs Vital Signs Date Time Temp Pulse Resp B/P (MAP) Pulse Ox O2 Delivery O2 Flow Rate FiO2 03/30/17 05:57 97.6 73 16 125/90 (102) 96 Assessment & Plan Problem List: (1) Schizoaffective disorder ICD Codes: F25.9 - Schizoaffective disorder, unspecified Status: Acute (2) Intellectual disability ICD Codes: F79 - Unspecified intellectual disabilities Status: Chronic Assessment & Plan Estimated LOS: days patient continues psychotic somewhat delusional though no behavioral problems. Continue to await word from [facility] placement Justification for Cont. Inpt. At this time patient will decompensate if placed in a lower level of care Discharge Planning Await state placement date Request HC Surrog/Guard Advoc?: Yes Problem Qualifiers (1) Schizoaffective disorder: Qualified Codes: F25.0 - Schizoaffective disorder, bipolar type Toro El MD Mar 30, 2017 13:11
[2017-03-30 15:40] VITALS: BP 106/77; PULSE 69; RESP 18; TEMP 97.6; O2SAT 98
[2017-03-30] MEDS: ATORVASTATIN 20 MG TAB PO SCH ×2 (20:58)
[2017-03-31 05:57] VITALS: BP 107/75; PULSE 62; RESP 16; TEMP 97.5; O2SAT 97
[2017-03-31] MEDS: SODIUM CHLORIDE 1 GRAM TAB PO SCH ×4 (09:00→20:30)
[2017-03-31] MEDS: clonazePAM 1 MG TAB PO SCH ×4 (09:00→20:29)
[2017-03-31] MEDS: LISINOPRIL 5 MG TAB PO SCH ×2 (09:01)
[2017-03-31] MEDS: BENZTROPINE MESYLATE 1 MG TAB PO SCH ×4 (09:01→20:29)
[2017-03-31] MEDS: fluPHENAZine HCL ELIXIR 2.5 MG/5 ML UDC PO SCH ×4 (09:01→20:29)
[2017-03-31] MEDS: amLODIPine BESYLATE 5 MG TAB PO SCH ×4 (09:01→20:29)
[2017-03-31] MEDS: PROPRANOLOL HCL 10 MG TAB PO SCH ×6 (09:08→20:29)
--- NOTE | 2017-03-31 15:27 | HHI.PYPN ---
Subjective Remarks Patient seen in his room with nurse Liz, patient laying quietly on his bed is calm cooperative and pleasant with me remain child is silly and somewhat disorganized. Compliant meds Chief Complaint: patient admitted due to increasingly aggressive psychotic behavior Review of Systems Except as stated in HPI: all other systems reviewed are Neg Mental Status Examination Appearance: Appropriate Consciousness: Alert Orientation: Person, Place Speech: Hesitant Language: Adequate (somewhat superficial and childlike) Fund of Knowledge: Poor Attention and Concentration: Other (poor) Memory: Impaired Mood: Other (euthymic somewhat restricted) Affect: Other (decreased range of motion intensity) Thought Process & Associations: Linear Thought Content: Bizarre thinking (mildly) Hallucination Type: None (denies) Delusion Type: Paranoid (mildly) Suicidal Ideation: No Suicidal Plan: No Suicidal Intention: No Homicidal Ideation: No Homicidal Plan: No Homicidal Intention: No Insight: Poor Judgment: Poor Results Vitals/IOs Vital Signs Date Time Temp Pulse Resp B/P (MAP) Pulse Ox O2 Delivery O2 Flow Rate FiO2 03/31/17 05:57 97.5 62 16 107/75 (86) 97 Assessment & Plan Problem List: (1) Schizoaffective disorder ICD Codes: F25.9 - Schizoaffective disorder, unspecified Status: Acute (2) Intellectual disability ICD Codes: F79 - Unspecified intellectual disabilities Status: Chronic Assessment & Plan Estimated LOS: days patient continue psychotic somewhat delusional though no behavior problems, compliant medications. Justification for Cont. Inpt. At this time patient will decompensate the placed in a lower level of care Discharge Planning Patient then stayed waitlist Request HC Surrog/Guard Advoc?: Yes Problem Qualifiers (1) Schizoaffective disorder: Qualified Codes: F25.0 - Schizoaffective disorder, bipolar type Toro El MD Mar 31, 2017 15:27
[2017-03-31 16:00] VITALS: BP 109/74; PULSE 76; RESP 18; O2SAT 97
[2017-03-31] MEDS: ATORVASTATIN 20 MG TAB PO SCH ×2 (20:29)
[2017-04-01 06:07] VITALS: BP 125/82; PULSE 72; RESP 18; TEMP 97.5; O2SAT 97
[2017-04-01] MEDS: BENZTROPINE MESYLATE 1 MG TAB PO SCH ×4 (09:19→20:25)
[2017-04-01] MEDS: clonazePAM 1 MG TAB PO SCH ×4 (09:19→20:25)
[2017-04-01] MEDS: SODIUM CHLORIDE 1 GRAM TAB PO SCH ×4 (09:19→20:25)
[2017-04-01] MEDS: fluPHENAZine HCL ELIXIR 2.5 MG/5 ML UDC PO SCH ×4 (09:20→20:24)
[2017-04-01] MEDS: LISINOPRIL 5 MG TAB PO SCH ×2 (09:20)
[2017-04-01] MEDS: amLODIPine BESYLATE 5 MG TAB PO SCH ×4 (09:20→20:25)
[2017-04-01] MEDS: PROPRANOLOL HCL 10 MG TAB PO SCH ×6 (09:21→20:25)
--- NOTE | 2017-04-01 16:00 | HHI.PYPN ---
Subjective Remarks Patient seen in [place] with nurse Beronica and medical student du, chart reviewed patient compliant medication. Patient continues to deny voices that times appears to be responding to internal stimuli. He is calm pleasant superficial and somewhat childlike. Continue to await word from [facility] hospital Chief Complaint: patient admitted due to increasingly aggressive psychotic behavior Review of Systems Except as stated in HPI: all other systems reviewed are Neg Mental Status Examination Appearance: Appropriate Consciousness: Alert Orientation: Person, Place Speech: Hesitant Language: Adequate (somewhat superficial and childlike) Fund of Knowledge: Poor Attention and Concentration: Other (poor) Memory: Impaired Mood: Other (euthymic somewhat restricted) Affect: Other (decreased range of motion intensity) Thought Process & Associations: Linear Thought Content: Bizarre thinking (mildly) Hallucination Type: None (denies) Delusion Type: Paranoid (mildly) Suicidal Ideation: No Suicidal Plan: No Suicidal Intention: No Homicidal Ideation: No Homicidal Plan: No Homicidal Intention: No Insight: Poor Judgment: Poor Results Vitals/IOs Vital Signs Date Time Temp Pulse Resp B/P (MAP) Pulse Ox O2 Delivery O2 Flow Rate FiO2 04/01/17 06:07 97.5 72 18 125/82 (96) 97 Assessment & Plan Problem List: (1) Schizoaffective disorder ICD Codes: F25.9 - Schizoaffective disorder, unspecified Status: Acute (2) Intellectual disability ICD Codes: F79 - Unspecified intellectual disabilities Status: Chronic Assessment & Plan Estimated LOS: days patient continues vigilant somewhat psychotic superficial and silly. Continue to await word from [facility] hospital Justification for Cont. Inpt. This time patient will decompensate of placed in a lower level of care Discharge Planning Await word from [facility] hospital Request HC Surrog/Guard Advoc?: Yes Problem Qualifiers (1) Schizoaffective disorder: Qualified Codes: F25.0 - Schizoaffective disorder, bipolar type Toro El MD Apr 01, 2017 16:00
--- NOTE | 2017-04-01 16:00 | HHI.PYPN ---
Subjective Remarks Patient seen in [place] with nurse Beronica and medical student du, chart reviewed patient compliant medication. Patient continues to deny voices that times appears to be responding to internal stimuli. He is calm pleasant superficial and somewhat childlike. Continue to await word from [facility] Chief Complaint: patient admitted due to increasingly aggressive psychotic behavior Review of Systems Except as stated in HPI: all other systems reviewed are Neg Mental Status Examination Appearance: Appropriate Consciousness: Alert Orientation: Person, Place Speech: Hesitant Language: Adequate (somewhat superficial and childlike) Fund of Knowledge: Poor Attention and Concentration: Other (poor) Memory: Impaired Mood: Other (euthymic somewhat restricted) Affect: Other (decreased range of motion intensity) Thought Process & Associations: Linear Thought Content: Bizarre thinking (mildly) Hallucination Type: None (denies) Delusion Type: Paranoid (mildly) Suicidal Ideation: No Suicidal Plan: No Suicidal Intention: No Homicidal Ideation: No Homicidal Plan: No Homicidal Intention: No Insight: Poor Judgment: Poor Results Vitals/IOs Vital Signs Date Time Temp Pulse Resp B/P (MAP) Pulse Ox O2 Delivery O2 Flow Rate FiO2 04/01/17 06:07 97.5 72 18 125/82 (96) 97 Assessment & Plan Problem List: (1) Schizoaffective disorder ICD Codes: F25.9 - Schizoaffective disorder, unspecified Status: Acute (2) Intellectual disability ICD Codes: F79 - Unspecified intellectual disabilities Status: Chronic Assessment & Plan Estimated LOS: days patient continues vigilant somewhat psychotic superficial and silly. Continue to await word from [facility] Justification for Cont. Inpt. This time patient will decompensate of placed in a lower level of care Discharge Planning Await word from [facility] Request HC Surrog/Guard Advoc?: Yes Problem Qualifiers (1) Schizoaffective disorder: Qualified Codes: F25.0 - Schizoaffective disorder, bipolar type Toro El MD Apr 01, 2017 16:00
--- NOTE | 2017-04-01 16:00 | HHI.PYPN ---
Subjective Remarks Patient seen in [place] with nurse Beronica and medical student du, chart reviewed patient compliant medication. Patient continues to deny voices that times appears to be responding to internal stimuli. He is calm pleasant superficial and somewhat childlike. Continue to await word from [facility] hospital Chief Complaint: patient admitted due to increasingly aggressive psychotic behavior Review of Systems Except as stated in HPI: all other systems reviewed are Neg Mental Status Examination Appearance: Appropriate Consciousness: Alert Orientation: Person, Place Speech: Hesitant Language: Adequate (somewhat superficial and childlike) Fund of Knowledge: Poor Attention and Concentration: Other (poor) Memory: Impaired Mood: Other (euthymic somewhat restricted) Affect: Other (decreased range of motion intensity) Thought Process & Associations: Linear Thought Content: Bizarre thinking (mildly) Hallucination Type: None (denies) Delusion Type: Paranoid (mildly) Suicidal Ideation: No Suicidal Plan: No Suicidal Intention: No Homicidal Ideation: No Homicidal Plan: No Homicidal Intention: No Insight: Poor Judgment: Poor Results Vitals/IOs Vital Signs Date Time Temp Pulse Resp B/P (MAP) Pulse Ox O2 Delivery O2 Flow Rate FiO2 04/01/17 06:07 97.5 72 18 125/82 (96) 97 Assessment & Plan Problem List: (1) Schizoaffective disorder ICD Codes: F25.9 - Schizoaffective disorder, unspecified Status: Acute (2) Intellectual disability ICD Codes: F79 - Unspecified intellectual disabilities Status: Chronic Assessment & Plan Estimated LOS: days patient continues vigilant somewhat psychotic superficial and silly. Continue to await word from [facility] hospital Justification for Cont. Inpt. This time patient will decompensate of placed in a lower level of care Discharge Planning Await word from [facility] hospital Request HC Surrog/Guard Advoc?: Yes Problem Qualifiers (1) Schizoaffective disorder: Qualified Codes: F25.0 - Schizoaffective disorder, bipolar type Toro El MD Apr 01, 2017 16:00
[2017-04-01 18:17] VITALS: BP 112/84; PULSE 70; RESP 18; O2SAT 96
[2017-04-01] MEDS: ATORVASTATIN 20 MG TAB PO SCH ×2 (20:25)
[2017-04-02 06:11] VITALS: BP 120/74; PULSE 59; RESP 16; TEMP 97.4; O2SAT 96
[2017-04-02] MEDS: LISINOPRIL 5 MG TAB PO SCH ×2 (08:56)
[2017-04-02] MEDS: BENZTROPINE MESYLATE 1 MG TAB PO SCH ×4 (08:56→20:39)
[2017-04-02] MEDS: fluPHENAZine HCL ELIXIR 2.5 MG/5 ML UDC PO SCH ×4 (08:56→20:38)
[2017-04-02] MEDS: clonazePAM 1 MG TAB PO SCH ×4 (08:57→20:38)
[2017-04-02] MEDS: amLODIPine BESYLATE 5 MG TAB PO SCH ×4 (08:59→20:38)
[2017-04-02] MEDS: PROPRANOLOL HCL 10 MG TAB PO SCH ×6 (08:59→20:40)
[2017-04-02] MEDS: SODIUM CHLORIDE 1 GRAM TAB PO SCH ×4 (09:17→20:38)
--- NOTE | 2017-04-02 16:17 | HHI.PYPN ---
Subjective Remarks Patient seen in his room with nurse Liz, chart review, patient compliant medication. Patient remains somewhat childlike and silly though no behavioral issues. Is compliant with medications. Continue to await word from [facility] Chief Complaint: patient admitted due to increasingly aggressive psychotic behavior Review of Systems Except as stated in HPI: all other systems reviewed are Neg Mental Status Examination Appearance: Appropriate Consciousness: Alert Orientation: Person, Place Speech: Hesitant Language: Adequate (somewhat superficial and childlike) Fund of Knowledge: Poor Attention and Concentration: Other (poor) Memory: Impaired Mood: Other (euthymic somewhat restricted) Affect: Other (decreased range of motion intensity) Thought Process & Associations: Linear Thought Content: Bizarre thinking (mildly) Hallucination Type: None (denies) Delusion Type: Paranoid (mildly) Suicidal Ideation: No Suicidal Plan: No Suicidal Intention: No Homicidal Ideation: No Homicidal Plan: No Homicidal Intention: No Insight: Poor Judgment: Poor Results Vitals/IOs Vital Signs Date Time Temp Pulse Resp B/P (MAP) Pulse Ox O2 Delivery O2 Flow Rate FiO2 04/02/17 06:11 97.4 59 16 120/74 (89) 96 Assessment & Plan Problem List: (1) Schizoaffective disorder ICD Codes: F25.9 - Schizoaffective disorder, unspecified Status: Acute (2) Intellectual disability ICD Codes: F79 - Unspecified intellectual disabilities Status: Chronic Assessment & Plan Estimated LOS: days patient continue psychotic though no behavioral problems noted, compliant medications. Await [facility] word related to placement Justification for Cont. Inpt. At this time patient with decompensated placed in a lower level of care Discharge Planning Await [facility] placement Request HC Surrog/Guard Advoc?: Yes Problem Qualifiers (1) Schizoaffective disorder: Qualified Codes: F25.0 - Schizoaffective disorder, bipolar type Toro El MD Apr 02, 2017 16:17
--- NOTE | 2017-04-02 16:17 | HHI.PYPN ---
Subjective Remarks Patient seen in his room with nurse Liz, chart review, patient compliant medication. Patient remains somewhat childlike and silly though no behavioral issues. Is compliant with medications. [facility] Chief Complaint: patient admitted due to increasingly aggressive psychotic behavior Review of Systems Except as stated in HPI: all other systems reviewed are Neg Mental Status Examination Appearance: Appropriate Consciousness: Alert Orientation: Person, Place Speech: Hesitant Language: Adequate (somewhat superficial and childlike) Fund of Knowledge: Poor Attention and Concentration: Other (poor) Memory: Impaired Mood: Other (euthymic somewhat restricted) Affect: Other (decreased range of motion intensity) Thought Process & Associations: Linear Thought Content: Bizarre thinking (mildly) Hallucination Type: None (denies) Delusion Type: Paranoid (mildly) Suicidal Ideation: No Suicidal Plan: No Suicidal Intention: No Homicidal Ideation: No Homicidal Plan: No Homicidal Intention: No Insight: Poor Judgment: Poor Results Vitals/IOs Vital Signs Date Time Temp Pulse Resp B/P (MAP) Pulse Ox O2 Delivery O2 Flow Rate FiO2 04/02/17 06:11 97.4 59 16 120/74 (89) 96 Assessment & Plan Problem List: (1) Schizoaffective disorder ICD Codes: F25.9 - Schizoaffective disorder, unspecified Status: Acute (2) Intellectual disability ICD Codes: F79 - Unspecified intellectual disabilities Status: Chronic Assessment & Plan Estimated LOS: days patient continue psychotic though no behavioral problems noted, compliant medications. [facility]wait [facility] word related to placement Justification for Cont. Inpt. At this time patient with decompensated placed in a lower level of care [facility]charge [facility] Request HC Surrog/Guard Advoc?: Yes Problem Qualifiers (1) Schizoaffective disorder: Qualified Codes: F25.0 - Schizoaffective disorder, bipolar type Toro El MD Apr 02, 2017 16:17
--- NOTE | 2017-04-02 16:17 | HHI.PYPN ---
Subjective Remarks Patient seen in his room with nurse Liz, chart review, patient compliant medication. Patient remains somewhat childlike and silly though no behavioral issues. Is compliant with medications. Continue to await word from [facility] Chief Complaint: patient admitted due to increasingly aggressive psychotic behavior Review of Systems Except as stated in HPI: all other systems reviewed are Neg Mental Status Examination Appearance: Appropriate Consciousness: Alert Orientation: Person, Place Speech: Hesitant Language: Adequate (somewhat superficial and childlike) Fund of Knowledge: Poor Attention and Concentration: Other (poor) Memory: Impaired Mood: Other (euthymic somewhat restricted) Affect: Other (decreased range of motion intensity) Thought Process & Associations: Linear Thought Content: Bizarre thinking (mildly) Hallucination Type: None (denies) Delusion Type: Paranoid (mildly) Suicidal Ideation: No Suicidal Plan: No Suicidal Intention: No Homicidal Ideation: No Homicidal Plan: No Homicidal Intention: No Insight: Poor Judgment: Poor Results Vitals/IOs Vital Signs Date Time Temp Pulse Resp B/P (MAP) Pulse Ox O2 Delivery O2 Flow Rate FiO2 04/02/17 06:11 97.4 59 16 120/74 (89) 96 Assessment & Plan Problem List: (1) Schizoaffective disorder ICD Codes: F25.9 - Schizoaffective disorder, unspecified Status: Acute (2) Intellectual disability ICD Codes: F79 - Unspecified intellectual disabilities Status: Chronic Assessment & Plan Estimated LOS: days patient continue psychotic though no behavioral problems noted, compliant medications. Await [facility] word related to placement Justification for Cont. Inpt. At this time patient with decompensated placed in a lower level of care Discharge Planning Await [facility] placement Request HC Surrog/Guard Advoc?: Yes Problem Qualifiers (1) Schizoaffective disorder: Qualified Codes: F25.0 - Schizoaffective disorder, bipolar type Toro El MD Apr 02, 2017 16:17
[2017-04-02 18:27] VITALS: BP 107/68; PULSE 70; RESP 16; O2SAT 97
[2017-04-02] MEDS: ATORVASTATIN 20 MG TAB PO SCH ×2 (20:39)
[2017-04-03 06:11] VITALS: BP 114/64; PULSE 62; RESP 18; TEMP 97.5; O2SAT 98
[2017-04-03] MEDS: clonazePAM 1 MG TAB PO SCH ×4 (09:41→20:10)
[2017-04-03] MEDS: LISINOPRIL 5 MG TAB PO SCH ×2 (09:41)
[2017-04-03] MEDS: amLODIPine BESYLATE 5 MG TAB PO SCH ×6 (09:41→20:11)
[2017-04-03] MEDS: PROPRANOLOL HCL 10 MG TAB PO SCH ×6 (09:41→20:10)
[2017-04-03] MEDS: BENZTROPINE MESYLATE 1 MG TAB PO SCH ×4 (09:41→20:10)
[2017-04-03] MEDS: fluPHENAZine HCL ELIXIR 2.5 MG/5 ML UDC PO SCH ×4 (09:41→22:10)
[2017-04-03] MEDS: SODIUM CHLORIDE 1 GRAM TAB PO SCH ×4 (09:41→20:09)
[2017-04-03 13:04] VITALS: BP 99/68; PULSE 86
--- NOTE | 2017-04-03 16:37 | HHI.PYPN ---
Subjective Remarks Patient was seen and case discussed with nursing. Patient is pleasant and cooperative with exam. Behaving well on the unit. Continues to be perseverative on his dad. No physical or verbal outbursts. Chief Complaint: patient admitted due to increasingly aggressive psychotic behavior Mental Status Examination Appearance: Appropriate Consciousness: Alert Orientation: Person, Place Speech: Hesitant Language: Adequate (somewhat superficial and childlike) Fund of Knowledge: Poor Attention and Concentration: Other (poor) Memory: Impaired Mood: Other (euthymic somewhat restricted) Affect: Other (decreased range of motion intensity) Thought Process & Associations: Circumstantial Thought Content: Bizarre thinking (mildly) Hallucination Type: None (denies) Delusion Type: Paranoid (mildly) Suicidal Ideation: No Suicidal Plan: No Suicidal Intention: No Homicidal Ideation: No Homicidal Plan: No Homicidal Intention: No Insight: Poor Judgment: Poor Results Vitals/IOs Vital Signs Date Time Temp Pulse Resp B/P (MAP) Pulse Ox O2 Delivery O2 Flow Rate FiO2 04/03/17 13:04 86 99/68 (78) 04/03/17 06:11 97.5 18 98 Assessment & Plan Problem List: (1) Schizoaffective disorder ICD Codes: F25.9 - Schizoaffective disorder, unspecified Status: Acute (2) Intellectual disability ICD Codes: F79 - Unspecified intellectual disabilities Status: Chronic Assessment & Plan Continue current treatment plan Justification for Cont. Inpt. Patient would decompensate in a less restrictive setting Request HC Surrog/Guard Advoc?: Yes Problem Qualifiers (1) Schizoaffective disorder: Qualified Codes: F25.0 - Schizoaffective disorder, bipolar type Javier Rose DO Apr 03, 2017 16:37
[2017-04-03 17:53] VITALS: BP 114/55; PULSE 70; RESP 17; TEMP 97.5; O2SAT 96
[2017-04-03] MEDS: ATORVASTATIN 20 MG TAB PO SCH ×2 (20:09)
[2017-04-04 05:49] VITALS: BP 102/74; PULSE 72; RESP 16; TEMP 97.5; O2SAT 98
[2017-04-04] MEDS: amLODIPine BESYLATE 5 MG TAB PO SCH ×4 (09:09→20:32)
[2017-04-04] MEDS: BENZTROPINE MESYLATE 1 MG TAB PO SCH ×4 (09:09→20:30)
[2017-04-04] MEDS: SODIUM CHLORIDE 1 GRAM TAB PO SCH ×4 (09:09→20:30)
[2017-04-04] MEDS: PROPRANOLOL HCL 10 MG TAB PO SCH ×6 (09:09→20:33)
[2017-04-04] MEDS: clonazePAM 1 MG TAB PO SCH ×4 (09:09→20:30)
[2017-04-04] MEDS: LISINOPRIL 5 MG TAB PO SCH ×2 (09:09)
[2017-04-04] MEDS: fluPHENAZine HCL ELIXIR 2.5 MG/5 ML UDC PO SCH ×4 (09:10→20:37)
[2017-04-04 12:21] VITALS: BP 97/64; PULSE 57
--- NOTE | 2017-04-04 16:07 | HHI.PYPN ---
Subjective Remarks Patient was seen and case discussed with nursing. Patient is pleasant and cooperative with exam. Cognitive deficits remained evident. Patient remains perseverant and his father. Behaving well on the unit and tolerating medications well Chief Complaint: patient admitted due to increasingly aggressive psychotic behavior Mental Status Examination Appearance: Appropriate Consciousness: Alert Orientation: Person, Place Speech: Hesitant Language: Adequate (somewhat superficial and childlike) Fund of Knowledge: Poor Attention and Concentration: Other (poor) Memory: Impaired Mood: Other (euthymic somewhat restricted) Affect: Other (decreased range of motion intensity) Thought Process & Associations: Circumstantial Thought Content: Bizarre thinking (mildly) Hallucination Type: None (denies) Delusion Type: Paranoid (mildly) Suicidal Ideation: No Suicidal Plan: No Suicidal Intention: No Homicidal Ideation: No Homicidal Plan: No Homicidal Intention: No Insight: Poor Judgment: Poor Results Vitals/IOs Vital Signs Date Time Temp Pulse Resp B/P (MAP) Pulse Ox O2 Delivery O2 Flow Rate FiO2 04/04/17 12:21 57 97/64 (75) 04/04/17 05:49 97.5 16 98 Assessment & Plan Problem List: (1) Schizoaffective disorder ICD Codes: F25.9 - Schizoaffective disorder, unspecified Status: Acute (2) Intellectual disability ICD Codes: F79 - Unspecified intellectual disabilities Status: Chronic Assessment & Plan Continue current treatment plan Justification for Cont. Inpt. Patient will decompensate in a less restrictive setting Request HC Surrog/Guard Advoc?: Yes Problem Qualifiers (1) Schizoaffective disorder: Qualified Codes: F25.0 - Schizoaffective disorder, bipolar type Javier Rose DO Apr 04, 2017 16:07
[2017-04-04 17:20] VITALS: BP 116/83; PULSE 69; RESP 16; TEMP 97; O2SAT 97
[2017-04-04] MEDS: ATORVASTATIN 20 MG TAB PO SCH ×2 (20:30)
[2017-04-05 05:45] VITALS: BP 121/82; PULSE 64; RESP 16; TEMP 97.1; O2SAT 97
[2017-04-05] MEDS: amLODIPine BESYLATE 5 MG TAB PO SCH ×4 (08:50→20:35)
[2017-04-05] MEDS: LISINOPRIL 5 MG TAB PO SCH ×2 (08:50)
[2017-04-05] MEDS: BENZTROPINE MESYLATE 1 MG TAB PO SCH ×4 (08:50→20:35)
[2017-04-05] MEDS: SODIUM CHLORIDE 1 GRAM TAB PO SCH ×4 (08:50→20:35)
[2017-04-05] MEDS: clonazePAM 1 MG TAB PO SCH ×4 (08:50→20:35)
[2017-04-05] MEDS: PROPRANOLOL HCL 10 MG TAB PO SCH ×6 (08:51→20:49)
[2017-04-05] MEDS: fluPHENAZine HCL ELIXIR 2.5 MG/5 ML UDC PO SCH ×4 (08:51→21:02)
--- NOTE | 2017-04-05 13:20 | HHI.PYPN ---
Subjective Remarks Patient seen in [place] with nurse Joan and medical student du, patient continues calm pleasant. Compliant medications. Continues to remain delusional with psychotic features, though no behavioral issues. Continue to wait for word from state Hospital placement Chief Complaint: patient admitted due to increasingly aggressive psychotic behavior Review of Systems Except as stated in HPI: all other systems reviewed are Neg Mental Status Examination Appearance: Appropriate Consciousness: Alert Orientation: Person, Place Speech: Hesitant Language: Adequate (somewhat superficial and childlike) Fund of Knowledge: Poor Attention and Concentration: Other (poor) Memory: Impaired Mood: Other (euthymic somewhat restricted) Affect: Other (decreased range of motion intensity) Thought Process & Associations: Circumstantial Thought Content: Bizarre thinking (mildly) Hallucination Type: None (denies) Delusion Type: Paranoid (mildly) Suicidal Ideation: No Suicidal Plan: No Suicidal Intention: No Homicidal Ideation: No Homicidal Plan: No Homicidal Intention: No Insight: Poor Judgment: Poor Results Vitals/IOs Vital Signs Date Time Temp Pulse Resp B/P (MAP) Pulse Ox O2 Delivery O2 Flow Rate FiO2 04/05/17 05:45 97.1 64 16 121/82 (95) 97 Assessment & Plan Problem List: (1) Schizoaffective disorder ICD Codes: F25.9 - Schizoaffective disorder, unspecified Status: Acute (2) Intellectual disability ICD Codes: F79 - Unspecified intellectual disabilities Status: Chronic Assessment & Plan Estimated LOS: days patient continues delusional psychotic, no behavior problems. Continue to await word from state referral Justification for Cont. Inpt. At this time patient will decompensate placed a lower level of care Discharge Planning Continue to await word from state referral Request HC Surrog/Guard Advoc?: Yes Problem Qualifiers (1) Schizoaffective disorder: Qualified Codes: F25.0 - Schizoaffective disorder, bipolar type Toro El MD Apr 05, 2017 13:20
[2017-04-05 18:00] VITALS: BP 119/71; PULSE 76; RESP 16; TEMP 98.1; O2SAT 98
[2017-04-05] MEDS: ATORVASTATIN 20 MG TAB PO SCH ×2 (20:35)
[2017-04-06 06:14] VITALS: BP 120/77; PULSE 62; RESP 18; TEMP 97.6; O2SAT 97
[2017-04-06] MEDS: fluPHENAZine HCL ELIXIR 2.5 MG/5 ML UDC PO SCH ×4 (08:02→20:26)
[2017-04-06] MEDS: clonazePAM 1 MG TAB PO SCH ×4 (08:02→20:26)
[2017-04-06] MEDS: PROPRANOLOL HCL 10 MG TAB PO SCH ×6 (08:02→20:42)
[2017-04-06] MEDS: LISINOPRIL 5 MG TAB PO SCH ×2 (08:02)
[2017-04-06] MEDS: amLODIPine BESYLATE 5 MG TAB PO SCH ×4 (08:02→20:26)
[2017-04-06] MEDS: SODIUM CHLORIDE 1 GRAM TAB PO SCH ×4 (08:02→20:26)
[2017-04-06] MEDS: BENZTROPINE MESYLATE 1 MG TAB PO SCH ×4 (08:03→20:25)
--- NOTE | 2017-04-06 12:31 | HHI.PYPN ---
Subjective Remarks Patient seen today in his room with nurse Beronica and medical student du , patient continues pleasant with no behavioral problems, low continues delusional. Somewhat childlike and silly. He is compliant medication. Dr. Valdivia his mother acknowledges occasional transient patient back to his service Chief Complaint: patient admitted due to increasingly aggressive psychotic behavior Review of Systems Except as stated in HPI: all other systems reviewed are Neg Mental Status Examination Appearance: Appropriate Consciousness: Alert Orientation: Person, Place Speech: Hesitant Language: Adequate (somewhat superficial and childlike) Fund of Knowledge: Poor Attention and Concentration: Other (poor) Memory: Impaired Mood: Other (euthymic somewhat restricted) Affect: Other (decreased range of motion intensity) Thought Process & Associations: Circumstantial Thought Content: Bizarre thinking (mildly) Hallucination Type: None (denies) Delusion Type: Paranoid (mildly) Suicidal Ideation: No Suicidal Plan: No Suicidal Intention: No Homicidal Ideation: No Homicidal Plan: No Homicidal Intention: No Insight: Poor Judgment: Poor Results Vitals/IOs Vital Signs Date Time Temp Pulse Resp B/P (MAP) Pulse Ox O2 Delivery O2 Flow Rate FiO2 04/06/17 06:14 97.6 62 18 120/77 (91) 97 Assessment & Plan Problem List: (1) Schizoaffective disorder ICD Codes: F25.9 - Schizoaffective disorder, unspecified Status: Acute (2) Intellectual disability ICD Codes: F79 - Unspecified intellectual disabilities Status: Chronic Assessment & Plan Estimated LOS: days patient continue psychotic, per also childlike somewhat silly. Compliant medications. Await word from state hospital referral. Patient be transferred back to Dr. Valdivia service Justification for Cont. Inpt. The waiting state referral Discharge Planning Awaiting state referral Request HC Surrog/Guard Advoc?: Yes Problem Qualifiers (1) Schizoaffective disorder: Qualified Codes: F25.0 - Schizoaffective disorder, bipolar type Toro El MD Apr 06, 2017 12:31
[2017-04-06 13:09] VITALS: BP 112/62; PULSE 71; RESP 17; TEMP 97.6; O2SAT 98
[2017-04-06 15:58] VITALS: BP 144/77; PULSE 77; RESP 18; TEMP 97.8; O2SAT 98
[2017-04-06] MEDS: ATORVASTATIN 20 MG TAB PO SCH ×2 (20:26)
[2017-04-07 06:20] VITALS: BP 109/71; PULSE 68; RESP 16; TEMP 97.6; O2SAT 96
[2017-04-07] MEDS: amLODIPine BESYLATE 5 MG TAB PO SCH ×4 (08:07→20:15)
[2017-04-07] MEDS: LISINOPRIL 5 MG TAB PO SCH ×2 (08:07)
[2017-04-07] MEDS: SODIUM CHLORIDE 1 GRAM TAB PO SCH ×4 (08:07→20:15)
[2017-04-07] MEDS: clonazePAM 1 MG TAB PO SCH ×4 (08:07→20:15)
[2017-04-07] MEDS: BENZTROPINE MESYLATE 1 MG TAB PO SCH ×4 (08:07→20:15)
[2017-04-07] MEDS: PROPRANOLOL HCL 10 MG TAB PO SCH ×6 (08:08→20:15)
[2017-04-07] MEDS: fluPHENAZine HCL ELIXIR 2.5 MG/5 ML UDC PO SCH ×4 (11:18→20:15)
--- NOTE | 2017-04-07 12:08 | HHI.PYPN ---
Subjective Remarks I am resuming care from Dr. El. Patient seen and examined with nurse. Chart reviewed. Case discussed with nursing staff. No behavioral issues overnight. On my examination today, the patient is in good spirits. He remains quite childlike. He denies any SI or HI. Denies AVH. He does seem to have fairly prominent resting hand tremor but otherwise reports no side effects from medications. No physical complaints. He reports that he is moving his bowels well. Review of Systems ROS Limitations: Poor Historian Except as stated in HPI: all other systems reviewed are Neg Mental Status Examination Appearance: Appropriate Consciousness: Alert Orientation: Person, Place (at least) Motor Activity: Normal gait, Other (resting hand tremor. No dystonias or dyskinesias noted.) Speech: Hesitant Fund of Knowledge: Poor Attention and Concentration: Other (poor) Memory: Impaired Mood: Good Affect: Other (childlike) Thought Process & Associations: Circumstantial Hallucination Type: None Delusion Type: None Suicidal Ideation: No Suicidal Plan: No Suicidal Intention: No Homicidal Ideation: No Homicidal Plan: No Homicidal Intention: No Insight: Poor Judgment: Poor Results Labs Labs reviewed. Vitals/IOs Vital Signs Date Time Temp Pulse Resp B/P (MAP) Pulse Ox O2 Delivery O2 Flow Rate FiO2 04/07/17 06:20 97.6 68 16 109/71 (84) 96 Assessment & Plan Problem List: (1) Schizoaffective disorder ICD Codes: F25.9 - Schizoaffective disorder, unspecified Status: Acute (2) Intellectual disability ICD Codes: F79 - Unspecified intellectual disabilities Status: Chronic Assessment & Plan Titrate Cogentin to 1 mg twice daily to manage EPS. Patient received his Prolixin Decanoate booster this morning. We might consider once again trying to taper his oral Prolixin in light of side effects, although this needs to be balanced against the risk of destabilizing the patient. Continue to monitor on the inpatient unit. Continue other medications and care as ordered. Justification for Cont. Inpt. Medication changes. High risk for decompensation in less restrictive environment. Discharge Planning [facility]. Case discussed with counselor who reports that the patient is #12 on the wait list for the state. Request HC Surrog/Guard Advoc?: Yes Problem Qualifiers (1) Schizoaffective disorder: Qualified Codes: F25.0 - Schizoaffective disorder, bipolar type Larry Valdivia MD Apr 07, 2017 12:08
[2017-04-07 17:00] VITALS: BP 117/63; PULSE 72; RESP 18; TEMP 97.5; O2SAT 99
[2017-04-07] MEDS: ATORVASTATIN 20 MG TAB PO SCH ×2 (20:15)
[2017-04-08 06:09] VITALS: BP 112/76; PULSE 80; RESP 16; TEMP 97.6; O2SAT 97
[2017-04-08] MEDS: PROPRANOLOL HCL 10 MG TAB PO SCH ×6 (08:10→19:42)
[2017-04-08] MEDS: amLODIPine BESYLATE 5 MG TAB PO SCH ×4 (08:10→19:42)
[2017-04-08] MEDS: SODIUM CHLORIDE 1 GRAM TAB PO SCH ×4 (08:10→19:43)
[2017-04-08] MEDS: LISINOPRIL 5 MG TAB PO SCH ×2 (08:10)
[2017-04-08] MEDS: fluPHENAZine HCL ELIXIR 2.5 MG/5 ML UDC PO SCH ×4 (08:10→19:42)
[2017-04-08] MEDS: clonazePAM 1 MG TAB PO SCH ×4 (08:10→19:42)
[2017-04-08] MEDS: BENZTROPINE MESYLATE 1 MG TAB PO SCH ×4 (08:10→19:41)
--- NOTE | 2017-04-08 12:02 | HHI.PYPN ---
Subjective Remarks Patient seen and examined. Chart reviewed. Case discussed with nursing staff, no behavioral issues noted. On my exam, patient remains childlike. He says that he would like to visit with his father, although I am told by staff that we have confirmed that his father is . He says the last time he saw him was a few months ago. He denies AVH. Denies side effects from meds. Hand tremor much improved with titration of Cogentin. No physical complaints. Review of Systems ROS Limitations: Poor Historian Except as stated in HPI: all other systems reviewed are Neg Mental Status Examination Appearance: Appropriate Consciousness: Alert Orientation: Person, Place (at least) Motor Activity: Other (hand tremor significantly reduced. No other motor abnormalities noted.) Speech: Unremarkable Fund of Knowledge: Poor Attention and Concentration: Other (poor) Memory: Impaired Mood: Appropriate Affect: Other (childlike) Thought Process & Associations: Circumstantial Hallucination Type: None Delusion Type: None Suicidal Ideation: No (none voiced) Homicidal Ideation: No (none voiced) Insight: Poor Judgment: Poor Results Labs Labs reviewed. No new labs. Vitals/IOs Vital Signs Date Time Temp Pulse Resp B/P (MAP) Pulse Ox O2 Delivery O2 Flow Rate FiO2 04/08/17 06:09 97.6 80 16 112/76 (88) 97 Assessment & Plan Problem List: (1) Schizoaffective disorder ICD Codes: F25.9 - Schizoaffective disorder, unspecified Status: Acute (2) Intellectual disability ICD Codes: F79 - Unspecified intellectual disabilities Status: Chronic Assessment & Plan Check an updated set of [facility] in the morning. Continue current psychotropics as ordered. Continue to monitor on the inpatient unit. Continue other medications and care as ordered. Justification for Cont. Inpt. High risk for decompensation in less restrictive environment. Discharge Planning [facility] psychiatric hospital referral Request HC Surrog/Guard Advoc?: Yes Problem Qualifiers (1) Schizoaffective disorder: Qualified Codes: F25.0 - Schizoaffective disorder, bipolar type Larry Valdivia MD Apr 08, 2017 12:02
[2017-04-08 18:15] VITALS: BP 114/74; PULSE 78; RESP 18; TEMP 97.4; O2SAT 100
[2017-04-08] MEDS: ATORVASTATIN 20 MG TAB PO SCH ×2 (19:42)
[2017-04-09 05:55] VITALS: BP 111/76; PULSE 67; RESP 18; TEMP 97.5; O2SAT 98
[2017-04-09] MEDS: fluPHENAZine HCL ELIXIR 2.5 MG/5 ML UDC PO SCH ×4 (09:00→20:47)
[2017-04-09] MEDS: SODIUM CHLORIDE 1 GRAM TAB PO SCH ×4 (09:26→20:45)
[2017-04-09] MEDS: amLODIPine BESYLATE 5 MG TAB PO SCH ×4 (09:26→20:46)
[2017-04-09] MEDS: PROPRANOLOL HCL 10 MG TAB PO SCH ×6 (09:26→20:55)
[2017-04-09] MEDS: clonazePAM 1 MG TAB PO SCH ×4 (09:26→20:46)
[2017-04-09] MEDS: BENZTROPINE MESYLATE 1 MG TAB PO SCH ×4 (09:26→20:45)
[2017-04-09] MEDS: LISINOPRIL 5 MG TAB PO SCH ×2 (09:26)
[2017-04-09 09:54] LABS: AUTOMATED NEUTROPHIL # 4.2 TH/MM3 (1.8-7.7); BASOPHIL % 0.8 % (0.0-2.0); EOSINOPHIL # 0.2 TH/MM3 (0-0.4); EOSINOPHIL % 3.6 % (0.0-4.0); HEMATOCRIT 41.1 % (39.0-51.0); LYMPH % 17.2 % (9.0-44.0); MEAN CELL VOLUME 89.9 FL (80.0-100.0); MEAN CORPUSCULAR HEMOGLOBIN 30.6 PG (27.0-34.0); MEAN PLATELET VOLUME 8.7 FL (7.0-11.0); MONO % 8.7 % (0.0-8.0); MONOCYTE # 0.5 TH/MM3 (0-0.9); NEUT % 69.7 % (16.0-70.0); PLATELET COUNT 188 TH/MM3 (150-450); RED BLOOD COUNT 4.57 MIL/MM3 (4.50-5.90); RED CELL DISTRIBUTION WIDTH 13.6 % (11.6-17.2)
[2017-04-09 10:23] LABS: ALBUMIN 3.8 GM/DL (3.4-5.0); AST (GOT) 16 U/L (15-37); BICARBONATE 31.1 MEQ/L (21.0-32.0); BLOOD UREA NITROGEN 14 MG/DL (7-18); CHLORIDE 99 MEQ/L (98-107); CREATININE 0.81 MG/DL (0.60-1.30); GLOMERULAR FILTRATION RATE 100 ML/MIN (>89); GLUCOSE,RANDOM 87 MG/DL (74-106); SODIUM (NA) 135 MEQ/L (136-145)
[2017-04-09 10:29] LABS: ALKALINE PHOSPHATASE 71 U/L (45-117); ALT (GPT) 23 U/L (12-78); TOTAL BILIRUBIN ADULT 0.6 MG/DL (0.2-1.0)
--- NOTE | 2017-04-09 10:41 | HHI.PYPN ---
Subjective Remarks Patient seen and examined with counselor and to nurse. Chart reviewed. Case discussed with nursing staff. No behavioral issues noted. 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 He denies any audiovisual hallucinations. He repeatedly crosses and uncrosses his legs throughout the interview but denies any subjective restlessness or akathisia. Denies side effects from medications, although his insight into the need for medications is poor and at one point he says "I don't need medications." No physical complaints. Review of Systems ROS Limitations: Poor Historian Except as stated in HPI: all other systems reviewed are Neg Mental Status Examination Appearance: Appropriate Consciousness: Alert Orientation: Person, Place (at least) Motor Activity: Other (minimal hand tremor. Crosses and uncross his legs as noted above. No other motoric abnormalities.) Speech: Unremarkable Fund of Knowledge: Poor Attention and Concentration: Other (poor) Memory: Impaired Mood: Other ("so-so") Affect: Blunt, Other (childlike) Thought Process & Associations: Circumstantial Hallucination Type: None Delusion Type: None Suicidal Ideation: No Homicidal Ideation: No Insight: Poor Judgment: Poor Results Labs Test 04/09/17 09:00 White Blood Count 6.0 TH/MM3 Red Blood Count 4.57 MIL/MM3 Hemoglobin 14.0 GM/DL Hematocrit 41.1 % Mean Corpuscular Volume 89.9 FL Mean Corpuscular Hemoglobin 30.6 PG Mean Corpuscular Hemoglobin Concent 34.0 % Red Cell Distribution Width 13.6 % Platelet Count 188 TH/MM3 Mean Platelet Volume 8.7 FL Neutrophils (%) (Auto) 69.7 % Lymphocytes (%) (Auto) 17.2 % Monocytes (%) (Auto) 8.7 % Eosinophils (%) (Auto) 3.6 % Basophils (%) (Auto) 0.8 % Neutrophils # (Auto) 4.2 TH/MM3 Lymphocytes # (Auto) 1.0 TH/MM3 Monocytes # (Auto) 0.5 TH/MM3 Eosinophils # (Auto) 0.2 TH/MM3 Basophils # (Auto) 0.0 TH/MM3 CBC Comment DIFF FINAL Differential Comment Blood Urea Nitrogen 14 MG/DL Creatinine 0.81 MG/DL Random Glucose 87 MG/DL Total Protein 7.0 GM/DL Albumin 3.8 GM/DL Calcium Level 9.0 MG/DL Alkaline Phosphatase 71 U/L Aspartate Amino Transf (AST/SGOT) 16 U/L Alanine Aminotransferase (ALT/SGPT) 23 U/L Total Bilirubin 0.6 MG/DL Sodium Level 135 MEQ/L Potassium Level 3.8 MEQ/L Chloride Level 99 MEQ/L Carbon Dioxide Level 31.1 MEQ/L Anion Gap 5 MEQ/L Estimat Glomerular Filtration Rate 100 ML/MIN Labs reviewed. Mild hyponatremia noted. CBC and CMP otherwise unremarkable. Vitals/IOs Vital Signs Date Time Temp Pulse Resp B/P (MAP) Pulse Ox O2 Delivery O2 Flow Rate FiO2 04/09/17 05:55 97.5 67 18 111/76 (88) 98 Assessment & Plan Problem List: (1) Schizoaffective disorder ICD Codes: F25.9 - Schizoaffective disorder, unspecified Status: Acute (2) Intellectual disability ICD Codes: F79 - Unspecified intellectual disabilities Status: Chronic Assessment & Plan Continue current psychotropics as ordered. Continue to monitor on the inpatient unit. Continue other medications and care as ordered. Justification for Cont. Inpt. High risk for decompensation in less restrictive environment. Discharge Planning [facility] psychiatric hospital referral. Now #11 on [facility] hospital wait list per counselor. Request HC Surrog/Guard Advoc?: Yes Problem Qualifiers (1) Schizoaffective disorder: Qualified Codes: F25.0 - Schizoaffective disorder, bipolar type Larry Valdivia MD Apr 09, 2017 10:41
[2017-04-09 12:57] VITALS: BP 118/72; PULSE 87
[2017-04-09 18:09] VITALS: BP 115/69; PULSE 93; RESP 17; TEMP 98.6; O2SAT 98
[2017-04-09] MEDS: ATORVASTATIN 20 MG TAB PO SCH ×2 (20:46)
[2017-04-09 22:12] VITALS: BP 144/98; PULSE 72
[2017-04-10 05:41] VITALS: BP 108/70; PULSE 60; RESP 18; TEMP 97.4; O2SAT 99
[2017-04-10] MEDS: PROPRANOLOL HCL 10 MG TAB PO SCH ×6 (07:39→21:16)
[2017-04-10] MEDS: BENZTROPINE MESYLATE 1 MG TAB PO SCH ×4 (07:39→21:15)
[2017-04-10] MEDS: LISINOPRIL 5 MG TAB PO SCH ×2 (07:40)
[2017-04-10] MEDS: SODIUM CHLORIDE 1 GRAM TAB PO SCH ×4 (07:40→21:16)
[2017-04-10] MEDS: amLODIPine BESYLATE 5 MG TAB PO SCH ×4 (07:40→21:15)
[2017-04-10] MEDS: clonazePAM 1 MG TAB PO SCH ×4 (07:40→21:15)
[2017-04-10] MEDS: fluPHENAZine HCL ELIXIR 2.5 MG/5 ML UDC PO SCH ×4 (08:39→21:15)
--- NOTE | 2017-04-10 13:22 | HHI.PYPN ---
Subjective Remarks Pt seen and discussed with staff. He has been compliant with care and medications. He believes father is still alive and insists that staff electrical engineer call him. He report that he slept well and mood is good. No behavioral problems on unit. Mental Status Examination Appearance: Appropriate Consciousness: Alert Orientation: Person, Place Motor Activity: Other (minimal hand tremor. Crosses and uncross his legs as noted above. No other motoric abnormalities.) Speech: Unremarkable Fund of Knowledge: Poor Attention and Concentration: Other (poor) Memory: Impaired Mood: Other ("so-so") Affect: Blunt, Other (childlike) Thought Process & Associations: Circumstantial Hallucination Type: None Delusion Type: None Suicidal Ideation: No Suicidal Plan: No Suicidal Intention: No Homicidal Ideation: No Homicidal Plan: No Homicidal Intention: No Insight: Poor Judgment: Poor Results Vitals/IOs Vital Signs Date Time Temp Pulse Resp B/P (MAP) Pulse Ox O2 Delivery O2 Flow Rate FiO2 04/10/17 05:41 97.4 60 18 108/70 (83) 99 Assessment & Plan Problem List: (1) Schizoaffective disorder ICD Codes: F25.9 - Schizoaffective disorder, unspecified Status: Acute (2) Intellectual disability ICD Codes: F79 - Unspecified intellectual disabilities Status: Chronic Assessment & Plan Continue current tx plan. Pt has been referred to [facility]. Estimated LOS: days Justification for Cont. Inpt. impairments in reality testing Request HC Surrog/Guard Advoc?: Yes Problem Qualifiers (1) Schizoaffective disorder: Qualified Codes: F25.0 - Schizoaffective disorder, bipolar type Shantal Dowell MD Apr 10, 2017 13:22
--- NOTE | 2017-04-10 13:22 | HHI.PYPN ---
Subjective Remarks Pt seen and discussed with staff. He has been compliant with care and medications. He believes father is still alive and insists that director of midwifery/staff midwife call him. He report that he slept well and mood is good. No behavioral problems on unit. Mental Status Examination Appearance: Appropriate Consciousness: Alert Orientation: Person, Place Motor Activity: Other (minimal hand tremor. Crosses and uncross his legs as noted above. No other motoric abnormalities.) Speech: Unremarkable Fund of Knowledge: Poor Attention and Concentration: Other (poor) Memory: Impaired Mood: Other ("so-so") Affect: Blunt, Other (childlike) Thought Process & Associations: Circumstantial Hallucination Type: None Delusion Type: None Suicidal Ideation: No Suicidal Plan: No Suicidal Intention: No Homicidal Ideation: No Homicidal Plan: No Homicidal Intention: No Insight: Poor Judgment: Poor Results Vitals/IOs Vital Signs Date Time Temp Pulse Resp B/P (MAP) Pulse Ox O2 Delivery O2 Flow Rate FiO2 04/10/17 05:41 97.4 60 18 108/70 (83) 99 Assessment & Plan Problem List: (1) Schizoaffective disorder ICD Codes: F25.9 - Schizoaffective disorder, unspecified Status: Acute (2) Intellectual disability ICD Codes: F79 - Unspecified intellectual disabilities Status: Chronic Assessment & Plan Continue current tx plan. Pt has been referred to [facility]. Estimated LOS: days Justification for Cont. Inpt. impairments in reality testing Request HC Surrog/Guard Advoc?: Yes Problem Qualifiers (1) Schizoaffective disorder: Qualified Codes: F25.0 - Schizoaffective disorder, bipolar type Shantal Dowell MD Apr 10, 2017 13:22
--- NOTE | 2017-04-10 13:22 | HHI.PYPN ---
Subjective Remarks Pt seen and discussed with staff. He has been compliant with care and medications. He believes father is still alive and insists that director staffing call him. He report that he slept well and mood is good. No behavioral problems on unit. Mental Status Examination Appearance: Appropriate Consciousness: Alert Orientation: Person, Place Motor Activity: Other (minimal hand tremor. Crosses and uncross his legs as noted above. No other motoric abnormalities.) Speech: Unremarkable Fund of Knowledge: Poor Attention and Concentration: Other (poor) Memory: Impaired Mood: Other ("so-so") Affect: Blunt, Other (childlike) Thought Process & Associations: Circumstantial Hallucination Type: None Delusion Type: None Suicidal Ideation: No Suicidal Plan: No Suicidal Intention: No Homicidal Ideation: No Homicidal Plan: No Homicidal Intention: No Insight: Poor Judgment: Poor Results Vitals/IOs Vital Signs Date Time Temp Pulse Resp B/P (MAP) Pulse Ox O2 Delivery O2 Flow Rate FiO2 04/10/17 05:41 97.4 60 18 108/70 (83) 99 Assessment & Plan Problem List: (1) Schizoaffective disorder ICD Codes: F25.9 - Schizoaffective disorder, unspecified Status: Acute (2) Intellectual disability ICD Codes: F79 - Unspecified intellectual disabilities Status: Chronic Assessment & Plan Continue current tx plan. Pt has been referred to [facility]. Estimated LOS: days Justification for Cont. Inpt. impairments in reality testing Request HC Surrog/Guard Advoc?: Yes Problem Qualifiers (1) Schizoaffective disorder: Qualified Codes: F25.0 - Schizoaffective disorder, bipolar type Shantal Dowell MD Apr 10, 2017 13:22
[2017-04-10 17:36] VITALS: BP 118/70; PULSE 63; RESP 17; TEMP 97.3; O2SAT 100
[2017-04-10] MEDS: diphenhydrAMINE HCL 50 MG CAP PO PRN ×2 (21:15)
[2017-04-10] MEDS: ATORVASTATIN 20 MG TAB PO SCH ×2 (21:15)
[2017-04-11 05:15] VITALS: BP 128/75; PULSE 66; RESP 18; TEMP 98.1; O2SAT 98
[2017-04-11] MEDS: PROPRANOLOL HCL 10 MG TAB PO SCH ×6 (09:00→21:05)
[2017-04-11] MEDS: clonazePAM 1 MG TAB PO SCH ×4 (09:12→21:03)
[2017-04-11] MEDS: BENZTROPINE MESYLATE 1 MG TAB PO SCH ×4 (09:12→21:04)
[2017-04-11] MEDS: SODIUM CHLORIDE 1 GRAM TAB PO SCH ×4 (09:12→21:03)
[2017-04-11] MEDS: LISINOPRIL 5 MG TAB PO SCH ×2 (09:12)
[2017-04-11] MEDS: amLODIPine BESYLATE 5 MG TAB PO SCH ×4 (09:12→21:04)
[2017-04-11] MEDS: fluPHENAZine HCL ELIXIR 2.5 MG/5 ML UDC PO SCH ×4 (09:13→21:05)
--- NOTE | 2017-04-11 14:28 | HHI.PYPN ---
Subjective Remarks Pt seen and discussed with staff. No behavioral problems. Compliant with medications. No SI/HI. Mental Status Examination Appearance: Appropriate Consciousness: Alert Orientation: Person, Place Motor Activity: Other (minimal hand tremor. Crosses and uncross his legs as noted above. No other motoric abnormalities.) Speech: Unremarkable Fund of Knowledge: Poor Attention and Concentration: Other (poor) Memory: Impaired Mood: Other ("so-so") Affect: Blunt, Other (childlike) Thought Process & Associations: Circumstantial Hallucination Type: None Delusion Type: None Suicidal Ideation: No Suicidal Plan: No Suicidal Intention: No Homicidal Ideation: No Homicidal Plan: No Homicidal Intention: No Insight: Poor Judgment: Poor Results Vitals/IOs Vital Signs Date Time Temp Pulse Resp B/P (MAP) Pulse Ox O2 Delivery O2 Flow Rate FiO2 04/11/17 05:15 98.1 66 18 128/75 (92) 98 Assessment & Plan Problem List: (1) Schizoaffective disorder ICD Codes: F25.9 - Schizoaffective disorder, unspecified Status: Acute (2) Intellectual disability ICD Codes: F79 - Unspecified intellectual disabilities Status: Chronic Assessment & Plan Continue current tx plan. State referral Estimated LOS: days Justification for Cont. Inpt. impairments in self care and reality testing Request HC Surrog/Guard Advoc?: Yes Problem Qualifiers (1) Schizoaffective disorder: Qualified Codes: F25.0 - Schizoaffective disorder, bipolar type Shantal Dowell MD Apr 11, 2017 14:28
[2017-04-11 17:16] VITALS: BP 110/72; PULSE 81; RESP 17; TEMP 97.5; O2SAT 99
[2017-04-11 19:53] VITALS: BP 134/80; PULSE 67
[2017-04-11] MEDS: ATORVASTATIN 20 MG TAB PO SCH ×2 (21:03)
[2017-04-12 06:05] VITALS: BP 116/72; PULSE 64; RESP 18; TEMP 98; O2SAT 100
--- NOTE | 2017-04-12 07:49 | PD.TTN ---
Patient Problems 1. Discharge planning 2. Medication compliance 3. Knowledge deficit 4. Lack of coping skills Progress Toward Goals Provider Present: Dr. 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 Pt will continue on current medication regiment for further stabilization while awaiting placement at [facility]. Nurse(s) Present: Joy Malone RN Nurse(s) Input: Pt appears to isolate to himself yet is pleasant with poor self care. Pt slept and appears appropriate on unit. Pt remains cooperative, appropriate, organized, withdrawn to self and requiring prompting for ADLs. Psychiatric Counselors Present: RUBY Anderson Psych Therapist Input: Pt continues to appear calm, appropriate, organized, intrusive, childlike, withdrawn to self and with poor insight. He continues to deny medication noncompliance desipte ongoing active issues with this. Insight into condition and need for care remains poor. Pt appears able to regulate emotions suggesting possible use of coping skills though it is likely there are some deficits present. Pt presents as no behavioral problem on unit at this time. Pt remains calm, cooperative, appropriate and pleasant with increasing compliance with medication regiment however he insists that he does not need medication as he has poor insight into condition. He appears somewhat goal oriented though goals are not realistic. He appears to be able to implement coping skills as he has not had any angry outbursts though he struggles to cope with the depression that he seems to be experiencing as he has been withdrawn. Group Spec/RT/OT/MELGAR Present: TALIA Alves Group Spec/RT/OT/MELGAR Input: Pt attends select groups but often isolates to self. Pt attends only a few groups and remains largely to himself on unit. Discharge Plan Other Pt has been referred to [facility] but placement options at [facility] will be considered as well if appropriate. Documentation Scribe: RUBY Anderson Jonathan LMHC Apr 12, 2017 07:49
--- NOTE | 2017-04-12 07:49 | PD.TTN ---
Patient Problems 1. Discharge planning 2. Medication compliance 3. Knowledge deficit 4. Lack of coping skills Progress Toward Goals Provider Present: Dr. 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 Pt will continue on current medication regiment for further stabilization while awaiting placement at [facility]. Nurse(s) Present: Joy Malone RN Nurse(s) Input: Pt appears to isolate to himself yet is pleasant with poor self care. Pt slept and appears appropriate on unit. Pt remains cooperative, appropriate, organized, withdrawn to self and requiring prompting for ADLs. Psychiatric Counselors Present: RUBY Anderson Psych Therapist Input: Pt continues to appear calm, appropriate, organized, intrusive, childlike, withdrawn to self and with poor insight. He continues to deny medication noncompliance desipte ongoing active issues with this. Insight into condition and need for care remains poor. Pt appears able to regulate emotions suggesting possible use of coping skills though it is likely there are some deficits present. Pt presents as no behavioral problem on unit at this time. Pt remains calm, cooperative, appropriate and pleasant with increasing compliance with medication regiment however he insists that he does not need medication as he has poor insight into condition. He appears somewhat goal oriented though goals are not realistic. He appears to be able to implement coping skills as he has not had any angry outbursts though he struggles to cope with the depression that he seems to be experiencing as he has been withdrawn. Group Spec/RT/OT/MELGAR Present: TALIA Alves Group Spec/RT/OT/MELGAR Input: Pt attends select groups but often isolates to self. Pt attends only a few groups and remains largely to himself on unit. Discharge Plan Other Pt has been referred to [facility] but placement options at [facility] will be considered as well if appropriate. Documentation Scribe: RUBY Anderson Jonathan LMHC Apr 12, 2017 07:49
--- NOTE | 2017-04-12 07:49 | PD.TTN ---
Patient Problems 1. Discharge planning 2. Medication compliance 3. Knowledge deficit 4. Lack of coping skills Progress Toward Goals Provider Present: Dr. 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 Pt will continue on current medication regiment for further stabilization while awaiting placement at [facility]. Nurse(s) Present: Joy Malone RN Nurse(s) Input: Pt appears to isolate to himself yet is pleasant with poor self care. Pt slept and appears appropriate on unit. Pt remains cooperative, appropriate, organized, withdrawn to self and requiring prompting for ADLs. Psychiatric Counselors Present: RUBY Anderson Psych Therapist Input: Pt continues to appear calm, appropriate, organized, intrusive, childlike, withdrawn to self and with poor insight. He continues to deny medication noncompliance desipte ongoing active issues with this. Insight into condition and need for care remains poor. Pt appears able to regulate emotions suggesting possible use of coping skills though it is likely there are some deficits present. Pt presents as no behavioral problem on unit at this time. Pt remains calm, cooperative, appropriate and pleasant with increasing compliance with medication regiment however he insists that he does not need medication as he has poor insight into condition. He appears somewhat goal oriented though goals are not realistic. He appears to be able to implement coping skills as he has not had any angry outbursts though he struggles to cope with the depression that he seems to be experiencing as he has been withdrawn. Group Spec/RT/OT/MELGAR Present: TALIA Alves Group Spec/RT/OT/MELGAR Input: Pt attends select groups but often isolates to self. Pt attends only a few groups and remains largely to himself on unit. Discharge Plan Other Pt has been referred to [facility] but placement options at [facility] will be considered as well if appropriate. Documentation Scribe: RUBY Anderson Jonathan LMHC Apr 12, 2017 07:49
[2017-04-12] MEDS: amLODIPine BESYLATE 5 MG TAB PO SCH ×4 (09:10→20:51)
[2017-04-12] MEDS: BENZTROPINE MESYLATE 1 MG TAB PO SCH ×4 (09:10→20:50)
[2017-04-12] MEDS: clonazePAM 1 MG TAB PO SCH ×4 (09:10→20:51)
[2017-04-12] MEDS: SODIUM CHLORIDE 1 GRAM TAB PO SCH ×4 (09:10→20:50)
[2017-04-12] MEDS: LISINOPRIL 5 MG TAB PO SCH ×2 (09:10)
[2017-04-12] MEDS: fluPHENAZine HCL ELIXIR 2.5 MG/5 ML UDC PO SCH ×4 (09:12→20:51)
[2017-04-12] MEDS: PROPRANOLOL HCL 10 MG TAB PO SCH ×6 (09:12→20:50)
--- NOTE | 2017-04-12 10:57 | HHI.PYPN ---
Subjective Remarks Patient seen and examined with nurse. Chart reviewed. Case discussed with nursing staff. On my exam, calm, childlike, essentially unchanged from previous assessments. Denies SI or HI. No side effects from medications. No physical complaints. Review of Systems ROS Limitations: Poor Historian Except as stated in HPI: all other systems reviewed are Neg Mental Status Examination Appearance: Appropriate Consciousness: Alert Orientation: Person, Place Motor Activity: Other (no abnormal motor movements noted) Speech: Unremarkable Language: Other (somewhat limited vocabulary but otherwise unremarkable) Fund of Knowledge: Poor Attention and Concentration: Other (poor) Memory: Impaired Mood: Good Affect: Other (childlike) Thought Process & Associations: Circumstantial Thought Content: Preoccupations (with obtaining fluids) Hallucination Type: None Delusion Type: None Suicidal Ideation: No Suicidal Plan: No Suicidal Intention: No Homicidal Ideation: No Homicidal Plan: No Homicidal Intention: No Insight: Poor Judgment: Poor Results Labs Labs reviewed Vitals/IOs Vital Signs Date Time Temp Pulse Resp B/P (MAP) Pulse Ox O2 Delivery O2 Flow Rate FiO2 04/12/17 06:05 98.0 64 18 116/72 (87) 100 Assessment & Plan Problem List: (1) Schizoaffective disorder ICD Codes: F25.9 - Schizoaffective disorder, unspecified Status: Acute (2) Intellectual disability ICD Codes: F79 - Unspecified intellectual disabilities Status: Chronic Assessment & Plan Continue current psychotropics as ordered. Check a BMP in the morning to follow -up hyponatremia. Continue to monitor on the inpatient unit. Continue other medications and care as ordered. Justification for Cont. Inpt. risk for decompensation in less restrictive environment. Discharge Planning [facility] referral. Case discussed with counselor who will update patient's place on the state psychiatric wait list Request HC Surrog/Guard Advoc?: Yes Problem Qualifiers (1) Schizoaffective disorder: Qualified Codes: F25.0 - Schizoaffective disorder, bipolar type Larry Valdivia MD Apr 12, 2017 10:57
[2017-04-12 17:22] VITALS: BP 121/81; PULSE 77; RESP 18; TEMP 98.5; O2SAT 100
[2017-04-12 20:00] VITALS: BP 125/87; PULSE 79
[2017-04-12] MEDS: ATORVASTATIN 20 MG TAB PO SCH ×2 (20:51)
[2017-04-13 06:01] VITALS: BP 124/78; PULSE 71; RESP 16; TEMP 97.4; O2SAT 96
[2017-04-13] MEDS: amLODIPine BESYLATE 5 MG TAB PO SCH ×4 (09:00→20:22)
[2017-04-13] MEDS: BENZTROPINE MESYLATE 1 MG TAB PO SCH ×4 (09:00→20:22)
[2017-04-13] MEDS: LISINOPRIL 5 MG TAB PO SCH ×2 (09:00)
[2017-04-13] MEDS: PROPRANOLOL HCL 10 MG TAB PO SCH ×6 (09:00→20:22)
[2017-04-13] MEDS: clonazePAM 1 MG TAB PO SCH ×4 (09:00→20:22)
[2017-04-13] MEDS: SODIUM CHLORIDE 1 GRAM TAB PO SCH ×4 (09:00→20:22)
[2017-04-13] MEDS: fluPHENAZine HCL ELIXIR 2.5 MG/5 ML UDC PO SCH ×4 (09:00→20:22)
--- NOTE | 2017-04-13 09:18 | HHI.PYPN ---
Subjective Remarks Patient seen and examined with nurse. Chart reviewed. Case discussed in treatment team. On my examination today, patient says that his goal is to see his father. Last saw father 2 years ago he tells me now. Calm and no behavioral problem. Remains quite childlike. No physical complaints. He does have a mild resting tremor but declines adjustment in his Cogentin. Review of Systems ROS Limitations: Poor Historian Except as stated in HPI: all other systems reviewed are Neg Mental Status Examination Appearance: Appropriate Consciousness: Alert Orientation: Person (at least) Motor Activity: Other (mild resting hand tremor) Speech: Unremarkable Language: Other (somewhat limited vocabulary but otherwise unremarkable) Fund of Knowledge: Poor Attention and Concentration: Other (poor) Memory: Impaired Mood: Appropriate Affect: Other (childlike) Thought Process & Associations: Circumstantial Thought Content: Preoccupations Hallucination Type: None Delusion Type: None Suicidal Ideation: No Suicidal Plan: No Suicidal Intention: No Homicidal Ideation: No Homicidal Plan: No Homicidal Intention: No Insight: Poor Judgment: Poor Results Labs Labs reviewed. BMP in process. Vitals/IOs Vital Signs Date Time Temp Pulse Resp B/P (MAP) Pulse Ox O2 Delivery O2 Flow Rate FiO2 04/13/17 06:01 97.4 71 16 124/78 (93) 96 Assessment & Plan Problem List: (1) Schizoaffective disorder ICD Codes: F25.9 - Schizoaffective disorder, unspecified Status: Acute (2) Intellectual disability ICD Codes: F79 - Unspecified intellectual disabilities Status: Chronic Assessment & Plan Continue current psychiatric medications as ordered. Continue to monitor on the inpatient psychiatric unit. Continue other medications and care as ordered. Justification for Cont. Inpt. Risk for decompensation in less restrictive environment. Discharge Planning Counselor reports that the patient is #9 on the [facility] wait list. Request HC Surrog/Guard Advoc?: Yes Problem Qualifiers (1) Schizoaffective disorder: Qualified Codes: F25.0 - Schizoaffective disorder, bipolar type Larry Valdivia MD Apr 13, 2017 09:17
--- NOTE | 2017-04-13 13:34 | PD.TTN ---
Patient Problems 1. Discharge planning 2. Medication compliance 3. Knowledge deficit 4. Lack of coping skills Progress Toward Goals Provider Present: Dr. 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 Pt will continue on current medication regiment for further stabilization while awaiting placement at [facility]. 04/13- Pt medication regiment will continue to be evaluated and pt remains on the wait list for [facility]. Nurse(s) Present: Joy Malone RN Nurse(s) Input: Pt appears to isolate to himself yet is pleasant with poor self care. Pt slept and appears appropriate on unit. Pt remains cooperative, appropriate, organized, withdrawn to self and requiring prompting for ADLs. 04/13- Pt appears preoccupied, delusional, cooperative, appropriate and compliant with medication regiment. Psychiatric Counselors Present: Justice Bernard [facility] Psych Therapist Input: Pt continues to appear calm, appropriate, organized, intrusive, childlike, withdrawn to self and with poor insight. He continues to deny medication noncompliance desipte ongoing active issues with this. Insight into condition and need for care remains poor. Pt appears able to regulate emotions suggesting possible use of coping skills though it is likely there are some deficits present. Pt presents as no behavioral problem on unit at this time. Pt remains calm, cooperative, appropriate and pleasant with increasing compliance with medication regiment however he insists that he does not need medication as he has poor insight into condition. He appears somewhat goal oriented though goals are not realistic. He appears to be able to implement coping skills as he has not had any angry outbursts though he struggles to cope with the depression that he seems to be experiencing as he has been withdrawn. 04/13- Pt appears calm, cooperative, appropriate, organized and oriented. He is compliant with medication regiment but insists that he does not feel he needs medication suggesting that he likely would become decompensated at a lower level of care. He presents with poor insight into condition and need for care. No noted agitation or aggression. Pt appears somewhat preoccupied at times though these symptoms have improved since admission. Pt remains largely withdrawn to self and poorly motivated to be involved with therapeutic aspects of treatment. Group Spec/RT/OT/MELGAR Present: Elgin Salcedo OT, Maynor Favio, MELGAR Group Spec/RT/OT/MELGAR Input: Pt attends select groups but often isolates to self. Pt attends only a few groups and remains largely to himself on unit. 04/13- Pt attends food related groups but does not initiate with others Discharge Plan Other Pt has been referred to [facility] but placement options at [facility] will be considered as well if appropriate. Documentation Scribe: RUBY Anderson Jonathan LMHC Apr 13, 2017 13:34
--- NOTE | 2017-04-13 13:34 | PD.TTN ---
Patient Problems 1. Discharge planning 2. Medication compliance 3. Knowledge deficit 4. Lack of coping skills Progress Toward Goals Provider Present: Dr. 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 Pt will continue on current medication regiment for further stabilization while awaiting placement at [facility]. 04/13- Pt medication regiment will continue to be evaluated and pt remains on the wait list for [facility]. Nurse(s) Present: Joy Malone RN Nurse(s) Input: Pt appears to isolate to himself yet is pleasant with poor self care. Pt slept and appears appropriate on unit. Pt remains cooperative, appropriate, organized, withdrawn to self and requiring prompting for ADLs. 04/13- Pt appears preoccupied, delusional, cooperative, appropriate and compliant with medication regiment. Psychiatric Counselors Present: Justice Bernard [facility] Psych Therapist Input: Pt continues to appear calm, appropriate, organized, intrusive, childlike, withdrawn to self and with poor insight. He continues to deny medication noncompliance desipte ongoing active issues with this. Insight into condition and need for care remains poor. Pt appears able to regulate emotions suggesting possible use of coping skills though it is likely there are some deficits present. Pt presents as no behavioral problem on unit at this time. Pt remains calm, cooperative, appropriate and pleasant with increasing compliance with medication regiment however he insists that he does not need medication as he has poor insight into condition. He appears somewhat goal oriented though goals are not realistic. He appears to be able to implement coping skills as he has not had any angry outbursts though he struggles to cope with the depression that he seems to be experiencing as he has been withdrawn. 04/13- Pt appears calm, cooperative, appropriate, organized and oriented. He is compliant with medication regiment but insists that he does not feel he needs medication suggesting that he likely would become decompensated at a lower level of care. He presents with poor insight into condition and need for care. No noted agitation or aggression. Pt appears somewhat preoccupied at times though these symptoms have improved since admission. Pt remains largely withdrawn to self and poorly motivated to be involved with therapeutic aspects of treatment. Group Spec/RT/OT/MELGAR Present: Elgin Salcedo OT, Maynor Favio, MELGAR Group Spec/RT/OT/MELGAR Input: Pt attends select groups but often isolates to self. Pt attends only a few groups and remains largely to himself on unit. 04/13- Pt attends food related groups but does not initiate with others Discharge Plan Other Pt has been referred to [facility] but placement options at [facility] will be considered as well if appropriate. Documentation Scribe: RUBY Anderson Jonathan LMHC Apr 13, 2017 13:34
--- NOTE | 2017-04-13 13:34 | PD.TTN ---
Patient Problems 1. Discharge planning 2. Medication compliance 3. Knowledge deficit 4. Lack of coping skills Progress Toward Goals Provider Present: Dr. 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 Pt will continue on current medication regiment for further stabilization while awaiting placement at [facility]. 04/13- Pt medication regiment will continue to be evaluated and pt remains on the wait list for [facility]. Nurse(s) Present: Joy Malone RN Nurse(s) Input: Pt appears to isolate to himself yet is pleasant with poor self care. Pt slept and appears appropriate on unit. Pt remains cooperative, appropriate, organized, withdrawn to self and requiring prompting for ADLs. 04/13- Pt appears preoccupied, delusional, cooperative, appropriate and compliant with medication regiment. Psychiatric Counselors Present: Justice Bernard [facility] Psych Therapist Input: Pt continues to appear calm, appropriate, organized, intrusive, childlike, withdrawn to self and with poor insight. He continues to deny medication noncompliance desipte ongoing active issues with this. Insight into condition and need for care remains poor. Pt appears able to regulate emotions suggesting possible use of coping skills though it is likely there are some deficits present. Pt presents as no behavioral problem on unit at this time. Pt remains calm, cooperative, appropriate and pleasant with increasing compliance with medication regiment however he insists that he does not need medication as he has poor insight into condition. He appears somewhat goal oriented though goals are not realistic. He appears to be able to implement coping skills as he has not had any angry outbursts though he struggles to cope with the depression that he seems to be experiencing as he has been withdrawn. 04/13- Pt appears calm, cooperative, appropriate, organized and oriented. He is compliant with medication regiment but insists that he does not feel he needs medication suggesting that he likely would become decompensated at a lower level of care. He presents with poor insight into condition and need for care. No noted agitation or aggression. Pt appears somewhat preoccupied at times though these symptoms have improved since admission. Pt remains largely withdrawn to self and poorly motivated to be involved with therapeutic aspects of treatment. Group Spec/RT/OT/MELGAR Present: Elgin Salcedo OT, Maynor Favio, MELGAR Group Spec/RT/OT/MELGAR Input: Pt attends select groups but often isolates to self. Pt attends only a few groups and remains largely to himself on unit. 04/13- Pt attends food related groups but does not initiate with others Discharge Plan Other Pt has been referred to [facility] but placement options at [facility] will be considered as well if appropriate. Documentation Scribe: RUBY Anderson Jonathan LMHC Apr 13, 2017 13:34
[2017-04-13 18:20] VITALS: BP 133/81; PULSE 18; RESP 18; TEMP 97.6; O2SAT 98
[2017-04-13 20:15] VITALS: BP 124/81; PULSE 72
[2017-04-13] MEDS: ATORVASTATIN 20 MG TAB PO SCH ×2 (20:22)
[2017-04-14 05:41] VITALS: BP 134/85; PULSE 79; RESP 18; TEMP 97.5; O2SAT 95
[2017-04-14] MEDS: BENZTROPINE MESYLATE 1 MG TAB PO SCH ×4 (09:13→20:37)
[2017-04-14] MEDS: amLODIPine BESYLATE 5 MG TAB PO SCH ×4 (09:13→20:36)
[2017-04-14] MEDS: SODIUM CHLORIDE 1 GRAM TAB PO SCH ×4 (09:13→20:36)
[2017-04-14] MEDS: clonazePAM 1 MG TAB PO SCH ×4 (09:13→20:36)
[2017-04-14] MEDS: LISINOPRIL 5 MG TAB PO SCH ×2 (09:14)
[2017-04-14] MEDS: PROPRANOLOL HCL 10 MG TAB PO SCH ×6 (09:15→20:37)
[2017-04-14] MEDS: fluPHENAZine HCL ELIXIR 2.5 MG/5 ML UDC PO SCH ×4 (10:56→20:36)
[2017-04-14 11:02] LABS: BICARBONATE 30.4 MEQ/L (21.0-32.0); CALCIUM 9.1 MG/DL (8.5-10.1); CREATININE 0.72 MG/DL (0.60-1.30)
--- NOTE | 2017-04-14 12:09 | HHI.PYPN ---
Subjective Remarks Patient seen and examined. Chart reviewed. Case discussed with nursing staff. No behavioral issues noted. On my examination today, the patient denies any acute complaints. He is presently calm and in good behavioral control. No SI/ HI. No psychotic symptoms. He does have some ongoing resting hand tremor and is agreeable to titration of Cogentin for this. Otherwise no side effects from medications or physical complaints. Review of Systems ROS Limitations: Poor Historian Except as stated in HPI: all other systems reviewed are Neg Mental Status Examination Appearance: Appropriate Consciousness: Alert Orientation: Person, Place Motor Activity: Other (mild resting hand tremor, ongoing) Speech: Unremarkable Fund of Knowledge: Poor Attention and Concentration: Other (poor) Memory: Impaired Mood: Appropriate Affect: Other (remains childlike) Thought Process & Associations: Linear Hallucination Type: None Delusion Type: None Suicidal Ideation: No Suicidal Plan: No Suicidal Intention: No Homicidal Ideation: No Homicidal Plan: No Homicidal Intention: No Insight: Poor Judgment: Poor Results Labs Test 04/14/17 09:15 Blood Urea Nitrogen 15 MG/DL Creatinine 0.72 MG/DL Random Glucose 104 MG/DL Calcium Level 9.1 MG/DL Sodium Level 135 MEQ/L Potassium Level 3.9 MEQ/L Chloride Level 98 MEQ/L Carbon Dioxide Level 30.4 MEQ/L Anion Gap 7 MEQ/L Estimat Glomerular Filtration Rate 114 ML/MIN Labs reviewed. Stable mild hyponatremia noted. Vitals/IOs Vital Signs Date Time Temp Pulse Resp B/P (MAP) Pulse Ox O2 Delivery O2 Flow Rate FiO2 04/14/17 05:41 97.5 79 18 134/85 (101) 95 Assessment & Plan Problem List: (1) Schizoaffective disorder ICD Codes: F25.9 - Schizoaffective disorder, unspecified Status: Acute (2) Intellectual disability ICD Codes: F79 - Unspecified intellectual disabilities Status: Chronic Assessment & Plan Titrate Cogentin to 1.5 mg twice daily for management of EPS. Continue other medications and care as ordered. Continue to monitor on the inpatient unit. Justification for Cont. Inpt. High risk for decompensation in less restrictive environment. Discharge Planning [facility] referral. Case d/w counselor. [facility] is requesting updated EKG; I have ordered this. Request HC Surrog/Guard Advoc?: Yes Problem Qualifiers (1) Schizoaffective disorder: Qualified Codes: F25.0 - Schizoaffective disorder, bipolar type Larry Valdivia MD Apr 14, 2017 12:09
--- NOTE | 2017-04-14 12:09 | HHI.PYPN ---
Subjective Remarks Patient seen and examined. Chart reviewed. Case discussed with nursing staff. No behavioral issues noted. On my examination today, the patient denies any acute complaints. He is presently calm and in good behavioral control. No SI/ HI. No psychotic symptoms. He does have some ongoing resting hand tremor and is agreeable to titration of Cogentin for this. Otherwise no side effects from medications or physical complaints. Review of Systems ROS Limitations: Poor Historian Except as stated in HPI: all other systems reviewed are Neg Mental Status Examination Appearance: Appropriate Consciousness: Alert Orientation: Person, Place Motor Activity: Other (mild resting hand tremor, ongoing) Speech: Unremarkable Fund of Knowledge: Poor Attention and Concentration: Other (poor) Memory: Impaired Mood: Appropriate Affect: Other (remains childlike) Thought Process & Associations: Linear Hallucination Type: None Delusion Type: None Suicidal Ideation: No Suicidal Plan: No Suicidal Intention: No Homicidal Ideation: No Homicidal Plan: No Homicidal Intention: No Insight: Poor Judgment: Poor Results Labs Test 04/14/17 09:15 Blood Urea Nitrogen 15 MG/DL Creatinine 0.72 MG/DL Random Glucose 104 MG/DL Calcium Level 9.1 MG/DL Sodium Level 135 MEQ/L Potassium Level 3.9 MEQ/L Chloride Level 98 MEQ/L Carbon Dioxide Level 30.4 MEQ/L Anion Gap 7 MEQ/L Estimat Glomerular Filtration Rate 114 ML/MIN Labs reviewed. Stable mild hyponatremia noted. Vitals/IOs Vital Signs Date Time Temp Pulse Resp B/P (MAP) Pulse Ox O2 Delivery O2 Flow Rate FiO2 04/14/17 05:41 97.5 79 18 134/85 (101) 95 Assessment & Plan Problem List: (1) Schizoaffective disorder ICD Codes: F25.9 - Schizoaffective disorder, unspecified Status: Acute (2) Intellectual disability ICD Codes: F79 - Unspecified intellectual disabilities Status: Chronic Assessment & Plan Titrate Cogentin to 1.5 mg twice daily for management of EPS. Continue other medications and care as ordered. Continue to monitor on the inpatient unit. Justification for Cont. Inpt. High risk for decompensation in less restrictive environment. Discharge Planning Psychiatric hospital referral. Case d/w counselor. [facility] is requesting updated EKG; I have ordered this. Request HC Surrog/Guard Advoc?: Yes Problem Qualifiers (1) Schizoaffective disorder: Qualified Codes: F25.0 - Schizoaffective disorder, bipolar type Larry Valdivia MD Apr 14, 2017 12:09
--- NOTE | 2017-04-14 12:09 | HHI.PYPN ---
Subjective Remarks Patient seen and examined. Chart reviewed. Case discussed with nursing staff. No behavioral issues noted. On my examination today, the patient denies any acute complaints. He is presently calm and in good behavioral control. No SI/ HI. No psychotic symptoms. He does have some ongoing resting hand tremor and is agreeable to titration of Cogentin for this. Otherwise no side effects from medications or physical complaints. Review of Systems ROS Limitations: Poor Historian Except as stated in HPI: all other systems reviewed are Neg Mental Status Examination Appearance: Appropriate Consciousness: Alert Orientation: Person, Place Motor Activity: Other (mild resting hand tremor, ongoing) Speech: Unremarkable Fund of Knowledge: Poor Attention and Concentration: Other (poor) Memory: Impaired Mood: Appropriate Affect: Other (remains childlike) Thought Process & Associations: Linear Hallucination Type: None Delusion Type: None Suicidal Ideation: No Suicidal Plan: No Suicidal Intention: No Homicidal Ideation: No Homicidal Plan: No Homicidal Intention: No Insight: Poor Judgment: Poor Results Labs Test 04/14/17 09:15 Blood Urea Nitrogen 15 MG/DL Creatinine 0.72 MG/DL Random Glucose 104 MG/DL Calcium Level 9.1 MG/DL Sodium Level 135 MEQ/L Potassium Level 3.9 MEQ/L Chloride Level 98 MEQ/L Carbon Dioxide Level 30.4 MEQ/L Anion Gap 7 MEQ/L Estimat Glomerular Filtration Rate 114 ML/MIN Labs reviewed. Stable mild hyponatremia noted. Vitals/IOs Vital Signs Date Time Temp Pulse Resp B/P (MAP) Pulse Ox O2 Delivery O2 Flow Rate FiO2 04/14/17 05:41 97.5 79 18 134/85 (101) 95 Assessment & Plan Problem List: (1) Schizoaffective disorder ICD Codes: F25.9 - Schizoaffective disorder, unspecified Status: Acute (2) Intellectual disability ICD Codes: F79 - Unspecified intellectual disabilities Status: Chronic Assessment & Plan Titrate Cogentin to 1.5 mg twice daily for management of EPS. Continue other medications and care as ordered. Continue to monitor on the inpatient unit. Justification for Cont. Inpt. High risk for decompensation in less restrictive environment. Discharge Planning [facility] referral. Case d/w counselor. [facility] is requesting updated EKG; I have ordered this. Request HC Surrog/Guard Advoc?: Yes Problem Qualifiers (1) Schizoaffective disorder: Qualified Codes: F25.0 - Schizoaffective disorder, bipolar type Larry Valdivia MD Apr 14, 2017 12:09
[2017-04-14] MEDS: ATORVASTATIN 20 MG TAB PO SCH ×2 (20:36)
[2017-04-14 21:08] VITALS: BP 140/80; PULSE 87; RESP 18; TEMP 97.5; O2SAT 97
[2017-04-15 05:58] VITALS: BP 112/77; PULSE 72; RESP 16; TEMP 97.3; O2SAT 97
[2017-04-15] MEDS: PROPRANOLOL HCL 10 MG TAB PO SCH ×6 (07:35→20:37)
[2017-04-15] MEDS: BENZTROPINE MESYLATE 1 MG TAB PO SCH ×4 (07:35→20:38)
[2017-04-15] MEDS: clonazePAM 1 MG TAB PO SCH ×4 (07:35→20:37)
[2017-04-15] MEDS: amLODIPine BESYLATE 5 MG TAB PO SCH ×4 (07:36→20:37)
[2017-04-15] MEDS: LISINOPRIL 5 MG TAB PO SCH ×2 (07:36)
[2017-04-15] MEDS: fluPHENAZine HCL ELIXIR 2.5 MG/5 ML UDC PO SCH ×4 (07:36→20:37)
[2017-04-15] MEDS: SODIUM CHLORIDE 1 GRAM TAB PO SCH ×4 (07:37→20:37)
--- NOTE | 2017-04-15 11:37 | HHI.PYPN ---
Subjective Remarks Patient seen and examined. Chart reviewed. Case discussed with nursing staff. No issues overnight. On my examination today, resting tremor eliminated with titration of Cogentin. No other signs of EPS. Patient is in good spirits and remains quite childlike. No behavioral problem. Denies side effects from medications. No physical complaints. Review of Systems ROS Limitations: Poor Historian Except as stated in HPI: all other systems reviewed are Neg Mental Status Examination Appearance: Appropriate Consciousness: Alert Orientation: Person Motor Activity: Other (no abnormal motor movements noted) Speech: Unremarkable Fund of Knowledge: Poor Attention and Concentration: Other (poor) Memory: Impaired Mood: Appropriate Affect: Other (a little childlike) Thought Process & Associations: Linear Hallucination Type: None Delusion Type: None Suicidal Ideation: No Homicidal Ideation: No Insight: Poor Judgment: Poor Results Labs Labs reviewed Vitals/IOs Vital Signs Date Time Temp Pulse Resp B/P (MAP) Pulse Ox O2 Delivery O2 Flow Rate FiO2 04/15/17 05:58 97.3 72 16 112/77 (89) 97 Assessment & Plan Problem List: (1) Schizoaffective disorder ICD Codes: F25.9 - Schizoaffective disorder, unspecified Status: Acute (2) Intellectual disability ICD Codes: F79 - Unspecified intellectual disabilities Status: Chronic Assessment & Plan Continue increased dose of Cogentin as ordered. Continue to monitor on the inpatient unit. Continue other medications and care as ordered. Justification for Cont. Inpt. Risk for decompensation in less restrictive environment. Discharge Planning [facility] psychiatric hospital referral. Case discussed with counselor. Request HC Surrog/Guard Advoc?: Yes Problem Qualifiers (1) Schizoaffective disorder: Qualified Codes: F25.0 - Schizoaffective disorder, bipolar type Larry Valdivia MD Apr 15, 2017 11:37
--- NOTE | 2017-04-15 14:57 | EKG ---
Date Performed: 04/14/2017 Time Performed: 17:46:55 PTAGE: 51 years EKG: Sinus rhythm NORMAL ECG PREVIOUS TRACING : 10/05/2016 16.46 Compared to prior tracing no significant change DOCTOR: Taylor Cespedes Interpretating Date/Time 04/15/2017 14:53:15
[2017-04-15 18:06] VITALS: BP 113/76; PULSE 68; RESP 16; TEMP 97.4; O2SAT 98
[2017-04-15] MEDS: ATORVASTATIN 20 MG TAB PO SCH ×2 (20:38)
[2017-04-16 05:48] VITALS: BP 121/71; PULSE 58; RESP 18; TEMP 98.1; O2SAT 97
[2017-04-16] MEDS: amLODIPine BESYLATE 5 MG TAB PO SCH ×4 (07:50→20:42)
[2017-04-16] MEDS: BENZTROPINE MESYLATE 1 MG TAB PO SCH ×4 (07:50→20:41)
[2017-04-16] MEDS: LISINOPRIL 5 MG TAB PO SCH ×2 (07:51)
[2017-04-16] MEDS: clonazePAM 1 MG TAB PO SCH ×4 (07:51→20:42)
[2017-04-16] MEDS: PROPRANOLOL HCL 10 MG TAB PO SCH ×6 (07:51→20:42)
[2017-04-16] MEDS: SODIUM CHLORIDE 1 GRAM TAB PO SCH ×4 (07:51→20:42)
[2017-04-16] MEDS: fluPHENAZine HCL ELIXIR 2.5 MG/5 ML UDC PO SCH ×4 (07:52→20:57)
--- NOTE | 2017-04-16 11:45 | HHI.PYPN ---
Subjective Remarks Patient seen and examined. Chart reviewed. Case discussed with nursing staff. No behavioral issues noted. On my examination today, patient remains calm and childlike. Continues to insist that he plans to visit with his father, although as I have noted before, I have been informed that patient's father is . This belief doesn't seem delusional somewhat has merely wishful thinking. Denies side effects from medications. No physical complaints. Review of Systems ROS Limitations: Poor Historian Except as stated in HPI: all other systems reviewed are Neg Mental Status Examination Appearance: Appropriate Consciousness: Alert Orientation: Person, Place Motor Activity: Other (no motoric abnormalities noted) Speech: Unremarkable Fund of Knowledge: Poor Attention and Concentration: Other (poor) Memory: Impaired Mood: Appropriate Affect: Other (remains a little childlike) Thought Process & Associations: Linear Hallucination Type: None Delusion Type: None Suicidal Ideation: No Homicidal Ideation: No Insight: Poor Judgment: Poor Results Labs Labs reviewed Vitals/IOs Vital Signs Date Time Temp Pulse Resp B/P (MAP) Pulse Ox O2 Delivery O2 Flow Rate FiO2 04/16/17 05:48 98.1 58 18 121/71 (88) 97 Assessment & Plan Problem List: (1) Schizoaffective disorder ICD Codes: F25.9 - Schizoaffective disorder, unspecified Status: Acute (2) Intellectual disability ICD Codes: F79 - Unspecified intellectual disabilities Status: Chronic Assessment & Plan Continue current psychiatric medications as ordered. Continue to monitor on the inpatient unit. Continue other medications and care as ordered. Justification for Cont. Inpt. High risk for decompensation in less restrictive environment Discharge Planning [facility] Request HC Surrog/Guard Advoc?: Yes Problem Qualifiers (1) Schizoaffective disorder: Qualified Codes: F25.0 - Schizoaffective disorder, bipolar type Larry Valdivia MD Apr 16, 2017 11:45
[2017-04-16 17:00] VITALS: BP 132/81; PULSE 79; RESP 18; TEMP 97.5; O2SAT 97
[2017-04-16] MEDS: ATORVASTATIN 20 MG TAB PO SCH ×2 (20:42)
[2017-04-17 05:50] VITALS: BP 108/73; PULSE 64; RESP 18; TEMP 97.6; O2SAT 98
[2017-04-17] MEDS: BENZTROPINE MESYLATE 1 MG TAB PO SCH ×4 (07:54→20:47)
[2017-04-17] MEDS: LISINOPRIL 5 MG TAB PO SCH ×2 (07:54)
[2017-04-17] MEDS: amLODIPine BESYLATE 5 MG TAB PO SCH ×4 (07:55→20:47)
[2017-04-17] MEDS: clonazePAM 1 MG TAB PO SCH ×4 (07:55→20:47)
[2017-04-17] MEDS: SODIUM CHLORIDE 1 GRAM TAB PO SCH ×4 (07:55→20:47)
[2017-04-17] MEDS: PROPRANOLOL HCL 10 MG TAB PO SCH ×6 (07:55→20:47)
[2017-04-17] MEDS: fluPHENAZine HCL ELIXIR 2.5 MG/5 ML UDC PO SCH ×4 (07:55→20:46)
--- NOTE | 2017-04-17 18:00 | HHI.PYPN ---
Subjective Remarks Patient was seen and case discussed with nursing. Patient is pleasant and cooperative with exam. Continues to behave well on the unit. Tolerating medications well. No complaints. Mental Status Examination Appearance: Appropriate Consciousness: Alert Orientation: Person, Place Motor Activity: Other (no motoric abnormalities noted) Speech: Unremarkable Fund of Knowledge: Poor Attention and Concentration: Other (poor) Memory: Impaired Mood: Appropriate Affect: Other (remains a little childlike) Thought Process & Associations: Linear Hallucination Type: None Delusion Type: None Suicidal Ideation: No Homicidal Ideation: No Insight: Poor Judgment: Poor Results Vitals/IOs Vital Signs Date Time Temp Pulse Resp B/P (MAP) Pulse Ox O2 Delivery O2 Flow Rate FiO2 04/17/17 05:50 97.6 64 18 108/73 (85) 98 Assessment & Plan Problem List: (1) Schizoaffective disorder ICD Codes: F25.9 - Schizoaffective disorder, unspecified Status: Acute (2) Intellectual disability ICD Codes: F79 - Unspecified intellectual disabilities Status: Chronic Assessment & Plan Continue current treatment plan Justification for Cont. Inpt. Patient will decompensate in a less restrictive setting Request HC Surrog/Guard Advoc?: Yes Problem Qualifiers (1) Schizoaffective disorder: Qualified Codes: F25.0 - Schizoaffective disorder, bipolar type Javier Rose DO Apr 17, 2017 18:00
[2017-04-17 18:50] VITALS: BP 109/84; PULSE 75; RESP 17; TEMP 97.7; O2SAT 98
[2017-04-17] MEDS: ATORVASTATIN 20 MG TAB PO SCH ×2 (20:47)
[2017-04-18 05:37] VITALS: BP 104/73; PULSE 75; RESP 18; TEMP 97.6; O2SAT 96
[2017-04-18] MEDS: BENZTROPINE MESYLATE 1 MG TAB PO SCH ×4 (09:00→20:21)
[2017-04-18] MEDS: PROPRANOLOL HCL 10 MG TAB PO SCH ×6 (09:00→20:22)
[2017-04-18] MEDS: fluPHENAZine HCL ELIXIR 2.5 MG/5 ML UDC PO SCH ×4 (09:16→20:20)
[2017-04-18] MEDS: LISINOPRIL 5 MG TAB PO SCH ×2 (09:17)
[2017-04-18] MEDS: SODIUM CHLORIDE 1 GRAM TAB PO SCH ×4 (09:18→20:20)
[2017-04-18] MEDS: clonazePAM 1 MG TAB PO SCH ×4 (09:18→20:21)
[2017-04-18] MEDS: amLODIPine BESYLATE 5 MG TAB PO SCH ×4 (09:18→20:21)
--- NOTE | 2017-04-18 13:33 | HHI.PYPN ---
Subjective Remarks Patient was seen and case discussed with nursing. Patient is pleasant and cooperative with exam. Behaving well on the unit. Compliant with medications. Mental Status Examination Appearance: Appropriate Consciousness: Alert Orientation: Person, Place Motor Activity: Other (no motoric abnormalities noted) Speech: Unremarkable Fund of Knowledge: Poor Attention and Concentration: Other (poor) Memory: Impaired Mood: Appropriate Affect: Other (remains a little childlike) Thought Process & Associations: Linear Hallucination Type: None Delusion Type: None Suicidal Ideation: No Homicidal Ideation: No Insight: Poor Judgment: Poor Results Vitals/IOs Vital Signs Date Time Temp Pulse Resp B/P (MAP) Pulse Ox O2 Delivery O2 Flow Rate FiO2 04/18/17 08:09 04/18/17 05:37 97.6 75 18 96 Assessment & Plan Problem List: (1) Schizoaffective disorder ICD Codes: F25.9 - Schizoaffective disorder, unspecified Status: Acute (2) Intellectual disability ICD Codes: F79 - Unspecified intellectual disabilities Status: Chronic Assessment & Plan Continue current treatment plan Justification for Cont. Inpt. Patient would decompensate in a less restrictive setting Request HC Surrog/Guard Advoc?: Yes Problem Qualifiers (1) Schizoaffective disorder: Qualified Codes: F25.0 - Schizoaffective disorder, bipolar type Javier Rose DO Apr 18, 2017 13:33
[2017-04-18 17:04] VITALS: BP 115/84; PULSE 83; RESP 17; TEMP 97.3; O2SAT 97
[2017-04-18] MEDS: ATORVASTATIN 20 MG TAB PO SCH ×2 (20:21)
[2017-04-19 05:59] VITALS: BP 122/70; PULSE 58; RESP 18; TEMP 98.1; O2SAT 98
[2017-04-19] MEDS: clonazePAM 1 MG TAB PO SCH ×4 (08:07→20:44)
[2017-04-19] MEDS: BENZTROPINE MESYLATE 1 MG TAB PO SCH ×4 (08:07→20:44)
[2017-04-19] MEDS: LISINOPRIL 5 MG TAB PO SCH ×2 (08:08)
[2017-04-19] MEDS: amLODIPine BESYLATE 5 MG TAB PO SCH ×4 (08:08→20:44)
[2017-04-19] MEDS: SODIUM CHLORIDE 1 GRAM TAB PO SCH ×4 (08:08→20:44)
[2017-04-19] MEDS: fluPHENAZine HCL ELIXIR 2.5 MG/5 ML UDC PO SCH ×4 (08:08→20:44)
[2017-04-19] MEDS: PROPRANOLOL HCL 10 MG TAB PO SCH ×6 (08:13→20:44)
--- NOTE | 2017-04-19 09:17 | HHI.PYPN ---
Subjective Remarks Patient seen and examined. Chart reviewed. Case discussed with nursing staff. No behavioral issues noted per nursing staff. For me today, the patient is in good spirits and smiling broadly. He is calm and pleasant on exam. Denies audiovisual hallucinations. He denies side effects from medications. No reported physical complaints. Review of Systems ROS Limitations: Poor Historian Except as stated in HPI: all other systems reviewed are Neg Mental Status Examination Appearance: Appropriate Consciousness: Alert Orientation: Person, Place Motor Activity: Other (no motoric abnormalities noted) Speech: Unremarkable Fund of Knowledge: Poor Attention and Concentration: Other (fair at best) Memory: Impaired Mood: Appropriate Affect: Other (childlike) Thought Process & Associations: Linear Hallucination Type: None Delusion Type: None Suicidal Ideation: No Homicidal Ideation: No Insight: Poor Judgment: Poor Results Labs Labs reviewed Vitals/IOs Vital Signs Date Time Temp Pulse Resp B/P (MAP) Pulse Ox O2 Delivery O2 Flow Rate FiO2 04/19/17 05:59 98.1 58 18 122/70 (87) 98 Assessment & Plan Problem List: (1) Schizoaffective disorder ICD Codes: F25.9 - Schizoaffective disorder, unspecified Status: Acute (2) Intellectual disability ICD Codes: F79 - Unspecified intellectual disabilities Status: Chronic Assessment & Plan Continue current psychiatric medications as ordered. Continue to monitor on the inpatient unit. I'll check a sodium level in the morning to follow-up mild hyponatremia. Continue other medications and care as ordered. Justification for Cont. Inpt. High risk for decompensation in less restrictive environment. Discharge Planning Counselor informs me that the patient has a state psychiatric hospital admission date of 04/26/2017. Request HC Surrog/Guard Advoc?: Yes Problem Qualifiers (1) Schizoaffective disorder: Qualified Codes: F25.0 - Schizoaffective disorder, bipolar type Larry Valdivia MD Apr 19, 2017 09:17
[2017-04-19 17:41] VITALS: BP 108/76; PULSE 83; RESP 18; TEMP 98; O2SAT 96
[2017-04-19] MEDS: ATORVASTATIN 20 MG TAB PO SCH ×2 (20:44)
[2017-04-20 06:09] VITALS: BP 114/83; PULSE 76; RESP 18; TEMP 97.9; O2SAT 96
[2017-04-20] MEDS: BENZTROPINE MESYLATE 1 MG TAB PO SCH ×4 (07:39→21:13)
[2017-04-20] MEDS: amLODIPine BESYLATE 5 MG TAB PO SCH ×4 (07:40→21:13)
[2017-04-20] MEDS: clonazePAM 1 MG TAB PO SCH ×4 (07:40→21:12)
[2017-04-20] MEDS: LISINOPRIL 5 MG TAB PO SCH ×2 (07:40)
[2017-04-20] MEDS: PROPRANOLOL HCL 10 MG TAB PO SCH ×6 (07:40→21:00)
[2017-04-20] MEDS: fluPHENAZine HCL ELIXIR 2.5 MG/5 ML UDC PO SCH ×4 (07:49→21:13)
[2017-04-20] MEDS: SODIUM CHLORIDE 1 GRAM TAB PO SCH ×4 (07:49→21:13)
--- NOTE | 2017-04-20 08:56 | HHI.PYPN ---
Subjective Remarks Patient seen and examined. Chart reviewed. Case discussed in treatment team. Per nursing staff, patient no behavioral problem. On my exam, patient is in good spirits. Remains quite childlike. No psychotic symptoms. No side effects from medications. No physical complaints. Review of Systems ROS Limitations: Poor Historian Except as stated in HPI: all other systems reviewed are Neg Mental Status Examination Appearance: Appropriate Consciousness: Alert Orientation: Person, Place Motor Activity: Other (no motoric abnormalities noted) Speech: Unremarkable Fund of Knowledge: Poor Memory: Impaired Mood: Good Affect: Other (remains quite childlike) Thought Process & Associations: Linear Hallucination Type: None Delusion Type: None Suicidal Ideation: No Homicidal Ideation: No Insight: Poor Judgment: Poor Results Labs Test 04/20/17 06:42 Sodium Level 139 MEQ/L Labs reviewed. Sodium level within normal limits. Vitals/IOs Vital Signs Date Time Temp Pulse Resp B/P (MAP) Pulse Ox O2 Delivery O2 Flow Rate FiO2 04/20/17 06:09 97.9 76 18 114/83 (93) 96 Assessment & Plan Problem List: (1) Schizoaffective disorder ICD Codes: F25.9 - Schizoaffective disorder, unspecified Status: Acute (2) Intellectual disability ICD Codes: F79 - Unspecified intellectual disabilities Status: Chronic Assessment & Plan Continue current psychiatric medications as ordered. Continue other medications and care as ordered. Continue to monitor on the inpatient unit. Justification for Cont. Inpt. Risk for decompensation in less restrictive environment Discharge Planning [facility] admission date 04/26. Request HC Surrog/Guard Advoc?: Yes Problem Qualifiers (1) Schizoaffective disorder: Qualified Codes: F25.0 - Schizoaffective disorder, bipolar type Larry Valdivia MD Apr 20, 2017 08:56
--- NOTE | 2017-04-20 10:57 | PD.TTN ---
Patient Problems 1. Discharge planning 2. Medication compliance 3. Knowledge deficit 4. Lack of coping skills Progress Toward Goals Provider Present: Dr. 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 Pt will continue on current medication regiment for further stabilization while awaiting placement at [facility]. 04/20 Pt medication regiment has been finalized and no changes will be made. He has been referred to [facility] and will remain on unit until admitted there. 04/13- Pt medication regiment will continue to be evaluated and pt remains on the wait list for [facility]. Nurse(s) Present: Joy Malone RN Nurse(s) Input: Pt appears to isolate to himself yet is pleasant with poor self care. Pt slept and appears appropriate on unit. Pt remains cooperative, appropriate, organized, withdrawn to self and requiring prompting for ADLs. 04/20- Joan Narvaez RN Pt appears calm, cooperative, appropriate, compliant with medication regiment, pleasant, withdrawn and with no sleep/appetite disturbance. 04/13- Pt appears preoccupied, delusional, cooperative, appropriate and compliant with medication regiment. Psychiatric Counselors Present: RUBY Anderson Psych Therapist Input: Pt continues to appear calm, appropriate, organized, intrusive, childlike, withdrawn to self and with poor insight. He continues to deny medication noncompliance desipte ongoing active issues with this. Insight into condition and need for care remains poor. Pt appears able to regulate emotions suggesting possible use of coping skills though it is likely there are some deficits present. Pt presents as no behavioral problem on unit at this time. Pt remains calm, cooperative, appropriate and pleasant with increasing compliance with medication regiment however he insists that he does not need medication as he has poor insight into condition. He appears somewhat goal oriented though goals are not realistic. He appears to be able to implement coping skills as he has not had any angry outbursts though he struggles to cope with the depression that he seems to be experiencing as he has been withdrawn. 04/13- Pt appears calm, cooperative, appropriate, organized and oriented. He is compliant with medication regiment but insists that he does not feel he needs medication suggesting that he likely would become decompensated at a lower level of care. He presents with poor insight into condition and need for care. No noted agitation or aggression. Pt appears somewhat preoccupied at times though these symptoms have improved since admission. Pt remains largely withdrawn to self and poorly motivated to be involved with therapeutic aspects of treatment. 04/20- Pt appears calm, cooperative, appropriate, organized and oriented. He is compliant with medication regiment but remains insistant that he does not need medication and that he does not have mental illness. He remains largely withdrawn to self with poor interaction on unit. No noted agitation or aggression suggesting some implementation of coping/emotional regulation skills to moderate any distress. Insight into condition and need for care appeared poor. Pt has an admission date for [facility] of 04/26. Group Spec/RT/OT/MELGAR Present: Elgin Salcedo, OT, Maynor Stahl, TALIA Group Spec/RT/OT/MELGAR Input: Pt attends select groups but often isolates to self. Pt attends only a few groups and remains largely to himself on unit. 04/13- Pt attends food related groups but does not initiate with others 04/20- Pt attends select groups and appears calm and cooperative. Discharge Plan Other Pt has been referred to [facility] and will be admitted there on 04/26. Documentation Scribe: Justice Bernard, Justice Saul LM Apr 20, 2017 10:56
--- NOTE | 2017-04-20 10:57 | PD.TTN ---
Patient Problems 1. Discharge planning 2. Medication compliance 3. Knowledge deficit 4. Lack of coping skills Progress Toward Goals Provider Present: Dr. 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 Pt will continue on current medication regiment for further stabilization while awaiting placement at [facility]. 04/20 Pt medication regiment has been finalized and no changes will be made. He has been referred to [facility] and will remain on unit until admitted there. 04/13- Pt medication regiment will continue to be evaluated and pt remains on the wait list for [facility]. Nurse(s) Present: Joy Malone RN Nurse(s) Input: Pt appears to isolate to himself yet is pleasant with poor self care. Pt slept and appears appropriate on unit. Pt remains cooperative, appropriate, organized, withdrawn to self and requiring prompting for ADLs. 04/20- Joan Narvaez RN Pt appears calm, cooperative, appropriate, compliant with medication regiment, pleasant, withdrawn and with no sleep/appetite disturbance. 04/13- Pt appears preoccupied, delusional, cooperative, appropriate and compliant with medication regiment. Psychiatric Counselors Present: RUBY Anderson Psych Therapist Input: Pt continues to appear calm, appropriate, organized, intrusive, childlike, withdrawn to self and with poor insight. He continues to deny medication noncompliance desipte ongoing active issues with this. Insight into condition and need for care remains poor. Pt appears able to regulate emotions suggesting possible use of coping skills though it is likely there are some deficits present. Pt presents as no behavioral problem on unit at this time. Pt remains calm, cooperative, appropriate and pleasant with increasing compliance with medication regiment however he insists that he does not need medication as he has poor insight into condition. He appears somewhat goal oriented though goals are not realistic. He appears to be able to implement coping skills as he has not had any angry outbursts though he struggles to cope with the depression that he seems to be experiencing as he has been withdrawn. 04/13- Pt appears calm, cooperative, appropriate, organized and oriented. He is compliant with medication regiment but insists that he does not feel he needs medication suggesting that he likely would become decompensated at a lower level of care. He presents with poor insight into condition and need for care. No noted agitation or aggression. Pt appears somewhat preoccupied at times though these symptoms have improved since admission. Pt remains largely withdrawn to self and poorly motivated to be involved with therapeutic aspects of treatment. 04/20- Pt appears calm, cooperative, appropriate, organized and oriented. He is compliant with medication regiment but remains insistant that he does not need medication and that he does not have mental illness. He remains largely withdrawn to self with poor interaction on unit. No noted agitation or aggression suggesting some implementation of coping/emotional regulation skills to moderate any distress. Insight into condition and need for care appeared poor. Pt has an admission date for [facility] of 04/26. Group Spec/RT/OT/MELGAR Present: Elgin Salcedo, OT, Maynor Stahl, TALIA Group Spec/RT/OT/MELGAR Input: Pt attends select groups but often isolates to self. Pt attends only a few groups and remains largely to himself on unit. 04/13- Pt attends food related groups but does not initiate with others 04/20- Pt attends select groups and appears calm and cooperative. Discharge Plan Other Pt has been referred to [facility] and will be admitted there on 04/26. Documentation Scribe: Justice Bernard, Justice Saul LM Apr 20, 2017 10:56
--- NOTE | 2017-04-20 10:57 | PD.TTN ---
Patient Problems 1. Discharge planning 2. Medication compliance 3. Knowledge deficit 4. Lack of coping skills Progress Toward Goals Provider Present: Dr. Karl Valdivia Provider Input: Medication regiment will continue to be evaluated and pt [facility] higher level of services manager long term care. Pt will continue on current medication regiment for further stabilization while awaiting placement at [facility]. 04/20 Pt medication regiment has been finalized and no changes will be made. He has been [facility] and will remain on unit until admitted there. 04/13- Pt medication regiment will continue to be evaluated and pt remains on the wait list for [facility]. Nurse(s) Present: Joy Malone RN Nurse(s) Input: Pt appears to isolate to himself yet is pleasant with poor self care. Pt slept and appears appropriate on unit. Pt remains cooperative, appropriate, organized, withdrawn to self and requiring prompting for ADLs. 04/20- Joan Narvaez RN Pt appears calm, cooperative, appropriate, compliant with medication regiment, pleasant, withdrawn and with no sleep/appetite disturbance. 04/13- Pt appears preoccupied, delusional, cooperative, appropriate and compliant with medication regiment. Psychiatric Counselors Present: RUBY Anderson Psych Therapist Input: Pt continues to appear calm, appropriate, organized, intrusive, childlike, withdrawn to self and with poor insight. He continues to deny medication noncompliance desipte ongoing active issues with this. Insight into condition and need for care remains poor. Pt appears able to regulate emotions suggesting possible use of coping skills though it is likely there are some deficits present. Pt presents as no behavioral problem on unit at this time. Pt remains calm, cooperative, appropriate and pleasant with increasing compliance with medication regiment however he insists that he does not need medication as he has poor insight into condition. He appears somewhat goal oriented though goals are not realistic. He appears to be able to implement coping skills as he has not had any angry outbursts though he struggles to cope with the depression that he seems to be experiencing as he has been withdrawn. 04/13- Pt appears calm, cooperative, appropriate, organized and oriented. He is compliant with medication regiment but insists that he does not feel he needs medication suggesting that he likely would become decompensated at a lower level of care. He presents with poor insight into condition and need for care. No noted agitation or aggression. Pt appears somewhat preoccupied at times though these symptoms have improved since admission. Pt remains largely withdrawn to self and poorly motivated to be involved with therapeutic aspects of treatment. 04/20- Pt appears calm, cooperative, appropriate, organized and oriented. He is compliant with medication regiment but remains insistant that he does not need medication and that he does not have mental illness. He remains largely withdrawn to self with poor interaction on unit. No noted agitation or aggression suggesting some implementation of coping/emotional regulation skills to moderate any distress. Insight into condition and need for care appeared poor. Pt has an admission date [facility]. Group Spec/RT/OT/MELGAR Present: Elgin Salcedo, OT, Maynor Stahl, TALIA Group Spec/RT/OT/MELGAR Input: Pt attends select groups but often isolates to self. Pt attends only a few groups and remains largely to himself on unit. 04/13- Pt attends food related groups but does not initiate with others 04/20- Pt attends select groups and appears calm and cooperative. Discharge Plan Other Pt [facility] been [facility] and will be admitted there on 04/26. Documentation Scribe: Justice Bernard, Justice Saul LM Apr 20, 2017 10:56
[2017-04-20 16:51] VITALS: BP 135/74; PULSE 73; RESP 18; TEMP 98.1; O2SAT 96
[2017-04-20] MEDS: ATORVASTATIN 20 MG TAB PO SCH ×2 (21:13)
[2017-04-21 05:51] VITALS: BP 111/70; PULSE 58; RESP 17; TEMP 97.1; O2SAT 96
[2017-04-21] MEDS: BENZTROPINE MESYLATE 1 MG TAB PO SCH ×4 (07:59→20:00)
[2017-04-21] MEDS: amLODIPine BESYLATE 5 MG TAB PO SCH ×4 (08:00→20:00)
[2017-04-21] MEDS: clonazePAM 1 MG TAB PO SCH ×4 (08:00→20:00)
[2017-04-21] MEDS: LISINOPRIL 5 MG TAB PO SCH ×2 (08:00)
[2017-04-21] MEDS: PROPRANOLOL HCL 10 MG TAB PO SCH ×6 (08:00→20:01)
[2017-04-21] MEDS: SODIUM CHLORIDE 1 GRAM TAB PO SCH ×4 (08:01→20:00)
[2017-04-21] MEDS: fluPHENAZine HCL ELIXIR 2.5 MG/5 ML UDC PO SCH ×6 (08:01→20:59)
--- NOTE | 2017-04-21 09:46 | HHI.PYPN ---
Subjective Remarks Patient seen and examined with nurse. Chart reviewed. Case discussed with nursing staff. No behavioral issues noted. On my examination today, the patient is in good spirits. He is calm and cooperative. He denies audiovisual hallucinations. No side effects from medications. No physical complaints. Review of Systems ROS Limitations: Poor Historian Except as stated in HPI: all other systems reviewed are Neg Mental Status Examination Appearance: Appropriate Consciousness: Alert Orientation: Person, Place Motor Activity: Other (no abnormal motor movements noted) Speech: Unremarkable Fund of Knowledge: Poor Memory: Impaired Mood: Appropriate (euthymic) Affect: Other (childlike) Thought Process & Associations: Linear Hallucination Type: None Delusion Type: None Suicidal Ideation: No Homicidal Ideation: No Insight: Poor Judgment: Poor Results Labs Labs reviewed Vitals/IOs Vital Signs Date Time Temp Pulse Resp B/P (MAP) Pulse Ox O2 Delivery O2 Flow Rate FiO2 04/21/17 05:51 97.1 58 17 111/70 (84) 96 Assessment & Plan Problem List: (1) Schizoaffective disorder ICD Codes: F25.9 - Schizoaffective disorder, unspecified Status: Acute (2) Intellectual disability ICD Codes: F79 - Unspecified intellectual disabilities Status: Chronic Assessment & Plan Continue Prolixin and other psychiatric medications as ordered. Continue to monitor on the inpatient unit. Continue other care as ordered. Justification for Cont. Inpt. High risk for decompensation in less restrictive environment Discharge Planning [facility] psychiatric hospital admission date 04/26 Request HC Surrog/Guard Advoc?: Yes Problem Qualifiers (1) Schizoaffective disorder: Qualified Codes: F25.0 - Schizoaffective disorder, bipolar type Larry Valdivia MD Apr 21, 2017 09:45
[2017-04-21 17:47] VITALS: BP 122/78; PULSE 77; RESP 17; TEMP 97.5; O2SAT 95
[2017-04-21] MEDS: ATORVASTATIN 20 MG TAB PO SCH ×2 (20:00)
[2017-04-22 06:01] VITALS: BP 121/69; PULSE 62; RESP 16; TEMP 97.6
[2017-04-22] MEDS: PROPRANOLOL HCL 10 MG TAB PO SCH ×6 (09:00→21:45)
[2017-04-22] MEDS: clonazePAM 1 MG TAB PO SCH ×4 (09:42→21:04)
[2017-04-22] MEDS: fluPHENAZine HCL ELIXIR 2.5 MG/5 ML UDC PO SCH ×4 (09:42→21:55)
[2017-04-22] MEDS: amLODIPine BESYLATE 5 MG TAB PO SCH ×6 (09:42→21:04)
[2017-04-22] MEDS: LISINOPRIL 5 MG TAB PO SCH ×2 (09:43)
[2017-04-22] MEDS: SODIUM CHLORIDE 1 GRAM TAB PO SCH ×4 (09:43→21:55)
[2017-04-22] MEDS: BENZTROPINE MESYLATE 1 MG TAB PO SCH ×4 (09:43→21:04)
--- NOTE | 2017-04-22 11:05 | HHI.PYPN ---
Subjective Remarks Patient seen and examined. Chart reviewed. Case discussed with nursing staff. No behavioral problems overnight. On my examination today, patient is calm and cooperative with interview. He remains childlike. No psychotic symptoms. Denies side effects from medications. No physical complaints. Review of Systems ROS Limitations: Poor Historian Except as stated in HPI: all other systems reviewed are Neg Mental Status Examination Appearance: Appropriate Consciousness: Alert Orientation: Person, Place Motor Activity: Other (No motoric abnormalities noted) Speech: Unremarkable Fund of Knowledge: Poor Memory: Impaired Mood: Good Affect: Other (remains quite childlike) Thought Process & Associations: Linear Hallucination Type: None Delusion Type: None Suicidal Ideation: No Homicidal Ideation: No Insight: Poor Judgment: Poor Results Labs Labs reviewed. Vitals/IOs Vital Signs Date Time Temp Pulse Resp B/P (MAP) Pulse Ox O2 Delivery O2 Flow Rate FiO2 04/22/17 06:01 97.6 62 16 121/69 (86) 04/21/17 17:47 95 Assessment & Plan Problem List: (1) Schizoaffective disorder ICD Codes: F25.9 - Schizoaffective disorder, unspecified Status: Acute (2) Intellectual disability ICD Codes: F79 - Unspecified intellectual disabilities Status: Chronic Assessment & Plan Continue oral Prolixin supplementing Prolixin Decanoate. Continue Klonopin, Cogentin and Inderal as ordered. Continue to monitor on the inpatient unit. Continue other care as ordered. Justification for Cont. Inpt. High risk for decompensation in a less restrictive environment Discharge Planning [facility] psychiatric hospital admission date 04/26/2017 Request HC Surrog/Guard Advoc?: Yes Problem Qualifiers (1) Schizoaffective disorder: Qualified Codes: F25.0 - Schizoaffective disorder, bipolar type Larry Valdivia MD Apr 22, 2017 11:05
[2017-04-22] MEDS: ATORVASTATIN 20 MG TAB PO SCH ×2 (21:04)
[2017-04-23 06:31] VITALS: BP 120/72; PULSE 56; RESP 16; TEMP 97.4; O2SAT 95
[2017-04-23] MEDS: BENZTROPINE MESYLATE 1 MG TAB PO SCH ×4 (09:34→20:52)
[2017-04-23] MEDS: amLODIPine BESYLATE 5 MG TAB PO SCH ×4 (09:34→20:53)
[2017-04-23] MEDS: SODIUM CHLORIDE 1 GRAM TAB PO SCH ×4 (09:35→20:52)
[2017-04-23] MEDS: LISINOPRIL 5 MG TAB PO SCH ×2 (09:35)
[2017-04-23] MEDS: fluPHENAZine HCL ELIXIR 2.5 MG/5 ML UDC PO SCH ×4 (09:35→22:34)
[2017-04-23] MEDS: clonazePAM 1 MG TAB PO SCH ×4 (09:36→20:52)
[2017-04-23] MEDS: PROPRANOLOL HCL 10 MG TAB PO SCH ×6 (09:38→20:53)
--- NOTE | 2017-04-23 10:44 | PD.TTN ---
Patient Problems 1. Discharge planning 2. Medication compliance 3. Knowledge deficit 4. Lack of coping skills Progress Toward Goals Provider Present: Dr. Karl Valdivia Provider Input: Medication regiment will continue to be evaluated and pt has been referred to [facility] for higher level of services senior care. Pt will continue on current medication regiment for further stabilization while awaiting placement at [facility]. 04/20 Pt medication regiment has been finalized and no changes will be made. He has been referred to [facility] and will remain on unit until admitted there. 04/13- Pt medication regiment will continue to be evaluated and pt remains on the wait list for [facility]. 04/23/17 Patient's medication regiment will remain the same. Patient has been accepted to [facility] April 262015 Nurse(s) Present: Joy Malone RN Nurse(s) Input: Pt appears to isolate to himself yet is pleasant with poor self care. Pt slept and appears appropriate on unit. Pt remains cooperative, appropriate, organized, withdrawn to self and requiring prompting for ADLs. 04/20- Joan Narvaez RN Pt appears calm, cooperative, appropriate, compliant with medication regiment, pleasant, withdrawn and with no sleep/appetite disturbance. 04/13- Pt appears preoccupied, delusional, cooperative, appropriate and compliant with medication regiment. 04/23/17 Patient's nurse Joy reports patient is pleasant, cooperative participating in some groups. No behavioral problem Psychiatric Counselors Present: Justice Bernard, [facility], Erin Beckwith [facility] Psych Therapist Input: Pt continues to appear calm, appropriate, organized, intrusive, childlike, withdrawn to self and with poor insight. He continues to deny medication noncompliance desipte ongoing active issues with this. Insight into condition and need for care remains poor. Pt appears able to regulate emotions suggesting possible use of coping skills though it is likely there are some deficits present. Pt presents as no behavioral problem on unit at this time. Pt remains calm, cooperative, appropriate and pleasant with increasing compliance with medication regiment however he insists that he does not need medication as he has poor insight into condition. He appears somewhat goal oriented though goals are not realistic. He appears to be able to implement coping skills as he has not had any angry outbursts though he struggles to cope with the depression that he seems to be experiencing as he has been withdrawn. 04/13- Pt appears calm, cooperative, appropriate, organized and oriented. He is compliant with medication regiment but insists that he does not feel he needs medication suggesting that he likely would become decompensated at a lower level of care. He presents with poor insight into condition and need for care. No noted agitation or aggression. Pt appears somewhat preoccupied at times though these symptoms have improved since admission. Pt remains largely withdrawn to self and poorly motivated to be involved with therapeutic aspects of treatment. 04/20- Pt appears calm, cooperative, appropriate, organized and oriented. He is compliant with medication regiment but remains insistant that he does not need medication and that he does not have mental illness. He remains largely withdrawn to self with poor interaction on unit. No noted agitation or aggression suggesting some implementation of coping/emotional regulation skills to moderate any distress. Insight into condition and need for care appeared poor. Pt has an admission date for [facility] of 04/26. 04/23/17 Patient seen on unit. Patient presents calm, pleasant cooperative, affect apppropriate. Patient's speech is clear, organized. Patient denies suicidal and homicidal ideation. Patient did participate in group today. Patient is making effort to become more social then being withdrawn and seclusive. Patient is medication compliant, eating and sleeping ok. Patient continues to need prompting to do ADL. Patient has a State date April 262016 Group Spec/RT/OT/MELGAR Present: Elgin Salcedo, OT, TALIA Alves Group Spec/RT/OT/MELGAR Input: Pt attends select groups but often isolates to self. Pt attends only a few groups and remains largely to himself on unit. 04/13- Pt attends food related groups but does not initiate with others 04/20- Pt attends select groups and appears calm and cooperative. 04/23/17 Patient attends groups, limited participation Discharge Plan Other Pt has been referred to [facility] and will be admitted there on 04/26. Documentation Scribe: Justice Bernard, [facility] Perez [facility] Apr 23, 2017 10:44
--- NOTE | 2017-04-23 10:44 | PD.TTN ---
Patient Problems 1. Discharge planning 2. Medication compliance 3. Knowledge deficit 4. Lack of coping skills Progress Toward Goals Provider Present: Dr. Karl Valdivia Provider Input: Medication regiment will continue to be evaluated and pt has been referred to [facility] for higher level of services shelter. Pt will continue on current medication regiment for further stabilization while awaiting placement at [facility]. 04/20 Pt medication regiment has been finalized and no changes will be made. He has been referred to [facility] and will remain on unit until admitted there. 04/13- Pt medication regiment will continue to be evaluated and pt remains on the wait list for [facility]. 04/23/17 Patient's medication regiment will remain the same. Patient has been accepted to [facility] April 262015 Nurse(s) Present: Joy Malone RN Nurse(s) Input: Pt appears to isolate to himself yet is pleasant with poor self care. Pt slept and appears appropriate on unit. Pt remains cooperative, appropriate, organized, withdrawn to self and requiring prompting for ADLs. 04/20- Joan Narvaez RN Pt appears calm, cooperative, appropriate, compliant with medication regiment, pleasant, withdrawn and with no sleep/appetite disturbance. 04/13- Pt appears preoccupied, delusional, cooperative, appropriate and compliant with medication regiment. 04/23/17 Patient's nurse Joy reports patient is pleasant, cooperative participating in some groups. No behavioral problem Psychiatric Counselors Present: Justice Bernard, [facility], Erin Beckwith [facility] Psych Therapist Input: Pt continues to appear calm, appropriate, organized, intrusive, childlike, withdrawn to self and with poor insight. He continues to deny medication noncompliance desipte ongoing active issues with this. Insight into condition and need for care remains poor. Pt appears able to regulate emotions suggesting possible use of coping skills though it is likely there are some deficits present. Pt presents as no behavioral problem on unit at this time. Pt remains calm, cooperative, appropriate and pleasant with increasing compliance with medication regiment however he insists that he does not need medication as he has poor insight into condition. He appears somewhat goal oriented though goals are not realistic. He appears to be able to implement coping skills as he has not had any angry outbursts though he struggles to cope with the depression that he seems to be experiencing as he has been withdrawn. 04/13- Pt appears calm, cooperative, appropriate, organized and oriented. He is compliant with medication regiment but insists that he does not feel he needs medication suggesting that he likely would become decompensated at a lower level of care. He presents with poor insight into condition and need for care. No noted agitation or aggression. Pt appears somewhat preoccupied at times though these symptoms have improved since admission. Pt remains largely withdrawn to self and poorly motivated to be involved with therapeutic aspects of treatment. 04/20- Pt appears calm, cooperative, appropriate, organized and oriented. He is compliant with medication regiment but remains insistant that he does not need medication and that he does not have mental illness. He remains largely withdrawn to self with poor interaction on unit. No noted agitation or aggression suggesting some implementation of coping/emotional regulation skills to moderate any distress. Insight into condition and need for care appeared poor. Pt has an admission date for [facility] of 04/26. 04/23/17 Patient seen on unit. Patient presents calm, pleasant cooperative, affect apppropriate. Patient's speech is clear, organized. Patient denies suicidal and homicidal ideation. Patient did participate in group today. Patient is making effort to become more social then being withdrawn and seclusive. Patient is medication compliant, eating and sleeping ok. Patient continues to need prompting to do ADL. Patient has a State date April 262016 Group Spec/RT/OT/MELGAR Present: Elgin Salcedo, OT, TALIA Alves Group Spec/RT/OT/MELGAR Input: Pt attends select groups but often isolates to self. Pt attends only a few groups and remains largely to himself on unit. 04/13- Pt attends food related groups but does not initiate with others 04/20- Pt attends select groups and appears calm and cooperative. 04/23/17 Patient attends groups, limited participation Discharge Plan Other Pt has been [facility] and will be admitted there on 04/26. Documentation Scribe: Justice Bernard, Erin Perez [facility] Apr 23, 2017 10[facility]44
--- NOTE | 2017-04-23 10:44 | PD.TTN ---
Patient Problems 1. Discharge planning 2. Medication compliance 3. Knowledge deficit 4. Lack of coping skills Progress Toward Goals Provider Present: Dr. Karl Valdivia Provider Input: Medication regiment will continue to be evaluated and pt has been referred to [facility] for higher level of services assisted. Pt will continue on current medication regiment for further stabilization while awaiting placement at [facility]. 04/20 Pt medication regiment has been finalized and no changes will be made. He has been referred to [facility] and will remain on unit until admitted there. 04/13- Pt medication regiment will continue to be evaluated and pt remains on the wait list for [facility]. 04/23/17 Patient's medication regiment will remain the same. Patient has been accepted to [facility] April 262015 Nurse(s) Present: Joy Malone RN Nurse(s) Input: Pt appears to isolate to himself yet is pleasant with poor self care. Pt slept and appears appropriate on unit. Pt remains cooperative, appropriate, organized, withdrawn to self and requiring prompting for ADLs. 04/20- Joan Narvaez RN Pt appears calm, cooperative, appropriate, compliant with medication regiment, pleasant, withdrawn and with no sleep/appetite disturbance. 04/13- Pt appears preoccupied, delusional, cooperative, appropriate and compliant with medication regiment. 04/23/17 Patient's nurse Joy reports patient is pleasant, cooperative participating in some groups. No behavioral problem Psychiatric Counselors Present: Justice Bernard, [facility], Erin Beckwith [facility] Psych Therapist Input: Pt continues to appear calm, appropriate, organized, intrusive, childlike, withdrawn to self and with poor insight. He continues to deny medication noncompliance desipte ongoing active issues with this. Insight into condition and need for care remains poor. Pt appears able to regulate emotions suggesting possible use of coping skills though it is likely there are some deficits present. Pt presents as no behavioral problem on unit at this time. Pt remains calm, cooperative, appropriate and pleasant with increasing compliance with medication regiment however he insists that he does not need medication as he has poor insight into condition. He appears somewhat goal oriented though goals are not realistic. He appears to be able to implement coping skills as he has not had any angry outbursts though he struggles to cope with the depression that he seems to be experiencing as he has been withdrawn. 04/13- Pt appears calm, cooperative, appropriate, organized and oriented. He is compliant with medication regiment but insists that he does not feel he needs medication suggesting that he likely would become decompensated at a lower level of care. He presents with poor insight into condition and need for care. No noted agitation or aggression. Pt appears somewhat preoccupied at times though these symptoms have improved since admission. Pt remains largely withdrawn to self and poorly motivated to be involved with therapeutic aspects of treatment. 04/20- Pt appears calm, cooperative, appropriate, organized and oriented. He is compliant with medication regiment but remains insistant that he does not need medication and that he does not have mental illness. He remains largely withdrawn to self with poor interaction on unit. No noted agitation or aggression suggesting some implementation of coping/emotional regulation skills to moderate any distress. Insight into condition and need for care appeared poor. Pt has an admission date for [facility] of 04/26. 04/23/17 Patient seen on unit. Patient presents calm, pleasant cooperative, affect apppropriate. Patient's speech is clear, organized. Patient denies suicidal and homicidal ideation. Patient did participate in group today. Patient is making effort to become more social then being withdrawn and seclusive. Patient is medication compliant, eating and sleeping ok. Patient continues to need prompting to do ADL. Patient has a State date April 262016 Group Spec/RT/OT/MELGAR Present: Elgin Salcedo, OT, TALIA Alves Group Spec/RT/OT/MELGAR Input: Pt attends select groups but often isolates to self. Pt attends only a few groups and remains largely to himself on unit. 04/13- Pt attends food related groups but does not initiate with others 04/20- Pt attends select groups and appears calm and cooperative. 04/23/17 Patient attends groups, limited participation Discharge Plan Other Pt has been referred to [facility] and will be admitted there on 04/26. Documentation Scribe: Justice Bernard, Erin Perez [facility] Apr 23, 2017 10:44
--- NOTE | 2017-04-23 16:27 | HHI.PYPN ---
Subjective Remarks Patient seen and examined. Chart reviewed. Case discussed in treatment team. 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 No behaviors overnight per nursing staff. On my exam, patient is in good spirits. He denies any SI/HI/AVH. Remains childlike. Denies side effects from meds. No physical complaints. I remind patient of upcoming transfer to [facility], and he receives this information well. I offer him a PRN for anxiety Wednesday morning, but he declines. Review of Systems ROS Limitations: Poor Historian Except as stated in HPI: all other systems reviewed are Neg Mental Status Examination Appearance: Appropriate Consciousness: Alert Orientation: Person, Place Motor Activity: Other (No abnormal motor movements noted.) Speech: Unremarkable Fund of Knowledge: Poor Attention and Concentration: Adequate Memory: Impaired Mood: Good Affect: Other (childlike) Thought Process & Associations: Linear Hallucination Type: None Delusion Type: None Suicidal Ideation: No Homicidal Ideation: No Insight: Poor Judgment: Poor Results Labs Labs reviewed. Vitals/IOs Vital Signs Date Time Temp Pulse Resp B/P (MAP) Pulse Ox O2 Delivery O2 Flow Rate FiO2 04/23/17 06:31 97.4 56 16 120/72 (88) 95 Assessment & Plan Problem List: (1) Schizoaffective disorder ICD Codes: F25.9 - Schizoaffective disorder, unspecified Status: Acute (2) Intellectual disability ICD Codes: F79 - Unspecified intellectual disabilities Status: Chronic Assessment & Plan Continue current psychiatric medications as ordered. Patient does have Ativan as needed ordered should he change his mind regarding PRN Wednesday. Continue to monitor on inpatient unit. Continue other meds and care as ordered. Justification for Cont. Inpt. Risk for decompensation. Discharge Planning To [facility] 04/26/2017. D/c order placed and meds reconciled for early Wednesday discharge. Request HC Surrog/Guard Advoc?: Yes Problem Qualifiers (1) Schizoaffective disorder: Qualified Codes: F25.0 - Schizoaffective disorder, bipolar type Larry Valdivia MD Apr 23, 2017 16:27
--- NOTE | 2017-04-23 16:27 | HHI.PYPN ---
Subjective Remarks Patient seen and examined. Chart reviewed. Case discussed in treatment team. 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 No behaviors overnight per nursing staff. On my exam, patient is in good spirits. He denies any SI/HI/AVH. Remains childlike. Denies side effects from meds. No physical complaints. I remind patient of upcoming transfer to [facility], and he receives this information well. I offer him a PRN for anxiety Wednesday morning, but he declines. Review of Systems ROS Limitations: Poor Historian Except as stated in HPI: all other systems reviewed are Neg Mental Status Examination Appearance: Appropriate Consciousness: Alert Orientation: Person, Place Motor Activity: Other (No abnormal motor movements noted.) Speech: Unremarkable Fund of Knowledge: Poor Attention and Concentration: Adequate Memory: Impaired Mood: Good Affect: Other (childlike) Thought Process & Associations: Linear Hallucination Type: None Delusion Type: None Suicidal Ideation: No Homicidal Ideation: No Insight: Poor Judgment: Poor Results Labs Labs reviewed. Vitals/IOs Vital Signs Date Time Temp Pulse Resp B/P (MAP) Pulse Ox O2 Delivery O2 Flow Rate FiO2 04/23/17 06:31 97.4 56 16 120/72 (88) 95 Assessment & Plan Problem List: (1) Schizoaffective disorder ICD Codes: F25.9 - Schizoaffective disorder, unspecified Status: Acute (2) Intellectual disability ICD Codes: F79 - Unspecified intellectual disabilities Status: Chronic Assessment & Plan Continue current psychiatric medications as ordered. Patient does have Ativan as needed ordered should he change his mind regarding PRN Wednesday. Continue to monitor on inpatient unit. Continue other meds and care as ordered. Justification for Cont. Inpt. Risk for decompensation. Discharge Planning To [facility] 04/26/2017. D/c order placed and meds reconciled for early Wednesday discharge. Request HC Surrog/Guard Advoc?: Yes Problem Qualifiers (1) Schizoaffective disorder: Qualified Codes: F25.0 - Schizoaffective disorder, bipolar type Larry Valdivia MD Apr 23, 2017 16:27
--- NOTE | 2017-04-23 16:27 | HHI.PYPN ---
Subjective Remarks Patient seen and examined. Chart reviewed. Case discussed in treatment team. 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 No behaviors overnight per nursing staff. On my exam, patient is in good spirits. He denies any SI/HI/AVH. Remains childlike. Denies side effects from meds. No physical complaints. I remind patient of upcoming transfer to [facility], and he receives this information well. I offer him a PRN for anxiety Wednesday morning, but he declines. Review of Systems ROS Limitations: Poor Historian Except as stated in HPI: all other systems reviewed are Neg Mental Status Examination Appearance: Appropriate Consciousness: Alert Orientation: Person, Place Motor Activity: Other (No abnormal motor movements noted.) Speech: Unremarkable Fund of Knowledge: Poor Attention and Concentration: Adequate Memory: Impaired Mood: Good Affect: Other (childlike) Thought Process & Associations: Linear Hallucination Type: None Delusion Type: None Suicidal Ideation: No Homicidal Ideation: No Insight: Poor Judgment: Poor Results Labs Labs reviewed. Vitals/IOs Vital Signs Date Time Temp Pulse Resp B/P (MAP) Pulse Ox O2 Delivery O2 Flow Rate FiO2 04/23/17 06:31 97.4 56 16 120/72 (88) 95 Assessment & Plan Problem List: (1) Schizoaffective disorder ICD Codes: F25.9 - Schizoaffective disorder, unspecified Status: Acute (2) Intellectual disability ICD Codes: F79 - Unspecified intellectual disabilities Status: Chronic Assessment & Plan Continue current psychiatric medications as ordered. Patient does have Ativan as needed ordered should he change his mind regarding PRN Wednesday. Continue to monitor on inpatient unit. Continue other meds and care as ordered. Justification for Cont. Inpt. Risk for decompensation. Discharge Planning To [facility] 04/26/2017. D/c order placed and meds reconciled for early Wednesday discharge. Request HC Surrog/Guard Advoc?: Yes Problem Qualifiers (1) Schizoaffective disorder: Qualified Codes: F25.0 - Schizoaffective disorder, bipolar type Larry Valdivia MD Apr 23, 2017 16:27
[2017-04-23] MEDS ORDERED: FLUPH2.5S PO ×2 (16:32)
[2017-04-23] MEDS ORDERED: Benztropine PO ×2 (16:32)
[2017-04-23] MEDS ORDERED: FLUP1INJ IM ×2 (16:32)
[2017-04-23 18:05] VITALS: BP 114/67; PULSE 72; RESP 18; TEMP 97.7; O2SAT 97
[2017-04-23] MEDS: ATORVASTATIN 20 MG TAB PO SCH ×2 (20:52)
[2017-04-24 06:01] VITALS: BP 108/60; PULSE 65; RESP 16; TEMP 97.8; O2SAT 98
[2017-04-24] MEDS: SODIUM CHLORIDE 1 GRAM TAB PO SCH ×4 (08:30→20:53)
[2017-04-24] MEDS: fluPHENAZine HCL ELIXIR 2.5 MG/5 ML UDC PO SCH ×4 (08:30→21:45)
[2017-04-24] MEDS: BENZTROPINE MESYLATE 1 MG TAB PO SCH ×4 (08:30→20:53)
[2017-04-24] MEDS: clonazePAM 1 MG TAB PO SCH ×4 (08:30→20:53)
[2017-04-24] MEDS: PROPRANOLOL HCL 10 MG TAB PO SCH ×6 (09:00→21:44)
[2017-04-24] MEDS: LISINOPRIL 5 MG TAB PO SCH ×2 (09:00)
[2017-04-24] MEDS: amLODIPine BESYLATE 5 MG TAB PO SCH ×4 (09:00→20:53)
--- NOTE | 2017-04-24 14:22 | HHI.PYPN ---
Subjective Remarks Pt seen and discussed with staff. He has been compliant with medications and care. No behavioral problems on unit. No SI/HI. Pt is cooperative and pleasant, but insight remains poor Mental Status Examination Appearance: Appropriate Consciousness: Alert Orientation: Person, Place Motor Activity: Other (No abnormal motor movements noted.) Speech: Unremarkable Fund of Knowledge: Poor Attention and Concentration: Adequate Memory: Impaired Mood: Good Affect: Other (childlike) Thought Process & Associations: Linear Hallucination Type: None Delusion Type: None Suicidal Ideation: No Homicidal Ideation: No Insight: Poor Judgment: Poor Results Vitals/IOs Vital Signs Date Time Temp Pulse Resp B/P (MAP) Pulse Ox O2 Delivery O2 Flow Rate FiO2 04/24/17 06:01 97.8 65 16 108/60 (76) 98 Assessment & Plan Problem List: (1) Schizoaffective disorder ICD Codes: F25.9 - Schizoaffective disorder, unspecified Status: Acute (2) Intellectual disability ICD Codes: F79 - Unspecified intellectual disabilities Status: Chronic Assessment & Plan Continue current tx plan. Pt will be transferring to [facility] next week. Estimated LOS: days Justification for Cont. Inpt. impairments in reality construction and self care Request HC Surrog/Guard Advoc?: Yes Problem Qualifiers (1) Schizoaffective disorder: Qualified Codes: F25.0 - Schizoaffective disorder, bipolar type Shantal Dowell MD Apr 24, 2017 14:22
--- NOTE | 2017-04-24 14:22 | HHI.PYPN ---
Subjective Remarks Pt seen and discussed with staff. He has been compliant with medications and care. No behavioral problems on unit. No SI/HI. Pt is cooperative and pleasant, but insight remains poor Mental Status Examination Appearance: Appropriate Consciousness: Alert Orientation: Person, Place Motor Activity: Other (No abnormal motor movements noted.) Speech: Unremarkable Fund of Knowledge: Poor Attention and Concentration: Adequate Memory: Impaired Mood: Good Affect: Other (childlike) Thought Process & Associations: Linear Hallucination Type: None Delusion Type: None Suicidal Ideation: No Homicidal Ideation: No Insight: Poor Judgment: Poor Results Vitals/IOs Vital Signs Date Time Temp Pulse Resp B/P (MAP) Pulse Ox O2 Delivery O2 Flow Rate FiO2 04/24/17 06:01 97.8 65 16 108/60 (76) 98 Assessment & Plan Problem List: (1) Schizoaffective disorder ICD Codes: F25.9 - Schizoaffective disorder, unspecified Status: Acute (2) Intellectual disability ICD Codes: F79 - Unspecified intellectual disabilities Status: Chronic Assessment & Plan Continue current tx plan. Pt will be transferring to [facility] next week. Estimated LOS: days Justification for Cont. Inpt. impairments in reality construction and self care Request HC Surrog/Guard Advoc?: Yes Problem Qualifiers (1) Schizoaffective disorder: Qualified Codes: F25.0 - Schizoaffective disorder, bipolar type Shantal Dowell MD Apr 24, 2017 14:22
--- NOTE | 2017-04-24 14:22 | HHI.PYPN ---
Subjective Remarks Pt seen and discussed with staff. He has been compliant with medications and care. No behavioral problems on unit. No SI/HI. Pt is cooperative and pleasant, but insight remains poor Mental Status Examination Appearance: Appropriate Consciousness: Alert Orientation: Person, Place Motor Activity: Other (No abnormal motor movements noted.) Speech: Unremarkable Fund of Knowledge: Poor Attention and Concentration: Adequate Memory: Impaired Mood: Good Affect: Other (childlike) Thought Process & Associations: Linear Hallucination Type: None Delusion Type: None Suicidal Ideation: No Homicidal Ideation: No Insight: Poor Judgment: Poor Results Vitals/IOs Vital Signs Date Time Temp Pulse Resp B/P (MAP) Pulse Ox O2 Delivery O2 Flow Rate FiO2 04/24/17 06:01 97.8 65 16 108/60 (76) 98 Assessment & Plan Problem List: (1) Schizoaffective disorder ICD Codes: F25.9 - Schizoaffective disorder, unspecified Status: Acute (2) Intellectual disability ICD Codes: F79 - Unspecified intellectual disabilities Status: Chronic Assessment & Plan Continue current tx plan. Pt will be transferring to [facility] next week. Estimated LOS: days Justification for Cont. Inpt. impairments in reality construction and self care Request HC Surrog/Guard Advoc?: Yes Problem Qualifiers (1) Schizoaffective disorder: Qualified Codes: F25.0 - Schizoaffective disorder, bipolar type Shantal Dowell MD Apr 24, 2017 14:22
[2017-04-24 18:25] VITALS: BP 118/75; PULSE 77; RESP 18; TEMP 97.6; O2SAT 98
[2017-04-24] MEDS: ATORVASTATIN 20 MG TAB PO SCH ×2 (20:53)
[2017-04-25 06:00] VITALS: BP 118/70; PULSE 64; RESP 16; TEMP 97.4; O2SAT 95
[2017-04-25] MEDS: BENZTROPINE MESYLATE 1 MG TAB PO SCH ×4 (08:42→20:16)
[2017-04-25] MEDS: fluPHENAZine HCL ELIXIR 2.5 MG/5 ML UDC PO SCH ×4 (08:42→20:16)
[2017-04-25] MEDS: clonazePAM 1 MG TAB PO SCH ×4 (08:42→20:16)
[2017-04-25] MEDS: amLODIPine BESYLATE 5 MG TAB PO SCH ×4 (08:43→20:15)
[2017-04-25] MEDS: LISINOPRIL 5 MG TAB PO SCH ×2 (08:43)
[2017-04-25] MEDS: SODIUM CHLORIDE 1 GRAM TAB PO SCH ×4 (08:43→20:15)
[2017-04-25] MEDS: PROPRANOLOL HCL 10 MG TAB PO SCH ×6 (08:46→20:15)
[2017-04-25 12:30] VITALS: BP 120/76; PULSE 64; RESP 17
--- NOTE | 2017-04-25 13:56 | HHI.PYPN ---
Subjective Remarks Pt seen and discussed with staff. He has been isolative to room. No aggression or agitation. He is compliant with medications. He continues to perseverate on family members and states he is upset that they do not visit him anymore. Mental Status Examination Appearance: Appropriate Consciousness: Alert Orientation: Person, Place Motor Activity: Other (No abnormal motor movements noted.) Speech: Unremarkable Fund of Knowledge: Poor Attention and Concentration: Adequate Memory: Impaired Mood: Good Affect: Other (childlike) Thought Process & Associations: Linear Hallucination Type: None Delusion Type: None Suicidal Ideation: No Homicidal Ideation: No Insight: Poor Judgment: Poor Results Vitals/IOs Vital Signs Date Time Temp Pulse Resp B/P (MAP) Pulse Ox O2 Delivery O2 Flow Rate FiO2 04/25/17 12:30 64 17 120/76 (91) 04/25/17 06:00 97.4 95 Assessment & Plan Problem List: (1) Schizoaffective disorder ICD Codes: F25.9 - Schizoaffective disorder, unspecified Status: Acute (2) Intellectual disability ICD Codes: F79 - Unspecified intellectual disabilities Status: Chronic Assessment & Plan Continue current tx plan. Transfer to [facility] tomorrow. Estimated LOS: days Justification for Cont. Inpt. impairments in reality testing and self care Request HC Surrog/Guard Advoc?: Yes Problem Qualifiers (1) Schizoaffective disorder: Qualified Codes: F25.0 - Schizoaffective disorder, bipolar type Shantal Dowell MD Apr 25, 2017 13:55
[2017-04-25 17:33] VITALS: BP 120/73; PULSE 86; RESP 17; TEMP 97.4; O2SAT 98
[2017-04-25] MEDS: ATORVASTATIN 20 MG TAB PO SCH ×2 (20:16)
[2017-04-26 06:34] VITALS: BP 140/79; PULSE 93; RESP 18; TEMP 97.7; O2SAT 98
[2017-04-26] MEDS: amLODIPine BESYLATE 5 MG TAB PO SCH ×2 (06:46)
[2017-04-26] MEDS: LISINOPRIL 5 MG TAB PO SCH ×2 (06:47)
[2017-04-26] MEDS: clonazePAM 1 MG TAB PO SCH ×2 (06:47)
[2017-04-26] MEDS: fluPHENAZine HCL ELIXIR 2.5 MG/5 ML UDC PO SCH ×2 (06:47)
[2017-04-26] MEDS: SODIUM CHLORIDE 1 GRAM TAB PO SCH ×2 (06:48)
[2017-04-26] MEDS: BENZTROPINE MESYLATE 1 MG TAB PO SCH ×2 (06:48)
[2017-04-26] MEDS: PROPRANOLOL HCL 10 MG TAB PO SCH ×2 (06:48)
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
== END 2017-04-26 07:45 | DRG 885 ==
LOC: NEDAMB 12:14 → NEDA 03-10 06:34 → H270 03-10 08:50 → H260 04-22 17:15
PROVIDERS: ADMIT Psychiatry & Neurology Psychiatry; ATTEND Psychiatry & Neurology Psychiatry
DX: F25.0 Schizoaffective disorder, bipolar type (principal); E87.1 Hypo-osmolality and hyponatremia; F22 Delusional disorders; F79 Unspecified intellectual disabilities; Z72.0 Tobacco use; Z91.14 Patient's other noncompliance with medication regimen; Z79.899 Other long term (current) drug therapy
CPT/HCPCS: 80048; 80053; 80061; 80307; 83036; 84295; 85025; 93005; J2680; Q0163